=== PATIENT | female | born 1975 | race Hispanic/Latino ===

== ENCOUNTER → 2017-12-31 | Day surgery (SDC) | payer MEDICARE ==
[~2017-12-31] MED LIST: Gadobenate Dimeglumine 529 MG/1 ML (20ML VIAL) ONE
--- NOTE | 2017-12-31 15:50 | MRI ---
MRI ABDOMEN WITH AND WITHOUT IV CONTRAST : (MRI angiography) HISTORY: A 42-year-old female with Crohn's disease diagnosed in 2004 and has had 15 surgeries, the most recent one in 2016. The patient recently had blood stool. Crohn's disease of small bowel with complication . FINDINGS: Correlation is made with the CT abdomen and pelvis of 03/25/17. There is a 2.4 cm mass in the right lobe of the liver which demonstrates high T2 signal and periphera l nodular enhancement with centripetal filling on postcontrast images consistent with liver hemangiom a. The spleen, pancreas, adrenal glands, and kidneys are normal. No free fluid is seen. There is t hickening of the wall of the distal ileal loop in the region of previous surgery. A focal area of ph legmonous change is seen adjacent to the distal ileal loop with abnormal postcontrast enhancement. T here is also a sinus tract in this region. No air fluid level is seen to suggest abscess formation. There are a few enlarged lymph nodes in the right ileocecal chain. The small bowel loop adjacent to the phlegmonous mass is mildly dilated. There is also mild dilatation of the right ureter likely du e to the adjacent enhancing phlegmonous mass. The bone marrow signal is normal. IMPRESSION: 1. Wall thickness and phlegmonous change in and around the distal ileum with sinus tract and no evid ence abscess formation. Adjacent mild small bowel obstruction is noted. 2. Liver hemangioma. POS: [facility]
== END ==
LOC: MRI 12:52 → EDSTATUS 13:00
PROVIDERS: ATTEND Internal Medicine Gastroenterology
DX: K50.019 Crohn's disease of small intestine with unspecified complications (principal); D18.09 Hemangioma of other sites
CPT/HCPCS: 74183; J1610; A9579

== ENCOUNTER 2018-01-05 11:57 | Inpatient (IN) | payer MEDICARE ==
[2018-01-05 12:32] LABS: #Eosinphils 0.2 thou/uL (0.0-0.7); #Lymphocytes 2.5 thou/uL (1.20-3.40); #Monocytes 0.6 thou/uL (0.11-0.59); #Neutrophils 4.3 thou/uL (1.40-6.50); %Basophils 0.3 % (0.0-1.0); %Eosinophils 3.1 % (0.0-10.0); %Lymphocytes 32.4 % (21.0-51.0); %Monocytes 7.8 % (0.0-10.0); %Neutrophils 56.4 % (42.0-75.0); Hemoglobin 13.4 g/dL (12.0-16.0); Mean Corpuscular HGB CONC 34.4 g/dL (32.0-36.0); Mean Corpuscular Hemoglobin 28.8 pg (27.0-31.0); Mean Corpuscular Volume 83.8 fl (81.0-99.0); Mean Platelet Volume 7.9 fL (7.4-10.4); Platelet Count 375 thou/uL (130-400); RBC Distribution Width 11.4 % (11.5-14.5); Red Blood Cell (RBC) Count 4.67 mill/uL (4.20-5.40); White Blood Cell (WBC) Count 7.6 thou/uL (4.8-10.8)
[2018-01-05] MEDS ORDERED: Ondansetron HCl/PF 4 MG/2 ML Vial ONE (12:50)
[2018-01-05 12:58] LABS: ALT (SGPT) 31 U/L (8-55); AST (SGOT) 39 U/L (5-34); Albumin 3.6 g/dL (3.5-5.0); Alkaline Phosphatase 208 U/L (40-150); Anion Gap 13 mmol/L (10-20); BUN (Urea Nitrogen) 5 mg/dL (7.0-18.7); Bilirubin, Total 0.4 mg/dL (0.2-1.2); Calc. Creatinine Clearance 0 mL/min (70-130); Calcium 9.5 mg/dL (7.8-10.44); Carbon Dioxide 29 mmol/L (22-29); Chloride 99 mmol/L (98-107); Estimated GFR-MDRD 86; Globulin 3.9 g/dL (2.4-3.5); Glucose 95 mg/dL (70-105); Protein, Total 7.5 g/dL (6.0-8.3); Sodium 138 mmol/L (136-145)
--- NOTE | 2018-01-05 15:30 | RAD ---
CHEST ONE VIEW ABDOMEN TWO VIEWS: History: Abdominal pain. Comparison: 01-27-14 FINDINGS: Cardiac silhouette and pulmonary vasculature are unremarkable. Mediastinum is midline. There is no co nfluent air space consolidation or evidence of free subdiaphragmatic gas. Gas and stool are apparent within the colon. Nondilated gas filled loops of small bowel are present t hroughout the abdomen. Non-differential airfluid levels are apparent on the upright view. Extensive p ost-operative changes of the abdomen are apparent. IMPRESSION: Nonspecific bowel gas pattern. Post-operative changes are noted. Findings are not suggestive of signi ficant obstruction. POS: [facility]
[2018-01-05] MEDS ORDERED: methylPREDNISolone Sod Succ/PF 125 MG/2 ML VIAL ONE (15:33)
--- NOTE | 2018-01-05 15:40 | CON ---
DATE OF CONSULTATION: 01/05/2018 CHIEF COMPLAINT: Abdominal pain, Crohn's. HISTORY OF PRESENT ILLNESS: This is a 42-year-old female who has had multiple operations for Crohn's disease and extensive adhesiolysis for scar tissue obstructions in the past by Dr. Deutsch, recent wo rsening of Crohn's symptoms, she had MRI enterography recently which revealed phlegmonous changes krystyna r the previous ileocolonic anastomosis. The patient had some nausea, vomiting, and abdominal pain is described as crampy, but not severe. No fevers or chills. She was told by Dr. Morgan to come in our [facility] emergency room if her symptoms worsen this weekend. She certainly felt worse today, has not been a ble to keep anything down, not having any bowel movements today. Symptoms are controlled now in the emergency room after starting IV fluids, her pulse is normal. She is being admitted to the [facility] and they are going to have GI see her as well. She normally sees Dr. Morgan. PAST MEDICAL HISTORY: Includes Crohn's disease. PAST SURGICAL HISTORY: Includes appendectomy, hysterectomy, exploratory laparotomy, lysis of adhesio ns, small bowel resection, right colectomy. ALLERGIES: PENICILLIN, REGLAN, PHENERGAN. SOCIAL HISTORY: Tobacco none currently. Alcohol none. MEDICATIONS: See list. REVIEW OF SYSTEMS: Ten system review of systems otherwise negative unless described above. PHYSICAL EXAMINATION: VITAL SIGNS: Blood pressure 123/85. Her pulse is 76. She is afebrile. HEENT: Sclerae are anicteric. Oropharynx clear. NECK: No lymphadenopathy. CHEST: Clear. HEART: Regular rate and rhythm. ABDOMEN: Soft. She is mildly tender in the lower abdomen. There is no guarding or rebound. Midlin e incisions well-healed without hernia. LABORATORY AND X-RAY FINDINGS: White blood cell count is 7, hemoglobin 13, platelet count is 375. S odium 138, potassium 3.0, creatinine 0.74. Alkaline phosphatase is elevated at 208, AST is elevated at 39. On 12/31/2017 there was a MRI which reveals wall thickness and phlegmonous change in the dist al ileum without abscess. ASSESSMENT: Ongoing Crohn's disease with intractable nausea, vomiting. Plain films of abdomen here showed no obvious obstruction. White blood cell count normal. Pulse normal. PLAN: Admit to the hospital for IV fluid resuscitation. She has phlegmon on MRI, but no evidence of significant infection with normal pulse and a normal white blood cell count. At this point given he r previous surgery, I would recommend all measures to avoid surgery even if that includes longer term TPN.
[2018-01-05] MEDS ORDERED: Acetaminophen 650 MG Suppository PR PRN (15:47)
[2018-01-05] MEDS ORDERED: Acetaminophen 325 MG TAB PO PRN (15:47)
--- NOTE | 2018-01-05 16:22 | HP ---
PRIMARY CARE PHYSICIAN: None, city call. CHIEF COMPLAINT: Nausea and vomiting. HISTORY OF PRESENT ILLNESS: Ms. Lewis is a pleasant 42-year-old lady who was seen at [facility] on 01/05/2018. She has a history of Crohn's disease with multiple surgeries in the past. Since 10/2017, she has had pain in the epigastrium initially and subsequently in the mid abdomen. The pain is on and off, made worse with eating or drinking. She had MRI of the abdomen on 12/31/2017, which showed wall thicknes s and phlegmonous changes seen and around the distal ileum with sinus tract, and no evidence of absce ss formation, without adjacent mild small-bowel obstruction. She was advised by her gastroenterologi st to go to the emergency room if she develops nausea or vomiting. She started having nausea earlier today. She vomited twice. She also reports that the abdominal bria n is slightly worse. She describes it as a sensation of bloating, nonradiating, across mid abdomen, worse with eating. No known relieving factors, not accompanied by fevers or chills. She is unable t o rate the intensity of the pain. She also reports having loose stools. REVIEW OF SYSTEMS: The following complete review of systems was negative, unless otherwise mentioned in the HPI or below: Constitutional: Weight loss or gain, ability to conduct usual activities. Skin: Rash, itching. Eyes: Double vision, pain. ENT/Mouth: Nose bleeding, neck stiffness, pain, tenderness. Cardiovascular: Palpitations, dyspnea on exertion, orthopnea. Respiratory: Shortness of breath, wheezing, cough, hemoptysis, fever or night sweats. Gastrointestinal: Poor appetite, abdominal pain, heartburn, nausea, vomiting, constipation, or diarrhea. Genitourinary: Urgency, frequency, dysuria, nocturia. Musculoskeletal: Pain, swelling. Neurologic/Psychiatric: Anxiety, depression. Allergy/Immunologic: Skin rash, bleeding tendency. PAST MEDICAL HISTORY: Significant for Crohn's disease. PAST SURGICAL HISTORY: Significant for appendectomy, hysterectomy, exploratory laparotomy, adhesioly sis, small bowel resection and right colectomy. ALLERGIES: PENICILLIN, REGLAN, and PHENERGAN. SOCIAL HISTORY: She smokes 1 pack of cigarettes a day. She denies any alcohol use or recreational d rug use. FAMILY HISTORY: No family history of Crohn's disease. CURRENT MEDICATIONS: These include Entyvio 300 mg intravenously every 8 weeks, potassium chloride 40 mEq daily, pantoprazole 40 mg daily. PHYSICAL EXAMINATION: GENERAL: Ms. Lewis is awake and alert, not in acute distress. VITAL SIGNS: Blood pressure is 102/61, pulse is 75. She is breathing at rate of 16 and saturating 9 7% on room air. She is afebrile. EYES: No scleral icterus. No conjunctival pallor. ENT: Moist mucosal membranes, no oropharyngeal erythema or exudates. NECK: Supple, nontender, normal range of movement, trachea is midline. RESPIRATORY: Accessory muscles of breathing are not active. Chest wall movements are symmetric bila terally. LUNGS: Clear to auscultation without wheeze, rhonchi or crepitations. ABDOMEN: Soft, mild diffuse tenderness, no guarding or rigidity, bowel sounds are heard. Multiple s cars over the abdomen. NEUROLOGIC: Cranial nerves II-XII are intact. Deep tendon reflexes are 2+. MUSCULOSKELETAL: Power is 5/5 in all 4 extremities. Normal range of movement at all major extremity joints. SKIN: No rashes or subcutaneous nodules. LYMPHATIC: No cervical lymphadenopathy. PSYCHIATRIC: Normal mood, normal affect, patient is oriented to person, place, and time. LABORATORY DATA: Ms. Lewis's labs and investigations were reviewed. She had an acute abdomen serie s x-rays, which showed nonspecific bowel gas pattern with postoperative changes, not suggestive of si gnificant obstruction. She has an unremarkable CBC, normal sodium, decreased potassium of 3.0, eleva natalya AST of 39, normal ALT, elevated alkaline phosphatase of 208 and normal albumin. ASSESSMENT AND PLAN: Ms. Lewis is a pleasant 42-year-old lady who was seen at [facility] on 01/05/2018. Her problem list includes: 1. Abdominal pain: Bowel obstruction is suspected, based on her previous MRI. Her case has been di scussed by the emergency room physician with the surgeon on-call as well as turf manager on-riley l. She has been advised to start the patient on steroids. I will admit the patient to the hospital and continue the patient on steroids. Gastroenterology Service has been consulted. 2. Hypokalemia: Replace potassium. 3. Tobacco abuse: The patient has been counseled regarding tobacco cessation. Start nicotine repla cement therapy. The patient will be kept n.p.o. today, will be provided intravenous fluids and analgesics. Many thanks for allowing me to participate in your patient's care. Please feel free to contact me wi th any questions or concerns. LEVEL OF RISK: Moderate. LEVEL OF COMPLEXITY: Moderate.
[2018-01-05] MEDS ORDERED: Potassium Chloride 40 MEQ in Sodium Chloride 0.9% 500 ML IVPB SCH (17:00)
[2018-01-05] MEDS: Nicotine 21 MG PATCH TD SCH (17:26)
[2018-01-05] MEDS: Ondansetron HCl/PF 4 MG/2 ML Vial IVP PRN (18:20)
[2018-01-05 20:07] VITALS: BMI 24.4
--- NOTE | 2018-01-05 20:09 | CON ---
DATE OF CONSULTATION: 01/05/2018 HISTORY OF PRESENT ILLNESS: The patient is a 42-year-old female, well known to Dr. Eddie sharif ith a long history of Crohn's disease. She was last seen by Dr. Morgan on 01/03/2018 and was complai harinder of pain in the upper abdomen, nausea, vomiting, no fever or chills. She is tolerating a liquid diet at that time. Her stools have been liquid without recent change. Dr. Morgan started levofloxac in and metronidazole. She was told that if she had any nausea, vomiting, come to the hospital and th at is what she did. PAST MEDICAL HISTORY: Includes Crohn's disease, iron deficiency anemia, chronic hypokalemia, vitamin D deficiency. PAST MEDICAL HISTORY: Includes multiple resections for Crohn's disease, appendectomy, cholecystectom y, hysterectomy. ALLERGIES: Include CONTRAST DYE, PHENERGAN, and REGLAN. SOCIAL HISTORY: She smokes. Does not drink alcohol. FAMILY HISTORY: Negative for inflammatory bowel disease, GI, or liver disease. REVIEW OF SYSTEMS: Constitutional: Positive for weight loss, 70 pounds over the last 12 months. No fever or chills. Eyes: No blurred vision or double vision. ENT: No sore throat or earaches. Car diovascular: No chest pain or palpitations. Pulmonary: No shortness of breath, cough, or wheezing. Skin: No rashes. Neurologic: No numbness or seizure activity. PHYSICAL EXAMINATION: GENERAL: Shows an overweight female, in no acute distress. VITAL SIGNS: Stable. She is afebrile. HEENT: Unremarkable. NECK: Supple. CHEST: Clear. CARDIOVASCULAR: Regular rate and rhythm. ABDOMEN: Soft. Diffusely tender without rebound or guarding. Bowel sounds are present and normoact angel. RECTAL: Deferred. EXTREMITIES: Normal. NEUROLOGIC: Nonfocal. LABORATORY: Shows a white blood cell count of 7.6, hemoglobin 13.4, hematocrit 39.1. Chemistries si gnificant for potassium 3.0, BUN 5, AST 39, alkaline phosphatase 208. Recent MRI of the small bowel from 12/31/2017 showed wall thickening of phlegmonous change around the distal ileum with sinus tract , and no evidence of abscess formation. Adjacent small-bowel obstruction is noted. Liver hemangioma is noted. ASSESSMENT: 1. Crohn's exacerbation. 2. Multiple resections for Crohn's disease with the probable component of short gut. 3. Chronic hypokalemia. RECOMMENDATIONS: 1. IV steroids. 2. IV antibiotics. 3. Dr. Morgan to return tomorrow.
[2018-01-05] MEDS: Rifaximin 550 MG TAB PO SCH ×2 (20:47→20:58)
[2018-01-05] MEDS: NS 0.9% w/ 40 MEQ KCL 1,000 ML IV SCH (22:32)
[2018-01-06] MEDS: Ondansetron HCl/PF 4 MG/2 ML Vial IVP PRN ×2 (01:16→08:41)
[2018-01-06] MEDS: NS 0.9% w/ 40 MEQ KCL 1,000 ML IV SCH ×3 (05:45→20:27)
[2018-01-06 06:00] LABS: #Lymphocytes 1.7 thou/uL (1.20-3.40); #Monocytes 0.1 thou/uL (0.11-0.59); #Neutrophils 5.9 thou/uL (1.40-6.50); %Eosinophils 0.3 % (0.0-10.0); %Lymphocytes 21.8 % (21.0-51.0); %Monocytes 0.9 % (0.0-10.0); %Neutrophils 76.9 % (42.0-75.0); Hemoglobin 12.2 g/dL (12.0-16.0); Mean Corpuscular HGB CONC 32.3 g/dL (32.0-36.0); Mean Corpuscular Hemoglobin 27.5 pg (27.0-31.0); Mean Corpuscular Volume 85.2 fl (81.0-99.0); Platelet Count 340 thou/uL (130-400); RBC Distribution Width 11.5 % (11.5-14.5); Red Blood Cell (RBC) Count 4.42 mill/uL (4.20-5.40); White Blood Cell (WBC) Count 7.7 thou/uL (4.8-10.8)
[2018-01-06 06:47] LABS: Anion Gap 14 mmol/L (10-20); BUN (Urea Nitrogen) 9 mg/dL (7.0-18.7); Calc. Creatinine Clearance 104 mL/min (70-130); Calcium 8.9 mg/dL (7.8-10.44); Carbon Dioxide 25 mmol/L (22-29); Chloride 107 mmol/L (98-107); Estimated GFR-MDRD Greater than 90; Glucose 115 mg/dL (70-105); Potassium 4.6 mmol/L (3.5-5.1); Sodium 141 mmol/L (136-145)
[2018-01-06] MEDS: Pantoprazole 40 MG VIAL IVP SCH (08:44)
[2018-01-06] MEDS: Rifaximin 550 MG TAB PO SCH ×2 (08:46→20:26)
[2018-01-06] MEDS ORDERED: FLU VACC QS2017-18 36 mo. & older 0.5 ML SYRINGE IM ONE (09:00)
--- NOTE | 2018-01-06 13:46 | PRG ---
DATE OF SERVICE: 01/06/2018 Ms. Lewis feels much better today. She has not eaten or drank overnight. She actually has an appet ite and wants to eat. She is receiving a nicotine patch and asked if when she goes home she can have that as well. She wants to try to stop smoking. PRESENT MEDICATIONS: Tylenol, Solu-Medrol 40 IV q.8h., nicotine patch, Zofran, Protonix, Rifaximin. PHYSICAL EXAMINATION: VITAL SIGNS: Temperature is 97, pulse 74, blood pressure 113/73. ABDOMEN: Soft, nontender. There is no rebound. There is no guarding. EXTREMITIES: No clubbing, cyanosis or edema. LABORATORY STUDIES: White count 7.7, hemoglobin 12.2, platelet count 340, alkaline phosphatase 208. AST and ALT were normal on admission. ASSESSMENT: Crohn's with some phlegmon in the right lower quadrant and possible fistulous tract ente roenteral. This was recently done at an outside CT. She has had several surgeries in the past for C solen's. Most recently, she had been switched to Entyvio. We had seen her in the office on Saturday an d she was doing pretty well. She was started on Levaquin and Flagyl at that time, in fact, this may have played a role in her worsened GI symptoms as presently she feels much better. PLAN: Continue present medicines, advance diet. Hopefully, she can go home tomorrow.
--- NOTE | 2018-01-06 14:44 | PDOC.PN ---
- Subjective Encounter Start Date: 01/06/18 Encounter Start Time: 10:20 Pt seen for followup re; Crohn's flare. Denies chest pain or shortness of breath. Had two bowel movements today. - Objective Vital Signs & Weight: Vital Signs (12 hours) Temp Pulse Resp BP Pulse Ox 01/06/18 08:00 97.7 F 74 16 94 L 01/06/18 07:11 97.7 F 74 16 113/73 94 L 01/06/18 04:00 97.7 F 71 18 101/70 92 L Weight Admit Weight 138 lb Weight 138 lb I&O: 01/05/18 01/06/18 01/07/18 06:59 06:59 06:59 Intake Total 1100 Balance 1100 Result Diagrams: 01/06/18 04:43 01/06/18 04:43 Phys Exam - Physical Examination Constitutional: NAD HEENT: moist MMs Neck: supple Respiratory: clear to auscultation bilateral Cardiovascular: RRR Gastrointestinal: soft, non-tender, positive bowel sounds Neurological: moves all 4 limbs Psychiatric: normal affect, A&O x 3 Dx/Plan (1) Exacerbation of Crohn's disease Code(s): K50.90 - CROHN'S DISEASE, UNSPECIFIED, WITHOUT COMPLICATIONS Status: Acute (2) Tobacco abuse Code(s): Z72.0 - TOBACCO USE Status: Chronic - Plan * . Pt clinically improving. Appreciate GI service input. Will continue steroids for now. Continue nicotine replacement therapy. Review of Systems - Review of Systems Constitutional: negative: fever, chills, sweats, weakness, malaise Cardiovascular: negative: chest pain, palpitations, orthopnea, paroxysmal nocturnal dyspnea, edema, light headedness Gastrointestinal: negative: Nausea, Vomiting, Abdominal Pain, Diarrhea, Constipation, Melena, Hematochezia - Medications/Allergies Allergies/Adverse Reactions: Allergies Allergy/AdvReac Type Severity Reaction Status Date / Time metoclopramide HCl Allergy Intermediate HIVES, Verified 03/11/17 03:18 [From Reglan] THROAT SWELLING Penicillins Allergy Intermediate RASH, HIVES Verified 03/11/17 03:18 promethazine Allergy Intermediate HIVES, Verified 03/11/17 03:18 THROAT SWELLING benzonatate Allergy Hives Verified 03/11/17 03:18 [From Corry Russ] prochlorperazine Allergy Verified 03/11/17 03:18 FERROUS FUMARATE Allergy Intermediate Hives Uncoded 03/11/17 03:18 Medications: Current Medications Acetaminophen (Tylenol) 650 mg PO Q4H PRN PRN Reason: Headache/Fever or Pain Acetaminophen (Tylenol) 650 mg MS Q4H PRN PRN Reason: Headache/Fever or Pain Potassium Chloride/Sodium Chloride (Ns 0.9% W/ 40 Meq Kcl) 1,000 mls @ 100 mls/ hr IV .Q10H [facility] Last Admin: 01/06/18 08:41 Dose: 1,000 mls Methylprednisolone Sodium Succinate (Solu-Medrol) 40 mg IVP Q8HR [facility] Last Admin: 01/06/18 13:56 Dose: 40 mg Morphine Sulfate (Morphine) 2 mg SLOW IVP Q4H PRN PRN Reason: Pain Last Admin: 01/06/18 13:55 Dose: 2 mg Nicotine (Nicoderm Patch) 21 mg TD Q24HR [facility] Last Admin: 01/05/18 17:26 Dose: 21 mg Ondansetron HCl (Zofran) 4 mg IVP Q6H PRN PRN Reason: Nausea/Vomiting Last Admin: 01/06/18 08:41 Dose: 4 mg Pantoprazole Sodium (Protonix) 40 mg IVP DAILY [facility] Last Admin: 01/06/18 08:44 Dose: 40 mg Rifaximin (Xifaxan) 550 mg PO BID [facility] Last Admin: 01/06/18 08:46 Dose: 550 mg
[2018-01-06] MEDS: Nicotine 21 MG PATCH TD SCH (16:10)
[2018-01-06 21:31] VITALS: TEMP 97.9
[2018-01-07] MEDS: NS 0.9% w/ 40 MEQ KCL 1,000 ML IV SCH (04:50)
[2018-01-07 05:33] LABS: #Lymphocytes 1.9 thou/uL (1.20-3.40); #Monocytes 0.4 thou/uL (0.11-0.59); %Basophils 0.1 % (0.0-1.0); %Eosinophils 0.2 % (0.0-10.0); %Lymphocytes 12.3 % (21.0-51.0); %Monocytes 2.5 % (0.0-10.0); Hemoglobin 11.4 g/dL (12.0-16.0); Mean Corpuscular HGB CONC 32.2 g/dL (32.0-36.0); Mean Corpuscular Hemoglobin 27.6 pg (27.0-31.0); Mean Corpuscular Volume 85.6 fl (81.0-99.0); Platelet Count 345 thou/uL (130-400); RBC Distribution Width 11.4 % (11.5-14.5); Red Blood Cell (RBC) Count 4.12 mill/uL (4.20-5.40); White Blood Cell (WBC) Count 15.3 thou/uL (4.8-10.8)
[2018-01-07 06:19] LABS: Anion Gap 7 mmol/L (10-20); BUN (Urea Nitrogen) 10 mg/dL (7.0-18.7); Calc. Creatinine Clearance 104 mL/min (70-130); Calcium 8.7 mg/dL (7.8-10.44); Carbon Dioxide 26 mmol/L (22-29); Chloride 108 mmol/L (98-107); Estimated GFR-MDRD Greater than 90; Glucose 129 mg/dL (70-105); Potassium 5.1 mmol/L (3.5-5.1); Sodium 136 mmol/L (136-145)
[2018-01-07] MEDS: Pantoprazole 40 MG VIAL IVP SCH (08:39)
[2018-01-07] MEDS: Rifaximin 550 MG TAB PO SCH (08:39)
[2018-01-07 08:40] VITALS: BP 132/84
--- NOTE | 2018-01-07 13:15 | DIS ---
PRIMARY CARE PROVIDER: None. DATE OF ADMISSION: 01/05/2018 DATE OF DISCHARGE: 01/07/2018 DISCHARGE DIAGNOSES: 1. Exacerbation of Crohn's disease. 2. Suspected small-bowel obstruction, resolved. CONSULTATIONS DURING THIS HOSPITALIZATION: General surgery, Dr. Londono and Gastroenterology, Dr. Adrienne Delacruz. CONDITION OF PATIENT AT THE TIME OF DISCHARGE: Stable. I assessed Ms. Lewis on the day of discharg e. She denies any chest pain or shortness of breath. Vital signs are stable. S1 and S2 are heard, regular. Lungs are clear to auscultation bilaterally. Abdomen is soft, nontender, bowel sounds are heard. DISCHARGE MEDICATIONS: Her potassium was stopped. She is being discharged home on Protonix 40 mg da clarke, rifaximin 550 mg 3 times a day for 14 days, and Entyvio as directed by her fitter mechanic. HOSPITAL COURSE: Ms. Lewis is a pleasant 42-year-old lady who was admitted to [facility] on 01/05/2018 for Crohn's exacerbation as well as suspected small-bowel obstruction. Kenji kelley was seen by General Surgery and Gastroenterology services. She was started on steroids. It was fe lt that her symptoms were likely secondary to her being started on Levaquin and Flagyl. She received intravenous steroids as well as rifaximin. She improved clinically. She is tolerating diet well on the day of discharge. She is being discharged home in a stable condition. Her potassiu m on the day of discharge was 5.1, from 3.0 at the time of admission. She is advised to stop her pot assium supplements and have her potassium levels rechecked in approximately a week's time. On the day of discharge, she has sodium 136, potassium 5.1, creatinine 0.69, white count 15,300, hemo globin 11.4, and platelet count 345,000. Many thanks for allowing me to participate in your patient's care. Please feel free to contact me wi th any questions or concerns. DISCHARGE DESTINATION: Home. TOTAL AMOUNT OF TIME SPENT COORDINATING THIS DISCHARGE: 33 minutes.
[2018-01-07] MEDS: Nicotine 21 MG PATCH TD SCH (14:05)
== END 2018-01-07 15:55 | disposition home or self-care (01) | DRG 386 ==
LOC: ERS 11:57 → T4-B 16:44
PROVIDERS: ADMIT Internal Medicine; ATTEND Internal Medicine
DX: K50.90 Crohn's disease, unspecified, without complications (principal); K56.609 Unspecified intestinal obstruction, unspecified as to partial versus complete obstruction; F17.210 Nicotine dependence, cigarettes, uncomplicated; E87.6 Hypokalemia; I10 Essential (primary) hypertension
CPT/HCPCS: 36415; 74022; 80048; 80053; 85025; 90471; 90682; 96361; 96374; 96375; 99406; C9113; G0008; J2270; J2405; J2920; J2930; J3480; J7050; Q2036

== ENCOUNTER 2018-04-03 10:44 | Outpatient (CLI) | payer MEDICARE ==
--- NOTE | 2018-04-03 13:34 | MRI ---
LUMBAR SPINE MRI WITHOUT CONTRAST: HISTORY: Low back pain radiating down the right side for a few months. COMPARISON: None. TECHNIQUE: A lumbar spine MRI is performed without intravenous Gadolinium administration. Multisequential, mult iplanar imaging is performed. FINDINGS: There is appropriate T1 marrow signal intensity of the lumbar vertebrae. Lumbar spine vertebral body height is maintained. There is no fracture. No significant STIR hyperintensity to suggest vertebra l body edema or ligamentous injury. There is appropriate signal intensity of the visualized solid organs. There is abnormal T2 hyperinte nsity in the right psoas muscles, as well as the right iliacus muscle. Findings may represent edema due to an infectious/inflammatory process. There appears to be bowel wall thickening, abnormal air a ttenuation, and edematous changes involving the right lower quadrant bowel and mesentery. Evaluation is limited. Dedicated abdomen and pelvis CT with oral and IV contrast is recommended. The conus medullaris terminates at the superior aspect of L1. T12-L1: Adequate disk hydration. No significant central canal stenosis or foraminal narrowing. L1-L2: Adequate disk hydration. No significant central canal stenosis or foraminal narrowing. L2-L3: Adequate disk hydration. No significant central canal stenosis or foraminal narrowing. L3-L4: Adequate disk hydration. There is a generalized disk bulge with mild central canal stenosis. The neural foramina are patent. L4-L5: Desiccation with mild loss of disk space height. There is generalized disk bulge with a cent ral/right paracentral T2 hyperintensity, compatible with an annular fissure. There is associated dis k protrusion. No significant stenosis of the thecal sac. Mild bilateral foraminal narrowing. L5-S1: Desiccation with mild loss of disk space height. No significant posterior disk abnormality. No significant central canal stenosis. Mild right and moderate left foraminal narrowing. IMPRESSION: 1. Degenerative changes of the lumbar spine, as above. There is no high grade central canal stenosi s. There is an annular fissure at L4-L5. 2. Inflammatory changes in the right lower quadrant and right paraspinal region, as described above. Better interrogation with CT abdomen and pelvis, utilizing oral and intravenous contrast, is recomm ended. The results of the study were discussed with SATURNINO Faulkner on 04/03/2018 at 11:56 a.m. CODE CR POS: [facility]
== END 2018-04-03 10:45 | disposition home or self-care (01) ==
LOC: TBSIIMAG 10:44
PROVIDERS: ATTEND Neurological Surgery
DX: M47.26 Other spondylosis with radiculopathy, lumbar region (principal); Q05.7 Lumbar spina bifida without hydrocephalus
CPT/HCPCS: 72148

== ENCOUNTER 2018-04-03 12:38 | Inpatient (IN) | payer MEDICARE ==
[~2018-04-03 12:38] MED LIST changes: -Gadobenate Dimeglumine 529 MG/1 ML (20ML VIAL) ONE; +ISOVUE-370 76%-LOCM 1 ML ONE; +Iopamidol 370 76% 50 ML VIAL FS ONE
[2018-04-03 13:06] LABS: #Basophils 0.1 thou/uL (0.0-0.2); #Eosinphils 0.1 thou/uL (0.0-0.7); #Lymphocytes 2.5 thou/uL (1.20-3.40); #Monocytes 1.1 thou/uL (0.11-0.59); #Neutrophils 10.1 thou/uL (1.40-6.50); %Basophils 0.4 % (0.0-1.0); %Eosinophils 0.9 % (0.0-10.0); %Monocytes 7.6 % (0.0-10.0); %Neutrophils 73.1 % (42.0-75.0); Hemoglobin 11.5 g/dL (12.0-16.0); Mean Corpuscular HGB CONC 33.3 g/dL (32.0-36.0); Mean Corpuscular Hemoglobin 26.4 pg (27.0-31.0); Mean Corpuscular Volume 79.2 fl (81.0-99.0); Mean Platelet Volume 6.7 fL (7.4-10.4); Platelet Count 656 thou/uL (130-400); RBC Distribution Width 13.6 % (11.5-14.5); Red Blood Cell (RBC) Count 4.37 mill/uL (4.20-5.40); White Blood Cell (WBC) Count 13.8 thou/uL (4.8-10.8)
[2018-04-03 13:31] LABS: ALT (SGPT) 92 U/L (8-55); AST (SGOT) 59 U/L (5-34); Albumin 2.7 g/dL (3.5-5.0); Alkaline Phosphatase 251 U/L (40-150); Anion Gap 17 mmol/L (10-20); BUN (Urea Nitrogen) 11 mg/dL (7.0-18.7); Bilirubin, Total 0.7 mg/dL (0.2-1.2); Calc. Creatinine Clearance 0 mL/min (70-130); Calcium 8.6 mg/dL (7.8-10.44); Carbon Dioxide 27 mmol/L (22-29); Chloride 90 mmol/L (98-107); Estimated GFR-MDRD 67; Globulin 3.7 g/dL (2.4-3.5); Glucose 99 mg/dL (70-105); Lipase 12 U/L (8-78); Protein, Total 6.4 g/dL (6.0-8.3); Sodium 131 mmol/L (136-145)
[2018-04-03 13:34] LABS: CKMB 0.2 ng/mL (0-6.6); Troponin I Less than 0.010 ng/mL (< 0.028)
[2018-04-03 13:41] LABS: Potassium 2.6 mmol/L (3.5-5.1)
[2018-04-03] MEDS ORDERED: Fentanyl 100 MCG/2 ML VIAL ONE (13:55)
[2018-04-03] MEDS ORDERED: Ondansetron ODT 4 MG TAB ONE (13:55)
[2018-04-03 14:25] LABS: Bilirubin Small (Negative); Blood, Urine Negative (Negative); Clarity CLEAR (Clear); Glucose, Urine (Dipstick) Negative (Negative); Leukocyte Small (Negative); Nitrite Negative (Negative); Protein, Urine (Dipstick) Trace mg/dL (Neg-Trace); Specific Gravity, Urine 1.027 (1.002-1.036); Urobilinogen 0.2 mg/dL (0.2-1.0); pH, Urine 5.5 (5.0-9.0)
[2018-04-03 14:31] LABS: Pathc Cast-AUWi Flag 6.39 (0-2.49)
[2018-04-03 14:40] LABS: Bacteria/HPF Rare-Few HPF (None Seen); Other Casts/LPF None Seen LPF (0-3 Hyaline); RBC/HPF 0-3 HPF (0-3); Renal Epithelial None Seen HPF (0-3); Transitional Epithelial NONE SEEN HPF (0-3)
[2018-04-03] MEDS ORDERED: Morphine 4 MG/ML VIAL ONE (15:01)
--- NOTE | 2018-04-03 15:50 | CT ---
CT OF THE ABDOMEN AND PELVIS WITH CONTRAST: 04/03/18 COMPARISON: 03/10/17 and MRI lumbar spine 04/03/18. HISTORY: History of Crohn's disease with intestinal perforation seen on MRI. TECHNIQUE: Multiple contiguous axial images were obtained in a CT of the abdomen and pelvis with contrast. PO co ntrast was administered. Coronal reformats were performed. FINDINGS: There are nonspecific hypodensities in the liver measuring up to 2.0 cm in size. The patient is statu s post cholecystectomy. The kidney's, adrenal glands, spleen, and pancreas are unremarkable. Extensive inflammatory changes are seen in the right lower quadrant of the abdomen surrounding the ce cum and distal small bowel. Enteric contrast is seen within the small bowel and colon. There is also extension of the enteric contrast posteriorly towards the right psoas muscle and a perforation of the small bowel in this location is present. The small bowel is normal in caliber. No free fluid is seen in the abdomen or pelvis. No abdominal or pelvic lymphadenopathy are seen. The visualized inferior thorax and abdominal wall so ft tissues are unremarkable. IMPRESSION: 1. There is a perforation of the terminal ileum with extension of enteric contrast posteriorly t owards the right psoas muscle. This is likely secondary to patient's history of Crohn's disease. 2. Stable nonspecific hypodensities in the liver. POS: [facility]
[2018-04-03] MEDS ORDERED: Piperacillin/Tazobactam 3.375 GM VIAL ONE (16:33)
[2018-04-03] MEDS ORDERED: Sodium Chloride 0.9% 1,000 ML IV SCH (16:48)
[2018-04-03] MEDS ORDERED: diphenhydrAMINE 50 MG/ML VIAL IVP PRN (17:03)
--- NOTE | 2018-04-03 17:03 | PDOC.EVN ---
Event Note - Event Note Event Note: received zosyn in ED- urticaria- zosyn stopped , benedryl ordered
--- NOTE | 2018-04-03 17:31 | HP ---
PRIMARY CARE PROVIDER: Dank Schmitz M.D. He is retired. She is at this point at [facility]. Referred to [facility] by [facility] after being sent to the ER by the Neurosurgery people. HISTORY OF PRESENT ILLNESS: The patient had an MRI which suggested bowel perforation. Her history i s that she has had back pain in her right low back with radiation into the groin for about a month. It hurts to raise her leg, most of the time she is not nauseated, but when she tries to eat, she gags . She states she has lost considerable weight up to possibly 70 pounds in the past 8 months. She stroud s noted blood clots in her stool this week. She has a history of Crohn's disease since 2004 and has had multiple surgeries. She is currently admitted with bowel perforation and peritonitis. PAST MEDICAL HISTORY: Crohn's disease and Sjogren syndrome. CURRENT MEDICATIONS: She is on no specific Crohn's medication at the present time. She has been off for 12 weeks and there is planned immunotherapy. Current medications are potassium 20 mEq a day and Protonix 40 mg a day. PAST SURGICAL HISTORY: She has had 15 small bowel surgeries, appendectomy, cholecystectomy and a hys terectomy in the past. FAMILY HISTORY: There is no Crohn's in the family. Her mother , she had lung cancer and wi th sepsis. Father is alive, has coronary artery disease, hypertension, diabetes mellitus type 2. SOCIAL HISTORY: She is , FULL CODE STATUS. 's next of kin at bedside. She smokes 1 p ack a day, drinks no alcohol. REVIEW OF SYSTEMS: General: She has had some fever or chills, but the fever has not been documented for the past week. She has had some lightheadedness. She has been anorectic for months. Eyes: No double vision, blurred vision, flashing lights. Ears, Nose, and Throat: No ear pain or drainage. No nasal bleeding. She has had some very mild dysphagia and not necessarily with hot or solid foods. Cardiac: No chest pain, orthopnea or paroxysmal nocturnal dyspnea. Respirations: No wheezing or asthma. She has had a mild dry cough at times. Gastrointestinal: See present illness. Genitourina ry: No hematuria, dysuria. Musculoskeletal: No pain or swelling in arms or legs. Neurologic: She states she had 2 TIAs 10 years ago that happened when she had low blood sugar during one of her bout s of Crohn's. Psychiatric: No anxiety, depression. Skin: No bruising, bleeding or rash. Hematolo gy/Lymphatics: No tender or swollen lymph nodes in axilla, inguinal or cervical area. PHYSICAL EXAMINATION: VITAL SIGNS: Her blood pressure has been running in the range of 94-105 systolic and 56-69 diastolic , pulse is 93-105, respirations are 16-18, pain level has been as high as 10, although she is comfort able now. She has received IV morphine injection shortly before I saw her, temperature is 99.7. HEENT: Reveal pupils equal, round, and reactive to light. Extraocular movements are intact. Sclera e white. Tympanic membranes clear. Nose is clear. Oral mucous membranes are dry. Dental hygiene i s good. NECK: Supple, without jugular venous distention, adenopathy or thyromegaly. CHEST: Clear to auscultation and percussion. HEART: Regular rate and rhythm. First and second heart sounds are clear. There are no murmurs or g allops. ABDOMEN: In general, soft, but there was some tenderness in the right lower abdominal area. No defi nite peritoneal findings. Bowel sounds were present. There is no mass, no hepatosplenomegaly. EXTREMITIES: Reveal no cyanosis, clubbing or edema. PULSES: Carotid, radial, femoral, and dorsalis pedis pulses intact. SKIN: Warm and dry without bruises or rash. HEMATOLOGY/LYMPHATICS: No tender or swollen lymph nodes in axilla, inguinal or cervical area. NEUROLOGICAL: Cranial nerves II-XII are intact. Deep tendon reflexes symmetric. Moves all extremit ies. She does have pain on extension of her iliopsoas muscle on the right. LABORATORY AND X-RAY FINDINGS: CT scan reviewed by me reveals perforation of the terminal ileum with extension of enteric contrast posteriorly towards the right psoas muscle, stable hypodensities of th e liver. Potassium was 2.6, sodium 131, chloride 90. Lactic acid 3.1, BUN 11, creatinine 0.9, eleva natalya AST at 59, ALT at 92, alkaline phosphatase at 251. White count elevated at 13.[address] atelet count of 656 and hemoglobin 11.5. ADMITTING DIAGNOSES: 1. Crohn's disease with perforated terminal ileum. 2. Peritonitis. 3. Lactic acidosis. 4. Marked hypokalemia. 5. Hyponatremia. 6. Abnormal liver function tests. The patient's overall condition is consistent with a sepsis syndr ome. PLAN: 1. Blood cultures. 2. IV antibiotics with cefepime and Flagyl. 3. CBC, basic metabolic profile daily. 4. IV fluid will be D5 Ringer's lactate, 40 mEq of potassium chloride at 100 mL an hour. 5. Pain medicine, morphine sulfate 4 mg IV q.4 hours p.r.n. 6. Consult Dr. Morgan.
[2018-04-03 17:55] LABS: Lactic Acid 1.2 mmol/L (0.5-2.2)
[2018-04-03 18:04] VITALS: BMI 24.0
[2018-04-03] MEDS: Potassium Chloride 40 MEQ in Dextrose 5%-Lactated Ringers 1,000 ML IV SCH (19:03)
[2018-04-03] MEDS: metroNIDAZOLE 500 MG in Premix Bag 1 BAG IVPB SCH (19:38)
[2018-04-03] MEDS: Nicotine 14 MG PATCH TD SCH (19:38)
[2018-04-03] MEDS: Morphine 4 MG/ML VIAL SLOW IVP PRN (19:39)
[2018-04-03] MEDS: Acetaminophen 325 MG TAB PO PRN (19:46)
[2018-04-03] MEDS: Ondansetron ODT 4 MG TAB PO PRN (20:26)
[2018-04-03] MEDS ORDERED: Cefepime 2 GM in Sodium Chloride 0.9% 100 ML IVPB SCH (21:00)
[2018-04-03] MEDS ORDERED: Pantoprazole 40 MG VIAL IVP SCH (21:45)
[2018-04-04] MEDS ORDERED: Sodium Chloride 0.9% 1,000 ML IV SCH (02:15)
[2018-04-04] MEDS: metroNIDAZOLE 500 MG in Premix Bag 1 BAG IVPB SCH ×2 (02:36→10:15)
[2018-04-04] MEDS: Potassium Chloride 40 MEQ in Dextrose 5%-Lactated Ringers 1,000 ML IV SCH ×3 (02:37→20:39)
[2018-04-04 05:47] LABS: Anion Gap 11 mmol/L (10-20); BUN (Urea Nitrogen) 6 mg/dL (7.0-18.7); Calc. Creatinine Clearance 109 mL/min (70-130); Calcium 7.4 mg/dL (7.8-10.44); Carbon Dioxide 23 mmol/L (22-29); Chloride 105 mmol/L (98-107); Estimated GFR-MDRD Greater than 90; Glucose 83 mg/dL (70-105); Magnesium 1.3 mg/dL (1.6-2.6); Phosphorus 3.2 mg/dL (2.3-4.7); Sodium 136 mmol/L (136-145)
[2018-04-04 05:50] LABS: Potassium 2.9 mmol/L (3.5-5.1)
[2018-04-04] MEDS: Ondansetron ODT 4 MG TAB PO PRN (06:24)
[2018-04-04 06:53] LABS: Band 3 % (5-11); Eosinophils 1 % (0-10); Hemoglobin 8.9 g/dL (12.0-16.0); Lymphocytes 15 % (21-51); MDiff Complete? YES; Mean Corpuscular HGB CONC 32.2 g/dL (32.0-36.0); Mean Corpuscular Hemoglobin 25.6 pg (27.0-31.0); Mean Corpuscular Volume 79.5 fl (81.0-99.0); Mean Platelet Volume 6.9 fL (7.4-10.4); Microcytosis SLIGHT = 6-15 cells (100X) (0-5/hpf); Monocytes 7 % (0-10); Neutrophil 73 % (42-75); PLT Morphology Comment Appears Increased; Platelet Count 455 thou/uL (130-400); RBC Distribution Width 13.6 % (11.5-14.5); Reactive Lymphocytes 1 % (0-10); White Blood Cell (WBC) Count 9.5 thou/uL (4.8-10.8)
[2018-04-04] MEDS ORDERED: Pantoprazole 40 MG VIAL IVP SCH (09:00)
[2018-04-04] MEDS: Morphine 4 MG/ML VIAL SLOW IVP PRN ×4 (10:16→22:43)
--- NOTE | 2018-04-04 11:15 | PDOC.PN ---
- Subjective Encounter Start Date: 04/04/18 Encounter Start Time: 11:14 Subjective: still has abd pain - Objective Vital Signs & Weight: Vital Signs (12 hours) Temp Pulse Resp BP Pulse Ox 04/04/18 07:06 98.8 F 95 18 95/61 94 L 04/04/18 04:00 98.6 F 92 20 91/54 L 96 04/04/18 03:05 93/54 L 04/04/18 00:00 97.9 F 84 18 94/56 L 96 Weight Weight 136 lb I&O: 04/03/18 04/04/18 04/05/18 06:59 06:59 06:59 Intake Total 2680 240 Balance 2680 240 Result Diagrams: 04/04/18 04:48 04/04/18 04:48 Phys Exam - Physical Examination Neck: no JVD Respiratory: clear to auscultation bilateral Cardiovascular: RRR, no significant murmur Gastrointestinal: soft tender RLQ Musculoskeletal: no edema Dx/Plan (1) Bowel perforation Code(s): K63.1 - PERFORATION OF INTESTINE (NONTRAUMATIC) Status: Acute (2) Peritonitis Code(s): K65.9 - PERITONITIS, UNSPECIFIED Status: Acute (3) Crohn disease Code(s): K50.90 - CROHN'S DISEASE, UNSPECIFIED, WITHOUT COMPLICATIONS Status: Chronic Qualifiers: Gastrointestinal tract location: small intestine Digestive disease complication type: other complication Qualified Code(s): K50.018 - Crohn's disease of small intestine with other complication (4) HTN (hypertension) Code(s): I10 - ESSENTIAL (PRIMARY) HYPERTENSION Status: Chronic - Plan cont antibx, iv morphine -: awaiting surgical opinoin * .
[2018-04-04] MEDS ORDERED: Miconazole 2% Vaginal Cream 45 GM TUBE VAG SCH (14:15)
[2018-04-04] MEDS: Meropenem 1 GM in Sodium Chloride 0.9% 100 ML IVPB SCH ×2 (15:51→20:38)
--- NOTE | 2018-04-04 16:31 | CON ---
DATE OF SERVICE: 04/04/2018 Consult note from Josesito Ovalle M.D. Hospitalist Service at [facility]. CHIEF COMPLAINT: Crohn's. HISTORY OF PRESENT ILLNESS: This is a 42-year-old female with a history of multiple operations for C rohn's disease, mostly at the [facility], last surgery in [address] Deutsch. She has a history of borderli ne short gut syndrome. She has had multiple exacerbations in the past and her symptoms are intractab le to some of the biologics. Most recently admitted earlier this year for some steroids and her symp toms improved. She now notes pretty severe back pain. She was actually being seen by the neurosurge ons and had an MRI performed which showed psoas phlegmon/abscess, admitted to the hospital. CT scan has been performed showing some phlegmon type changes in the right lower quadrant. There is microper foration and likely extension to the psoas muscle. There is no large abscess. There is no free intr aperitoneal air. Her pain is mostly in the right lower quadrant and a right lower back, it is descri bed as 8/10, sharp, it is small amount better today, not associated with nausea, vomiting, diarrhea, change in stools, blood in stool. Her weight is stable. PAST MEDICAL HISTORY: Crohn's disease with multiple exacerbations, Sjogren syndrome. PAST SURGICAL HISTORY: She has had multiple abdominal operations including small bowel resections, l ysis of adhesions, right colectomy. MEDICATIONS: She has been off all Crohn's medications for the last 3 months. They were planning on starting new immunotherapy. SOCIAL HISTORY: Still smokes a pack a day. No alcohol. REVIEW OF SYSTEMS: Ten system review of systems otherwise negative as described above. PHYSICAL EXAMINATION: VITAL SIGNS: Blood pressure is 195/61, pulse 95, respirations 18, temperature 98.8. HEENT: Sclerae are anicteric. Oropharynx clear. NECK: No lymphadenopathy. CHEST: Clear. HEART: Regular rhythm. ABDOMEN: Soft, it is tender in right lower quadrant with localized guarding, but no rebound tenderne ss. Well-healed abdominal incisions without hernia. EXTREMITIES: No ischemia or edema to extremities. LABORATORY: White cell count is 9, hemoglobin 8.9, platelet count is 455, she has 3 bands. Sodium 1 36, potassium 2.9, creatinine 0.65, mag 1.3. CT scan of the abdomen and pelvis performed yesterday r eveals microperforation in the right lower quadrant near the terminal ileum with enteric contrast ext ending through fistula track towards the psoas muscle. 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 PLAN: I would not start by operating on her. I recommend broad spectrum antibiotics. She may need TPN. She may need prolonged bowel rest. Any abdominal surgery would be fraught with high parel. He r last surgery involved 2 hours of lysis of adhesions just to expose the intestine that was Dr. Liana gaspar. She also has had multiple operations for her Crohn's and likely is facing short gut syndrome with any significant resection and so surgery in the setting of a phlegmon would like to lead to that or ileostomy. She is not septic. She is hemodynamically stable. We will follow with you.
[2018-04-04] MEDS ORDERED: Cosyntropin 250 MCG VIAL SLOW IVP SCH (16:45)
[2018-04-04] MEDS ORDERED: Magnesium 2 GM/NS 0.9% 100 ML 2 GM in Premix Bag 1 BAG IVPB SCH (16:45)
--- NOTE | 2018-04-04 16:54 | CON ---
DATE OF CONSULTATION: 04/03/2018 GI CONSULT HISTORY OF PRESENT ILLNESS: Ms. Lewis is a pleasant 42-year-old female known for several years hist ory of Crohn's disease. This initially presented with an outside surgeon with obstruction. She had a couple of different surgeries for recurrent distal small bowel obstructions. Ultimately, she was d iagnosed with Crohn's. We first treated her with Remicade for several years. She then was switched to Humira. I do not remember or recall if that was from issues noncompliance or loss of response, bu t still actually did pretty well, ultimately though she did have further surgeries for partial bowel obstructions and was really unclear with most of those whether or not this was related to active infl ammation or scarring, resection 08/2016 showed fibrosis. No active colitis, one in 04/2018, she did have biopsy showed moderate to severe chronic active ileitis. We saw again in March, at that time, she had not been taking Humira secondary to a change in insurance running out of medications, but at andreea t time she was off for about 8 weeks before came back in to see us and us trying to get her medicatio ns through a Compassionate Care program with her insurance, which also we did that we have reloaded h er Humira, but she really did not respond well. She had progression of disease and ultimately with p rogression of disease both clinically and by imaging, it was felt she had lost response to the Humira and she was switched to Entyvio this past fall. She had several doses of that and then was admitted to the hospital in December, at which time she was placed on IV steroids. She had an MRI on 018 showed wall thickening phlegmonous change in and around the distal ileum with sinus tract, but no abscess formation. The admission was just a few days after that and medicated on the fact that she was not tolerating outpatient antibiotics and steroids. At that time, it was felt that she was havin g progression of disease on the Entyvio. We have recommended numerous times her to stop smoking, warning that it would worsen her disease proc ess. After that admission, decision was made with having progressive problems to switch once again. She was showing no signs of worsening clinical course despite a new medication, so we decided to [facility] to this Dulera. She had multiple problems getting this approved through her Medicaid based insur lore and once it was approved, it was prohibitively high. Today, we finally were able to procure her in the office some free samples from the drug company to start her infusion and when the nurse carney d her, she indicated she was in the emergency room with severe back pain and possibly perforation of her intestine. Over the past month, she has been having worsening back pain. She also went to the [facility] today. They ordered MRI of her back and a phlegmon in the right lower quadrant was noted with fistulous tract and some abscesses around the psoas muscle. She has had some fever and chills. She does not want to eat much. She states she has not had the Entyvio almost in about 11 weeks now. Kyle n asked why, she states that the infusion people said she did not need it anymore since she has been started on new medication. PAST SURGICAL HISTORY: Multiple ileal resections as partially outlined in previous consultation with General Surgery. Prior problems with hypokalemia, probably short bowel syndrome, previous total abd ominal hysterectomy without oophorectomy, previous history of anemia, B12 insufficiency, previous his tory of component of IBS and bacterial overgrowth. MEDICATIONS AT HOME: Potassium. MEDICATIONS HERE: Levofloxacin, metronidazole, p.r.n. morphine, Zofran, potassium chloride, D5 100 a n hour. ALLERGIES: PENICILLIN, REGLAN, PHENERGAN, IRON. REVIEW OF SYSTEMS: The patient notes she has lost about 60 pounds in the past 5 months. Temperature is 98.4, pulse 93, blood pressure 93/61, 132/84. She is resting in bed. She is alert and oriented to person, place, and time. Oropharynx is without lesions. Neck: Supple. Lungs: Clear. Heart: Regular rate and rhythm without clicks or murmurs. Abdomen: Protuberant. There is no rebound. The re is no guarding. There is no skin sinus abscesses or tracts, no palpable hepatosplenomegaly. LABORATORY STUDIES: White count 13, hemoglobin 11.5, MCV 79, platelet count 656. Sodium 131, potass ium 2.6, chloride 90, bicarbonate 27. Lactic acid 3.1, now 1.2, AST and ALT are 59 and 92 with an al kaline phosphatase of 251. Albumin is 2.7, protein 6.7, lipase 12. Last B12 is 419 November 2017. CA T scan reviewed, report reviewed as well. ASSESSMENT: Crohn's disease, progressive over the past 10 years with multiple ileal resections, comp lications of hypokalemia at times ,resection above related to Crohn's flares and obstructions from a dhesions. She has been on two different TNF inhibitors. The 2nd had to be stopped as she had become noncompliant with that for insurance change reasons and ultimately lost response to it. She had don e the best with the TNF inhibitors. Presently seemed to have progressive disease on Entyvio and 3 mo nths ago, we made to move to change to Stelara but she has not been able to get that medication yet, in fact it was just barely get some free samples to get her started on that in the office today. Pre sently, she has presented now with what appears to be a phlegmon with psoas abscess. She is stable c linically. RECOMMENDATIONS: 1. Jean-Baptiste culture. 2. IV fluids. 3. Potassium replacement as needed. 4. Nausea control and pain control. 5. Check magnesium, phosphorus, and replace as needed. 6. ID consultation. I suspect that she is high risk for developing a spinal disk disease in relatio nship to the iliopsoas abscess and may need prolonged antibiotics. 7. We will consult her general surgeon, although at this time, probably try to manage this medically with medications. We will follow along with you.
[2018-04-04] MEDS: Potassium Chloride 20 MEQ TAB PO SCH (17:49)
--- NOTE | 2018-04-04 20:28 | CON ---
DATE OF CONSULTATION: 04/04/2018 REASON FOR CONSULTATION: Crohn's disease with ileal perforation. HISTORY OF PRESENT ILLNESS: A 42-year-old with longstanding Crohn's disease and prior multiple inter ventions. I think she had about 15 different surgical interventions for various complications in the small bowel. She has been treated with Humira and then a different product and was discontinued a f ew weeks ago because of lack of efficacy and a different agent was being considered, but then she dev eloped worsening back pain. She had been exposed to corticosteroids recently for management of the e xacerbations. After developing back pain, she was referred to the [facility] and MRI shows absc ess with ileal perforation. Currently, she appears in no distress with moderate pain in the back and groin area. No headaches or visual symptoms. She has had what she describes as sores in her tongue , which lasted about 1 week to 2 weeks intermittently. No neck pain. No chest pain or respiratory s ymptoms. No dyspnea. No cough or sputum production. Not much in terms of anterior abdominal pain. She does have low back pain radiating towards the groin, right side. No joint symptoms. No neurolo gical symptoms. She keeps her right lower extremity flexed because of the psoas muscle inflammatory process. PAST MEDICAL HISTORY: Crohn's disease with multiple interventions, Sjogren syndrome, has had 15 smal l bowel operations for strictures and other complications of Crohn's disease, appendectomy, cholecyst ectomy, hysterectomy. She has had treatment with Humira in the past for Crohn's disease as well as a second immunomodulator, but that has failed recently. FAMILY HISTORY: Noncontributory. SOCIAL HISTORY: Current smoker. Lives in the area. . No alcoholic beverage use. MEDICATIONS: She is currently receiving levofloxacin, Flagyl, morphine, ondansetron, and potassium. PHYSICAL EXAMINATION: VITAL SIGNS: T-max 98-99.4, blood pressure 95/61, pulse 95, respirations 18, O2 sat 94% to 96%. SKIN: Not remarkable. The patient has peripheral IV access. No Mohamud catheter. HEENT: Ocular movements are conjugate. Oral cavity with still ulcerated areas in the dorsal aspect of the tongue. NECK: Supple, no jugular vein distention. LUNGS: With symmetric clear breath sounds. HEART: S1, S2, regular rate. No S3, S4. ABDOMEN: Soft without tenderness. EXTREMITIES: Tenderness is mostly on range of motion of the right hip. No back tenderness. No join t inflammatory activity. Pulses 1+ in dorsalis pedis. NEUROLOGIC: Cognitive function appears to be intact. LABORATORY DATA: White cell count is down from 13 to 9.5, hemoglobin 8.9, platelets 445, 72% neutrop hils, 3% bands. Sodium 136, creatinine 0.65, calcium 8.6, phosphorus 3.2, AST 59, ALT 92, albumin 2. 7. Urinalysis with 11-20 wbc's. IMAGING: Lumbar spine MRI done on 04/03/2018 with degenerative changes of the lumbar spine, inflamma tory changes in right lower quadrant right paraspinal region involving the right psoas and iliacus mu scle. Abdomen and pelvis CT scan with perforation terminal ileum extension of enteric contrast towar ds the right psoas muscle. ASSESSMENT: Crohn's disease with ileal perforation extension to the psoas muscle. DISCUSSION: The patient has a common complication of Crohn's disease and now has extension to the ps oas muscle with phlegmon. She will continue antimicrobial therapy. We will transition to meropenem from Cipro and Flagyl in view of the risk of resistant pathogens, particularly resistant gram-negativ e rods. The definitive procedure will be either laparoscopy with resection of involved segment and r eanastomosis or conservative management of percutaneous drainage if possible. I did not see any locu lated collection in the imaging study. Administration of some immunomodulator appears to be necessar y to control the inflammatory process in the leak if the segment is not resected. The duration of th erapy will be protracted unless the area is surgically resected.
[2018-04-04] MEDS: Acetaminophen 325 MG TAB PO PRN (20:37)
[2018-04-04] MEDS: Nicotine 14 MG PATCH TD SCH (20:38)
[2018-04-04] MEDS: Miconazole 2% Vaginal Cream 45 GM TUBE VAG SCH (20:42)
[2018-04-05] MEDS: Meropenem 1 GM in Sodium Chloride 0.9% 100 ML IVPB SCH ×2 (04:31→13:26)
[2018-04-05] MEDS: Morphine 4 MG/ML VIAL SLOW IVP PRN ×5 (04:31→20:27)
[2018-04-05 08:08] LABS: #Lymphocytes 1.5 thou/uL (1.20-3.40); #Monocytes 0.1 thou/uL (0.11-0.59); #Neutrophils 8.5 thou/uL (1.40-6.50); %Basophils 0.1 % (0.0-1.0); %Eosinophils 0.2 % (0.0-10.0); %Lymphocytes 14.9 % (21.0-51.0); %Monocytes 0.9 % (0.0-10.0); %Neutrophils 83.8 % (42.0-75.0); Hemoglobin 9.3 g/dL (12.0-16.0); Mean Corpuscular HGB CONC 31.9 g/dL (32.0-36.0); Mean Corpuscular Hemoglobin 26.2 pg (27.0-31.0); Mean Corpuscular Volume 82.1 fl (81.0-99.0); Mean Platelet Volume 6.6 fL (7.4-10.4); Platelet Count 553 thou/uL (130-400); RBC Distribution Width 13.8 % (11.5-14.5); Red Blood Cell (RBC) Count 3.55 mill/uL (4.20-5.40); White Blood Cell (WBC) Count 10.1 thou/uL (4.8-10.8)
[2018-04-05] MEDS: Potassium Chloride 20 MEQ TAB PO SCH ×2 (08:18→16:26)
[2018-04-05 08:19] LABS: Anion Gap 10 mmol/L (10-20); BUN (Urea Nitrogen) Less than 4 mg/dL (7.0-18.7); Calc. Creatinine Clearance 109 mL/min (70-130); Calcium 8.3 mg/dL (7.8-10.44); Carbon Dioxide 28 mmol/L (22-29); Chloride 105 mmol/L (98-107); Estimated GFR-MDRD Greater than 90; Glucose 191 mg/dL (70-105); Magnesium 1.6 mg/dL (1.6-2.6); Potassium 4.3 mmol/L (3.5-5.1); Sodium 139 mmol/L (136-145)
[2018-04-05] MEDS: Ondansetron ODT 4 MG TAB PO PRN ×2 (08:37→17:53)
--- NOTE | 2018-04-05 10:09 | PRG ---
DATE OF SERVICE: 04/05/2018 SUBJECTIVE: Ms. Lewis feels better today. She is tolerating the liquid diet without nausea. Her r ight lower quadrant and back pain is improved. PHYSICAL EXAMINATION: VITAL SIGNS: She is afebrile, pulse is 73, respirations 16, blood pressure 89/56. Multiple voids. ABDOMEN: Soft, it is nontender, nondistended, no guarding or rebound. LABORATORY DATA: White blood cell count is 10, hemoglobin is 9.3, platelet count is 553. She has no bands. Creatinine is 0.65. ASSESSMENT: Crohn's exacerbation with fistula to psoas muscle, but no drainable abscess. PLAN: Continue broad-spectrum antibiotics and clear liquid diet. If she does not get over this with out marked improvement over the weekend, she will need n.p.o., TPN for a few weeks.
[2018-04-05] MEDS: Potassium Chloride 40 MEQ in Dextrose 5%-Lactated Ringers 1,000 ML IV SCH ×2 (10:14→20:27)
--- NOTE | 2018-04-05 10:25 | PRG ---
DATE OF SERVICE: 04/04/2018 SUBJECTIVE: Ms. Lewis states that pain is better controlled today. She feels little bit better. L ast evening, she had quite a bit of pain, but could not get pain medicine. Her blood pressure is run harinder low in the 90s. She has had no fever, normal bowel output. She also had some back discomfort. She has been seen by General Surgery who agreed that she probably is not a good surgical candidate a t this point in time. This would necessitate removal of a large amount of bowel and probably result in a short gut syndrome. PHYSICAL EXAMINATION: VITAL SIGNS: Temperature 98.8, she has been afebrile, blood pressure 95/61 and 91/54, pulse 95. LUNGS: Clear. HEENT: Oropharynx without lesions. ABDOMEN: Soft, nontender, no rebound or guarding. EXTREMITIES: No clubbing, cyanosis or edema. LABORATORY STUDIES: Sodium 136, potassium 3.9, chloride 105, BUN and creatinine are 6 and 0.65, calc ium 7.4, magnesium 1.3, phosphorus 3.2, AST and ALT of 59 and 52 with alkaline phosphatase of 251. B 12, however, this year in November was normal. TSH was last checked in 2014 was normal. Lipase was n ormal. CRP in 11/24. ASSESSMENT: 1. Phlegmon, right lower quadrant with back pain concerning for involving the psoas muscle. There i s some risk of extension, even diskitis, although apparently the MRI did not show that. We will try to obtain that record. 2. In regard to the low blood pressure, this is probably for adrenal insufficiency as she has been o n steroids in November and December and part of January. 3. Crohn's, complicated by fistulas disease. She had multiple surgeries in the past even before I e bhavesh saw her. When I saw her, started on TNF inhibitor and she did well for quite some time with Be livia, then became refractory to that, had to switch to Humira records, but it is unclear, she b ecame refractory to that, I had to stop the medicine for some time and then we had to change because the risk of restarting Remicade with a prolonged time off of it and risk of anaphylactic reaction. I n any event, she did well on Humira for some time and then had a surgery last year and then progressi ve symptoms in the fall. At that time, decision was made to move to [facility] she worsened her l ast infusion that was about 11 weeks ago. We will try to get her switched over to Stelara. In the i nterim, she began to flare and was treated a couple of times with steroid tapers, antibiotics until s he presented yesterday with back pain in the complex phlegmon described above. PLAN: 1. We will get a Cortrosyn stim test tomorrow, but we will start stress dose steroids, she probably has adrenal insufficiency. 2. Replace potassium as needed and magnesium. 3. I think surgery at this time would be a poor choice. She is not overtly septic. Does not have a defined abscess. This is not drainable by Radiology and I think place her on prolonged n.p.o. statu s with antibiotics until we get her out of the hospital and get her started on the Stelara is probabl y the best treatment course at this time. Agree with Dr. Londono if she were to have a surgery, she would end up with a short gut and complications to come with that and it would not cure the Crohn's. 4. She is on a nicotine patch now. I have expressed her she has to stop smoking. We will await feliz drummond from [place].
--- NOTE | 2018-04-05 11:14 | PDOC.PN ---
- Subjective Encounter Start Date: 04/05/18 Encounter Start Time: 11:12 Subjective: marked decreased pain - Objective MAR Reviewed: Yes Vital Signs & Weight: Vital Signs (12 hours) Temp Pulse Resp BP Pulse Ox 04/05/18 08:00 97.9 F 73 16 98 04/05/18 07:38 97.9 F 73 16 89/56 L 92 L Weight Admit Weight 136 lb Weight 136 lb I&O: 04/04/18 04/05/18 04/06/18 06:59 06:59 06:59 Intake Total 2680 2880 360 Balance 2680 2880 360 Result Diagrams: 04/05/18 07:48 04/05/18 07:48 Phys Exam - Physical Examination Neck: no JVD Respiratory: clear to auscultation bilateral Cardiovascular: RRR, no significant murmur Gastrointestinal: soft, non-tender, positive bowel sounds Musculoskeletal: no edema Dx/Plan (1) Bowel perforation Code(s): K63.1 - PERFORATION OF INTESTINE (NONTRAUMATIC) Status: Acute (2) Peritonitis Code(s): K65.9 - PERITONITIS, UNSPECIFIED Status: Acute (3) Crohn disease Code(s): K50.90 - CROHN'S DISEASE, UNSPECIFIED, WITHOUT COMPLICATIONS Status: Chronic Qualifiers: Gastrointestinal tract location: small intestine Digestive disease complication type: other complication Qualified Code(s): K50.018 - Crohn's disease of small intestine with other complication (4) HTN (hypertension) Code(s): I10 - ESSENTIAL (PRIMARY) HYPERTENSION Status: Chronic - Plan cont iv antibx -: cont iv fluids -: discuss with GI/ Gen Surg * .
--- NOTE | 2018-04-05 12:41 | PRG ---
DATE OF SERVICE: 04/05/2018 SUBJECTIVE: Mr. Lewis says she is feeling a lot better today. She is tolerating her liquid diet. Nausea is minimal, but she continued on those medications. No vomiting. Right lower quadrant back p ain has improved. She started IV steroids last night. OBJECTIVE: VITAL SIGNS: Temperature 97.9, pulse 73, blood pressure 89/56, 98% oxygen saturation on room air. GENERAL: No acute distress. HEART: Regular rate and rhythm. LUNGS: Clear to auscultation bilaterally. ABDOMEN: Soft, some tenderness to palpation in the right lower quadrant, but no guarding, rebound te nderness. EXTREMITIES: No peripheral edema. LABORATORY STUDIES: WBC 10.1, hemoglobin 9.3, platelets 553. Sodium 139, potassium 4.3, BUN 4, crea tinine 0.65. ASSESSMENT AND PLAN: Crohn's exacerbation with fistula to the psoas muscle on the right side, but no drainable abscess. The patient is responding symptomatically to IV steroids. For now, continue IV steroids and the broad spectrum antibiotics. Continue clear liquid diet. Dr. Morgan is working on g etting her switch to Stelara in the long-term.
[2018-04-05] MEDS: Nicotine 14 MG PATCH TD SCH (17:53)
[2018-04-05] MEDS: MEROPENEM 1 GM/50 ML 1 GM in Premix Bag 1 BAG IVPB SCH (20:27)
[2018-04-05] MEDS: Miconazole 2% Vaginal Cream 45 GM TUBE VAG SCH (20:33)
[2018-04-06] MEDS: Morphine 4 MG/ML VIAL SLOW IVP PRN ×6 (00:38→21:50)
[2018-04-06] MEDS: MEROPENEM 1 GM/50 ML 1 GM in Premix Bag 1 BAG IVPB SCH ×3 (04:58→21:44)
[2018-04-06 05:47] LABS: Anion Gap 7 mmol/L (10-20); BUN (Urea Nitrogen) 4 mg/dL (7.0-18.7); Calc. Creatinine Clearance 109 mL/min (70-130); Calcium 8.3 mg/dL (7.8-10.44); Carbon Dioxide 28 mmol/L (22-29); Chloride 108 mmol/L (98-107); Estimated GFR-MDRD Greater than 90; Glucose 182 mg/dL (70-105); Sodium 137 mmol/L (136-145)
[2018-04-06 06:07] LABS: Band 8 % (5-11); Hemoglobin 8.9 g/dL (12.0-16.0); Hypochromia SLIGHT = 6-15 cells (100X) (0-5/hpf); Lymphocytes 4 % (21-51); MDiff Complete? YES; Mean Corpuscular HGB CONC 31.2 g/dL (32.0-36.0); Mean Corpuscular Hemoglobin 25.7 pg (27.0-31.0); Mean Corpuscular Volume 82.3 fl (81.0-99.0); Mean Platelet Volume 6.8 fL (7.4-10.4); Monocytes 2 % (0-10); Neutrophil 86 % (42-75); PLT Morphology Comment Appears Increased; Platelet Count 532 thou/uL (130-400); RBC Distribution Width 13.7 % (11.5-14.5); Red Blood Cell (RBC) Count 3.48 mill/uL (4.20-5.40); White Blood Cell (WBC) Count 19.4 thou/uL (4.8-10.8)
--- NOTE | 2018-04-06 12:16 | PRG ---
DATE OF SERVICE: 04/06/2018 SUBJECTIVE: Ms. Lewis is feeling about the same with regards to intermittent abdominal cramps and d iarrhea. She continues to have loose bowel movements. No bleeding. She has started to have a bit o f pain and very mild swelling in the left knee and also around the right hip this morning, she says s he has never had this before. There is no swelling in the calf. She did not injure herself. PHYSICAL EXAMINATION: VITAL SIGNS: Temperature 97.9, pulse 64, blood pressure 112/75, 98% oxygen saturation on room air. GENERAL: No acute distress. HEART: Regular rate and rhythm. LUNGS: Clear to auscultation bilaterally. ABDOMEN: Bowel sounds present, soft and nontender. EXTREMITIES: There is some very mild swelling around the left knee. No erythema, no warmth. There is a bit of subcutaneous edema in the right hip area as well. ASSESSMENT AND PLAN: 1. Crohn disease of the small intestine with fistula to the right psoas muscle. From a GI perspecti ve, continue with current plan. Continue the IV antibiotics and IV steroids today. Dr. Morgan is wo rking on getting her switched to Stelara. Surgery is following and appreciate their recommendations as well. 2. Swelling, the left knee. There is no erythema or warmth or swelling in the calf. I doubt this r epresents a DVT. I advised the patient to discuss this with the Hospitalist when he rounds later or let us know if there is any significant worsening.
--- NOTE | 2018-04-06 13:34 | PDOC.PN ---
- Subjective Encounter Start Date: 04/06/18 Encounter Start Time: 12:25 -: old records requested/rev Pt seen and examined, chart reviewe din its entirety. This is my first visit with this patient. Follow up for psoas abscess, secondary to contained perforation from her crohn' s. Case discussed with Dr Diop, he is favoring TPN for a week or so, IV abx here , before transitioning to po. Pt without fevers or chills, but two nights ago had drenching sweats. pain controlled with IV morphine,m discussed her using po regualrly and IV for breakthrough No N/V/D/C, haydee clear diet. complains of swelling to right hip and left knee with left knee stiffness, no redness or pain, no inflammation. Haydee abx and steroids. All systems reviewed and all neg x as per HPI above - Objective MAR Reviewed: Yes Vital Signs & Weight: Vital Signs (12 hours) Temp Pulse Resp BP Pulse Ox 04/06/18 08:05 97.9 F 64 16 112/75 98 04/06/18 08:00 97.9 F 64 16 98 Weight Admit Weight 136 lb Weight 136 lb I&O: 04/05/18 04/06/18 04/07/18 06:59 06:59 06:59 Intake Total 2880 3300 360 Balance 2880 3300 360 Result Diagrams: 04/06/18 04:40 04/06/18 04:40 Radiology Reviewed by me: Yes EKG Reviewed by me: Yes Phys Exam - Physical Examination Constitutional: NAD HEENT: PERRLA, moist MMs, sclera anicteric, oral pharynx no lesions Neck: no nodes, no JVD, supple, full ROM Respiratory: no wheezing, no rales, no rhonchi, clear to auscultation bilateral Cardiovascular: RRR, no significant murmur, no rub Gastrointestinal: soft, non-tender, no distention, positive bowel sounds Musculoskeletal: pulses present, edema present left knee effusion, nontender, right hip edema, extra-articular Neurological: non-focal, normal sensation, moves all 4 limbs Lymphatic: no nodes Psychiatric: normal affect, A&O x 3 Skin: no rash, normal turgor, cap refill <2 seconds Dx/Plan (1) Retroperitoneal abscess Code(s): K68.19 - OTHER RETROPERITONEAL ABSCESS Status: Acute Comment: from terminal ileum perforation (2) Bowel perforation Code(s): K63.1 - PERFORATION OF INTESTINE (NONTRAUMATIC) Status: Acute Comment: secondary to crohns. to start on new medication paul week or so. (3) Crohn disease Code(s): K50.90 - CROHN'S DISEASE, UNSPECIFIED, WITHOUT COMPLICATIONS Status: Chronic Qualifiers: Gastrointestinal tract location: small intestine Digestive disease complication type: other complication Qualified Code(s): K50.018 - Crohn's disease of small intestine with other complication (4) HTN (hypertension) Code(s): I10 - ESSENTIAL (PRIMARY) HYPERTENSION Status: Chronic Qualifiers: Hypertension type: essential hypertension Qualified Code(s): I10 - Essential (primary) hypertension (5) Hypokalemia Code(s): E87.6 - HYPOKALEMIA Status: Acute (6) Tobacco abuse Code(s): Z72.0 - TOBACCO USE Status: Chronic - Plan cont current plan of care, plan discussed w/ family, continue antibiotics, PT/OT , out of bed/ambulate, DVT proph w/SCDs * . PICC tomorrow, start TPN, continue in-house for another week or so, pt mentioned possible re-imaging tomorrow
--- NOTE | 2018-04-06 14:00 | PRG ---
DATE OF SERVICE: 04/06/2018 Ms. Lewis is still having some occasional cramping, especially before she has to have bowel movement s. She denies nausea or vomiting. She is noticing more swelling in her right hip. PHYSICAL EXAMINATION: VITAL SIGNS: She is afebrile, pulse 64, respirations 16, blood pressure 112/75. She is voiding regu larly. ABDOMEN: Soft and nontender. No significant tenderness or guarding. She does have some edema to th e subcutaneous fat of the right hip without redness. LABORATORY DATA: Her white count today is up to 19. ASSESSMENT: Crohn's exacerbation with fistula to the psoas muscle. No drainable abscess on first CT , on antibiotics and steroids. PLAN: My recommendation would be place PICC line in the morning and start TPN for a week as an inpat ient, allow clear liquids. I suspect this will help clear up her acute infectious process. She then could be discharged to have her infusional therapy for the new drug. We will discuss with Dr. Mir hall in the morning.
[2018-04-06 15:03] LABS: Potassium 5.3 mmol/L (3.5-5.1)
[2018-04-06] MEDS: Potassium Chloride 40 MEQ in Dextrose 5%-Lactated Ringers 1,000 ML IV SCH (16:32)
--- NOTE | 2018-04-06 17:31 | PRG ---
DATE OF SERVICE: 04/06/2018 SUBJECTIVE: Ms. Lewis is feeling a little better. She is going to start TPN after PICC line is ins erted tomorrow. Dr. Londono has evaluated the patient and is recommending conservative management wi th TPN and IV antimicrobials for the time being. The patient denies any respiratory symptoms, minor abdominal pain, no neurological symptoms. OBJECTIVE: VITAL SIGNS: Essentially normal. GENERAL: Awake, alert, oriented, in no distress. HEENT: Ocular movements conjugate. LUNGS: With symmetric clear breath sounds. HEART: S1, S2, regular rate without murmurs. ABDOMEN: With some tenderness in the right lower quadrant. She has some pain in the left knee area and swelling when she noticed swelling in the right hip region. LABORATORY: White cell count is up to 19.4, hemoglobin 8.9, platelets 532 with 86% neutrophils. Sod ium 137, creatinine is at 0.65. The potassium was 6, but repeat was 5.3 and Microbiology with negati ve blood culture thus far. She is currently on meropenem and methylprednisolone 20 mg q.8 hours. ASSESSMENT AND DISCUSSION Crohn's disease with ileal perforation and extension to the psoas muscle. DISCUSSION: The patient will continue with IV antimicrobial therapy and then starting TPN tomorrow a nd n.p.o. except for clear liquids. The hope is that this will eventually lead to closure of the fis celestine or the leak. Eventually, she should be transitioned to the new immunomodulator, so she can have this corticosteroids tapered. She will be at risk for colonization of the central line by yeast as well as resistant pathogens.
[2018-04-06] MEDS: Nicotine 14 MG PATCH TD SCH (21:42)
[2018-04-06] MEDS: Miconazole 2% Vaginal Cream 45 GM TUBE VAG SCH (21:42)
[2018-04-07] MEDS: MEROPENEM 1 GM/50 ML 1 GM in Premix Bag 1 BAG IVPB SCH ×3 (06:03→20:47)
[2018-04-07 06:05] LABS: Anion Gap 7 mmol/L (10-20); BUN (Urea Nitrogen) 7 mg/dL (7.0-18.7); Calc. Creatinine Clearance 109 mL/min (70-130); Calcium 8.5 mg/dL (7.8-10.44); Carbon Dioxide 30 mmol/L (22-29); Chloride 106 mmol/L (98-107); Estimated GFR-MDRD Greater than 90; Glucose 124 mg/dL (70-105); Magnesium 1.6 mg/dL (1.6-2.6); Potassium 5.4 mmol/L (3.5-5.1); Sodium 138 mmol/L (136-145)
[2018-04-07 06:14] LABS: Band 2 % (5-11); Hemoglobin 10.1 g/dL (12.0-16.0); Lymphocytes 6 % (21-51); MDiff Complete? YES; Mean Corpuscular HGB CONC 31.2 g/dL (32.0-36.0); Mean Corpuscular Hemoglobin 25.6 pg (27.0-31.0); Mean Corpuscular Volume 82.2 fl (81.0-99.0); Mean Platelet Volume 6.3 fL (7.4-10.4); Monocytes 1 % (0-10); Neutrophil 91 % (42-75); PLT Morphology Comment Appears Increased; Platelet Count 585 thou/uL (130-400); Red Blood Cell (RBC) Count 3.93 mill/uL (4.20-5.40)
[2018-04-07] MEDS: Morphine 4 MG/ML VIAL SLOW IVP PRN ×4 (08:08→20:46)
[2018-04-07] MEDS: Ondansetron ODT 4 MG TAB PO PRN (13:37)
--- NOTE | 2018-04-07 14:05 | PDOC.GSPN ---
Surgery Progress Note: Subj - Subjective Patient reports: no new complaints Surgery Progress Note: Obj - Vital signs Vital signs: Vital Signs - Most Recent Temp Pulse Resp BP Pulse Ox 97.6 F 63 16 118/76 96 04/07/18 08:00 04/07/18 08:00 04/07/18 08:00 04/07/18 08:00 04/07/18 08:00 - Physical Exam General: no distress Cardiovascular: regular rate and rhythm Respiratory: clear to auscultation Abdomen: soft, non tender, nondistended, positive bowel sounds Surgery Progress Note: Results - Labs Result Diagrams: 04/07/18 05:04 04/07/18 05:04 Lab results: Laboratory Results - last 24 hr 04/07/18 04/07/18 05:04 05:04 WBC 17.0 H RBC 3.93 L Hgb 10.1 L Hct 32.3 L MCV 82.2 MCH 25.6 L MCHC 31.2 L RDW 14.0 Plt Count 585 H MPV 6.3 L Neutrophils % (Manual) 91 H Band Neuts % (Manual) 2 L Lymphocytes % (Manual) 6 L Monocytes % (Manual) 1 Plt Morphology Comment Appears Increased H Sodium 138 Potassium 5.4 H Chloride 106 Carbon Dioxide 30 H Anion Gap 7 L BUN 7 Creatinine 0.65 Estimated GFR (MDRD) Greater than 90 Glucose 124 H Calcium 8.5 Magnesium 1.6 Surgery Progress Note: A/P - Problem (1) Crohn's disease, unspecified, with fistula Current Visit: Yes Code(s): K50.913 - CROHN'S DISEASE, UNSPECIFIED, WITH FISTULA Status: Acute Assessment and Plan: My plan is clear liquids, tpn for [address] Morgan going to check on infusional therapy while she is here.
[2018-04-07] MEDS ORDERED: Heparin 1,000 UNITS/ML VIAL ONE (15:52)
--- NOTE | 2018-04-07 15:55 | PDOC.PN ---
- Subjective Encounter Start Date: 04/07/18 Encounter Start Time: 10:15 Pt feeling pretty good today, still tolerating clears fine. Discussedwith Dr Londono, plans to get PICC, start TPN, give bowel a week of rest and IV abx, before trying to transition to po and d/c. No F/c, no sweats, no N/V/D/c, no CP or SOB all systems reviewed. Pt admits to slightly increased skin edema to hips, but neg for all other systems except as above - Objective MAR Reviewed: Yes Vital Signs & Weight: Vital Signs (12 hours) Temp Pulse Resp BP Pulse Ox 04/07/18 08:00 97.6 F 63 16 118/76 96 Weight Admit Weight 136 lb Weight 136 lb I&O: 04/06/18 04/07/18 04/08/18 06:59 06:59 06:59 Intake Total 3300 1080 1440 Balance 3300 1080 1440 Result Diagrams: 04/07/18 05:04 04/07/18 05:04 Phys Exam - Physical Examination Constitutional: NAD HEENT: PERRLA, moist MMs, sclera anicteric, oral pharynx no lesions Neck: no nodes, no JVD, supple, full ROM Respiratory: no wheezing, no rales, no rhonchi, clear to auscultation bilateral Cardiovascular: RRR, no significant murmur Gastrointestinal: soft, non-tender, no distention, positive bowel sounds Musculoskeletal: no edema, pulses present Neurological: non-focal, normal sensation, moves all 4 limbs Lymphatic: no nodes Psychiatric: normal affect, A&O x 3 Skin: no rash, normal turgor, cap refill <2 seconds Dx/Plan (1) Retroperitoneal abscess Code(s): K68.19 - OTHER RETROPERITONEAL ABSCESS Status: Acute Comment: from terminal ileum perforation (2) Bowel perforation Code(s): K63.1 - PERFORATION OF INTESTINE (NONTRAUMATIC) Status: Acute Comment: secondary to crohns. to start on new medication paul week or so. (3) Crohn disease Code(s): K50.90 - CROHN'S DISEASE, UNSPECIFIED, WITHOUT COMPLICATIONS Status: Chronic Qualifiers: Gastrointestinal tract location: small intestine Digestive disease complication type: other complication Qualified Code(s): K50.018 - Crohn's disease of small intestine with other complication (4) HTN (hypertension) Code(s): I10 - ESSENTIAL (PRIMARY) HYPERTENSION Status: Chronic Qualifiers: Hypertension type: essential hypertension Qualified Code(s): I10 - Essential (primary) hypertension (5) Hypokalemia Code(s): E87.6 - HYPOKALEMIA Status: Acute (6) Tobacco abuse Code(s): Z72.0 - TOBACCO USE Status: Chronic - Plan cont current plan of care, plan discussed w/ family, continue antibiotics, 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
--- NOTE | 2018-04-07 16:39 | SPC ---
ULTRASOUND GUIDED LEFT UPPER EXTREMITY PICC LINE PLACEMENT: Date: 04/07/18 HISTORY: Patient with history of Crohn' disease and prior bowel surgery. CT scan examination indicated perfora tion of terminal ileum by report. Patient needs long-term IV antibiotics and TPN. TECHNIQUE: After informed consent was obtained, the patient was placed on the angiography table in the supine po sition. The left upper extremity was meticulously prepped and draped in the usual sterile fashion. An appropriate access site was determined with ultrasound guidance. The skin and subcutaneous tissues o verlying the intended puncture site were infiltrated with buffered 1% lidocaine for local anesthesia. The left basilic vein was accessed utilizing micropuncture technique and concurrent real-time ultras ound guidance. A 5 Georgian peel-away sheath was placed. The catheter was measured and cut to the appro priate length. The catheter was placed over the guidewire with the tip positioned overlying the cavoa trial junction. The guidewire and peel-away sheath were removed. Each port on the double lumen PICC l ine was accessed and aspirated/flushed easily. The catheter was secured to the skin utilizing a dry, sterile dressing was placed. FINDINGS: Technically successful placement of dual lumen 5 Georgian 39.5 cm PICC line via the left basilic vein. The tip of the catheter overlies the cavoatrial junction. FLUOROSCOPY: Total fluoroscopy time was 0 minutes with total dose of 39 mGy*cm^2. IMPRESSION: Technically successful left upper extremity PICC line placement. POS: [facility] [place]
--- NOTE | 2018-04-07 17:28 | PRG ---
DATE OF SERVICE: 04/07/2018 SUBJECTIVE: Ms. Lewis notes that her abdominal pain is better. She is still taking something for c ramps. She is about 5-8 pounds, today is down from 15 prior to admission. She has no vomiting and n o fever. OBJECTIVE: VITAL SIGNS: Blood pressure 118/76, temperature 97, pulse 63. ABDOMEN: Soft, nontender, without rebound or guarding. EXTREMITIES: Reveal no clubbing, cyanosis, or edema. Subcutaneous in the right hip, it is now exten ded to the low back or flank. LABORATORY STUDIES: White count 17, hemoglobin 10.1, platelet count 585. Sodium 138, potassium 5.4, bicarbonate 30, BUN and creatinine are 7 and 0.65. ASSESSMENT: 1. Crohn's disease with fistulizing disease, multiple surgeries in the past. 2. Hypokalemia, resolved. Now hyperkalemic. 3. Phlegmon, right lower quadrant, on antibiotics. PLAN: 1. Continue IV antibiotics, TPN. We will start to taper corticosteroids in the next day or so. 2. I will see if we can get her started on office.
[2018-04-07] MEDS: Miconazole 2% Vaginal Cream 45 GM TUBE VAG SCH (20:46)
[2018-04-07] MEDS: Nicotine 14 MG PATCH TD SCH (20:47)
[2018-04-07] MEDS: POTASSIUM CHLORIDE IV SCH (23:11)
[2018-04-07] MEDS: FAT EMULSION IV SCH (23:11)
[2018-04-07] MEDS: SODIUM ACETATE IV SCH (23:11)
[2018-04-07] MEDS: [UNRECOGNIZED DRUG - OTHER] IV SCH (23:11)
[2018-04-08 05:06] LABS: Magnesium 1.7 mg/dL (1.6-2.6); Phosphorus 3.6 mg/dL (2.3-4.7)
[2018-04-08] MEDS: Morphine 4 MG/ML VIAL SLOW IVP PRN ×5 (06:03→22:36)
[2018-04-08] MEDS: MEROPENEM 1 GM/50 ML 1 GM in Premix Bag 1 BAG IVPB SCH ×3 (06:06→22:35)
[2018-04-08] MEDS: Ondansetron ODT 4 MG TAB PO PRN ×2 (06:07→22:36)
--- NOTE | 2018-04-08 12:00 | PDOC.PN ---
- Subjective Encounter Start Date: 04/08/18 Encounter Start Time: 10:00 Pr feels better, haydee TPN, PICC and clears. No F/C, no N/V/d/C, no back pain. updated to results, plans. All systems reviewed and neg x as per HPI - Objective MAR Reviewed: Yes Vital Signs & Weight: Vital Signs (12 hours) Temp Pulse Resp BP Pulse Ox 04/08/18 08:00 97.9 F 70 16 97 04/08/18 07:46 97.9 F 70 16 155/91 H 97 Weight Admit Weight 136 lb Weight 136 lb I&O: 04/07/18 04/08/18 04/09/18 06:59 06:59 06:59 Intake Total 1080 1920 720 Balance 1080 1920 720 Result Diagrams: 04/07/18 05:04 04/07/18 05:04 Phys Exam - Physical Examination Constitutional: NAD HEENT: PERRLA, moist MMs, sclera anicteric, oral pharynx no lesions Neck: no nodes, no JVD, supple, full ROM Respiratory: no wheezing, no rales, no rhonchi, clear to auscultation bilateral Cardiovascular: RRR, no significant murmur, no rub Gastrointestinal: soft, non-tender, no distention, positive bowel sounds Musculoskeletal: no edema, pulses present Neurological: non-focal, normal sensation, moves all 4 limbs Lymphatic: no nodes Psychiatric: normal affect, A&O x 3 Skin: no rash, normal turgor, cap refill <2 seconds Deviation from normal: PICC C/D/I Dx/Plan (1) Retroperitoneal abscess Code(s): K68.19 - OTHER RETROPERITONEAL ABSCESS Status: Acute Comment: from terminal ileum perforation (2) Bowel perforation Code(s): K63.1 - PERFORATION OF INTESTINE (NONTRAUMATIC) Status: Acute Comment: secondary to crohns. to start on new medication in a week or so. (3) Crohn disease Code(s): K50.90 - CROHN'S DISEASE, UNSPECIFIED, WITHOUT COMPLICATIONS Status: Chronic Qualifiers: Gastrointestinal tract location: small intestine Digestive disease complication type: other complication Qualified Code(s): K50.018 - Crohn's disease of small intestine with other complication (4) HTN (hypertension) Code(s): I10 - ESSENTIAL (PRIMARY) HYPERTENSION Status: Chronic Qualifiers: Hypertension type: essential hypertension Qualified Code(s): I10 - Essential (primary) hypertension (5) Hypokalemia Code(s): E87.6 - HYPOKALEMIA Status: Resolved (6) Tobacco abuse Code(s): Z72.0 - TOBACCO USE Status: Chronic (7) Protein-calorie malnutrition, moderate Code(s): E44.0 - MODERATE PROTEIN-CALORIE MALNUTRITION Status: Acute Comment : TPN for replacement and bowel rest - Plan cont current plan of care, continue antibiotics, 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
--- NOTE | 2018-04-08 19:16 | PRG ---
DATE OF SERVICE: 04/08/2018 SUBJECTIVE: Ms. Lewis states she is doing little bit better. She is still having quite a bit of lo ose stool. She has some hip edema and pain. She is getting up and walking. OBJECTIVE: VITAL SIGNS: Temperature is 97.9, pulse 70, respirations 16, blood pressure 159/91. ABDOMEN: Soft, mildly tender. No rebound, no guarding. LUNGS: Clear. HEART: Regular rate and rhythm. She has TPN hanging now. LABORATORY DATA: None today. The Cortrosyn stimulation test on the was normal. Microbiology n egative thus far. ASSESSMENT AND PLAN: 1. Crohn's disease. Difficult course. Multiple surgeries in the past. She has been on TNF inhibit ors, then Entyvio. Had progression of disease on that and now we are trying to get her started on St elara. Awaiting for that loading dose. In the meantime, she was being treated with steroids and ant ibiotics intermittently, and developed fistulous disease with right lower quadrant phlegmon. 2. Blood pressure improved, on steroids. 3. Chronic pain. We would start to wean off the narcotics. Consider using Tylenol or Ultram for pa in. Agree with comp met profile in the morning.
[2018-04-08] MEDS: Nicotine 14 MG PATCH TD SCH (22:35)
[2018-04-08] MEDS: Miconazole 2% Vaginal Cream 45 GM TUBE VAG SCH (22:35)
[2018-04-08] MEDS: FAT EMULSION IV SCH (23:30)
[2018-04-08] MEDS: SODIUM ACETATE IV SCH (23:30)
[2018-04-08] MEDS: POTASSIUM CHLORIDE IV SCH (23:30)
[2018-04-08] MEDS: [UNRECOGNIZED DRUG - OTHER] IV SCH (23:30)
[2018-04-09] MEDS: Morphine 4 MG/ML VIAL SLOW IVP PRN ×4 (03:17→19:51)
[2018-04-09 06:16] LABS: ALT (SGPT) 76 U/L (8-55); AST (SGOT) 115 U/L (5-34); Albumin 2.2 g/dL (3.5-5.0); Alkaline Phosphatase 157 U/L (40-150); Anion Gap 6 mmol/L (10-20); BUN (Urea Nitrogen) 13 mg/dL (7.0-18.7); Bilirubin, Total 0.2 mg/dL (0.2-1.2); Calc. Creatinine Clearance 122 mL/min (70-130); Calcium 8.3 mg/dL (7.8-10.44); Carbon Dioxide 34 mmol/L (22-29); Chloride 102 mmol/L (98-107); Estimated GFR-MDRD Greater than 90; Globulin 2.4 g/dL (2.4-3.5); Glucose 146 mg/dL (70-105); Magnesium 2.2 mg/dL (1.6-2.6); Phosphorus 3.4 mg/dL (2.3-4.7); Potassium 4.2 mmol/L (3.5-5.1); Protein, Total 4.6 g/dL (6.0-8.3); Sodium 138 mmol/L (136-145)
[2018-04-09] MEDS: MEROPENEM 1 GM/50 ML 1 GM in Premix Bag 1 BAG IVPB SCH ×3 (07:31→22:29)
[2018-04-09] MEDS ORDERED: traMADol HCl 50 MG TAB PO PRN (08:03)
--- NOTE | 2018-04-09 09:39 | PDOC.PN ---
- Subjective Encounter Start Date: 04/09/18 Encounter Start Time: 09:[address], no f/C, no N/V/D/C, no new complaints, no acute needs. Labs reviewed, tolerating TPN, abx. GI notes reviewed. All systems reviewed and neg x as above - Objective MAR Reviewed: Yes Vital Signs & Weight: Vital Signs (12 hours) Temp Pulse Resp BP Pulse Ox 04/09/18 07:46 98.3 F 73 16 128/81 95 04/09/18 07:43 98.3 F 97 18 95 Weight Admit Weight 136 lb Weight 136 lb I&O: 04/08/18 04/09/18 04/10/18 06:59 06:59 06:59 Intake Total 1919 1679 Balance 1919 1679 Result Diagrams: 04/07/18 05:04 04/09/18 05:35 Phys Exam - Physical Examination Constitutional: NAD HEENT: PERRLA, moist MMs, sclera anicteric, oral pharynx no lesions Neck: no nodes, no JVD, supple, full ROM Respiratory: no wheezing, no rales, no rhonchi, clear to auscultation bilateral Cardiovascular: RRR, no significant murmur, no rub Gastrointestinal: soft, non-tender, no distention, positive bowel sounds Musculoskeletal: no edema, pulses present Neurological: non-focal, normal sensation, moves all 4 limbs Lymphatic: no nodes Psychiatric: normal affect, A&O x 3 Skin: no rash, normal turgor, cap refill <2 seconds Dx/Plan (1) Retroperitoneal abscess Code(s): K68.19 - OTHER RETROPERITONEAL ABSCESS Status: Acute Comment: from terminal ileum perforation (2) Bowel perforation Code(s): K63.1 - PERFORATION OF INTESTINE (NONTRAUMATIC) Status: Acute Comment: secondary to crohns. to start on new medication in a week or so. (3) Crohn disease Code(s): K50.90 - CROHN'S DISEASE, UNSPECIFIED, WITHOUT COMPLICATIONS Status: Chronic Qualifiers: Gastrointestinal tract location: small intestine Digestive disease complication type: other complication Qualified Code(s): K50.018 - Crohn's disease of small intestine with other complication (4) HTN (hypertension) Code(s): I10 - ESSENTIAL (PRIMARY) HYPERTENSION Status: Chronic Qualifiers: Hypertension type: essential hypertension Qualified Code(s): I10 - Essential (primary) hypertension (5) Hypokalemia Code(s): E87.6 - HYPOKALEMIA Status: Resolved (6) Tobacco abuse Code(s): Z72.0 - TOBACCO USE Status: Chronic (7) Protein-calorie malnutrition, moderate Code(s): E44.0 - MODERATE PROTEIN-CALORIE MALNUTRITION Status: Acute Comment : TPN for replacement and bowel rest - Plan cont current plan of care, plan discussed w/ family, continue antibiotics, 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
[2018-04-09] MEDS: traMADol HCl 50 MG TAB PO PRN ×2 (11:37→22:49)
[2018-04-09] MEDS: Nicotine 14 MG PATCH TD SCH (19:54)
--- NOTE | 2018-04-09 21:34 | PRG ---
DATE OF SERVICE: 04/09/2018 SUBJECTIVE: Ms. Burden is feeling little bit better. She has had less diarrhea, down 2 to 3 time s a day. OBJECTIVE: VITAL SIGNS: Temperature is 98, pulse 73, blood pressure 120/81. ABDOMEN: Soft, nontender. She is still concerned about some swelling in the subcutaneous tissue of her hips bilaterally. LUNGS: Clear. HEART: Heart is regular with no murmurs. MEDICATIONS: Continues on TPN, meropenem, Solu-Medrol 20 IV q.8 hours, morphine has been dropped audrey n to 2 q.4 hours, she has nicotine patch, Zofran, Protonix, Ultram. LABORATORY STUDIES: BUN and creatinine are 13 and 0.58. AST and ALT 115 and 76, alkaline phosphatas e 157, total protein 4.6, albumin 2.0, magnesium 2.2, phosphorus 3.4. ASSESSMENT: 1. Phlegmon, right lower quadrant, poorly controlled Crohn disease. 2. She is being treated with n.p.o. status, TPN, antibiotics and seems to be improving. 3. Electrolytes are fine. 4. Tolerating TPN. RECOMMENDATIONS: I agree with weaning narcotics onto Ultram, we will add some Bentyl today. We will check CBC tomorrow. We will discuss with Surgery, consider reimaging on Saturday. If there is some i mprovement in findings, especially amount of inflammation, consider starting her on the Stelara at th at time.
[2018-04-09] MEDS: Dicyclomine 10 MG CAP PO PRN (22:30)
[2018-04-09] MEDS: Zolpidem Tartrate 5 MG TAB PO PRN (22:50)
[2018-04-09] MEDS: Miconazole 2% Vaginal Cream 45 GM TUBE VAG SCH (22:50)
[2018-04-09] MEDS: FAT EMULSION IV SCH (22:51)
[2018-04-09] MEDS: [UNRECOGNIZED DRUG - OTHER] IV SCH (22:51)
[2018-04-09] MEDS: POTASSIUM CHLORIDE IV SCH (22:51)
[2018-04-09] MEDS: SODIUM ACETATE IV SCH (22:51)
[2018-04-10] MEDS: MEROPENEM 1 GM/50 ML 1 GM in Premix Bag 1 BAG IVPB SCH ×3 (05:39→21:41)
[2018-04-10] MEDS: Morphine 4 MG/ML VIAL SLOW IVP PRN ×4 (06:16→21:44)
[2018-04-10 08:14] LABS: Albumin 2.1 g/dL (3.5-5.0)
[2018-04-10 08:15] LABS: Calcium 8.1 mg/dL (7.8-10.44); Chloride 98 mmol/L (98-107); Magnesium 1.9 mg/dL (1.6-2.6); Sodium 136 mmol/L (136-145)
[2018-04-10 08:16] LABS: Glucose 188 mg/dL (70-105)
[2018-04-10 08:17] LABS: Globulin 2.5 g/dL (2.4-3.5); Protein, Total 4.6 g/dL (6.0-8.3)
[2018-04-10 08:18] LABS: Anion Gap 9 mmol/L (10-20); Bilirubin, Total 0.4 mg/dL (0.2-1.2); Carbon Dioxide 33 mmol/L (22-29)
[2018-04-10 08:19] LABS: Alkaline Phosphatase 179 U/L (40-150); Phosphorus 2.8 mg/dL (2.3-4.7)
[2018-04-10 08:20] LABS: Calc. Creatinine Clearance 116 mL/min (70-130); Estimated GFR-MDRD Greater than 90
[2018-04-10 08:21] LABS: BUN (Urea Nitrogen) 15 mg/dL (7.0-18.7)
[2018-04-10 08:22] LABS: ALT (SGPT) 143 U/L (8-55); AST (SGOT) 125 U/L (5-34)
[2018-04-10] MEDS: traMADol HCl 50 MG TAB PO PRN ×2 (08:34→17:56)
--- NOTE | 2018-04-10 10:10 | PRG ---
DATE OF SERVICE: 04/10/2018 SUBJECTIVE: Ms. Lewis has no complaints. She is feeling better. OBJECTIVE: VITAL SIGNS: She is afebrile. Her vital signs are stable. BACK: Her back pain is resolved. ABDOMEN: Her abdomen is soft, minimally tender in the right lower quadrant, but without guarding or rebound. No abdominal or inguinal hernias. EXTREMITIES: No ischemia or edema to the extremities. LABORATORY: No new white count today. Her sodium is 136, potassium 4.0, creatinine 0.61. ASSESSMENT: Crohn's enteritis with internal fistula back to the retroperitoneum and psoas. Clinical ly improved on bowel rest, TPN, antibiotics, steroids. PLAN: I recommend continuing TPN through the weekend. Reassess with CT scan on Saturday. If this do es not work, transfer to higher level of care in [place].
[2018-04-10] MEDS: Dicyclomine 10 MG CAP PO PRN (13:34)
--- NOTE | 2018-04-10 13:59 | PDOC.PN ---
- Subjective Encounter Start Date: 04/10/18 Encounter Start Time: 11:00 Pt feeling good, haydee po. no F/C,no N/V/d/C, no Cp, no SOB. edema to legs and hips about the same, no calf pain. Pt haydee po pain meds. haydee TPN, aware of current plan All systems reviewed and neg x as per HPI - Objective MAR Reviewed: Yes Vital Signs & Weight: Vital Signs (12 hours) Temp Pulse Resp BP Pulse Ox 04/10/18 08:00 98.6 F 71 18 100 04/10/18 07:26 98.6 F 71 18 138/85 96 04/10/18 05:16 98.2 F 81 18 147/80 H 95 Weight Admit Weight 136 lb Weight 136 lb I&O: 04/09/18 04/10/18 04/11/18 06:59 06:59 06:59 Intake Total 1680 1700 Balance 1680 1700 Result Diagrams: 04/07/18 05:04 04/10/18 07:36 Phys Exam - Physical Examination Constitutional: NAD HEENT: PERRLA, moist MMs, sclera anicteric, oral pharynx no lesions Neck: no nodes, no JVD, supple, full ROM Respiratory: no wheezing, no rales, no rhonchi, clear to auscultation bilateral Cardiovascular: RRR, no significant murmur, no rub Gastrointestinal: soft, non-tender, no distention, positive bowel sounds Musculoskeletal: pulses present, edema present Neurological: non-focal, normal sensation, moves all 4 limbs Lymphatic: no nodes Psychiatric: normal affect, A&O x 3 Skin: no rash, normal turgor, cap refill <2 seconds Dx/Plan (1) Retroperitoneal abscess Code(s): K68.19 - OTHER RETROPERITONEAL ABSCESS Status: Acute Comment: from terminal ileum perforation (2) Bowel perforation Code(s): K63.1 - PERFORATION OF INTESTINE (NONTRAUMATIC) Status: Acute Comment: secondary to crohns. to start on new medication in a week or so. (3) Crohn disease Code(s): K50.90 - CROHN'S DISEASE, UNSPECIFIED, WITHOUT COMPLICATIONS Status: Chronic Qualifiers: Gastrointestinal tract location: small intestine Digestive disease complication type: other complication Qualified Code(s): K50.018 - Crohn's disease of small intestine with other complication (4) HTN (hypertension) Code(s): I10 - ESSENTIAL (PRIMARY) HYPERTENSION Status: Chronic Qualifiers: Hypertension type: essential hypertension Qualified Code(s): I10 - Essential (primary) hypertension (5) Hypokalemia Code(s): E87.6 - HYPOKALEMIA Status: Resolved (6) Tobacco abuse Code(s): Z72.0 - TOBACCO USE Status: Chronic (7) Protein-calorie malnutrition, moderate Code(s): E44.0 - MODERATE PROTEIN-CALORIE MALNUTRITION Status: Acute Comment : TPN for replacement and bowel rest - Plan * . CCM, TPN through weekend reimage next week to decide on po vs continued TPN
--- NOTE | 2018-04-10 19:39 | PRG ---
DATE OF SERVICE: 04/10/2018 SUBJECTIVE: Ms. Lewis has less pain in the abdominal area or the back or the right side. No respir atory symptoms, abdominal pain, or diarrhea. No genitourinary symptoms. She is on TPN. OBJECTIVE: VITAL SIGNS: Temperature is normal. Other vital signs were normal. Awake, alert, oriented. LUNGS: Clear. Cushingoid features. HEART: S1, S2 regular rate. ABDOMEN: Soft with no tenderness on palpation of the abdomen. NEUROLOGIC: Nonfocal. LABORATORY DATA: White cell count 17,000, hemoglobin 10.1, platelets 585. Chemistry with AST 125, A LT 143, alkaline phosphatase 179, albumin 2.1. ASSESSMENT AND DISCUSSION: Crohn's disease with ileal perforation and extension of the psoas muscle. To be continued on IV therapy for a protracted period of time. Hopefully, she will be able to seal the leak while on TPN, 12-hour transition to oral feeding soon. At risk for superinfection with marvin e colonization. We will have to monitor for this development in the future. She is currently receiv ing meropenem to be continued for a protracted period of time.
[2018-04-10] MEDS: Miconazole 2% Vaginal Cream 45 GM TUBE VAG SCH (21:41)
[2018-04-10] MEDS: Nicotine 14 MG PATCH TD SCH (21:41)
[2018-04-10] MEDS: Zolpidem Tartrate 5 MG TAB PO PRN (21:43)
[2018-04-10] MEDS: [UNRECOGNIZED DRUG - OTHER] IV SCH (22:33)
[2018-04-10] MEDS: FAT EMULSION IV SCH (22:33)
[2018-04-10] MEDS: POTASSIUM CHLORIDE IV SCH (22:33)
[2018-04-10] MEDS: SODIUM ACETATE IV SCH (22:33)
[2018-04-11] MEDS: MEROPENEM 1 GM/50 ML 1 GM in Premix Bag 1 BAG IVPB SCH ×3 (05:06→22:09)
[2018-04-11] MEDS: Morphine 4 MG/ML VIAL SLOW IVP PRN ×2 (05:06→22:08)
[2018-04-11 05:54] LABS: ALT (SGPT) 152 U/L (8-55); AST (SGOT) 95 U/L (5-34); Albumin 2.2 g/dL (3.5-5.0); Alkaline Phosphatase 173 U/L (40-150); Anion Gap 7 mmol/L (10-20); BUN (Urea Nitrogen) 16 mg/dL (7.0-18.7); Bilirubin, Total 0.3 mg/dL (0.2-1.2); Calc. Creatinine Clearance 128 mL/min (70-130); Calcium 8.2 mg/dL (7.8-10.44); Carbon Dioxide 35 mmol/L (22-29); Chloride 98 mmol/L (98-107); Estimated GFR-MDRD Greater than 90; Globulin 2.2 g/dL (2.4-3.5); Glucose 153 mg/dL (70-105); Phosphorus 2.9 mg/dL (2.3-4.7); Potassium 4.1 mmol/L (3.5-5.1); Protein, Total 4.4 g/dL (6.0-8.3); Sodium 136 mmol/L (136-145)
[2018-04-11 06:33] LABS: Band 11 % (5-11); Hemoglobin 9.7 g/dL (12.0-16.0); Lymphocytes 10 % (21-51); MDiff Complete? YES; Mean Corpuscular HGB CONC 32.8 g/dL (32.0-36.0); Mean Corpuscular Hemoglobin 26.6 pg (27.0-31.0); Mean Corpuscular Volume 81.1 fl (81.0-99.0); Mean Platelet Volume 6.3 fL (7.4-10.4); Monocytes 4 % (0-10); Myelocyte 2 % (0-0); Neutrophil 73 % (42-75); Platelet Count 390 thou/uL (130-400); Red Blood Cell (RBC) Count 3.66 mill/uL (4.20-5.40); White Blood Cell (WBC) Count 19.3 thou/uL (4.8-10.8)
[2018-04-11] MEDS: traMADol HCl 50 MG TAB PO PRN ×3 (07:56→19:02)
--- NOTE | 2018-04-11 08:47 | PRG ---
DATE OF SERVICE: 04/11/2018 Ms. Lewis has no complaints today. PHYSICAL EXAMINATION: VITAL SIGNS: Afebrile. Her vital signs are stable. ABDOMEN: Soft, nontender, nondistended. EXTREMITIES: No ischemia to extremities. She still has some swelling of the left knee. ASSESSMENT: Crohn's colitis, chronic, with likely fistula to the psoas muscle without drainable flui d collection on broad spectrum antibiotics, steroids and TPN, bowel rest. PLAN: Continue TPN, clear liquids, antibiotics through the weekend. Another CT scan on Saturday to r eevaluate the area. Dr. Morgan considering timing of infusional biologic therapy. Dr. Ortega is av ailable for me over the weekend if need be. Otherwise I will see her on Saturday.
--- NOTE | 2018-04-11 09:40 | PRG ---
DATE OF SERVICE: 04/10/2018 SUBJECTIVE: Ms. Lewis is feeling better. She asks about advancing her diet. PHYSICAL EXAMINATION: VITAL SIGNS: Temperature is 98, pulse 71, blood pressure is 138/85. LUNGS: Clear. HEART: Regular rate and rhythm. ABDOMEN: Soft, nontender. EXTREMITIES: No clubbing, cyanosis or edema. LABORATORY STUDIES: Sodium 136, potassium 4, BUN and creatinine 15 and 0.6. AST and ALT of 125 and 143, alkaline phosphatase is 179, protein 4.6, albumin 2.1, magnesium and phosphorus 2.8 and 1.9. ASSESSMENT: 1. Ulcerative colitis with phlegmon right lower quadrant, on antibiotics, steroids and n.p.o., TPN. 2. Tolerating TPN. 3. Pain is much improved. PLAN: 1. Talked with Surgery and Internal Medicine. Planned to continue TPN for the weekend, reimage naomi y next week. There is no defined abscess. We will go ahead and switch her to [place]. 2. Continue TPN for the weekend, continue on liquid diet. Bowel rest, antibiotics and steroids shou ld her with bowel disease. 3. Wean narcotics. 4. Up and ambulate.
--- NOTE | 2018-04-11 12:59 | PDOC.PN ---
- Subjective Encounter Start Date: 04/11/18 Encounter Start Time: 10:00 Pt in shower, denies complaints, haydee clears, haydee ABX adn TPN. Dr Quinn' note reviewed. Edema abotu the same, no f/C, no N/V/D/C, no CP or SOB, almost no abd pain. All systesm reviewed and neg x as per HPI - Objective MAR Reviewed: Yes Vital Signs & Weight: Vital Signs (12 hours) Temp Pulse Resp BP Pulse Ox 04/11/18 08:00 98.3 F 73 18 04/11/18 07:32 98.3 F 73 18 151/85 H 96 Weight Admit Weight 136 lb Weight 136 lb I&O: 04/10/18 04/11/18 04/12/18 06:59 06:59 06:59 Intake Total 1700 1960 480 Balance 1700 1960 480 Result Diagrams: 04/11/18 04:39 04/11/18 04:39 Phys Exam - Physical Examination Constitutional: NAD HEENT: PERRLA, moist MMs, sclera anicteric, oral pharynx no lesions Neck: no nodes, no JVD, supple, full ROM Respiratory: no wheezing, no rales, no rhonchi, clear to auscultation bilateral Cardiovascular: RRR, no significant murmur, no rub Gastrointestinal: soft, non-tender, no distention, positive bowel sounds Musculoskeletal: no edema, pulses present Neurological: non-focal, normal sensation, moves all 4 limbs Lymphatic: no nodes Psychiatric: normal affect, A&O x 3 Skin: no rash, normal turgor, cap refill <2 seconds Deviation from normal: PICC insertion site C/D/I without erythema Dx/Plan (1) Retroperitoneal abscess Code(s): K68.19 - OTHER RETROPERITONEAL ABSCESS Status: Acute Comment: from terminal ileum perforation (2) Bowel perforation Code(s): K63.1 - PERFORATION OF INTESTINE (NONTRAUMATIC) Status: Acute Comment: secondary to crohns. to start on new medication in a week or so. (3) Crohn disease Code(s): K50.90 - CROHN'S DISEASE, UNSPECIFIED, WITHOUT COMPLICATIONS Status: Chronic Qualifiers: Gastrointestinal tract location: small intestine Digestive disease complication type: other complication Qualified Code(s): K50.018 - Crohn's disease of small intestine with other complication (4) HTN (hypertension) Code(s): I10 - ESSENTIAL (PRIMARY) HYPERTENSION Status: Chronic Qualifiers: Hypertension type: essential hypertension Qualified Code(s): I10 - Essential (primary) hypertension (5) Hypokalemia Code(s): E87.6 - HYPOKALEMIA Status: Resolved (6) Tobacco abuse Code(s): Z72.0 - TOBACCO USE Status: Chronic (7) Protein-calorie malnutrition, moderate Code(s): E44.0 - MODERATE PROTEIN-CALORIE MALNUTRITION Status: Acute Comment : TPN for replacement and bowel rest - Plan * .
[2018-04-11] MEDS: Dicyclomine 10 MG CAP PO PRN (13:38)
--- NOTE | 2018-04-11 18:37 | ULT ---
BILATERAL LOWER EXTREMITY VENOUS DUPLEX ULTRASOUND WITH DOPPLER: CPT: 28298 ICD-10-PCS: B54D INDICATIONS: Bilateral lower extremity edema. TECHNIQUE: Color-flow Doppler, spectral wave-form analysis of pulsed Doppler, and garzon-scale imaging with compre ssion and augmentation were used to evaluate the bilateral common femoral, femoral, popliteal, petrologist ior tibial, and superficial femoral veins, and the proximal portions of the profunda femoral and grea ter saphenous, veins. FINDINGS: Appropriate compressibility and flow within the imaged deep venous system of each lower extremity wit hout evidence of deep venous thrombosis. IMPRESSION: No deep venous thrombosis identified. POS: BETI
[2018-04-11] MEDS: Enoxaparin Sodium 40 MG/0.4 ML SYRINGE SC SCH (20:47)
[2018-04-11] MEDS: Miconazole 2% Vaginal Cream 45 GM TUBE VAG SCH (20:49)
[2018-04-11] MEDS: Nicotine 14 MG PATCH TD SCH (20:49)
[2018-04-11] MEDS: SODIUM PHOSPHATE IV SCH (22:08)
[2018-04-11] MEDS: SODIUM CHLORIDE IV SCH (22:08)
[2018-04-11] MEDS: [UNRECOGNIZED DRUG - OTHER] IV SCH (22:08)
[2018-04-11] MEDS: FAT EMULSION IV SCH (22:08)
[2018-04-11] MEDS: Zolpidem Tartrate 5 MG TAB PO PRN (22:56)
--- NOTE | 2018-04-11 23:36 | PRG ---
DATE OF SERVICE: 04/11/2018 SUBJECTIVE: Ms. Lewis is feeling better. She complains of swelling on her left knee. OBJECTIVE: VITAL SIGNS: Temperature is 98.3, pulse 73, respirations 18. ABDOMEN: Soft, nontender, no tenderness, no rebound. There is no guarding. LABORATORY STUDIES: White count 19.3; hemoglobin 9.7; platelet count 390, this is down from 656 on a dmission; 73 segs. BUN and creatinine 16 and 0.55. Electrolytes are normal. AST and ALT are 95 and 152, alkaline phosphatase 73. Albumin is 2.2. ASSESSMENT: 1. Severe Crohn's, being treated with TPN, bowel rest and antibiotics. 2. Phlegmon, treated with antibiotics. 3. Adrenal insufficiency, on steroids. 4. Edema in the left leg which is around the knee mainly and not in the calves. PLAN: 1. Reimage abdomen on next Saturday. 2. Doppler of left lower extremity, rule out deep venous thrombosis. 3. Dr. Delacruz is covering this weekend and be available if needed. Please do not hesitate to contact him. Otherwise, we will facilitate CT scan ordered on Saturday or Saturday.
[2018-04-12] MEDS: MEROPENEM 1 GM/50 ML 1 GM in Premix Bag 1 BAG IVPB SCH ×3 (05:37→21:46)
[2018-04-12] MEDS: Morphine 4 MG/ML VIAL SLOW IVP PRN ×3 (05:46→19:26)
[2018-04-12 05:55] LABS: ALT (SGPT) 185 U/L (8-55); AST (SGOT) 104 U/L (5-34); Albumin 2.2 g/dL (3.5-5.0); Alkaline Phosphatase 171 U/L (40-150); Anion Gap 8 mmol/L (10-20); BUN (Urea Nitrogen) 16 mg/dL (7.0-18.7); Bilirubin, Total 0.4 mg/dL (0.2-1.2); Calc. Creatinine Clearance 133 mL/min (70-130); Calcium 8.1 mg/dL (7.8-10.44); Carbon Dioxide 33 mmol/L (22-29); Chloride 98 mmol/L (98-107); Estimated GFR-MDRD Greater than 90; Globulin 2.3 g/dL (2.4-3.5); Glucose 156 mg/dL (70-105); Magnesium 1.9 mg/dL (1.6-2.6); Phosphorus 3.2 mg/dL (2.3-4.7); Potassium 4.1 mmol/L (3.5-5.1); Protein, Total 4.5 g/dL (6.0-8.3); Sodium 135 mmol/L (136-145)
[2018-04-12] MEDS: traMADol HCl 50 MG TAB PO PRN ×2 (08:51→20:53)
--- NOTE | 2018-04-12 12:28 | PDOC.PN ---
- Subjective Encounter Start Date: 04/12/18 Encounter Start Time: 10:15 Pt feeling good, still asking daily about here BLE adn hip edema. reviewed her chart, Ab 2.2 down to 2.1, then back up to 2.2 since admit. explained pathophys and that it would take some time no F/C, no N/V/d/C, get up and goes walking several times per day, no acute events, no new complaints Keeps asking if the plan is still the same All systems reviewed and neg x as per HPI - Objective MAR Reviewed: Yes Vital Signs & Weight: Vital Signs (12 hours) Temp Pulse Resp BP BP Pulse Ox 04/12/18 11:22 98.1 F 73 16 131/79 96 04/12/18 08:00 97.8 F 75 16 96 04/12/18 07:22 97.8 F 75 16 149/82 H 96 04/12/18 04:31 97.9 F 69 20 136/83 95 Weight Admit Weight 136 lb Weight 136 lb I&O: 04/11/18 04/12/18 04/13/18 06:59 06:59 06:59 Intake Total 1960 5210 Balance 1960 5210 Result Diagrams: 04/11/18 04:39 04/12/18 03:54 Phys Exam - Physical Examination Constitutional: NAD HEENT: PERRLA, moist MMs, sclera anicteric, oral pharynx no lesions Neck: no nodes, no JVD, supple, full ROM Respiratory: no wheezing, no rales, no rhonchi, clear to auscultation bilateral Cardiovascular: RRR, no significant murmur, no rub Gastrointestinal: soft, non-tender, no distention, positive bowel sounds Musculoskeletal: pulses present, edema present 1+ to hips Neurological: non-focal, normal sensation, moves all 4 limbs Lymphatic: no nodes Psychiatric: normal affect, A&O x 3 Skin: no rash, normal turgor, cap refill <2 seconds Dx/Plan (1) Retroperitoneal abscess Code(s): K68.19 - OTHER RETROPERITONEAL ABSCESS Status: Acute Comment: from terminal ileum perforation (2) Bowel perforation Code(s): K63.1 - PERFORATION OF INTESTINE (NONTRAUMATIC) Status: Acute Comment: secondary to crohns. to start on new medication in a week or so. (3) Crohn disease Code(s): K50.90 - CROHN'S DISEASE, UNSPECIFIED, WITHOUT COMPLICATIONS Status: Chronic Qualifiers: Gastrointestinal tract location: small intestine Digestive disease complication type: other complication Qualified Code(s): K50.018 - Crohn's disease of small intestine with other complication (4) HTN (hypertension) Code(s): I10 - ESSENTIAL (PRIMARY) HYPERTENSION Status: Chronic Qualifiers: Hypertension type: essential hypertension Qualified Code(s): I10 - Essential (primary) hypertension (5) Hypokalemia Code(s): E87.6 - HYPOKALEMIA Status: Resolved (6) Tobacco abuse Code(s): Z72.0 - TOBACCO USE Status: Chronic (7) Protein-calorie malnutrition, moderate Code(s): E44.0 - MODERATE PROTEIN-CALORIE MALNUTRITION Status: Acute Comment : TPN for replacement and bowel rest, alb down to 2.1 a few days ago, back to 2.2 and stable, not rising yet - Plan cont current plan of care, continue antibiotics, PT/OT, nursing home social worker, 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 CCM with abx, ID following, will need 4 weeks of abx, or longe runtil radiographic resolution per guidelines since not surgically drained. repeat imaging sunday 04/[address] lyn. TPN length to be determined based on those findings.
[2018-04-12] MEDS ORDERED: Furosemide 20 MG TAB PO SCH (14:00)
--- NOTE | 2018-04-12 14:02 | PRG ---
DATE OF SERVICE: 04/12/2018 SUBJECTIVE: The patient complains of fluid in her legs and hips. She is tolerating clear liquids we ll and having good bowel movements. OBJECTIVE: VITAL SIGNS: Temperature 98.1, pulse 73, respiratory rate 16, blood pressure 131/79. CHEST: Clear. CARDIOVASCULAR: Regular rate and rhythm. ABDOMEN: Benign. LABORATORY DATA AND IMAGING DATA: Shows a white blood cell count of 19.3, hemoglobin 9.7, hematocrit 29.6, and platelet count of 390. Chemistries significant for sodium 135, CO2 33, glucose 156, creat inine 0.53, AST of 104, ALT of 185, alkaline phosphatase of 171, total protein 4.5, albumin 2.2. Neville ogram was negative. ASSESSMENT: 1. Phlegmon secondary to Crohn's disease. 2. Lower extremity edema - probably secondary to low albumin and IV fluids. RECOMMENDATIONS: 1. Continue present management. 2. We will give one dose of oral Lasix. 3. CT on Saturday.
[2018-04-12] MEDS: Dicyclomine 10 MG CAP PO PRN (19:27)
[2018-04-12] MEDS: Enoxaparin Sodium 40 MG/0.4 ML SYRINGE SC SCH (19:27)
[2018-04-12] MEDS: Nicotine 14 MG PATCH TD SCH (19:27)
[2018-04-12] MEDS: [UNRECOGNIZED DRUG - OTHER] IV SCH (21:46)
[2018-04-12] MEDS: SODIUM PHOSPHATE IV SCH (21:46)
[2018-04-12] MEDS: SODIUM CHLORIDE IV SCH (21:46)
[2018-04-12] MEDS: FAT EMULSION IV SCH (21:46)
[2018-04-12] MEDS: Zolpidem Tartrate 5 MG TAB PO PRN (23:06)
[2018-04-13] MEDS: Morphine 4 MG/ML VIAL SLOW IVP PRN ×4 (02:53→20:12)
[2018-04-13 05:34] LABS: ALT (SGPT) 228 U/L (8-55); AST (SGOT) 116 U/L (5-34); Albumin 2.4 g/dL (3.5-5.0); Alkaline Phosphatase 176 U/L (40-150); Anion Gap 11 mmol/L (10-20); BUN (Urea Nitrogen) 17 mg/dL (7.0-18.7); Bilirubin, Total 0.4 mg/dL (0.2-1.2); Calc. Creatinine Clearance 128 mL/min (70-130); Calcium 8.2 mg/dL (7.8-10.44); Carbon Dioxide 31 mmol/L (22-29); Chloride 99 mmol/L (98-107); Estimated GFR-MDRD Greater than 90; Globulin 2.2 g/dL (2.4-3.5); Glucose 168 mg/dL (70-105); Phosphorus 3.2 mg/dL (2.3-4.7); Potassium 3.9 mmol/L (3.5-5.1); Protein, Total 4.6 g/dL (6.0-8.3); Sodium 137 mmol/L (136-145)
[2018-04-13] MEDS: MEROPENEM 1 GM/50 ML 1 GM in Premix Bag 1 BAG IVPB SCH ×3 (06:00→22:08)
[2018-04-13] MEDS: traMADol HCl 50 MG TAB PO PRN ×4 (06:01→22:43)
[2018-04-13 06:36] LABS: Band 3 % (5-11); Hemoglobin 9.8 g/dL (12.0-16.0); Lymphocytes 12 % (21-51); MDiff Complete? YES; Mean Corpuscular HGB CONC 32.8 g/dL (32.0-36.0); Mean Corpuscular Volume 82.3 fl (81.0-99.0); Monocytes 7 % (0-10); Neutrophil 78 % (42-75); Platelet Count 290 thou/uL (130-400); RBC Distribution Width 16.1 % (11.5-14.5); Red Blood Cell (RBC) Count 3.62 mill/uL (4.20-5.40); White Blood Cell (WBC) Count 17.9 thou/uL (4.8-10.8)
--- NOTE | 2018-04-13 11:48 | PRG ---
DATE OF SERVICE: 04/13/2018 SUBJECTIVE: The patient is doing well. She is having no abdominal pain. She says the fluid in her legs seems to be improved after some Lasix yesterday. OBJECTIVE: VITAL SIGNS: Temperature 98.2, pulse 64, respiratory rate 16, blood pressure 165/97. CHEST: Clear. CARDIOVASCULAR: Regular rate and rhythm. ABDOMEN: Soft, nontender, without organomegaly or masses. LABORATORY DATA: Shows a white blood cell count of 17.9, hematocrit 9.8, hematocrit 29.8. Chemistri es show a creatinine 0.55; CO2 of 31; glucose 168; AST 116; ALT 228; alkaline phosphatase of 176; alb umin of 2.4, this is up from 2.2. Prealbumin is 37.0, normal result. ASSESSMENT: 1. Phlegmon secondary to Crohn's disease. 2. Lower extremity edema. 3. Malnutrition - seems to be improved. RECOMMENDATIONS: 1. Continue present management. 2. CT on Saturday.
--- NOTE | 2018-04-13 13:41 | PDOC.PN ---
- Subjective Encounter Start Date: 04/13/18 Encounter Start Time: 11:10 Pt feeling better, less edema after single po dose of lasix, alb up to 2.4. haydee abx, haydee TPN, no F/C, no N/V/D/c, haydee clear diet, no abd or flank pain. ambulating well All systems reviewed and neg x as above - Objective MAR Reviewed: Yes Vital Signs & Weight: Vital Signs (12 hours) Temp Pulse Resp BP Pulse Ox 04/13/18 07:40 98.2 F 64 16 98 04/13/18 07:22 98.2 F 64 16 165/97 H 98 Weight Admit Weight 136 lb Weight 136 lb I&O: 04/12/18 04/13/18 04/14/18 06:59 06:59 06:59 Intake Total 5210 2470 Balance 5210 2470 Result Diagrams: 04/13/18 04:28 04/13/18 04:28 Phys Exam - Physical Examination Constitutional: NAD HEENT: PERRLA, moist MMs, sclera anicteric, oral pharynx no lesions Neck: no nodes, no JVD, supple, full ROM Respiratory: no wheezing, no rales, no rhonchi, clear to auscultation bilateral Cardiovascular: RRR, no significant murmur, no rub Gastrointestinal: soft, non-tender, no distention, positive bowel sounds Musculoskeletal: pulses present, edema present Neurological: non-focal, normal sensation, moves all 4 limbs Lymphatic: no nodes Psychiatric: normal affect, A&O x 3 Skin: no rash, normal turgor, cap refill <2 seconds Dx/Plan (1) Retroperitoneal abscess Code(s): K68.19 - OTHER RETROPERITONEAL ABSCESS Status: Acute Comment: from terminal ileum perforation (2) Bowel perforation Code(s): K63.1 - PERFORATION OF INTESTINE (NONTRAUMATIC) Status: Acute Comment: secondary to crohns. to start on new medication in a week or so. (3) Crohn disease Code(s): K50.90 - CROHN'S DISEASE, UNSPECIFIED, WITHOUT COMPLICATIONS Status: Chronic Qualifiers: Gastrointestinal tract location: small intestine Digestive disease complication type: other complication Qualified Code(s): K50.018 - Crohn's disease of small intestine with other complication (4) HTN (hypertension) Code(s): I10 - ESSENTIAL (PRIMARY) HYPERTENSION Status: Chronic Qualifiers: Hypertension type: essential hypertension Qualified Code(s): I10 - Essential (primary) hypertension (5) Hypokalemia Code(s): E87.6 - HYPOKALEMIA Status: Resolved (6) Tobacco abuse Code(s): Z72.0 - TOBACCO USE Status: Chronic (7) Protein-calorie malnutrition, moderate Code(s): E44.0 - MODERATE PROTEIN-CALORIE MALNUTRITION Status: Acute Comment : TPN for replacement and bowel rest, alb down to 2.1 a few days ago, back to 2.2, upto 2.4 - Plan cont current plan of care, continue antibiotics, social services coordinator, out of bed/ 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
[2018-04-13] MEDS: Enoxaparin Sodium 40 MG/0.4 ML SYRINGE SC SCH (20:12)
[2018-04-13] MEDS: Nicotine 14 MG PATCH TD SCH (20:13)
[2018-04-13] MEDS: SODIUM CHLORIDE IV SCH (22:08)
[2018-04-13] MEDS: FAT EMULSION IV SCH (22:08)
[2018-04-13] MEDS: [UNRECOGNIZED DRUG - OTHER] IV SCH (22:08)
[2018-04-13] MEDS: SODIUM PHOSPHATE IV SCH (22:08)
[2018-04-13] MEDS: Zolpidem Tartrate 5 MG TAB PO PRN (22:44)
[2018-04-14] MEDS: Dicyclomine 10 MG CAP PO PRN (03:45)
[2018-04-14] MEDS: traMADol HCl 50 MG TAB PO PRN ×4 (03:45→21:12)
[2018-04-14 05:37] LABS: ALT (SGPT) 239 U/L (8-55); AST (SGOT) 94 U/L (5-34); Albumin 2.5 g/dL (3.5-5.0); Alkaline Phosphatase 176 U/L (40-150); Anion Gap 10 mmol/L (10-20); BUN (Urea Nitrogen) 16 mg/dL (7.0-18.7); Bilirubin, Total 0.5 mg/dL (0.2-1.2); Calc. Creatinine Clearance 122 mL/min (70-130); Calcium 8.1 mg/dL (7.8-10.44); Carbon Dioxide 31 mmol/L (22-29); Chloride 98 mmol/L (98-107); Estimated GFR-MDRD Greater than 90; Globulin 2.4 g/dL (2.4-3.5); Glucose 186 mg/dL (70-105); Phosphorus 3.3 mg/dL (2.3-4.7); Protein, Total 4.9 g/dL (6.0-8.3); Sodium 135 mmol/L (136-145)
[2018-04-14] MEDS: MEROPENEM 1 GM/50 ML 1 GM in Premix Bag 1 BAG IVPB SCH ×3 (05:58→20:53)
[2018-04-14] MEDS: Morphine 4 MG/ML VIAL SLOW IVP PRN ×3 (06:37→18:25)
--- NOTE | 2018-04-14 09:27 | PRG ---
DATE OF SERVICE: 04/14/2018 SUBJECTIVE: The patient is feeling well. She is having a little leakage from her subcutaneous tissu e in the right side, but this seems to be clear and serosanguineous. She reports edema in her lower extremities; it is about the same. OBJECTIVE: VITAL SIGNS: Temperature 98.1, pulse 71, respiratory rate 18, blood pressure 144/80. CHEST: Clear. CARDIOVASCULAR: Regular rate and rhythm. ABDOMEN: Benign. There is a bandage over the right lower quadrant where the skin is leaking. LABORATORY DATA: Shows a sodium of 135, CO2 of 31, creatinine 0.58, glucose 186, AST 94, ALT 239, al kaline phosphatase 179, and albumin is 2.5. ASSESSMENT: 1. Crohn's phlegmon. 2. Lower extremity edema - I suspect this is mostly from hypoalbuminemia. 3. Right lower quadrant subcutaneous fluid leakage - again secondary to hypoalbuminemia, which seems to be improving. RECOMMENDATIONS: 1. CT tomorrow. 2. Continue present management.
--- NOTE | 2018-04-14 10:34 | PDOC.PN ---
- Subjective Encounter Start Date: 04/14/18 Encounter Start Time: 11:15 Subjective: Patient feeling much better. Back pain resolved. Hungry and very ready to -: eat food. Taking jello and soup broth well. TPN running. Swelling a bit -: better per patient. - Objective MAR Reviewed: Yes Vital Signs & Weight: Vital Signs (12 hours) Temp Pulse Resp BP Pulse Ox 04/14/18 08:00 98.1 F 71 18 96 04/14/18 07:47 98.1 F 71 18 144/80 H 96 Weight Admit Weight 136 lb Weight 136 lb I&O: 04/13/18 04/14/18 04/15/18 06:59 06:59 06:59 Intake Total 2470 1840 480 Output Total 3 Balance 2470 1837 480 Result Diagrams: 04/13/18 04:28 04/14/18 04:10 Phys Exam - Physical Examination Constitutional: NAD HEENT: moist MMs Respiratory: no wheezing, no rales, no rhonchi Cardiovascular: RRR, no significant murmur Gastrointestinal: soft, non-tender, positive bowel sounds right abdominal wall with edema, leaking clear fluid Musculoskeletal: edema present 1+ bilateral lower extremity to hips Neurological: non-focal, moves all 4 limbs Psychiatric: normal affect, A&O x 3 Dx/Plan (1) Bowel perforation Code(s): K63.1 - PERFORATION OF INTESTINE (NONTRAUMATIC) Status: Acute Comment: secondary to crohns. advance diet as directed by GI, TPN for now (2) Crohn's disease, unspecified, with fistula Code(s): K50.913 - CROHN'S DISEASE, UNSPECIFIED, WITH FISTULA Status: Acute (3) Protein-calorie malnutrition, moderate Code(s): E44.0 - MODERATE PROTEIN-CALORIE MALNUTRITION Status: Acute Comment : TPN for replacement and bowel rest, alb down to 2.1 a few days ago, now 2.5 (4) Retroperitoneal abscess Code(s): K68.19 - OTHER RETROPERITONEAL ABSCESS Status: Acute Comment: from terminal ileum perforation, on protracted Meropenem per Dr. Quinn (5) Crohn disease Code(s): K50.90 - CROHN'S DISEASE, UNSPECIFIED, WITHOUT COMPLICATIONS Status: Chronic Qualifiers: Gastrointestinal tract location: small intestine Digestive disease complication type: other complication Qualified Code(s): K50.018 - Crohn's disease of small intestine with other complication (6) HTN (hypertension) Code(s): I10 - ESSENTIAL (PRIMARY) HYPERTENSION Status: Chronic Qualifiers: Hypertension type: essential hypertension Qualified Code(s): I10 - Essential (primary) hypertension (7) Tobacco abuse Code(s): Z72.0 - TOBACCO USE Status: Chronic (8) Hypokalemia Code(s): E87.6 - HYPOKALEMIA Status: Resolved - Plan cont current plan of care, continue antibiotics, DVT proph w/lovenox, DVT proph w/SCDs * . - Discharge Day Encounter end time: 11:30
[2018-04-14] MEDS: Nicotine 14 MG PATCH TD SCH (21:01)
[2018-04-14] MEDS: Enoxaparin Sodium 40 MG/0.4 ML SYRINGE SC SCH (21:01)
[2018-04-14] MEDS: [UNRECOGNIZED DRUG - OTHER] IV SCH (21:13)
[2018-04-14] MEDS: FAT EMULSION IV SCH (21:13)
[2018-04-14] MEDS: SODIUM CHLORIDE IV SCH (21:13)
[2018-04-14] MEDS: SODIUM PHOSPHATE IV SCH (21:13)
[2018-04-14] MEDS: Zolpidem Tartrate 5 MG TAB PO PRN (22:57)
[2018-04-15] MEDS: Morphine 4 MG/ML VIAL SLOW IVP PRN ×4 (00:06→20:52)
[2018-04-15] MEDS: traMADol HCl 50 MG TAB PO PRN ×3 (03:45→23:09)
[2018-04-15] MEDS: MEROPENEM 1 GM/50 ML 1 GM in Premix Bag 1 BAG IVPB SCH (05:05)
[2018-04-15 05:20] LABS: ALT (SGPT) 226 U/L (8-55); AST (SGOT) 76 U/L (5-34); Albumin 2.6 g/dL (3.5-5.0); Alkaline Phosphatase 169 U/L (40-150); Anion Gap 10 mmol/L (10-20); BUN (Urea Nitrogen) 15 mg/dL (7.0-18.7); Bilirubin, Total 0.5 mg/dL (0.2-1.2); Calc. Creatinine Clearance 131 mL/min (70-130); Calcium 8.2 mg/dL (7.8-10.44); Carbon Dioxide 32 mmol/L (22-29); Chloride 99 mmol/L (98-107); Estimated GFR-MDRD Greater than 90; Globulin 2.4 g/dL (2.4-3.5); Glucose 163 mg/dL (70-105); Sodium 137 mmol/L (136-145)
[2018-04-15 06:21] LABS: Band 12 % (5-11); Hemoglobin 10.5 g/dL (12.0-16.0); Lymphocytes 13 % (21-51); MDiff Complete? YES; Mean Corpuscular HGB CONC 32.3 g/dL (32.0-36.0); Mean Corpuscular Hemoglobin 27.3 pg (27.0-31.0); Mean Corpuscular Volume 84.6 fl (81.0-99.0); Mean Platelet Volume 7.9 fL (7.4-10.4); Monocytes 3 % (0-10); Neutrophil 72 % (42-75); Platelet Count 239 thou/uL (130-400); RBC Distribution Width 17.9 % (11.5-14.5); Red Blood Cell (RBC) Count 3.84 mill/uL (4.20-5.40); White Blood Cell (WBC) Count 23.3 thou/uL (4.8-10.8)
--- NOTE | 2018-04-15 08:40 | PRG ---
DATE OF SERVICE: 04/15/2018 Ms. Lewis has no complaints. She denies any abdominal pain. Her main complaint is swelling in her left knee and some edema to her right hip. No nausea, vomiting. She is having bowel movements. Her back pain has completely resolved. PHYSICAL EXAMINATION: VITAL SIGNS: Blood pressure 162/97, pulse 71, respirations 18. She is afebrile. GENERAL: Alert, oriented, in no acute distress. CHEST: Clear. HEART: Regular rate and rhythm. ABDOMEN: Soft, nontender, nondistended, no guarding or rebound. LABORATORY: Her white blood cell count is 23, hemoglobin 10, normal differential. Creatinine is 0.5 4. ASSESSMENT: Crohn's colitis with fistula to psoas muscle, has been treated conservatively with TPN, clear liquids only. PLAN: She is getting another CT scan today to further evaluate this phlegmonous change in the right lower quadrant to be sure there is no drainable abscess. We will follow up after results of that.
[2018-04-15] MEDS: Ondansetron ODT 4 MG TAB PO PRN (09:16)
[2018-04-15] MEDS ORDERED: Lisinopril 10 MG TAB PO SCH (09:30)
--- NOTE | 2018-04-15 09:31 | PDOC.PN ---
- Subjective Encounter Start Date: 04/15/18 Encounter Start Time: 11:10 Subjective: Patient feeling better. No abdominal or back pain. Still some -: edema of legs and right abdomen. - Objective MAR Reviewed: Yes Vital Signs & Weight: Vital Signs (12 hours) Temp Pulse Resp BP Pulse Ox 04/15/18 07:43 98.3 F 71 18 95 04/15/18 07:22 98.3 F 71 18 163/97 H 95 Weight Admit Weight 136 lb Weight 136 lb I&O: 04/14/18 04/15/18 04/16/18 06:59 06:59 06:59 Intake Total 1840 6417 Output Total 3 Balance 1837 6417 Result Diagrams: 04/15/18 03:59 04/15/18 03:59 Phys Exam - Physical Examination Constitutional: NAD HEENT: moist MMs Respiratory: no wheezing, no rales, no rhonchi Cardiovascular: RRR, no significant murmur Gastrointestinal: soft, non-tender, positive bowel sounds Musculoskeletal: edema present Neurological: non-focal Psychiatric: normal affect, A&O x 3 Dx/Plan (1) Bowel perforation Code(s): K63.1 - PERFORATION OF INTESTINE (NONTRAUMATIC) Status: Acute Comment: secondary to crohns. advance diet as directed by GI, TPN for now, WBC continuing to rise, planned CT to see if drainable abscess (2) Crohn's disease, unspecified, with fistula Code(s): K50.913 - CROHN'S DISEASE, UNSPECIFIED, WITH FISTULA Status: Acute (3) Protein-calorie malnutrition, moderate Code(s): E44.0 - MODERATE PROTEIN-CALORIE MALNUTRITION Status: Acute Comment : TPN for replacement and bowel rest, alb down to 2.1 a few days ago, now 2.6, climbing each day (4) Retroperitoneal abscess Code(s): K68.19 - OTHER RETROPERITONEAL ABSCESS Status: Acute Comment: from terminal ileum perforation, on protracted Meropenem per Dr. Quinn (5) Crohn disease Code(s): K50.90 - CROHN'S DISEASE, UNSPECIFIED, WITHOUT COMPLICATIONS Status: Chronic Qualifiers: Gastrointestinal tract location: small intestine Digestive disease complication type: other complication Qualified Code(s): K50.018 - Crohn's disease of small intestine with other complication (6) HTN (hypertension) Code(s): I10 - ESSENTIAL (PRIMARY) HYPERTENSION Status: Acute Qualifiers: Hypertension type: unspecified Qualified Code(s): I10 - Essential (primary ) hypertension Comment: uncontrolled, likely secondary to steroids, increasing, will add Lisinopril very low dose while on steroids (7) Tobacco abuse Code(s): Z72.0 - TOBACCO USE Status: Chronic (8) Hypokalemia Code(s): E87.6 - HYPOKALEMIA Status: Resolved - Plan cont current plan of care, continue antibiotics, DVT proph w/lovenox, DVT proph w/SCDs * . - Discharge Day Encounter end time: 11:20
--- NOTE | 2018-04-15 12:02 | CT ---
CT ABDOMEN AND PELVIS WITH IV CONTRAST: Date: 04/15/18 Multiple axial tomograms obtained through the abdomen and pelvis with IV enhancement. Oral contrast w as given. INDICATIONS: History of Crohn's disease. A terminal ileum perforation with phlegmon was noted on the prior exam of 04/03/18. Comparison is made to that exam. FINDINGS: Imaging of the lung bases today reveals linear plate-like atelectasis in the right posterior lung bas e extending to the pleural surface, which is a new finding. There is a 2.0 cm low density lesion in the right lobe of the liver, which is unchanged. Liver, splee n, pancreas, adrenal glands, and kidneys are unremarkable and unchanged. Small bowel loops show nonspecific distention of the jejunal loops. There is mild dilatation of ileal loops. There continues to be an inflammatory process involving the terminal ileum and extending to t he ileocecal valve. There is involvement of the cecum. This results in luminal narrowing of the termi nal ileum explaining the mild ileal dilatations from small bowel obstruction. The inflammatory process shows inflammatory stranding and haziness with extraluminal gas pockets whic h do involve the right psoas muscle at the site of the previously described contrast perforation. The re are numerous tiny extraluminal gas pockets within the psoas and surrounding the right psoas with i nflammatory density seen in the retroperitoneum posteriorly abutting the right psoas muscle. No evide nce of drainable abscess or fluid collection. There is mild low density in the left psoas posteriorly , which could represent developing fluid or abscess collection. Incidentally noted is an apparent foreign body in the cecum distally, which is rounded in shape and w ith radiodense periphery and gas density centrally measuring approximately 1.2 cm. This was present w ithin the cecal tip on the prior scans of 04/03/18 and 03/25/17. Images through the pelvis are unremarkable with mildly distended urinary bladder. The patient is post hysterectomy. IMPRESSION: Continued inflammatory process involving the terminal ileum extending to the ileocecal valve and cecu m with inflammatory stranding and phlegmonous type density. This results in luminal narrowing of the terminal ileum and appears to result in small bowel obstruction with mild dilatation of the ileal loo ps. No evidence of drainable fluid or abscess collection. There are numerous small extraluminal gas p ockets within this inflammatory process. POS: ERIKA
[2018-04-15] MEDS ORDERED: Lisinopril 5 MG TAB PO SCH (12:30)
[2018-04-15] MEDS: Meropenem 1 GM in Sodium Chloride 0.9% 100 ML IVPB SCH ×2 (14:44→22:04)
--- NOTE | 2018-04-15 17:42 | PRG ---
DATE OF SERVICE: 04/15/2018. SUBJECTIVE: Pain has reduced significantly in the back area going towards the right thigh. The abdo safia pain is less. No vomiting. No respiratory symptoms. OBJECTIVE: VITAL SIGNS: Normal except for slight elevation in the systolic blood pressure. GENERAL: Awake, alert, oriented. Cushingoid features. LUNGS: Clear. HEART: S1, S2, regular rate. ABDOMEN: With mild tenderness in the right lower quadrant. LABORATORY DATA: The white cell count is 23.3, hemoglobin 10.5, platelets 239,000, 72% neutrophils, 12% bands. The AST is 76, ALT 226 and alkaline phosphatase is 169. Albumin 2.6. Blood cultures, no growth 5 days. ASSESSMENT AND DISCUSSION: Crohn's disease with ileal perforation extension to the psoas muscle on I V antimicrobial therapy and TPN. The repeat CT scan did not show leakage of contrast, although there is a foreign body looking round material at the cecum level. It seems thus far that she is respondi ng to therapy. There has been an increase in the white cell count, but the total platelet count is d own, so a little mixed picture there. 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 Londono, the intention here is to continue conservative faisal gement, hoping that in the long-term she will be able to heal this leakage area and resolve the infla mmatory process with protracted antimicrobial therapy and immunosuppressive medication as well as the ancillary role of TPN.
[2018-04-15] MEDS: Nicotine 14 MG PATCH TD SCH (20:51)
[2018-04-15] MEDS: Enoxaparin Sodium 40 MG/0.4 ML SYRINGE SC SCH (20:52)
[2018-04-15] MEDS: FAT EMULSION IV SCH (22:00)
[2018-04-15] MEDS: SODIUM CHLORIDE IV SCH (22:00)
[2018-04-15] MEDS: [UNRECOGNIZED DRUG - OTHER] IV SCH (22:00)
[2018-04-15] MEDS: SODIUM PHOSPHATE IV SCH (22:00)
[2018-04-15] MEDS: Zolpidem Tartrate 5 MG TAB PO PRN (23:09)
[2018-04-16] MEDS: Meropenem 1 GM in Sodium Chloride 0.9% 100 ML IVPB SCH ×3 (05:13→22:01)
[2018-04-16] MEDS: Morphine 4 MG/ML VIAL SLOW IVP PRN ×4 (05:13→23:40)
--- NOTE | 2018-04-16 07:33 | PRG ---
DATE OF SERVICE: 04/16/2018 SUBJECTIVE: Ms. Lewis has no complaints. She has no abdominal or back pain. OBJECTIVE: VITAL SIGNS: She is afebrile and her vital signs are stable. ABDOMEN: Soft, nontender, nondistended. IMAGING: CT scan reviewed showing persistent likely fistula tracts in the retroperitoneum, but no si gnificant fluid collection, no abscess. ASSESSMENT: Crohn's enteritis in the right lower quadrant. PLAN: Continue TPN and clear liquids for now. Dr. Morgan to talk to Crohn's specialist to come up w ith further plan or recommendations.
[2018-04-16] MEDS: Lisinopril 5 MG TAB PO SCH (07:58)
[2018-04-16] MEDS: traMADol HCl 50 MG TAB PO PRN ×3 (08:02→20:16)
[2018-04-16] MEDS ORDERED: Lisinopril 10 MG TAB PO SCH (09:00)
--- NOTE | 2018-04-16 09:17 | PRG ---
DATE OF SERVICE: 04/15/2018 SUBJECTIVE: Ms. Lewis had a followup CAT scan today. She is feeling well, little bit of pain in he r knee, left. Her Dopplers over the weekend showed no evidence of DVT. OBJECTIVE: VITAL SIGNS: Temperature is 98.3, pulse 71, blood pressure 116/70. LUNGS: Clear. ABDOMEN: Soft and nontender. LABORATORY STUDIES: White count 22,300, hemoglobin 10.5, platelet count 239, 72% segs, 12% bands, 13 % lymphocytes. Sodium 137, potassium 4, BUN and creatinine are 15 and 0.45, bilirubin is 0.5, AST an d ALT of 76 and 226, alkaline phosphatase 169, protein 5; albumin 2.6 up from 2.[address] scan essentially unchanged. There are still phlegmon in right lower quadrant, some inflammation towards the ileum, ileocecal valve, and cecum, some inflammatory stranding, luminal narrowing in terminal ile um with some mild dilatation of ileal loops, no drainable abscess; although, there are numerous small extraluminal gas pockets within this inflammatory process which seem to extend to the psoas. PLAN: At this time, we will continue IV steroids, empiric antibiotics. As far as starting her Desirae ra, I do have some concerns about immunosuppressing her with pockets of gas scattered out in this phl egmonous area where this could lead to uncontrolled infection. She has been on antibiotics for over a week now. We will consult with Gastroenterology, IBD specialist in [place] for their opinion. I d iscussed this with the patient and family today and we will revisit plan and symptoms tomorrow after that consultation.
--- NOTE | 2018-04-16 13:11 | PDOC.PN ---
- Subjective Encounter Start Date: 04/16/18 Encounter Start Time: 13:11 Subjective: Pt seen and examined , C/o Weight gain, denies any abdominal pain - Objective MAR Reviewed: Yes Vital Signs & Weight: Vital Signs (12 hours) Temp Pulse Resp BP BP Pulse Ox 04/16/18 08:00 98.7 F 70 16 96 04/16/18 07:58 70 137/85 04/16/18 07:39 98.7 F 70 16 137/85 96 Weight Admit Weight 136 lb Weight 136 lb I&O: 04/15/18 04/16/18 04/17/18 06:59 06:59 06:59 Intake Total 6417 1695 480 Balance 6417 1695 480 Result Diagrams: 04/15/18 03:59 04/15/18 03:59 Phys Exam - Physical Examination HEENT: PERRLA, sclera anicteric, TM's clear, oral pharynx no lesions Neck: no nodes, no JVD, supple, full ROM Respiratory: no wheezing, no rales, no rhonchi, clear to auscultation bilateral Cardiovascular: RRR, no significant murmur, no rub, gallop, irregular Gastrointestinal: soft, non-tender, no distention, positive bowel sounds Musculoskeletal: pulses present, edema present Neurological: non-focal Lymphatic: no nodes Psychiatric: normal affect, A&O x 3 Skin: no rash, normal turgor, cap refill <2 seconds Dx/Plan - Plan continue antibiotics, DVT proph w/lovenox Dx/Plan (1) Bowel perforation Code(s): K63.1 - PERFORATION OF INTESTINE (NONTRAUMATIC) Status: Acute Comment: secondary to crohns. advance diet as directed by GI, TPN for now, WBC continuing to rise, planned CT to see if drainable abscess (2) Crohn's disease, unspecified, with fistula Code(s): K50.913 - CROHN'S DISEASE, UNSPECIFIED, WITH FISTULA Status: Acute (3) Protein-calorie malnutrition, moderate Code(s): E44.0 - MODERATE PROTEIN-CALORIE MALNUTRITION Status: Acute Comment : TPN for replacement and bowel rest, alb down to 2.1 a few days ago, now 2.6, climbing each day (4) Retroperitoneal abscess Code(s): K68.19 - OTHER RETROPERITONEAL ABSCESS Status: Acute Comment: from terminal ileum perforation, on protracted Meropenem per Dr. Quinn (5) Crohn disease Code(s): K50.90 - CROHN'S DISEASE, UNSPECIFIED, WITHOUT COMPLICATIONS Status: Chronic Qualifiers: Gastrointestinal tract location: small intestine Digestive disease complication type: other complication Qualified Code(s): K50.018 - Crohn's disease of small intestine with other complication (6) HTN (hypertension) Code(s): I10 - ESSENTIAL (PRIMARY) HYPERTENSION Status: Acute Qualifiers: Hypertension type: unspecified Qualified Code(s): I10 - Essential (primary ) hypertension Comment: uncontrolled, likely secondary to steroids, increasing, will add Lisinopril very low dose while on steroids (7) Generalized anasarca with weight gain 15 lbs, will try lasix 40mg BID for 2 doses - Plan cont current plan of care, continue antibiotics, DVT proph w/lovenox, DVT proph w/SCDs * . Review of Systems - Review of Systems Constitutional: negative: fever, chills, sweats, weakness, malaise, other Eyes: negative: Pain, Vision Change, Conjunctivae Inflammation, Eyelid Inflammation, Redness, Other ENT: negative: Ear Pain, Ear Discharge, Nose Pain, Nose Discharge, Nose Congestion, Mouth Pain, Mouth Swelling, Throat Pain, Throat Swelling, Other Respiratory: negative: Cough, Dry, Shortness of Breath, Hemoptysis, SOB with Excertion, Pleuritic Pain, Sputum, Wheezing Cardiovascular: edema Gastrointestinal: negative: Nausea, Vomiting, Abdominal Pain, Diarrhea, Constipation, Melena, Hematochezia, Other Genitourinary: negative: Dysuria, Frequency, Incontinence, Hematuria, Retention , Other Musculoskeletal: negative: Neck Pain, Shoulder Pain, Arm Pain, Back Pain, Hand Pain, Leg Pain, Foot Pain, Other Skin: negative: Rash, Lesions, Rashad, Bruising, Other - Medications/Allergies Allergies/Adverse Reactions: Allergies Allergy/AdvReac Type Severity Reaction Status Date / Time metoclopramide HCl Allergy Intermediate HIVES, Verified 04/04/18 01:03 [From Reglan] THROAT SWELLING Penicillins Allergy Intermediate RASH, HIVES Verified 04/03/18 18:06 promethazine Allergy Intermediate HIVES, Verified 04/03/18 18:06 THROAT SWELLING benzonatate Allergy Hives Verified 04/03/18 18:06 [From Tessalon Perles] piperacillin [From Zosyn] Allergy Verified 04/04/18 01:02 prochlorperazine Allergy Verified 04/03/18 18:06 tazobactam [From Zosyn] Allergy Verified 04/04/18 01:02 FERROUS FUMARATE Allergy Intermediate Hives Uncoded 03/11/17 03:18 Medications: Current Medications Acetaminophen (Tylenol) 650 mg PO Q4H PRN PRN Reason: Headache/Fever or Pain Last Admin: 04/04/18 20:37 Dose: 650 mg Cosyntropin (Cortrosyn) 250 mcg SLOW IVP [facility] Last Admin: 04/05/18 10:32 Dose: 250 mcg Diphenhydramine HCl (Benadryl) 25 mg IVP Q4H PRN PRN Reason: Hives Enoxaparin Sodium (Lovenox) 40 mg SC 2100 [facility] Last Admin: 04/15/18 20:52 Dose: 40 mg Fat Emulsion Intravenous 250 ml/ Sodium Chloride 30 meq/Sodium Phosphate 9 mmol/ Potassium Chloride 20 meq/Magnesium Sulfate 1.85 gm/Multivitamins 10 ml/ Chromium/Copper/Manganese/Seleni/Zn 5 ml/ Miscellaneous Medication 1 each/ Amino Acids/Electrolytes 2,289.2 mls @ 95.383 mls/hr IV 2200 [facility] Last Admin: 04/15/18 22:00 Dose: 2,289.2 mls Meropenem 1 gm/ Sodium (Chloride) 100 mls @ 100 mls/hr IVPB Q8HR [facility] Last Admin: 04/16/18 05:13 Dose: 100 mls Lisinopril (Zestril) 5 mg PO DAILY [facility] Last Admin: 04/16/18 07:58 Dose: 5 mg Methylprednisolone Sodium Succinate (Solu-Medrol) 20 mg IVP Q8HR [facility] Last Admin: 04/16/18 05:13 Dose: 20 mg Morphine Sulfate (Morphine) 2 mg SLOW IVP Q4H PRN PRN Reason: Breakthrough Pain Last Admin: 04/16/18 11:56 Dose: 2 mg Nicotine (Nicoderm Patch) 14 mg TD 2100 [facility] Last Admin: 04/15/18 20:51 Dose: 14 mg Ondansetron HCl (Zofran Odt) 4 mg PO Q6H PRN PRN Reason: Nausea/Vomiting Last Admin: 04/15/18 09:16 Dose: 4 mg Pantoprazole Sodium (Protonix) 40 mg PO DAILY [facility] Last Admin: 04/16/18 07:59 Dose: 40 mg Sodium Chloride (Flush - Normal Saline) 10 ml IVF Q12HR [facility] Last Admin: 04/16/18 07:59 Dose: 10 ml Sodium Chloride (Flush - Normal Saline) 10 ml IVF PRN PRN PRN Reason: Saline Flush Tramadol HCl (Ultram) 50 mg PO Q4H PRN PRN Reason: Moderate Pain (4-6) Tramadol HCl (Ultram) 100 mg PO Q4H PRN PRN Reason: Severe Pain (7-10) Last Admin: 04/16/18 08:02 Dose: 100 mg Zolpidem Tartrate (Ambien) 5 mg PO HSPRN PRN PRN Reason: Insomnia Last Admin: 04/15/18 23:09 Dose: 5 mg
[2018-04-16] MEDS ORDERED: Furosemide 40 MG/4 ML VIAL SLOW IVP SCH (13:30)
[2018-04-16] MEDS ORDERED: USTEKINUMAB FS SCH (20:15)
[2018-04-16] MEDS: Enoxaparin Sodium 40 MG/0.4 ML SYRINGE SC SCH (20:16)
[2018-04-16] MEDS: Nicotine 14 MG PATCH TD SCH (20:16)
[2018-04-16] MEDS: [UNRECOGNIZED DRUG - OTHER] IV SCH (22:01)
[2018-04-16] MEDS: SODIUM CHLORIDE IV SCH (22:01)
[2018-04-16] MEDS: SODIUM PHOSPHATE IV SCH (22:01)
[2018-04-16] MEDS: FAT EMULSION IV SCH (22:01)
[2018-04-16] MEDS: Zolpidem Tartrate 5 MG TAB PO PRN (23:41)
[2018-04-17] MEDS: traMADol HCl 50 MG TAB PO PRN ×4 (05:30→18:20)
[2018-04-17] MEDS: Meropenem 1 GM in Sodium Chloride 0.9% 100 ML IVPB SCH ×2 (05:30→12:32)
[2018-04-17] MEDS: Morphine 4 MG/ML VIAL SLOW IVP PRN ×4 (07:42→22:38)
[2018-04-17] MEDS: Lisinopril 5 MG TAB PO SCH (07:42)
--- NOTE | 2018-04-17 13:28 | PDOC.PN ---
- Subjective Encounter Start Date: 04/17/18 Encounter Start Time: 13:27 Subjective: Pt seen and Examined -: Pt diuresed very well after Dose of Lasix - Objective MAR Reviewed: Yes Vital Signs & Weight: Vital Signs (12 hours) Temp Pulse Resp BP BP Pulse Ox 04/17/18 08:00 98.2 F 73 18 04/17/18 07:42 73 143/81 H 04/17/18 07:40 98.2 F 73 18 143/81 H 95 Weight Admit Weight 136 lb Weight 136 lb I&O: 04/16/18 04/17/18 04/18/18 06:59 06:59 06:59 Intake Total 1695 4130 480 Balance 1695 4130 480 Result Diagrams: 04/15/18 03:59 04/15/18 03:59 Radiology Reviewed by me: Yes Phys Exam - Physical Examination HEENT: PERRLA Neck: no nodes, no JVD, supple, full ROM Respiratory: no wheezing, no rales, no rhonchi, clear to auscultation bilateral Cardiovascular: RRR, no significant murmur, no rub, gallop Gastrointestinal: soft, non-tender, no distention, positive bowel sounds Musculoskeletal: edema present Neurological: non-focal Lymphatic: no nodes Psychiatric: normal affect, A&O x 3 Skin: no rash Dx/Plan - Plan Dx/Plan - Plan continue antibiotics, DVT proph w/lovenox Dx/Plan (1) Bowel perforation Code(s): K63.1 - PERFORATION OF INTESTINE (NONTRAUMATIC) Status: Acute Comment: secondary to crohns. advance diet as directed by GI, TPN for now, WBC continuing to rise, planned CT to see if drainable abscess (2) Crohn's disease, unspecified, with fistula Code(s): K50.913 - CROHN'S DISEASE, UNSPECIFIED, WITH FISTULA Status: Acute (3) Protein-calorie malnutrition, moderate Code(s): E44.0 - MODERATE PROTEIN-CALORIE MALNUTRITION Status: Acute Comment : TPN for replacement and bowel rest, alb down to 2.1 a few days ago, now 2.6, climbing each day (4) Retroperitoneal abscess Code(s): K68.19 - OTHER RETROPERITONEAL ABSCESS Status: Acute Comment: from terminal ileum perforation, on protracted Meropenem per Dr. Quinn (5) Crohn disease Code(s): K50.90 - CROHN'S DISEASE, UNSPECIFIED, WITHOUT COMPLICATIONS Status: Chronic Qualifiers: Gastrointestinal tract location: small intestine Digestive disease complication type: other complication Qualified Code(s): K50.018 - Crohn's disease of small intestine with other complication (6) HTN (hypertension) Code(s): I10 - ESSENTIAL (PRIMARY) HYPERTENSION Status: Acute Qualifiers: Hypertension type: unspecified Qualified Code(s): I10 - Essential (primary ) hypertension Comment: uncontrolled, likely secondary to steroids, increasing, will add Lisinopril very low dose while on steroids (7) Generalized anasarca with weight gain 15 lbs, IV Lasix 40mg times one. Encourge her to drink less fluid - Plan cont current plan of care, continue antibiotics, DVT proph w/lovenox, DVT proph w/SCDs * .. Review of Systems - Review of Systems Eyes: negative: Pain, Vision Change, Conjunctivae Inflammation, Eyelid Inflammation, Redness, Other ENT: negative: Ear Pain, Ear Discharge, Nose Pain, Nose Discharge, Nose Congestion, Mouth Pain, Mouth Swelling, Throat Pain, Throat Swelling, Other Respiratory: negative: Cough, Dry, Shortness of Breath, Hemoptysis, SOB with Excertion, Pleuritic Pain, Sputum, Wheezing Cardiovascular: negative: chest pain, palpitations, orthopnea, paroxysmal nocturnal dyspnea, edema, light headedness, other Gastrointestinal: negative: Nausea, Vomiting, Abdominal Pain, Diarrhea, Constipation, Melena, Hematochezia, Other Genitourinary: negative: Dysuria, Frequency, Incontinence, Hematuria, Retention , Other Musculoskeletal: negative: Neck Pain, Shoulder Pain, Arm Pain, Back Pain, Hand Pain, Leg Pain, Foot Pain, Other Skin: Rash. negative: Lesions, Rashad, Bruising, Other Neurological: Weakness, Numbness - Medications/Allergies Allergies/Adverse Reactions: Allergies Allergy/AdvReac Type Severity Reaction Status Date / Time metoclopramide HCl Allergy Intermediate HIVES, Verified 04/04/18 01:03 [From Reglan] THROAT SWELLING Penicillins Allergy Intermediate RASH, HIVES Verified 04/03/18 18:06 promethazine Allergy Intermediate HIVES, Verified 04/03/18 18:06 THROAT SWELLING benzonatate Allergy Hives Verified 04/03/18 18:06 [From Tessalon Perles] piperacillin [From Zosyn] Allergy Verified 04/04/18 01:02 prochlorperazine Allergy Verified 04/03/18 18:06 tazobactam [From Zosyn] Allergy Verified 04/04/18 01:02 FERROUS FUMARATE Allergy Intermediate Hives Uncoded 03/11/17 03:18 Medications: Current Medications Acetaminophen (Tylenol) 650 mg PO Q4H PRN PRN Reason: Headache/Fever or Pain Last Admin: 04/04/18 20:37 Dose: 650 mg Cosyntropin (Cortrosyn) 250 mcg SLOW IVP [facility] Last Admin: 04/05/18 10:32 Dose: 250 mcg Diphenhydramine HCl (Benadryl) 25 mg IVP Q4H PRN PRN Reason: Hives Enoxaparin Sodium (Lovenox) 40 mg SC 2100 [facility] Last Admin: 04/16/18 20:16 Dose: 40 mg Fat Emulsion Intravenous 250 ml/ Sodium Chloride 30 meq/Sodium Phosphate 9 mmol/ Potassium Chloride 20 meq/Magnesium Sulfate 1.85 gm/Multivitamins 10 ml/ Chromium/Copper/Manganese/Seleni/Zn 5 ml/ Miscellaneous Medication 1 each/ Amino Acids/Electrolytes 2,289.2 mls @ 95.383 mls/hr IV 2200 [facility] Last Admin: 04/16/18 22:01 Dose: 2,289.2 mls Meropenem 1 gm/ Sodium (Chloride) 100 mls @ 100 mls/hr IVPB Q8HR [facility] Last Admin: 04/17/18 12:32 Dose: 100 mls Lisinopril (Zestril) 5 mg PO DAILY [facility] Last Admin: 04/17/18 07:42 Dose: 5 mg Methylprednisolone Sodium Succinate (Solu-Medrol) 20 mg IVP Q8HR [facility] Last Admin: 04/17/18 12:32 Dose: 20 mg Morphine Sulfate (Morphine) 2 mg SLOW IVP Q4H PRN PRN Reason: Breakthrough Pain Last Admin: 04/17/18 12:32 Dose: 2 mg Nicotine (Nicoderm Patch) 14 mg TD 2100 [facility] Last Admin: 04/16/18 20:16 Dose: 14 mg Ondansetron HCl (Zofran Odt) 4 mg PO Q6H PRN PRN Reason: Nausea/Vomiting Last Admin: 04/15/18 09:16 Dose: 4 mg Pantoprazole Sodium (Protonix) 40 mg PO DAILY [facility] Last Admin: 04/17/18 07:42 Dose: 40 mg Sodium Chloride (Flush - Normal Saline) 10 ml IVF Q12HR [facility] Last Admin: 04/17/18 07:43 Dose: 10 ml Sodium Chloride (Flush - Normal Saline) 10 ml IVF PRN PRN PRN Reason: Saline Flush Tramadol HCl (Ultram) 50 mg PO Q4H PRN PRN Reason: Moderate Pain (4-6) Tramadol HCl (Ultram) 100 mg PO Q4H PRN PRN Reason: Severe Pain (7-10) Last Admin: 04/17/18 09:12 Dose: 100 mg Zolpidem Tartrate (Ambien) 5 mg PO HSPRN PRN PRN Reason: Insomnia Last Admin: 04/16/18 23:41 Dose: 5 mg
--- NOTE | 2018-04-17 13:45 | PRG ---
DATE OF SERVICE: 04/17/2018 Ms. Lewis tolerated infusion of Stelara yesterday. She states she is feeling well, she is having n o nausea, vomiting or cramping. PHYSICAL EXAMINATION: VITAL SIGNS: Temperature 98, pulse 73, blood pressure 143/81. ABDOMEN: Soft, nontender. LUNGS: Lungs are clear. LABORATORY DATA: No labs today. ASSESSMENT: Crohn's complicated by fistulous tracts and free air in the lower abdomen. She is on an tibiotics now for over a week. She is on TPN. We started Stelara yesterday. She is on steroids. RECOMMENDATIONS: We will decrease her steroids and we are going to go ahead and get labs for tomorro w and start her on full liquids. If she tolerates that she can go to soft, low residue diet.
--- NOTE | 2018-04-17 13:49 | PRG ---
DATE OF SERVICE: 04/16/2018 Ms. Lewis is doing well. I have talked with subspecialists in [place] regarding her case and they d id recommend as we have a strict smoking cessation, compliance with medications. I have decided afte r talking to them we would go ahead and start her Stelara. She has been without fever. PHYSICAL EXAMINATION: VITAL SIGNS: Temperature is 98, pulse 78, blood pressure 138/76. ABDOMEN: Soft, nontender. LABORATORY STUDIES: None for 04/16/2018. ASSESSMENT: Complicated Crohn's disease with fistulas and phlegmon right lower quadrant, now on anti biotics and TPN for over 10 days. We will plan starting Stelara. The risk, benefits and possible co mplications of Stelara including infection risk, infusion reaction risk and malignancy. Risks have b een discussed with the patient and family in detail. She also understands that she is out of options in terms of biologic therapy for her Crohn's and that the next step would be surgery which would lik daniel leave her with short gut. She understands risks and wishes to proceed.
[2018-04-17] MEDS: Nicotine 14 MG PATCH TD SCH (21:01)
[2018-04-17] MEDS: Enoxaparin Sodium 40 MG/0.4 ML SYRINGE SC SCH (21:01)
[2018-04-17] MEDS: MEROPENEM 1 GM/50 ML 1 GM in Premix Bag 1 BAG IVPB SCH (21:02)
[2018-04-17] MEDS: SODIUM CHLORIDE IV SCH (22:37)
[2018-04-17] MEDS: SODIUM PHOSPHATE IV SCH (22:37)
[2018-04-17] MEDS: FAT EMULSION IV SCH (22:37)
[2018-04-17] MEDS: [UNRECOGNIZED DRUG - OTHER] IV SCH (22:37)
[2018-04-17] MEDS: Zolpidem Tartrate 5 MG TAB PO PRN (22:39)
[2018-04-18] MEDS: Morphine 10 MG/ML VIAL SLOW IVP PRN ×2 (04:51→11:14)
[2018-04-18] MEDS: MEROPENEM 1 GM/50 ML 1 GM in Premix Bag 1 BAG IVPB SCH ×3 (04:52→22:05)
[2018-04-18 05:28] LABS: ALT (SGPT) 159 U/L (8-55); AST (SGOT) 36 U/L (5-34); Albumin 2.8 g/dL (3.5-5.0); Alkaline Phosphatase 150 U/L (40-150); Anion Gap 11 mmol/L (10-20); BUN (Urea Nitrogen) 14 mg/dL (7.0-18.7); Bilirubin, Total 0.4 mg/dL (0.2-1.2); Calc. Creatinine Clearance 133 mL/min (70-130); Calcium 8.5 mg/dL (7.8-10.44); Carbon Dioxide 32 mmol/L (22-29); Chloride 99 mmol/L (98-107); Estimated GFR-MDRD Greater than 90; Globulin 2.6 g/dL (2.4-3.5); Glucose 144 mg/dL (70-105); Magnesium 1.9 mg/dL (1.6-2.6); Phosphorus 3.5 mg/dL (2.3-4.7); Potassium 4.2 mmol/L (3.5-5.1); Protein, Total 5.4 g/dL (6.0-8.3); Sodium 138 mmol/L (136-145)
[2018-04-18 05:57] LABS: Band 2 % (5-11); Eosinophils 1 % (0-10); Hemoglobin 10.6 g/dL (12.0-16.0); Lymphocytes 14 % (21-51); MDiff Complete? YES; Mean Corpuscular HGB CONC 32.3 g/dL (32.0-36.0); Mean Corpuscular Hemoglobin 27.8 pg (27.0-31.0); Mean Corpuscular Volume 86.3 fl (81.0-99.0); Mean Platelet Volume 8.8 fL (7.4-10.4); Monocytes 4 % (0-10); Neutrophil 79 % (42-75); PLT Morphology Comment Appears Adequate; Platelet Count 204 thou/uL (130-400); RBC Distribution Width 19.3 % (11.5-14.5); Red Blood Cell (RBC) Count 3.81 mill/uL (4.20-5.40); White Blood Cell (WBC) Count 15.2 thou/uL (4.8-10.8)
[2018-04-18] MEDS: Lisinopril 5 MG TAB PO SCH (08:33)
[2018-04-18] MEDS: traMADol HCl 50 MG TAB PO PRN ×2 (08:39→16:37)
--- NOTE | 2018-04-18 14:19 | PRG ---
DATE OF SERVICE: 04/18/2018 Ms. Lewis is feeling fine. She is tolerating full liquid diet. She has not been advanced to a low residue yet. She had no fever or chills. She asked about starting some for depression as she did no t want to start smoking when she goes back home and her mother recently . PHYSICAL EXAMINATION: VITAL SIGNS: Temperature is 98.2, pulse 85, blood pressure 150/90. LUNGS: Clear. CARDIAC: Heart regular, without clicks or murmurs. ABDOMEN: Soft, nontender. LABORATORY STUDIES: White count 15.2, hemoglobin 10.6, platelet count 204, 79 segs. Electrolytes no rmal. AST and ALT of 36 and 159, albumin is 2.8. ASSESSMENT: Crohn's with fistulas tracts, right lower quadrant phlegmon status post treatment with S telara. We have weaned her steroids down in half IV. PLAN: 1. Wean TPN. 2. Start Wellbutrin for depression, smoking cessation. 3. Change prednisone to p.o. and start taper. 4. We will defer management of IV antibiotics which I think will probably be necessary for about 6 w eeks to ID. Hopefully, she will be able to go home early next week and we will arrange for odt [facility] in a few weeks for her second dose. Dr. Jesus Collazo is available over the weekend, please call if needed.
[2018-04-18] MEDS: Nicotine 14 MG PATCH TD SCH (19:53)
[2018-04-18] MEDS: Enoxaparin Sodium 40 MG/0.4 ML SYRINGE SC SCH (19:53)
--- NOTE | 2018-04-18 20:37 | PDOC.PN ---
- Subjective Encounter Start Date: 04/18/18 Encounter Start Time: 11:00 Subjective: pt up in bed no complains - Objective Vital Signs & Weight: Vital Signs (12 hours) Temp Pulse Resp BP Pulse Ox 04/18/18 19:58 98 F 80 18 117/75 94 L Weight Admit Weight 136 lb Weight 136 lb I&O: 04/17/18 04/18/18 04/19/18 06:59 06:59 06:59 Intake Total 4130 4540 2187 Balance 4130 4540 2187 Result Diagrams: 04/18/18 04:28 04/18/18 04:28 Phys Exam - Physical Examination HEENT: PERRLA, moist MMs, sclera anicteric, TM's clear, oral pharynx no lesions , 2+ tonsils Neck: no nodes, no JVD, supple, full ROM Respiratory: no wheezing, no rales, no rhonchi, wheezing present, clear to auscultation bilateral Cardiovascular: RRR, no significant murmur, no rub, gallop, irregular Gastrointestinal: soft, non-tender, no distention, positive bowel sounds Musculoskeletal: no edema, pulses present, edema present Dx/Plan - Plan (1) Bowel perforation (2) Crohn's disease, unspecified, with fistula (3) Protein-calorie malnutrition, moderate (4) Retroperitoneal abscess (5) Crohn disease (6) HTN (hypertension) plan: continue meropenam. pt's is tolerating full liquid diet. pt was started on started on stelara. Plan to wean TPN. * . Review of Systems - Review of Systems Eyes: negative: Pain, Vision Change, Conjunctivae Inflammation, Eyelid Inflammation, Redness, Other ENT: negative: Ear Pain, Ear Discharge, Nose Pain, Nose Discharge, Nose Congestion, Mouth Pain, Mouth Swelling, Throat Pain, Throat Swelling, Other Respiratory: negative: Cough, Dry, Shortness of Breath, Hemoptysis, SOB with Excertion, Pleuritic Pain, Sputum, Wheezing Cardiovascular: negative: chest pain, palpitations, orthopnea, paroxysmal nocturnal dyspnea, edema, light headedness, other Gastrointestinal: negative: Nausea, Vomiting, Abdominal Pain, Diarrhea, Constipation, Melena, Hematochezia, Other Genitourinary: negative: Dysuria, Frequency, Incontinence, Hematuria, Retention , Other Musculoskeletal: negative: Neck Pain, Shoulder Pain, Arm Pain, Back Pain, Hand Pain, Leg Pain, Foot Pain, Other - Medications/Allergies Allergies/Adverse Reactions: Allergies Allergy/AdvReac Type Severity Reaction Status Date / Time metoclopramide HCl Allergy Intermediate HIVES, Verified 04/04/18 01:03 [From Reglan] THROAT SWELLING Penicillins Allergy Intermediate RASH, HIVES Verified 04/03/18 18:06 promethazine Allergy Intermediate HIVES, Verified 04/03/18 18:06 THROAT SWELLING benzonatate Allergy Hives Verified 04/03/18 18:06 [From Corry Russ] piperacillin [From Zosyn] Allergy Verified 04/04/18 01:02 prochlorperazine Allergy Verified 04/03/18 18:06 tazobactam [From Zosyn] Allergy Verified 04/04/18 01:02 FERROUS FUMARATE Allergy Intermediate Hives Uncoded 03/11/17 03:18 Medications: Current Medications Acetaminophen (Tylenol) 650 mg PO Q4H PRN PRN Reason: Headache/Fever or Pain Last Admin: 04/04/18 20:37 Dose: 650 mg Bupropion HCl (Wellbutrin Sr) 100 mg PO DAILY [facility] Cosyntropin (Cortrosyn) 250 mcg SLOW IVP WILLCALL [facility] Last Admin: 04/05/18 10:32 Dose: 250 mcg Diphenhydramine HCl (Benadryl) 25 mg IVP Q4H PRN PRN Reason: Hives Enoxaparin Sodium (Lovenox) 40 mg SC 2100 [facility] Last Admin: 04/18/18 19:53 Dose: 40 mg Meropenem 1 gm/ Device 50 mls @ 50 mls/hr IVPB Q8HR [facility] Last Admin: 04/18/18 14:45 Dose: 50 mls Fat Emulsion Intravenous 250 ml/ Sodium Chloride 30 meq/Sodium Phosphate 9 mmol/ Potassium Chloride 20 meq/Magnesium Sulfate 1.85 gm/Multivitamins 10 ml/ Chromium/Copper/Manganese/Seleni/Zn 5 ml/ Miscellaneous Medication 1 each/ Amino Acids/Electrolytes 2,289.2 mls @ 50 mls/hr IV 2200 [facility] Lisinopril (Zestril) 5 mg PO DAILY [facility] Last Admin: 04/18/18 08:33 Dose: 5 mg Morphine Sulfate (Morphine) 2 mg SLOW IVP Q4H PRN PRN Reason: Breakthrough Pain Last Admin: 04/18/18 19:51 Dose: 2 mg Nicotine (Nicoderm Patch) 14 mg TD 2100 [facility] Last Admin: 04/18/18 19:53 Dose: 14 mg Ondansetron HCl (Zofran Odt) 4 mg PO Q6H PRN PRN Reason: Nausea/Vomiting Last Admin: 04/15/18 09:16 Dose: 4 mg Pantoprazole Sodium (Protonix) 40 mg PO DAILY [facility] Last Admin: 04/18/18 08:33 Dose: 40 mg Prednisone (Prednisone) 20 mg PO QAM-[facility] Sodium Chloride (Flush - Normal Saline) 10 ml IVF Q12HR [facility] Last Admin: 04/18/18 19:54 Dose: 10 ml Sodium Chloride (Flush - Normal Saline) 10 ml IVF PRN PRN PRN Reason: Saline Flush Tramadol HCl (Ultram) 50 mg PO Q4H PRN PRN Reason: Moderate Pain (4-6) Tramadol HCl (Ultram) 100 mg PO Q4H PRN PRN Reason: Severe Pain (7-10) Last Admin: 04/18/18 16:37 Dose: 100 mg Zolpidem Tartrate (Ambien) 5 mg PO HSPRN PRN PRN Reason: Insomnia Last Admin: 04/17/18 22:39 Dose: 5 mg
[2018-04-18] MEDS: SODIUM CHLORIDE IV SCH (23:00)
[2018-04-18] MEDS: FAT EMULSION IV SCH (23:00)
[2018-04-18] MEDS: SODIUM PHOSPHATE IV SCH (23:00)
[2018-04-18] MEDS: [UNRECOGNIZED DRUG - OTHER] IV SCH (23:00)
[2018-04-18] MEDS: Zolpidem Tartrate 5 MG TAB PO PRN (23:48)
[2018-04-19] MEDS: MEROPENEM 1 GM/50 ML 1 GM in Premix Bag 1 BAG IVPB SCH ×3 (05:24→20:56)
[2018-04-19] MEDS: traMADol HCl 50 MG TAB PO PRN ×3 (08:11→20:56)
[2018-04-19] MEDS: Bupropion 100 MG SR TAB PO SCH (08:12)
[2018-04-19] MEDS: predniSONE 20 MG TAB PO SCH (08:12)
[2018-04-19] MEDS: Lisinopril 5 MG TAB PO SCH (12:14)
--- NOTE | 2018-04-19 13:34 | PDOC.PN ---
- Subjective Encounter Start Date: 04/19/18 Encounter Start Time: 10:30 Subjective: pt up in bed complains of pain to her right flank area - Objective Vital Signs & Weight: Vital Signs (12 hours) Temp Pulse Resp BP BP Pulse Ox 04/19/18 12:14 101 H 96/65 04/19/18 11:42 98.8 F 101 H 16 96/65 93 L 04/19/18 08:08 98.4 F 97 16 96/62 93 L 04/19/18 08:00 98.4 F 97 16 93 L Weight Admit Weight 136 lb Weight 136 lb I&O: 04/18/18 04/19/18 04/20/18 06:59 06:59 06:59 Intake Total 4540 2787 240 Balance 4540 2787 240 Result Diagrams: 04/18/18 04:28 04/18/18 04:28 Phys Exam - Physical Examination HEENT: PERRLA, moist MMs, sclera anicteric, TM's clear, oral pharynx no lesions , 2+ tonsils Neck: no nodes, no JVD, supple, full ROM Respiratory: no wheezing, no rales, no rhonchi, wheezing present, clear to auscultation bilateral Cardiovascular: RRR, no significant murmur, no rub, gallop, irregular Gastrointestinal: soft, non-tender, no distention, positive bowel sounds mild pain on palpation of right flank area superfical Neurological: non-focal, normal sensation, moves all 4 limbs Dx/Plan - Plan (1) Bowel perforation (2) Crohn's disease, unspecified, with fistula (3) Protein-calorie malnutrition, moderate (4) Retroperitoneal abscess (5) Crohn disease (6) HTN (hypertension) plan: continue meropenam. pt's is tolerating full liquid diet. pt was started on started on stelara. Plan to wean TPN. 04/19 pt is tolerating soft diet. will stat pt on lidoderm patch for pain to her right flank area and will start senna since she is complaining of constipation. * . Review of Systems - Review of Systems ENT: negative: Ear Pain, Ear Discharge, Nose Pain, Nose Discharge, Nose Congestion, Mouth Pain, Mouth Swelling, Throat Pain, Throat Swelling, Other Respiratory: negative: Cough, Dry, Shortness of Breath, Hemoptysis, SOB with Excertion, Pleuritic Pain, Sputum, Wheezing Cardiovascular: negative: chest pain, palpitations, orthopnea, paroxysmal nocturnal dyspnea, edema, light headedness, other Gastrointestinal: negative: Nausea, Vomiting, Abdominal Pain, Diarrhea, Constipation, Melena, Hematochezia, Other Genitourinary: negative: Dysuria, Frequency, Incontinence, Hematuria, Retention , Other - Medications/Allergies Allergies/Adverse Reactions: Allergies Allergy/AdvReac Type Severity Reaction Status Date / Time metoclopramide HCl Allergy Intermediate HIVES, Verified 04/04/18 01:03 [From Reglan] THROAT SWELLING Penicillins Allergy Intermediate RASH, HIVES Verified 04/03/18 18:06 promethazine Allergy Intermediate HIVES, Verified 04/03/18 18:06 THROAT SWELLING benzonatate Allergy Hives Verified 04/03/18 18:06 [From Corry Russ] piperacillin [From Zosyn] Allergy Verified 04/04/18 01:02 prochlorperazine Allergy Verified 04/03/18 18:06 tazobactam [From Zosyn] Allergy Verified 04/04/18 01:02 FERROUS FUMARATE Allergy Intermediate Hives Uncoded 03/11/17 03:18 Medications: Current Medications Acetaminophen (Tylenol) 650 mg PO Q4H PRN PRN Reason: Headache/Fever or Pain Last Admin: 04/04/18 20:37 Dose: 650 mg Bupropion HCl (Wellbutrin Sr) 100 mg PO DAILY [facility] Last Admin: 04/19/18 08:12 Dose: 100 mg Cosyntropin (Cortrosyn) 250 mcg SLOW IVP WILLCALL [facility] Last Admin: 04/05/18 10:32 Dose: 250 mcg Diphenhydramine HCl (Benadryl) 25 mg IVP Q4H PRN PRN Reason: Hives Enoxaparin Sodium (Lovenox) 40 mg SC 2100 [facility] Last Admin: 04/18/18 19:53 Dose: 40 mg Meropenem 1 gm/ Device 50 mls @ 50 mls/hr IVPB Q8HR [facility] Last Admin: 04/19/18 05:24 Dose: 50 mls Fat Emulsion Intravenous 250 ml/ Sodium Chloride 30 meq/Sodium Phosphate 9 mmol/ Potassium Chloride 20 meq/Magnesium Sulfate 1.85 gm/Multivitamins 10 ml/ Chromium/Copper/Manganese/Seleni/Zn 5 ml/ Miscellaneous Medication 1 each/ Amino Acids/Electrolytes 2,289.2 mls @ 50 mls/hr IV 2200 [facility] Last Admin: 04/18/18 23:00 Dose: 2,289.2 mls Lidocaine (Lidoderm 5% Patch) 1 patch TD 1800 [facility] Lisinopril (Zestril) 5 mg PO DAILY [facility] Last Admin: 04/19/18 12:14 Dose: Not Given Miscellaneous Medication (Lidocaine Patch Removal) 1 each TOP 0600 [facility] Morphine Sulfate (Morphine) 2 mg SLOW IVP Q4H PRN PRN Reason: Breakthrough Pain Last Admin: 04/19/18 09:55 Dose: 2 mg Nicotine (Nicoderm Patch) 14 mg TD 2100 [facility] Last Admin: 04/18/18 19:53 Dose: 14 mg Ondansetron HCl (Zofran Odt) 4 mg PO Q6H PRN PRN Reason: Nausea/Vomiting Last Admin: 04/15/18 09:16 Dose: 4 mg Pantoprazole Sodium (Protonix) 40 mg PO DAILY [facility] Last Admin: 04/19/18 08:12 Dose: 40 mg Prednisone (Prednisone) 20 mg PO QAM-WM [facility] Last Admin: 04/19/18 08:12 Dose: 20 mg Senna/Docusate Sodium (Senokot S) 1 tab PO BID [facility] Sodium Chloride (Flush - Normal Saline) 10 ml IVF Q12HR [facility] Last Admin: 04/19/18 08:13 Dose: 10 ml Sodium Chloride (Flush - Normal Saline) 10 ml IVF PRN PRN PRN Reason: Saline Flush Tramadol HCl (Ultram) 50 mg PO Q4H PRN PRN Reason: Moderate Pain (4-6) Tramadol HCl (Ultram) 100 mg PO Q4H PRN PRN Reason: Severe Pain (7-10) Last Admin: 04/19/18 08:11 Dose: 100 mg Zolpidem Tartrate (Ambien) 5 mg PO HSPRN PRN PRN Reason: Insomnia Last Admin: 04/18/18 23:48 Dose: 5 mg
[2018-04-19] MEDS: Lidocaine 5% Patch TD SCH (18:49)
[2018-04-19] MEDS: Nicotine 14 MG PATCH TD SCH (20:56)
[2018-04-19] MEDS: Enoxaparin Sodium 40 MG/0.4 ML SYRINGE SC SCH (20:56)
[2018-04-19] MEDS: Senokot S 8.6-50 MG TAB PO SCH (20:57)
[2018-04-19] MEDS: Zolpidem Tartrate 5 MG TAB PO PRN (22:55)
[2018-04-19] MEDS: SODIUM CHLORIDE IV SCH (23:05)
[2018-04-19] MEDS: [UNRECOGNIZED DRUG - OTHER] IV SCH (23:05)
[2018-04-19] MEDS: SODIUM PHOSPHATE IV SCH (23:05)
[2018-04-19] MEDS: FAT EMULSION IV SCH (23:05)
[2018-04-20] MEDS: MEROPENEM 1 GM/50 ML 1 GM in Premix Bag 1 BAG IVPB SCH ×3 (05:25→20:40)
[2018-04-20] MEDS: Lidocaine Patch Removal 1 EACH TOP SCH (05:28)
[2018-04-20] MEDS: Bupropion 100 MG SR TAB PO SCH (09:06)
[2018-04-20] MEDS: predniSONE 20 MG TAB PO SCH (09:07)
[2018-04-20] MEDS: Lisinopril 5 MG TAB PO SCH (09:08)
[2018-04-20] MEDS: Senokot S 8.6-50 MG TAB PO SCH ×2 (09:09→19:33)
[2018-04-20] MEDS: traMADol HCl 50 MG TAB PO PRN ×2 (11:26→20:59)
[2018-04-20 12:43] LABS: Anion Gap 13 mmol/L (10-20); BUN (Urea Nitrogen) 11 mg/dL (7.0-18.7); Calc. Creatinine Clearance 110 mL/min (70-130); Calcium 8.6 mg/dL (7.8-10.44); Carbon Dioxide 25 mmol/L (22-29); Chloride 98 mmol/L (98-107); Estimated GFR-MDRD Greater than 90; Glucose 245 mg/dL (70-105); Magnesium 1.7 mg/dL (1.6-2.6); Potassium 4.2 mmol/L (3.5-5.1); Sodium 132 mmol/L (136-145)
[2018-04-20 13:03] LABS: Anisocytosis SLIGHT = 6-15 cells (100X) (0-5/hpf); Band 6 % (5-11); Hemoglobin 11.1 g/dL (12.0-16.0); Lymphocytes 2 % (21-51); MDiff Complete? YES; Mean Corpuscular HGB CONC 32.7 g/dL (32.0-36.0); Mean Corpuscular Hemoglobin 28.1 pg (27.0-31.0); Mean Corpuscular Volume 86.2 fl (81.0-99.0); Mean Platelet Volume 8.1 fL (7.4-10.4); Monocytes 3 % (0-10); Neutrophil 89 % (42-75); PLT Morphology Comment Appears Adequate; Platelet Count 189 thou/uL (130-400); RBC Distribution Width 19.5 % (11.5-14.5); Red Blood Cell (RBC) Count 3.96 mill/uL (4.20-5.40); White Blood Cell (WBC) Count 15.3 thou/uL (4.8-10.8)
[2018-04-20] MEDS ORDERED: HumaLOG 300 UNITS/3 ML VIAL SC PRN (14:05)
[2018-04-20] MEDS ORDERED: Dextrose 5% in Water 1,000 ML IV PRN (14:05)
[2018-04-20] MEDS ORDERED: Dextrose 50% Abboject 50 ML SYRINGE SLOW IVP PRN (14:05)
--- NOTE | 2018-04-20 14:11 | PDOC.PN ---
- Subjective Encounter Start Date: 04/20/18 Encounter Start Time: 11:45 Subjective: pt complains of cramping to her left lower leg - Objective Vital Signs & Weight: Vital Signs (12 hours) Temp Pulse Resp BP BP Pulse Ox 04/20/18 13:39 98.1 F 97 04/20/18 09:08 116 H 94/63 04/20/18 08:00 99.8 F H 116 H 16 92 L 04/20/18 07:13 99.8 F H 116 H 16 94/63 92 L Weight Admit Weight 136 lb Weight 136 lb I&O: 04/19/18 04/20/18 04/21/18 06:59 06:59 06:59 Intake Total 2787 1900 360 Balance 2787 1900 360 Result Diagrams: 04/20/18 12:16 04/20/18 12:17 Phys Exam - Physical Examination HEENT: PERRLA, moist MMs, sclera anicteric, TM's clear, oral pharynx no lesions , 2+ tonsils Neck: no nodes, no JVD, supple, full ROM Respiratory: no wheezing, no rales, no rhonchi, wheezing present, clear to auscultation bilateral Cardiovascular: RRR, no significant murmur, no rub, gallop, irregular Gastrointestinal: soft, non-tender, no distention, positive bowel sounds Musculoskeletal: no edema, pulses present no erythema present on her left or right knee joint or ankle, no rash noted Neurological: non-focal, normal sensation, moves all 4 limbs Dx/Plan - Plan (1) Bowel perforation (2) Crohn's disease, unspecified, with fistula (3) Protein-calorie malnutrition, moderate (4) Retroperitoneal abscess (5) Crohn disease (6) HTN (hypertension) plan: continue meropenam. pt's is tolerating full liquid diet. pt was started on started on stelara. Plan to wean TPN. 04/19 pt is tolerating soft diet. will stat pt on lidoderm patch for pain to her right flank area and will start senna since she is complaining of constipation. 04/20 will check electrolytes for her left leg cramping. pt is tolerating her meals. TPN is being weaned off by gi. continue meropenam. * . Review of Systems - Review of Systems Eyes: negative: Pain, Vision Change, Conjunctivae Inflammation, Eyelid Inflammation, Redness, Other ENT: negative: Ear Pain, Ear Discharge, Nose Pain, Nose Discharge, Nose Congestion, Mouth Pain, Mouth Swelling, Throat Pain, Throat Swelling, Other Respiratory: negative: Cough, Dry, Shortness of Breath, Hemoptysis, SOB with Excertion, Pleuritic Pain, Sputum, Wheezing Cardiovascular: negative: chest pain, palpitations, orthopnea, paroxysmal nocturnal dyspnea, edema, light headedness, other Gastrointestinal: Hematochezia Genitourinary: negative: Dysuria, Frequency, Incontinence, Hematuria, Retention , Other Musculoskeletal: Leg Pain (cramping to left lower leg) - Medications/Allergies Allergies/Adverse Reactions: Allergies Allergy/AdvReac Type Severity Reaction Status Date / Time metoclopramide HCl Allergy Intermediate HIVES, Verified 04/04/18 01:03 [From Reglan] THROAT SWELLING Penicillins Allergy Intermediate RASH, HIVES Verified 04/03/18 18:06 promethazine Allergy Intermediate HIVES, Verified 04/03/18 18:06 THROAT SWELLING benzonatate Allergy Hives Verified 04/03/18 18:06 [From Corry Russ] piperacillin [From Zosyn] Allergy Verified 04/04/18 01:02 prochlorperazine Allergy Verified 04/03/18 18:06 tazobactam [From Zosyn] Allergy Verified 04/04/18 01:02 FERROUS FUMARATE Allergy Intermediate Hives Uncoded 03/11/17 03:18 Medications: Current Medications Acetaminophen (Tylenol) 650 mg PO Q4H PRN PRN Reason: Headache/Fever or Pain Last Admin: 04/04/18 20:37 Dose: 650 mg Bupropion HCl (Wellbutrin Sr) 100 mg PO DAILY [facility] Last Admin: 04/20/18 09:06 Dose: 100 mg Cosyntropin (Cortrosyn) 250 mcg SLOW IVP WILLCALL [facility] Last Admin: 04/05/18 10:32 Dose: 250 mcg Dextrose/Water (Dextrose 50%) 25 gm SLOW IVP PRN PRN PRN Reason: Hypoglycemia Diphenhydramine HCl (Benadryl) 25 mg IVP Q4H PRN PRN Reason: Hives Enoxaparin Sodium (Lovenox) 40 mg SC 2100 [facility] Last Admin: 04/19/18 20:56 Dose: 40 mg Glucagon (Glucagon) 1 mg IM PRN PRN PRN Reason: Hypoglycemia Meropenem 1 gm/ Device 50 mls @ 50 mls/hr IVPB Q8HR [facility] Last Admin: 04/20/18 05:25 Dose: 50 mls Fat Emulsion Intravenous 250 ml/ Sodium Chloride 30 meq/Sodium Phosphate 9 mmol/ Potassium Chloride 20 meq/Magnesium Sulfate 1.85 gm/Multivitamins 10 ml/ Chromium/Copper/Manganese/Seleni/Zn 5 ml/ Miscellaneous Medication 1 each/ Amino Acids/Electrolytes 2,289.2 mls @ 50 mls/hr IV 2200 [facility] Last Admin: 04/19/18 23:05 Dose: 2,289.2 mls Magnesium Sulfate 1 gm/ Sodium (Chloride) 102 mls @ 100 mls/hr IVPB NOW [facility] Stop: 04/20/18 16:15 Dextrose/Water (D5w) 1,000 mls @ 0 mls/hr IV .Q0M PRN; As Directed PRN Reason: Hypoglycemia Insulin Human Lispro (Humalog) 0 units SC .MILD SLIDING SCALE PRN PRN Reason: Mild Correctional Scale Lidocaine (Lidoderm 5% Patch) 1 patch TD 1800 [facility] Last Admin: 04/19/18 18:49 Dose: 1 patch Lisinopril (Zestril) 5 mg PO DAILY [facility] Last Admin: 04/20/18 09:08 Dose: Not Given Miscellaneous Medication (Lidocaine Patch Removal) 1 each TOP 0600 [facility] Last Admin: 04/20/18 05:28 Dose: 1 each Morphine Sulfate (Morphine) 2 mg SLOW IVP Q4H PRN PRN Reason: Breakthrough Pain Last Admin: 04/20/18 13:35 Dose: 2 mg Nicotine (Nicoderm Patch) 14 mg TD 2100 [facility] Last Admin: 04/19/18 20:56 Dose: 14 mg Ondansetron HCl (Zofran Odt) 4 mg PO Q6H PRN PRN Reason: Nausea/Vomiting Last Admin: 04/15/18 09:16 Dose: 4 mg Pantoprazole Sodium (Protonix) 40 mg PO DAILY [facility] Last Admin: 04/20/18 09:07 Dose: 40 mg Prednisone (Prednisone) 20 mg PO QAM-WM [facility] Last Admin: 04/20/18 09:07 Dose: 20 mg Senna/Docusate Sodium (Senokot S) 1 tab PO BID [facility] Last Admin: 04/20/18 09:09 Dose: Not Given Sodium Chloride (Flush - Normal Saline) 10 ml IVF Q12HR [facility] Last Admin: 04/20/18 09:09 Dose: 10 ml Sodium Chloride (Flush - Normal Saline) 10 ml IVF PRN PRN PRN Reason: Saline Flush Tramadol HCl (Ultram) 50 mg PO Q4H PRN PRN Reason: Moderate Pain (4-6) Tramadol HCl (Ultram) 100 mg PO Q4H PRN PRN Reason: Severe Pain (7-10) Last Admin: 04/20/18 11:26 Dose: 100 mg Zolpidem Tartrate (Ambien) 5 mg PO HSPRN PRN PRN Reason: Insomnia Last Admin: 04/19/18 22:55 Dose: 5 mg
[2018-04-20] MEDS: Lidocaine 5% Patch TD SCH (18:28)
--- NOTE | 2018-04-20 18:51 | PRG ---
DATE OF SERVICE: 04/20/2018 SUBJECTIVE: Ms. Lewis is feeling well. Had a little bit of pain in the knees, mostly left knee and right ankle when she was ambulating. Dr. Morgan has started Stelara and prednisone started to be ta pered. She is eating. She is having bowel movements. OBJECTIVE: VITAL SIGNS: Temperature max 99.8, BP 94/63 with a tachycardic intermittently, O2 sats are 97%. GENERAL: Appears in no distress. HEENT: Ocular movements are conjugate. LUNGS: Clear. HEART: S1, S2, regular rate. ABDOMEN: Soft with very minimal tenderness. EXTREMITIES: The joints involved are not inflamed. No swelling, no evidence of effusion. LABORATORY DATA: White cell count at 15.3, hemoglobin 11, platelets 189 with 89% neutrophils. Sodiu m 132, creatinine 0.64. Two sets of blood cultures, no growth final results. ASSESSMENT AND DISCUSSION: Crohn's disease with ileal perforation and extension into the psoas muscl e, been managed with conservative therapy with TPN and IV antimicrobial therapy, the patient has been started on Stelara. I believe the plan is to eventually transition her from TPN to oral and then co ntinue antimicrobial therapy for a protracted period of time with the same drug.
[2018-04-20] MEDS: Nicotine 14 MG PATCH TD SCH (20:40)
[2018-04-20] MEDS: Enoxaparin Sodium 40 MG/0.4 ML SYRINGE SC SCH (20:40)
[2018-04-20] MEDS: SODIUM PHOSPHATE IV SCH (22:21)
[2018-04-20] MEDS: SODIUM CHLORIDE IV SCH (22:21)
[2018-04-20] MEDS: FAT EMULSION IV SCH (22:21)
[2018-04-20] MEDS: [UNRECOGNIZED DRUG - OTHER] IV SCH (22:21)
[2018-04-20] MEDS: Zolpidem Tartrate 5 MG TAB PO PRN (23:22)
[2018-04-21] MEDS: MEROPENEM 1 GM/50 ML 1 GM in Premix Bag 1 BAG IVPB SCH ×3 (05:07→21:52)
[2018-04-21] MEDS: Lidocaine Patch Removal 1 EACH TOP SCH (05:14)
[2018-04-21] MEDS ORDERED: Methyl Salicylate/Menthol 85 GM TUBE TOP PRN (08:41)
[2018-04-21] MEDS: Bupropion 100 MG SR TAB PO SCH (09:29)
[2018-04-21] MEDS: predniSONE 20 MG TAB PO SCH (09:29)
[2018-04-21] MEDS: Simethicone Chewable 80 MG TAB PO PRN (10:48)
[2018-04-21] MEDS: Lisinopril 5 MG TAB PO SCH (10:53)
[2018-04-21] MEDS: Senokot S 8.6-50 MG TAB PO SCH ×2 (10:53→20:01)
[2018-04-21] MEDS: traMADol HCl 50 MG TAB PO PRN ×2 (11:58→20:11)
[2018-04-21] MEDS: Lidocaine 5% Patch TD SCH (18:21)
[2018-04-21] MEDS: Enoxaparin Sodium 40 MG/0.4 ML SYRINGE SC SCH (20:04)
[2018-04-21] MEDS: Nicotine 14 MG PATCH TD SCH (20:04)
[2018-04-21] MEDS ORDERED: SODIUM CHLORIDE IV SCH (22:00)
[2018-04-21] MEDS ORDERED: FAT EMULSION IV SCH (22:00)
[2018-04-21] MEDS ORDERED: [UNRECOGNIZED DRUG - OTHER] IV SCH (22:00)
[2018-04-21] MEDS ORDERED: SODIUM PHOSPHATE IV SCH (22:00)
--- NOTE | 2018-04-21 22:49 | PRG ---
DATE OF SERVICE: 04/21/2018 SUBJECTIVE: Diana is tolerating soft diet. Her heart rate bumped up a little bit, 97 to 112 at t imes. Temperature 99.8 this morning, but otherwise has been 98. MEDICATIONS: Her TPN was decreased to 50 an hour. She continues on Tylenol, Wellbutrin, Lovenox, gl ucagon, Humalog, Lidoderm, meropenem, Nicoderm patch, Protonix, Zofran, prednisone 20 mg p.o. q.a.m. PHYSICAL EXAMINATION: LUNGS: Clear. HEART: Regular rate and rhythm without clicks or murmurs. ABDOMEN: Soft, nontender, without rebound or guarding. LABORATORY STUDIES: Yesterday, white count 15.3, hemoglobin 11.8, platelet count 189, 89% segs, 6% b ands. Sodium 133, potassium 4.2, BUN and creatinine are 10 and 0.64. Magnesium was 1.7 yesterday as well. ASSESSMENT: Complicated Crohn's disease with fistulas disease, iliopsoas phlegmon on chronic antibio tics. After a week of antibiotics, reimaging showed no worsening and no drainable abscesses. Theref ore, she was started on her Stelara, talked with Dr. Londono today. We are going to try to wean her TPN as well if she has recurrent fever or we are going to need to rescan her.
[2018-04-21] MEDS: Zolpidem Tartrate 5 MG TAB PO PRN (23:13)
[2018-04-22] MEDS: MEROPENEM 1 GM/50 ML 1 GM in Premix Bag 1 BAG IVPB SCH ×3 (05:29→21:26)
[2018-04-22 05:46] LABS: ALT (SGPT) 71 U/L (8-55); AST (SGOT) 33 U/L (5-34); Albumin 2.7 g/dL (3.5-5.0); Alkaline Phosphatase 117 U/L (40-150); Anion Gap 7 mmol/L (10-20); BUN (Urea Nitrogen) 11 mg/dL (7.0-18.7); Bilirubin, Total 0.8 mg/dL (0.2-1.2); Calc. Creatinine Clearance 136 mL/min (70-130); Calcium 8.5 mg/dL (7.8-10.44); Carbon Dioxide 30 mmol/L (22-29); Chloride 101 mmol/L (98-107); Estimated GFR-MDRD Greater than 90; Globulin 2.8 g/dL (2.4-3.5); Glucose 74 mg/dL (70-105); Magnesium 1.4 mg/dL (1.6-2.6); Phosphorus 3.1 mg/dL (2.3-4.7); Potassium 3.9 mmol/L (3.5-5.1); Protein, Total 5.5 g/dL (6.0-8.3); Sodium 134 mmol/L (136-145)
[2018-04-22] MEDS: predniSONE 20 MG TAB PO SCH (08:12)
[2018-04-22] MEDS: Senokot S 8.6-50 MG TAB PO SCH ×2 (08:12→20:18)
[2018-04-22] MEDS: Lisinopril 5 MG TAB PO SCH (08:13)
[2018-04-22] MEDS: Bupropion 100 MG SR TAB PO SCH (08:13)
[2018-04-22] MEDS: Lidocaine Patch Removal 1 EACH TOP SCH (08:17)
--- NOTE | 2018-04-22 09:36 | PRG ---
DATE OF SERVICE: 04/22/2018 Ms. Lewis has some mild back pain, left knee pain, right hip pain. She is tolerating the food witho ut difficulty. She denies nausea. She has some mild bloating, but she has not vomited. She is havi ng formed stools. PHYSICAL EXAMINATION: VITAL SIGNS: She is afebrile. Vital signs are stable. ABDOMEN: Soft, nontender, nondistended, without guarding or rebound. ASSESSMENT: Crohn's enteritis with known stricture with previous phlegmonous changes and fistula to the psoas muscle. PLAN: The TPN is off now. We will see how she tolerates the food, hopefully transition to outpatien t with antibiotics via PICC line by Dr. Quinn. Next infusional treatment was set for 8 weeks. We will follow on an as needed basis.
[2018-04-22] MEDS ORDERED: Ketorolac Tromethamine 30 MG/ML VIAL IVP ONE (11:35)
[2018-04-22] MEDS: Simethicone Chewable 80 MG TAB PO PRN (14:26)
[2018-04-22] MEDS: traMADol HCl 50 MG TAB PO PRN ×2 (17:00→21:25)
[2018-04-22] MEDS: Lidocaine 5% Patch TD SCH (17:14)
[2018-04-22] MEDS: Enoxaparin Sodium 40 MG/0.4 ML SYRINGE SC SCH (20:12)
[2018-04-22] MEDS: Nicotine 14 MG PATCH TD SCH (20:16)
--- NOTE | 2018-04-22 23:15 | PDOC.PN ---
- Subjective Encounter Start Date: 04/22/18 Encounter Start Time: 12:30 Subjective: pt still complains of pain to her left knee pain - Objective Vital Signs & Weight: Vital Signs (12 hours) Temp Pulse Resp BP Pulse Ox 04/22/18 20:01 98.0 F 95 18 110/71 93 L Weight Admit Weight 136 lb Weight 136 lb I&O: 04/21/18 04/22/18 04/23/18 06:59 06:59 06:59 Intake Total 1830 1300 1000 Balance 1830 1300 1000 Result Diagrams: 04/20/18 12:16 04/22/18 05:12 Additional Labs: Accuchecks 04/22/18 11:20 POC Glucose 111 H Phys Exam - Physical Examination HEENT: PERRLA, moist MMs, sclera anicteric, TM's clear, oral pharynx no lesions , 2+ tonsils Neck: no nodes, no JVD, supple, full ROM Respiratory: no wheezing, no rales, no rhonchi, wheezing present, clear to auscultation bilateral Cardiovascular: RRR, no significant murmur, no rub, gallop, irregular no erythema noted to right or left knee. Neurological: non-focal, normal sensation, moves all 4 limbs Dx/Plan - Plan (1) Bowel perforation (2) Crohn's disease, unspecified, with fistula (3) Protein-calorie malnutrition, moderate (4) Retroperitoneal abscess (5) Crohn disease (6) HTN (hypertension) plan: continue meropenam. pt's is tolerating full liquid diet. pt was started on started on stelara. Plan to wean TPN. 04/19 pt is tolerating soft diet. will stat pt on lidoderm patch for pain to her right flank area and will start senna since she is complaining of constipation. 04/20 will check electrolytes for her left leg cramping. pt is tolerating her meals. TPN is being weaned off by gi. continue meropenam. 04/21 pt has been off TPN and is doing well and tolerating oral. spoke with case managment for outpatient meropenam. she will need repeat ct ad/pel and follow up with gi/surgery and ID. waiting on Gi recommendation to discharge pt home. * .. Review of Systems - Review of Systems Eyes: negative: Pain, Vision Change, Conjunctivae Inflammation, Eyelid Inflammation, Redness, Other Respiratory: negative: Cough, Dry, Shortness of Breath, Hemoptysis, SOB with Excertion, Pleuritic Pain, Sputum, Wheezing Cardiovascular: negative: chest pain, palpitations, orthopnea, paroxysmal nocturnal dyspnea, edema, light headedness, other Gastrointestinal: Other Musculoskeletal: Other (left knee pain) Other: pt has pain to her right flank area. - Medications/Allergies Allergies/Adverse Reactions: Allergies Allergy/AdvReac Type Severity Reaction Status Date / Time metoclopramide HCl Allergy Intermediate HIVES, Verified 04/04/18 01:03 [From Reglan] THROAT SWELLING Penicillins Allergy Intermediate RASH, HIVES Verified 04/03/18 18:06 promethazine Allergy Intermediate HIVES, Verified 04/03/18 18:06 THROAT SWELLING benzonatate Allergy Hives Verified 04/03/18 18:06 [From Tessalon Perles] piperacillin [From Zosyn] Allergy Verified 04/04/18 01:02 prochlorperazine Allergy Verified 04/03/18 18:06 tazobactam [From Zosyn] Allergy Verified 04/04/18 01:02 FERROUS FUMARATE Allergy Intermediate Hives Uncoded 03/11/17 03:18 Medications: Current Medications Acetaminophen (Tylenol) 650 mg PO Q4H PRN PRN Reason: Headache/Fever or Pain Last Admin: 04/04/18 20:37 Dose: 650 mg Bupropion HCl (Wellbutrin Sr) 100 mg PO DAILY [facility] Last Admin: 04/22/18 08:13 Dose: 100 mg Cosyntropin (Cortrosyn) 250 mcg SLOW IVP WILLCALL [facility] Last Admin: 04/05/18 10:32 Dose: 250 mcg Dextrose/Water (Dextrose 50%) 25 gm SLOW IVP PRN PRN PRN Reason: Hypoglycemia Diphenhydramine HCl (Benadryl) 25 mg IVP Q4H PRN PRN Reason: Hives Enoxaparin Sodium (Lovenox) 40 mg SC 2100 [facility] Last Admin: 04/22/18 20:12 Dose: Not Given Glucagon (Glucagon) 1 mg IM PRN PRN PRN Reason: Hypoglycemia Meropenem 1 gm/ Device 50 mls @ 50 mls/hr IVPB Q8HR [facility] Last Admin: 04/22/18 21:26 Dose: 50 mls Dextrose/Water (D5w) 1,000 mls @ 0 mls/hr IV .Q0M PRN; As Directed PRN Reason: Hypoglycemia Insulin Human Lispro (Humalog) 0 units SC .MILD SLIDING SCALE PRN PRN Reason: Mild Correctional Scale Lidocaine (Lidoderm 5% Patch) 1 patch TD 1800 [facility] Last Admin: 04/22/18 17:14 Dose: 1 patch Lisinopril (Zestril) 5 mg PO DAILY [facility] Last Admin: 04/22/18 08:13 Dose: 5 mg Menthol/Methyl Salicylate (Muscle Rub Cream (Bengay)) 1 gm TOP QIDPRN PRN PRN Reason: Muscle Pain Last Admin: 04/21/18 10:48 Dose: 1 gm Miscellaneous Medication (Lidocaine Patch Removal) 1 each TOP 0600 [facility] Last Admin: 04/22/18 08:17 Dose: Not Given Nicotine (Nicoderm Patch) 14 mg TD 2100 [facility] Last Admin: 04/22/18 20:16 Dose: 14 mg Ondansetron HCl (Zofran Odt) 4 mg PO Q6H PRN PRN Reason: Nausea/Vomiting Last Admin: 04/15/18 09:16 Dose: 4 mg Pantoprazole Sodium (Protonix) 40 mg PO DAILY [facility] Last Admin: 04/22/18 08:14 Dose: 40 mg Prednisone (Prednisone) 20 mg PO QAM[facility] Last Admin: 04/22/18 08:12 Dose: 20 mg Senna/Docusate Sodium (Senokot S) 1 tab PO BID [facility] Last Admin: 04/22/18 20:18 Dose: Not Given Simethicone (Mylicon Chewable) 80 mg PO DAILYPRN PRN PRN Reason: Gas Pain Last Admin: 04/22/18 14:26 Dose: 80 mg Sodium Chloride (Flush - Normal Saline) 10 ml IVF Q12HR [facility] Last Admin: 04/22/18 21:29 Dose: 10 ml Sodium Chloride (Flush - Normal Saline) 10 ml IVF PRN PRN PRN Reason: Saline Flush Tramadol HCl (Ultram) 50 mg PO Q4H PRN PRN Reason: Moderate Pain (4-6) Tramadol HCl (Ultram) 100 mg PO Q4H PRN PRN Reason: Severe Pain (7-10) Last Admin: 04/22/18 21:25 Dose: 100 mg Zolpidem Tartrate (Ambien) 5 mg PO HSPRN PRN PRN Reason: Insomnia Last Admin: 04/21/18 23:13 Dose: 5 mg
[2018-04-22] MEDS: Zolpidem Tartrate 5 MG TAB PO PRN (23:24)
[2018-04-23] MEDS: MEROPENEM 1 GM/50 ML 1 GM in Premix Bag 1 BAG IVPB SCH ×3 (05:01→21:24)
[2018-04-23] MEDS: traMADol HCl 50 MG TAB PO PRN ×4 (05:01→16:59)
[2018-04-23] MEDS: Lidocaine Patch Removal 1 EACH TOP SCH (05:03)
[2018-04-23 05:11] LABS: #Eosinphils 0.1 thou/uL (0.0-0.7); #Lymphocytes 1.3 thou/uL (1.20-3.40); #Monocytes 0.4 thou/uL (0.11-0.59); #Neutrophils 3.9 thou/uL (1.40-6.50); %Basophils 0.5 % (0.0-1.0); %Eosinophils 1.6 % (0.0-10.0); %Lymphocytes 23.1 % (21.0-51.0); %Monocytes 6.9 % (0.0-10.0); Hemoglobin 9.2 g/dL (12.0-16.0); Mean Corpuscular HGB CONC 31.6 g/dL (32.0-36.0); Mean Corpuscular Volume 85.3 fl (81.0-99.0); Mean Platelet Volume 7.8 fL (7.4-10.4); Platelet Count 221 thou/uL (130-400); RBC Distribution Width 18.5 % (11.5-14.5); Red Blood Cell (RBC) Count 3.41 mill/uL (4.20-5.40); White Blood Cell (WBC) Count 5.7 thou/uL (4.8-10.8)
--- NOTE | 2018-04-23 05:42 | PRG ---
DATE OF SERVICE: 04/22/2018 OBJECTIVE: VITAL SIGNS: T-max 99.8 last night, 99.8 on the 3rd, she is 98.3 now, pulse 106, blood pressure 111/ 70. LUNGS: Clear. HEART: Regular rate and rhythm. ABDOMEN: Slight tender in the left, but no rebound or guarding present. LABORATORY STUDIES: No labs today except for base met, which was normal. ASSESSMENT: Phlegmon Crohn's complicated by smoking or recurrent small bowel strictures and fistulou s disease in the right lower quadrant, now some abscess there but not drainable. She has been status post about 2 weeks IV antibiotics, and after clinical improvement, was treated with biologic therapy , she will be due for followup treatment in the outpatient setting. She will go home with IV antibio tics if she remains stable. We will check a CBC tomorrow concerned about her low-grade temperatures and mild tachycardia.
[2018-04-23] MEDS: Bupropion 100 MG SR TAB PO SCH (08:47)
[2018-04-23] MEDS: predniSONE 20 MG TAB PO SCH (08:47)
[2018-04-23] MEDS: Senokot S 8.6-50 MG TAB PO SCH ×2 (08:48→21:25)
[2018-04-23] MEDS: Lisinopril 5 MG TAB PO SCH (08:48)
--- NOTE | 2018-04-23 10:05 | PDOC.PN ---
- Subjective Encounter Start Date: 04/23/18 Encounter Start Time: 10:04 Subjective: off tpn, MS- still has pain R flank - Objective MAR Reviewed: Yes Vital Signs & Weight: Vital Signs (12 hours) Temp Pulse Resp BP BP Pulse Ox 04/23/18 08:48 97 108/73 04/23/18 07:55 98.9 F 97 16 108/73 95 04/23/18 06:51 98.8 F 04/23/18 02:30 99 F Weight Admit Weight 136 lb Weight 136 lb I&O: 04/22/18 04/23/18 04/24/18 06:59 06:59 06:59 Intake Total 1300 1500 Balance 1300 1500 Result Diagrams: 04/23/18 04:18 04/22/18 05:12 Additional Labs: Accuchecks 04/22/18 11:20 POC Glucose 111 H Phys Exam - Physical Examination Neck: no JVD Respiratory: clear to auscultation bilateral Cardiovascular: RRR, no significant murmur Gastrointestinal: soft, non-tender, positive bowel sounds Musculoskeletal: no edema Dx/Plan (1) Bowel perforation Code(s): K63.1 - PERFORATION OF INTESTINE (NONTRAUMATIC) Status: Acute Comment: secondary to crohns. advance diet as directed by GI, TPN for now, WBC continuing to rise, planned CT to see if drainable abscess (2) Peritonitis Code(s): K65.9 - PERITONITIS, UNSPECIFIED Status: Acute (3) Crohn disease Code(s): K50.90 - CROHN'S DISEASE, UNSPECIFIED, WITHOUT COMPLICATIONS Status: Chronic Qualifiers: Gastrointestinal tract location: small intestine Digestive disease complication type: other complication Qualified Code(s): K50.018 - Crohn's disease of small intestine with other complication (4) HTN (hypertension) Code(s): I10 - ESSENTIAL (PRIMARY) HYPERTENSION Status: Acute Qualifiers: Hypertension type: unspecified Qualified Code(s): I10 - Essential (primary ) hypertension Comment: uncontrolled, likely secondary to steroids, increasing, will add Lisinopril very low dose while on steroids - Plan off TPN, needs 2 weeks antibx, CM working on set up -: cont pred, lisinopril, etc * .
[2018-04-23] MEDS: Lidocaine 5% Patch TD SCH (16:58)
[2018-04-23] MEDS ORDERED: Ketorolac Tromethamine 30 MG/ML VIAL IVP SCH (20:45)
[2018-04-23] MEDS: Nicotine 14 MG PATCH TD SCH (21:24)
[2018-04-23] MEDS: Enoxaparin Sodium 40 MG/0.4 ML SYRINGE SC SCH (21:24)
[2018-04-23] MEDS: Zolpidem Tartrate 5 MG TAB PO PRN (23:33)
[2018-04-24 05:04] LABS: #Eosinphils 0.1 thou/uL (0.0-0.7); #Lymphocytes 1.4 thou/uL (1.20-3.40); #Monocytes 0.5 thou/uL (0.11-0.59); #Neutrophils 4.5 thou/uL (1.40-6.50); %Eosinophils 1.6 % (0.0-10.0); %Lymphocytes 21.6 % (21.0-51.0); %Monocytes 8.1 % (0.0-10.0); %Neutrophils 68.7 % (42.0-75.0); Mean Corpuscular HGB CONC 33.2 g/dL (32.0-36.0); Mean Corpuscular Volume 84.4 fl (81.0-99.0); Mean Platelet Volume 7.2 fL (7.4-10.4); Platelet Count 210 thou/uL (130-400); RBC Distribution Width 18.2 % (11.5-14.5); Red Blood Cell (RBC) Count 3.22 mill/uL (4.20-5.40); White Blood Cell (WBC) Count 6.5 thou/uL (4.8-10.8)
[2018-04-24] MEDS: MEROPENEM 1 GM/50 ML 1 GM in Premix Bag 1 BAG IVPB SCH ×3 (05:06→20:57)
[2018-04-24] MEDS: traMADol HCl 50 MG TAB PO PRN ×5 (05:07→22:15)
[2018-04-24] MEDS: Lidocaine Patch Removal 1 EACH TOP SCH (05:08)
[2018-04-24] MEDS: Bupropion 100 MG SR TAB PO SCH (07:59)
[2018-04-24] MEDS: predniSONE 20 MG TAB PO SCH (07:59)
[2018-04-24] MEDS: Lisinopril 5 MG TAB PO SCH (08:00)
[2018-04-24] MEDS: Senokot S 8.6-50 MG TAB PO SCH ×2 (08:00→20:19)
--- NOTE | 2018-04-24 11:19 | PDOC.PN ---
- Subjective Encounter Start Date: 04/24/18 Encounter Start Time: 11:18 Subjective: doing well, outpt antibx approval in progress - Objective MAR Reviewed: Yes Vital Signs & Weight: Vital Signs (12 hours) Temp Pulse Resp BP Pulse Ox 04/24/18 08:00 99.2 F 104 H 16 04/24/18 07:52 99.2 F 104 H 16 126/79 93 L 04/24/18 04:53 98.3 F Weight Admit Weight 136 lb Weight 136 lb I&O: 04/23/18 04/24/18 04/25/18 06:59 06:59 06:59 Intake Total 1500 1780 Balance 1500 1780 Result Diagrams: 04/24/18 04:36 04/22/18 05:12 Phys Exam - Physical Examination Neck: no JVD Respiratory: clear to auscultation bilateral Cardiovascular: RRR, no significant murmur Gastrointestinal: soft, positive bowel sounds Musculoskeletal: no edema Dx/Plan (1) Bowel perforation Code(s): K63.1 - PERFORATION OF INTESTINE (NONTRAUMATIC) Status: Acute Comment: secondary to crohns. advance diet as directed by GI, TPN for now, WBC continuing to rise, planned CT to see if drainable abscess (2) Peritonitis Code(s): K65.9 - PERITONITIS, UNSPECIFIED Status: Acute (3) Crohn disease Code(s): K50.90 - CROHN'S DISEASE, UNSPECIFIED, WITHOUT COMPLICATIONS Status: Chronic Qualifiers: Gastrointestinal tract location: small intestine Digestive disease complication type: other complication Qualified Code(s): K50.018 - Crohn's disease of small intestine with other complication (4) HTN (hypertension) Code(s): I10 - ESSENTIAL (PRIMARY) HYPERTENSION Status: Acute Qualifiers: Hypertension type: unspecified Qualified Code(s): I10 - Essential (primary ) hypertension Comment: uncontrolled, likely secondary to steroids, increasing, will add Lisinopril very low dose while on steroids - Plan cont iv antibx, etc * .
[2018-04-24] MEDS: Lidocaine 5% Patch TD SCH (17:03)
[2018-04-24] MEDS: Nicotine 14 MG PATCH TD SCH (20:19)
[2018-04-24] MEDS: Enoxaparin Sodium 40 MG/0.4 ML SYRINGE SC SCH (20:19)
[2018-04-24] MEDS: Zolpidem Tartrate 5 MG TAB PO PRN (22:17)
[2018-04-25] MEDS: traMADol HCl 50 MG TAB PO PRN ×2 (02:57→06:54)
[2018-04-25] MEDS: Lidocaine Patch Removal 1 EACH TOP SCH (06:16)
[2018-04-25] MEDS: MEROPENEM 1 GM/50 ML 1 GM in Premix Bag 1 BAG IVPB SCH ×2 (06:16→11:27)
--- NOTE | 2018-04-25 07:41 | PRG ---
DATE OF SERVICE: 04/25/2018 SUBJECTIVE: Ms. Lewis still feels pretty well. No diarrhea. She is eating well. OBJECTIVE: VITAL SIGNS: Temperature 98.5, T-max 99.2, pulse 100, respirations 18. ABDOMEN: Soft, nontender. LABORATORY DATA: White count 6.5, hemoglobin 9, platelet count 210. Sed rate 56, CRP is 10.15. We did not check any on admission, we are going to use this as a baseline for comparison going for disch arge. ASSESSMENT AND PLAN: 1. Crohn's with phlegmon and fistulas in the right lower quadrant, status post infusion of Stelara s ubcutaneous injection in 8 weeks of that infusion, which was on 04/16/2018. 2. We will continue her Wellbutrin, I have left the prescription in chart for that. 3. We will start a steroid taper going to 15 mg for a week, then 10 for a week, then 5 for a week, t hen stop. I left an order for that in the chart. Otherwise, she will resume other home medications. We will arrange for follow up with us in the office in 1 week to check on her progress.
[2018-04-25] MEDS: Senokot S 8.6-50 MG TAB PO SCH (08:50)
[2018-04-25] MEDS: Bupropion 100 MG SR TAB PO SCH (08:50)
[2018-04-25] MEDS: predniSONE 20 MG TAB PO SCH (08:50)
[2018-04-25] MEDS: Lisinopril 5 MG TAB PO SCH (08:51)
--- NOTE | 2018-04-25 11:02 | DIS ---
TRANSFER OF CARE NOTE PRIMARY CARE PHYSICIAN: None. DATE OF ADMISSION: 04/03/2018 DATE OF DISCHARGE: 04/25/2018 DISCHARGE DISPOSITION: Home. FINAL DIAGNOSES: 1. Perforation of intestine. 2. Abscess formation in the posterior right abdominal cavity. 3. Crohn's disease. 4. Hypertension. DISCHARGE MEDICATIONS: Invanz 1 gram daily for 30 days, Wellbutrin 100 mg p.o. daily, prednisone 15 mg a day in decreasing dose, Ambien 5 mg at bedtime, lisinopril 5 mg a day, tramadol 50 mg p.o. q.6 h ours for pain. ALLERGIES: TYLENOL, WELLBUTRIN, CORTROSYN, METOCLOPRAMIDE, PENICILLINS, PROMETHAZINE, BENZONATATE, P IPERACILLIN, PROCHLORPERAZINE, TAZOBACTAM, FERROUS FUMARATE. DIET: Diet as tolerated. PENDING AT THE TIME OF DISCHARGE: Nothing. CODE STATUS: Full. HOSPITAL COURSE: The patient with long history of Crohn's, admitted to [facility] through [facility] with an MRI done as an outpatient for nathaniel k pain, which revealed a bowel perforation. She was placed in the hospital on IV pain medicines, IV fluids, antibiotics with cefepime and Flagyl, blood cultures. Dr. Morgan was consulted. She was als o seen in consultation with Dr. Robert Quinn and Dr. Zack Londono. Recommendation was for TPN, ant ibiotics. Patient's initial laboratory; sodium 131, potassium 2.6, creatinine 0.91, BUN 11. Lactic acid elevat ed at 11. AST 59, ALT 92. Bilirubin was normal. White count 13.8, hemoglobin 11.5, platelet count 656,000. Blood cultures were unrevealing. On 04/07/2018 PICC line was placed by Radiology. The patient was treated with total parenteral nutri tion, IV antibiotics. Abdominal pelvis CT was repeated on 04/15/2018 revealing continued inflammator y process involving the right psoas muscle. The patient was eventually weaned off of the TPN, starte d on a diet and IV antibiotics were transitioned to meropenem. The patient is in need of 1 more maryanne h of IV antibiotics. This has been arranged. She is being transitioned to Invanz 1 gram a day. She has been on steroids, which was eventually transitioned to oral, is now being decreased. She is haydee erating a diet well, tolerating painful stimuli well on tramadol. She has been placed on lisinopril for hypertension. She has been recommended to find a PCP and see him in 1 week for followup. Follow up with Dr. Morgan in 1 month. She will report to [facility] IV facility for IV antibiotics for the next month. Thirty-five minutes spent preparing this discharge.
[2018-04-25 16:06] VITALS: BP 102/68; TEMP 98.6
== END 2018-04-25 12:31 | disposition home or self-care (01) | DRG 385 ==
LOC: ERS 12:38 → T4-A 17:54
PROVIDERS: ADMIT Internal Medicine; ATTEND Internal Medicine
PROC: 3E0436Z Introduction of Nutritional Substance into Central Vein, Percutaneous Approach (ICD-10-PCS; principal; 2018-04-07)
PROC: 02HV33Z Insertion of Infusion Device into Superior Vena Cava, Percutaneous Approach (ICD-10-PCS; 2018-04-07)
DX: K50.014 Crohn's disease of small intestine with abscess (principal); K63.1 Perforation of intestine (nontraumatic); K68.19 Other retroperitoneal abscess; E87.2 Acidosis; E87.1 Hypo-osmolality and hyponatremia; E44.0 Moderate protein-calorie malnutrition; E27.40 Unspecified adrenocortical insufficiency; K50.013 Crohn's disease of small intestine with fistula; K50.018 Crohn's disease of small intestine with other complication; E87.6 Hypokalemia; E88.09 Other disorders of plasma-protein metabolism, not elsewhere classified; Z68.24 Body mass index [BMI] 24.0-24.9, adult; E87.5 Hyperkalemia; I10 Essential (primary) hypertension; F17.210 Nicotine dependence, cigarettes, uncomplicated; R60.1 Generalized edema; Z88.6 Allergy status to analgesic agent; Z88.0 Allergy status to penicillin; Z88.8 Allergy status to other drugs, medicaments and biological substances
CPT/HCPCS: 36415; 36416; 36569; 72148; 74177; 80048; 80053; 80400; 81003; 81015; 82553; 83605; 83690; 83735; 84100; 84134; 84484; 85007; 85025; 85027; 85652; 86140; 87040; 93970; 96361; 96365; 96375; A4216; C1751; J0834; J1200; J1644; J1650; J1885; J1940; J1956; J2185; J2270; J2543; J2920; J3010; J3370; J3475; J3480; J7050; J7506; Q0162

== ENCOUNTER 2018-04-27 11:27 | Inpatient (IN) | payer MEDICARE, OTHER ==
[2018-04-27 13:48] LABS: #Monocytes 0.4 thou/uL (0.11-0.59); %Basophils 0.3 % (0.0-1.0); %Eosinophils 0.3 % (0.0-10.0); %Lymphocytes 9.8 % (21.0-51.0); %Monocytes 3.3 % (0.0-10.0); %Neutrophils 86.2 % (42.0-75.0); Hemoglobin 9.8 g/dL (12.0-16.0); Mean Corpuscular HGB CONC 33.7 g/dL (32.0-36.0); Mean Corpuscular Hemoglobin 27.8 pg (27.0-31.0); Mean Corpuscular Volume 82.4 fl (81.0-99.0); Mean Platelet Volume 6.9 fL (7.4-10.4); Platelet Count 258 thou/uL (130-400); RBC Distribution Width 17.3 % (11.5-14.5); Red Blood Cell (RBC) Count 3.54 mill/uL (4.20-5.40); White Blood Cell (WBC) Count 10.4 thou/uL (4.8-10.8)
[2018-04-27 14:09] LABS: ALT (SGPT) 89 U/L (8-55); AST (SGOT) 35 U/L (5-34); Albumin 2.7 g/dL (3.5-5.0); Alkaline Phosphatase 137 U/L (40-150); Anion Gap 13 mmol/L (10-20); BUN (Urea Nitrogen) 5 mg/dL (7.0-18.7); Bilirubin, Total 0.5 mg/dL (0.2-1.2); CRP (Inflammatory) 17.84 mg/dL (= or < 0.5); Calc. Creatinine Clearance 131 mL/min (70-130); Calcium 8.4 mg/dL (7.8-10.44); Carbon Dioxide 32 mmol/L (22-29); Chloride 95 mmol/L (98-107); Estimated GFR-MDRD Greater than 90; Glucose 189 mg/dL (70-105); Protein, Total 5.7 g/dL (6.0-8.3); Sodium 138 mmol/L (136-145)
[2018-04-27 14:22] LABS: Potassium 2.4 mmol/L (3.5-5.1)
[2018-04-27] MEDS ORDERED: Acetaminophen 325 MG TAB PO PRN (14:33)
--- NOTE | 2018-04-27 14:57 | RAD ---
CHEST 2 VIEWS: HISTORY: Fever. Chest pain. COMPARISON: 04/02/14. FINDINGS: Cardiac silhouette and pulmonary vasculature are unremarkable. Mediastinum midline with left upper e xtremity PICC partially visualized. Metallic clips overlie the gallbladder fossa. No confluent airs pace consolidation, pneumothorax, or pleural fluid. IMPRESSION: No active cardiopulmonary abnormalities are demonstrated. POS: H
[2018-04-27] MEDS: MEROPENEM 1 GM/50 ML 1 GM in Premix Bag 1 BAG IVPB SCH ×2 (15:29→22:52)
[2018-04-27] MEDS: Sodium Chloride 0.9% 1,000 ML IV SCH (15:30)
--- NOTE | 2018-04-27 17:42 | PRG ---
DATE OF SERVICE: 04/27/2018 SUBJECTIVE: The patient had been receiving IV Invanz in the outpatient setting for management of inf lammatory process right lower quadrant associated with Crohn's disease with leakage. The patient had improved with TPN and then this is a modifier agent, was started by Dr. Morgan and the patient desiree nues to do well and was discharged and now she has developed fever again the day before admission. T he patient denied any headaches. No respiratory symptoms. No chest pain. The previously noted pain in the abdominal area has resolved. She still has a little bit of pain in the right back area. No joint symptoms. No neurological symptoms. OBJECTIVE: VITAL SIGNS: The temperature was 101.9 at home, now she is 98.2, little bit tachycardic. Other beronica l signs are normal. GENERAL: Appears oriented, alert, pleasant. PICC line in left upper extremity, double lumen and she does not have a Mohamud catheter. SKIN: Otherwise normal, no lymphadenopathy. HEENT: Ocular movements conjugate. Oral cavity normal. NECK: Supple. LUNGS: Symmetric clear air entry, faint crackles in right base, which clear after deep breathing. HEART: S1 and S2, regular rate. No S3 or S4. ABDOMEN: Soft, not distended or tender. No ascites. No bladder distention. EXTREMITIES: No joint inflammatory activity noted. LABORATORY DATA: White cell count 10.4, hemoglobin 9.8, platelets 258. Cultures have been submitted from blood. ASSESSMENT AND DISCUSSION: Crohn's disease with ileal perforation extension into the psoas muscle ma ss with conservative interventions including TPN, IV antimicrobial therapy, started on Stelara now wi th recrudescence of fever. Differential diagnosis includes a PICC line colonization with bacterial p athogens were yeast. Recrudescence of the original process in the right lower quadrant, may need sharda ging studies depending on clinical progress and results of blood cultures. We will add antifungal th erapy for the time being. Continue meropenem or Invanz in the hospital setting.
[2018-04-27] MEDS ORDERED: Potassium Chloride 20 MEQ TAB PO SCH ×2 (18:45→21:00)
[2018-04-27] MEDS: traMADol HCl 50 MG TAB PO PRN (18:52)
[2018-04-27] MEDS: Zolpidem Tartrate 5 MG TAB PO PRN (22:08)
[2018-04-27] MEDS: Nicotine 21 MG PATCH TOP SCH (22:08)
--- NOTE | 2018-04-28 00:04 | PRG ---
DATE OF SERVICE: 04/27/2018 SUBJECTIVE: Ms. Lewis was in today for outpatient advanced antibiotics. She has been coming to the infusion center and Oncology after daily infusions. inpatient today, she is in the infusion h ere and noted that she had a fever of [address] Quinn decided to readmit her for evaluatio n. Since discharge 4 days ago, she has been doing fine with low grade temperature to 99. Her abdomi nal pain has not returned, but she has back pain, which has increased somewhat in intensity. She den ies any dysuria, frequency, or urgency. In the infusion center, she had a temperature of 99.5. She has no headache, vision changes, rashes, myalgias or arthralgias and she has had no diarrhea or bleed ing, nausea or vomiting. No chills or rigors or fever. MEDICATIONS: Wellbutrin 100 mg daily, Tylenol 650 daily, Lovenox, meropenem, morphine p.r.n., predni sone 50 mg q.a.m., normal saline 75, tramadol, zolpidem. PHYSICAL EXAMINATION: GENERAL: The patient appears comfortable. She is in no distress. VITAL SIGNS: Temperature is 98.4, pulse 92, respirations 18, blood pressure 115/66. HEENT: Oropharynx without lesions, ulcers or erosions. There was no evidence of thrush. NECK: Supple. LUNGS: Clear. ABDOMEN: Soft and nontender. Mild soreness in the right back area, but the flank is nontender. EXTREMITIES: Reveal no clubbing, cyanosis, or edema. LABORATORY STUDIES: Sodium 138, potassium 2.4, chloride 95, bicarbonate 32, BUN and creatinine are 5 and 0.57, AST and ALT are 35 and 89, alkaline phosphatase 137, protein 5.7, albumin 2.7. C-reactive protein is 17.84 and it was 10.15 on 04/24/2018. Urine shows 11-20 white blood cells, no bacteria. White count 10.4, hemoglobin 9.8, platelet count 258. Sed rate 56 on 04/24/2018. Chest x-ray is ne gative. ASSESSMENT AND PLAN: Crohn's disease with ileal perforation with fistulization to psoas area with a phlegmon, and no overt abscess to drain on last imaging study 1 week ago. She was deemed to be high risk for surgical complications such a short gut syndrome, therefore, she was treated with non-interv entional therapy with TPN, antimicrobial therapy and after a 2-week treatment with antibiotics and St elara, fever returned up to 102 at home. Differential diagnosis would include primary inflamma tory process of the Crohn's versus line infection that she was on TPN. I have discussed with Dr. Cameron fernandez and Hospitalist, the patient has been readmitted for blood cultures, fungal cultures. Dr. Cheyenne salinas lans on adding antifungal therapy. She does not have improvement. We will reimage the abdomen with MRI. She has had multiple CTs in the past.
[2018-04-28] MEDS: traMADol HCl 50 MG TAB PO PRN ×3 (02:17→18:06)
[2018-04-28] MEDS: Sodium Chloride 0.9% 1,000 ML IV SCH ×2 (04:07→20:10)
[2018-04-28 04:32] LABS: #Eosinphils 0.1 thou/uL (0.0-0.7); #Lymphocytes 1.5 thou/uL (1.20-3.40); #Monocytes 0.3 thou/uL (0.11-0.59); %Eosinophils 1.2 % (0.0-10.0); %Lymphocytes 21.7 % (21.0-51.0); %Monocytes 4.8 % (0.0-10.0); %Neutrophils 72.3 % (42.0-75.0); Hemoglobin 8.8 g/dL (12.0-16.0); Mean Corpuscular HGB CONC 32.7 g/dL (32.0-36.0); Mean Corpuscular Hemoglobin 27.2 pg (27.0-31.0); Mean Corpuscular Volume 83.2 fl (81.0-99.0); Mean Platelet Volume 6.7 fL (7.4-10.4); Platelet Count 223 thou/uL (130-400); RBC Distribution Width 17.3 % (11.5-14.5); Red Blood Cell (RBC) Count 3.22 mill/uL (4.20-5.40); White Blood Cell (WBC) Count 6.9 thou/uL (4.8-10.8)
[2018-04-28 05:00] LABS: Anion Gap 11 mmol/L (10-20); BUN (Urea Nitrogen) 5 mg/dL (7.0-18.7); Calc. Creatinine Clearance 159 mL/min (70-130); Carbon Dioxide 31 mmol/L (22-29); Chloride 99 mmol/L (98-107); Estimated GFR-MDRD Greater than 90; Glucose 71 mg/dL (70-105); Sodium 138 mmol/L (136-145)
[2018-04-28 05:08] LABS: Potassium 2.8 mmol/L (3.5-5.1)
[2018-04-28] MEDS: Potassium Chloride 20 MEQ TAB PO SCH ×5 (05:30→20:12)
[2018-04-28] MEDS: MEROPENEM 1 GM/50 ML 1 GM in Premix Bag 1 BAG IVPB SCH ×3 (06:33→21:45)
[2018-04-28] MEDS: Bupropion 100 MG SR TAB PO SCH (08:23)
[2018-04-28 09:06] LABS: Magnesium 1.4 mg/dL (1.6-2.6)
[2018-04-28] MEDS ORDERED: Magnesium 2 GM/NS 0.9% 100 ML 2 GM in Premix Bag 1 BAG IVPB SCH (09:15)
[2018-04-28] MEDS: predniSONE 5 MG TAB PO SCH (09:58)
--- NOTE | 2018-04-28 10:25 | HP ---
CHIEF COMPLAINT: Fever. HISTORY OF PRESENT ILLNESS: The patient is a pleasant 42-year-old female with a history of Crohn's d ugo who was recently discharged from the hospital after a very long hospital stay. She was discha rged on 04/25/2018. The patient comes back in for fevers. Patient initially presented to the hospit al on 04/03/2018 for right lower abdominal pain. She underwent a CT abdomen and pelvis, which indica natalya perforation of the terminal ileum with extension of the enteric contrast posteriorly towards the right psoas muscle. The patient was seen by GI and by Surgery. Surgery recommended no surgical inte rvention given the patient's multiple surgical interventions in the past and concerns for short gut s yndrome. The patient was treated with IV antibiotics and was discharged home with IV antibiotics onc e a day on 04/25/2018. During the hospital stay, the patient also was started on Stelara. The initi al loading dose was started on patient and also prednisone was tapered down. Patient tolerated her i mmunotherapy quite well. However, yesterday when the patient was getting her once a day Invanz infus ion, she mentioned to her GI physician, Dr. Morgan that she was having temperatures at home. The pat ient further states that yesterday she started having some chills and had a temperature of 101. Madeline ent denies any nausea, vomiting, chest pain, abdominal pain or diarrhea currently. She states that s he has been eating well and has been having normal bowel movement without any issues. PAST MEDICAL HISTORY: Crohn's disease and Sjogren's syndrome. ALLERGIES: She is allergic to METOCLOPRAMIDE, PENICILLIN, PROMETHAZINE, and BENZONATATE. MEDICATIONS: Her discharge medications were as the following, Wellbutrin 100 mg daily, potassium 20 mEq p.o. t.i.d., prednisone 50 mg daily, tramadol 50 mg q.6 hours p.r.n., Ambien 5 mg at bedtime and Invanz 1 gram q.24 hours. PAST SURGICAL HISTORY: She has had multiple abdominal operations with small bowel resection, lysis o f adhesions and a right colectomy. SOCIAL HISTORY: She continues to smoke. No alcohol use. REVIEW OF SYSTEMS: Aside from that was mentioned in the HPI, all negative except for the ones lani haider in the HPI. FAMILY HISTORY: No history of heart disease or any Crohn's disease. PHYSICAL EXAMINATION: VITAL SIGNS: Temperature of 98.2, heart rate of 84, 20, 97% room air, 141/71. GENERAL: She is awake, alert, and oriented x3, does not appear in distress. CARDIOVASCULAR: S1, S2 present. No murmurs, rubs or gallops. ABDOMEN: Soft, nontender. Bowel sounds are present x2. LUNGS: Clear to auscultation. No rhonchi or wheezes noted. NEUROLOGICAL: No focal deficits noted. SKIN: No lesions noted. She does have a PICC line on her left arm. No redness or tenderness or tra cking has been noted. MUSCULOSKELETAL: She still complains of right lower sacral pain and states that she has been having some pain upon walking, but denies any weakness to that leg. She has got 5/5 lower extremity strengt h. LABORATORY DATA: As the following: WBCs of 10.4, hemoglobin of 9.8, hematocrit of 29.2, platelets o f 258. She has got no bands. Chemistry: Sodium of 130, potassium of 2.4, chloride of 95, bicarbona te of 32, BUN of 5, creatinine 0.57. AST and ALT are mildly elevated at 35 and 89. C-reactive prote in is 17.84. ASSESSMENT AND PLAN: The patient is a very pleasant 42-year-old female who was just recently dischar gehubert from the hospital, presents with fevers. 1. Fever, could be possible secondary to her either PICC line infection versus worsening of this inf ection. We will continue IV meropenem for now. Infectious Disease has been consulted. GI is also o n the case. Infectious Disease has ordered fungal cultures. We will continue to monitor the patient . We will provide some pain medication and IV fluids. 2. History of Crohn's disease. We will continue her home dose of steroids. Patient currently denie s any abdominal pain or any diarrhea. We will continue to monitor. 3. Hypokalemia. We will replace potassium and also we will check a magnesium and phosphatase. 4. Deep venous thrombosis prophylaxis. We will put the patient on subcu Lovenox.
[2018-04-28] MEDS ORDERED: Gadobenate Dimeglumine 529 MG/1 ML (20ML VIAL) ONE (11:02)
--- NOTE | 2018-04-28 12:43 | MRI ---
MRI PELVIS WITHOUT AND WITH CONTRAST: Comparison: CT abdomen/pelvis, 04-15-18 History: Crohn's disease with possible abscess. Crohn's phlegmon. Technique: Multiplanar, multisequence MR image were obtained of the pelvis without and with IV contra st. FINDINGS: There is high T2 signal and enhancement of the right psoas musculature. This appears to have progress ed compared to the prior examination. There is also some enhancement and edema in the lateral aspect of the paraspinal musculature on the right. There are a few susceptibility foci within the area of in flammation and enhancement which could represent the bubbles of air seen on prior CT. No large draina ble fluid collection is identified. No pelvic adenopathy is seen. No marrow signal abnormality is present. IMPRESSION: There is myositis and phlegmon involving the right psoas musculature. This appears to have progressed from the prior exam without drainable fluid collection at this time. POS: [facility]
--- NOTE | 2018-04-28 14:01 | PDOC.PN ---
- Subjective Encounter Start Date: 04/28/18 Encounter Start Time: 12:30 Subjective: pt up in bed has some pain to her right lower back - Objective Resuscitation Status: Resuscitation Status FULL:Full Resuscitation Vital Signs & Weight: Vital Signs (12 hours) Temp Pulse Resp BP Pulse Ox 04/28/18 11:50 98.1 F 112 H 18 121/64 96 04/28/18 08:00 98.7 F 115 H 16 94 L 04/28/18 07:47 98.7 F 115 H 16 131/76 94 L 04/28/18 03:46 99.2 F 102 H 16 121/74 96 Weight Admit Weight 144 lb Weight 144 lb I&O: 04/27/18 04/28/18 04/29/18 06:59 06:59 06:59 Intake Total 900 Balance 900 Result Diagrams: 04/28/18 04:12 04/28/18 04:12 Phys Exam - Physical Examination HEENT: PERRLA, moist MMs, sclera anicteric, TM's clear, oral pharynx no lesions , 2+ tonsils Neck: no nodes, no JVD, supple, full ROM Respiratory: no wheezing, no rales, no rhonchi, wheezing present, clear to auscultation bilateral Cardiovascular: RRR, no significant murmur, no rub, gallop, irregular Gastrointestinal: soft, non-tender, positive bowel sounds mild pain on palpation of lower back Neurological: non-focal, normal sensation, moves all 4 limbs Dx/Plan (1) Fever Code(s): R50.9 - FEVER, UNSPECIFIED Status: Acute (2) Partial small bowel obstruction Status: Acute (3) Hypokalemia Code(s): E87.6 - HYPOKALEMIA Status: Acute - Plan * . pt has not had a fever since she has been inpatient. continue abx for now. MRI abd/pelvic has been ordered. prn pain meds K replaced. mild anemia will continue to monitor Review of Systems - Review of Systems ENT: negative: Ear Pain, Ear Discharge, Nose Pain, Nose Discharge, Nose Congestion, Mouth Pain, Mouth Swelling, Throat Pain, Throat Swelling, Other Respiratory: negative: Cough, Dry, Shortness of Breath, Hemoptysis, SOB with Excertion, Pleuritic Pain, Sputum, Wheezing Cardiovascular: negative: chest pain, palpitations, orthopnea, paroxysmal nocturnal dyspnea, edema, light headedness, other Gastrointestinal: negative: Nausea, Vomiting, Abdominal Pain, Diarrhea, Constipation, Melena, Hematochezia, Other Genitourinary: negative: Dysuria, Frequency, Incontinence, Hematuria, Retention , Other Musculoskeletal: Other (lower back pain) - Medications/Allergies Allergies/Adverse Reactions: Allergies Allergy/AdvReac Type Severity Reaction Status Date / Time metoclopramide HCl Allergy Intermediate HIVES, Verified 04/27/18 12:13 [From Reglan] THROAT SWELLING Penicillins Allergy Intermediate RASH, HIVES Verified 04/27/18 12:13 promethazine Allergy Intermediate HIVES, Verified 04/27/18 12:13 THROAT SWELLING benzonatate Allergy Hives Verified 04/27/18 12:13 [From Tessarah Russ] piperacillin [From Zosyn] Allergy Verified 04/27/18 12:13 prochlorperazine Allergy Verified 04/27/18 12:13 tazobactam [From Zosyn] Allergy Verified 04/27/18 12:13 FERROUS FUMARATE Allergy Intermediate Hives Uncoded 03/11/17 03:18 Medications: Current Medications Acetaminophen (Tylenol) 650 mg PO Q4H PRN PRN Reason: Headache/Fever or Pain Bupropion HCl (Wellbutrin Sr) 100 mg PO DAILY [facility] Last Admin: 04/28/18 08:23 Dose: 100 mg Enoxaparin Sodium (Lovenox) 40 mg SC 0900 [facility] Meropenem 1 gm/ Device 50 mls @ 100 mls/hr IVPB Q8HR [facility] Last Admin: 04/28/18 06:33 Dose: 50 mls Sodium Chloride (Normal Saline 0.9%) 1,000 mls @ 75 mls/hr IV .[id number] [facility] Last Admin: 04/28/18 04:07 Dose: 1,000 mls Morphine Sulfate (Morphine) 4 mg SLOW IVP Q4H PRN PRN Reason: Severe Pain (7-10) Last Admin: 04/28/18 12:21 Dose: 4 mg Nicotine (Nicoderm Patch) 21 mg TOP Q24HR [facility] Last Admin: 04/27/18 22:08 Dose: 21 mg Potassium Chloride (K-Dur) 40 meq PO 0530,0930,1330,1730 [facility] Stop: 04/28/18 17:31 Last Admin: 04/28/18 08:22 Dose: 40 meq Potassium Chloride (K-Dur) 20 meq PO BID [facility] Prednisone (Prednisone) 15 mg PO QAM-WM [facility] Last Admin: 04/28/18 09:58 Dose: 15 mg Sodium Chloride (Flush - Normal Saline) 10 ml IVF Q12HR [facility] Last Admin: 04/28/18 08:23 Dose: 10 ml Sodium Chloride (Flush - Normal Saline) 10 ml IVF PRN PRN PRN Reason: Saline Flush Last Admin: 04/28/18 06:34 Dose: 10 ml Tramadol HCl (Ultram) 50 mg PO Q6H PRN PRN Reason: Moderate Pain (4-6) Last Admin: 04/28/18 09:48 Dose: 50 mg Zolpidem Tartrate (Ambien) 5 mg PO HSPRN PRN PRN Reason: Insomnia Last Admin: 04/27/18 22:08 Dose: 5 mg
--- NOTE | 2018-04-28 14:12 | MRI ---
MRI OF THE ABDOMEN WITHOUT AND WITH CONTRAST: Comparison: 12-31-[address] abdomen/pelvis 04-15-18. History: Crohn's disease with inflammation in the abdomen and possible intraabdominal abscess. Technique: Multiplanar, multisequence MR images were obtained of the abdomen without and with IV cont rast. FINDINGS: There is high T2 signal and enhancement in the right psoas musculature and retroperitoneum. This also extends to the lateral aspect of the right paraspinal musculature. No marrow signal abnormality is p resent. There are a few areas of susceptibility artifact within the center of the inflammation which could represent bubbles of air seen on prior CT. There is slight increased prominence of the right pr oximal ureter and calices of the right kidney when compared to the prior CT and MRI. However, there i s no delay in the nephrogram to suggest significant obstruction. There is a well circumscribed lesion in the right lobe of the liver measuring 1.9 cm in size which de monstrates centripetal fill in and is consistent with a hemangioma. The adrenal glands, spleen, and pancreas are unremarkable. No abdominal adenopathy is appreciated. IMPRESSION: 1. There is significant inflammation of the right psoas musculature extending throughout the right re troperitoneum and extending to the lateral aspect of the right paraspinal musculature. No drainable f luid collection is seen at this time. When compared to the prior exams, this appears to have worsened . 2. Slight increased prominence of right renal collecting system without evidence of significant obstr uction at this time. 3. Hepatic hemangioma. POS: [facility]
[2018-04-28] MEDS: Enoxaparin Sodium 40 MG/0.4 ML SYRINGE SC SCH (15:02)
[2018-04-28 19:11] LABS: Anion Gap 15 mmol/L (10-20); BUN (Urea Nitrogen) Less than 4 mg/dL (7.0-18.7); Calc. Creatinine Clearance 127 mL/min (70-130); Calcium 8.1 mg/dL (7.8-10.44); Carbon Dioxide 25 mmol/L (22-29); Chloride 101 mmol/L (98-107); Estimated GFR-MDRD Greater than 90; Glucose 270 mg/dL (70-105); Potassium 3.8 mmol/L (3.5-5.1); Sodium 137 mmol/L (136-145)
--- NOTE | 2018-04-28 19:36 | PRG ---
DATE OF SERVICE: 04/28/2018 SUBJECTIVE: Ms. Lewis states her stomach feels fine. She is having bowel movements fine. She is n ot nauseated. She did not have fever last night. She does not think that her back on that right gwyn e still hurts. OBJECTIVE: VITAL SIGNS: Since admission, T-max 99.4 this morning, 98.1 presently; pulse 112; temperature curren t 98; and blood pressure 120/64. ABDOMEN: Nontender. She has pain in her right flank and right paraspinous muscles. LABORATORY STUDIES: White count 6.9, hemoglobin 8.8, platelet count 223, potassium was 2.8. This stroud s been replaced. Mag was 1.4. MRI of the abdomen and pelvis today. Radiologist felt there is myosi tis and phlegmon involving the right psoas musculature, appears progressed than previous exam without drainable fluid or abscess collection. The MRI of the abdomen notes significant inflammation in rig ht psoas musculature extending through the right retroperitoneum and extending to the lateral aspect of the right paraspinous musculature. No drainable fluid collection at this time. When compared to previous exams, appears to have worsened. ASSESSMENT: Crohn's with phlegmon right lower quadrant involving the psoas and now the paraspinous m uscles. I think she is moving towards developing a fistula. She has been on anti-TNF in the past an d became recalcitrant to that. She tried Entyvio which did not work for and she recently was given S telara. She is on antibiotics for the phlegmon. She was on TPN for 2-3 weeks. I suspect this is re lated to stricturing disease in the ileum, but there has been reluctance for surgery, but I think andreea t this is probably going to require. We will discuss with Dr. Quinn and Dr. Londono. This may requi re transfer to a higher level of care.
--- NOTE | 2018-04-28 19:56 | PRG ---
DATE OF SERVICE: 04/28/2018 SUBJECTIVE: Doing well. No pain. No respiratory symptoms. OBJECTIVE: VITAL SIGNS: She has been afebrile since admitted. Other vital signs, slight tachycardia. GENERAL: Awake, alert, oriented. LUNGS: Clear. HEART: S1, S2, regular rate. ABDOMEN: Soft, not distended or tender. EXTREMITIES: Moves all extremities equally. LABORATORY DATA: White cell count 6.9, hemoglobin 8.8, platelets 223,000. ASSESSMENT AND DISCUSSION: Crohn's disease with ileal leakage as well as abscess with initial improv ement after TPN and antimicrobial therapy, now with recrudescence of fever. Blood cultures are negat angel, so I believe that the PICC line is not the culprit here. Most likely, she has a persistence of inflammatory process in the right side. This after improvement in the inpatient setting when she was getting meropenem. May be the switch to Invanz led to the recrudescence and I would advise at this point to try to get on meropenem through my office or through Home Health through infusion company in stead of ertapenem. Keep the same PICC line.
[2018-04-28] MEDS: Nicotine 21 MG PATCH TOP SCH (21:21)
[2018-04-28] MEDS: Zolpidem Tartrate 5 MG TAB PO PRN (23:34)
[2018-04-29] MEDS: traMADol HCl 50 MG TAB PO PRN ×4 (00:05→22:29)
[2018-04-29] MEDS: MEROPENEM 1 GM/50 ML 1 GM in Premix Bag 1 BAG IVPB SCH ×3 (06:09→22:32)
[2018-04-29] MEDS: predniSONE 5 MG TAB PO SCH (07:51)
[2018-04-29] MEDS: Potassium Chloride 20 MEQ TAB PO SCH ×2 (07:52→21:16)
[2018-04-29] MEDS: Enoxaparin Sodium 40 MG/0.4 ML SYRINGE SC SCH (07:52)
[2018-04-29] MEDS: Bupropion 100 MG SR TAB PO SCH (07:56)
[2018-04-29 07:57] LABS: Hemoglobin 8.5 g/dL (12.0-16.0); Mean Corpuscular HGB CONC 33.8 g/dL (32.0-36.0); Mean Corpuscular Hemoglobin 28.2 pg (27.0-31.0); Mean Corpuscular Volume 83.6 fl (81.0-99.0); Mean Platelet Volume 7.2 fL (7.4-10.4); Platelet Count 251 thou/uL (130-400); RBC Distribution Width 17.6 % (11.5-14.5); Red Blood Cell (RBC) Count 3.03 mill/uL (4.20-5.40); White Blood Cell (WBC) Count 6.1 thou/uL (4.8-10.8)
[2018-04-29 08:24] LABS: Band 17 % (5-11); Eosinophils 2 % (0-10); Lymphocytes 34 % (21-51); MDiff Complete? YES; Metamyelocyte 1 % (0-0); Monocytes 4 % (0-10); Neutrophil 41 % (42-75); Ovalocytes SLIGHT = 2-5 cells (100X) (0-1/hpf); PLT Morphology Comment Appears Adequate; Polychromasia SLIGHT = 2-3 cells (100X) (0-2/hpf); Reactive Lymphocytes 1 % (0-10); Tear Drops SLIGHT = 2-5 cells (100X) (0-1/hpf)
[2018-04-29] MEDS: Sodium Chloride 0.9% 1,000 ML IV SCH ×2 (10:09→23:54)
--- NOTE | 2018-04-29 10:16 | PDOC.GSPN ---
Surgery Progress Note: Subj - Subjective Narrative: Discussed with Dr. Morgan. Patient is pain free today Surgery Progress Note: Obj - Vital signs Vital signs: Vital Signs - Most Recent Temp Pulse Resp BP Pulse Ox 98.5 F 102 H 18 128/89 96 04/29/18 08:00 04/29/18 08:00 04/29/18 08:00 04/29/18 08:00 04/29/18 08:00 - Physical Exam General: no distress Abdomen: soft, non tender, nondistended Surgery Progress Note: Results - Labs Result Diagrams: 04/29/18 07:34 04/28/18 18:40 Lab results: Laboratory Results - last 24 hr 04/29/18 04/29/18 07:27 07:34 WBC 6.1 RBC 3.03 L Hgb 8.5 L Hct 25.3 L MCV 83.6 MCH 28.2 MCHC 33.8 RDW 17.6 H Plt Count 251 MPV 7.2 L Neutrophils % (Manual) 41 L Band Neuts % (Manual) 17 H Lymphocytes % (Manual) 34 Reactive Lymphs % 1 Monocytes % (Manual) 4 Eosinophils % (Manual) 2 Metamyelocytes % (Man) 1 H Plt Morphology Comment Appears Adequate Polychromasia SLIGHT = 2-3 cells Tear Drop Cells SLIGHT = 2-5 cells Ovalocytes SLIGHT = 2-5 cells Magnesium 1.6 Surgery Progress Note: A/P - Problem (1) Crohn's disease, unspecified, with fistula Current Visit: No Code(s): K50.913 - CROHN'S DISEASE, UNSPECIFIED, WITH FISTULA Status: Acute - Plan Plan: Dr. Morgan to discuss with specialist in [place]. She is likely to need surgery. I discussed with patient potential benefit of having it done in [place] by surgeon who takes care of more crohns patients. She would like to discuss with Dr. Morgan after he talks to [place]. If [place] not going to happen I would perform ex lap with resection of stricture and end ileostomy for now. No timeline on ileostomy reversal. She would have to be disease free for some time.
[2018-04-29] MEDS: Zolpidem Tartrate 5 MG TAB PO PRN (22:29)
[2018-04-29] MEDS: Nicotine 21 MG PATCH TOP SCH (22:30)
[2018-04-30] MEDS: MEROPENEM 1 GM/50 ML 1 GM in Premix Bag 1 BAG IVPB SCH ×3 (05:57→22:30)
--- NOTE | 2018-04-30 06:23 | PDOC.PN ---
- Subjective Encounter Start Date: 04/29/18 Encounter Start Time: 13:00 Subjective: pt up in bed still has some pain to her right hip area - Objective Resuscitation Status: Resuscitation Status FULL:Full Resuscitation Vital Signs & Weight: Vital Signs (12 hours) Temp Pulse Resp BP Pulse Ox 04/29/18 23:44 98.6 F 90 16 135/84 95 04/29/18 20:00 98.6 F 90 16 98 04/29/18 19:42 98.3 F 96 16 136/79 98 Weight Admit Weight 144 lb Weight 144 lb I&O: 04/28/18 04/29/18 04/30/18 06:59 06:59 06:59 Intake Total 900 3279 3429 Balance 900 3279 3429 Result Diagrams: 04/29/18 07:34 04/28/18 18:40 Phys Exam - Physical Examination HEENT: PERRLA, moist MMs, sclera anicteric, TM's clear, oral pharynx no lesions , 2+ tonsils Neck: no nodes, no JVD, supple, full ROM Respiratory: no wheezing, no rales, no rhonchi, wheezing present, clear to auscultation bilateral Cardiovascular: RRR, no significant murmur, no rub, gallop, irregular Gastrointestinal: soft, non-tender, no distention, positive bowel sounds pain on palpation of right pelvic/hip area Dx/Plan (1) Fever Code(s): R50.9 - FEVER, UNSPECIFIED Status: Acute (2) Partial small bowel obstruction Status: Acute (3) Hypokalemia Code(s): E87.6 - HYPOKALEMIA Status: Acute - Plan * . K and Mg stable pt's MRI indicates increasing of phelgmon and myositis of the right psoas muscle. Pt has been afebrile. ? tranfer to anchor point. continue abx. Pt has no abd pain or diarrhea. pt has been afebrile and blood cx negative from picc line Review of Systems - Review of Systems Eyes: negative: Pain, Vision Change, Conjunctivae Inflammation, Eyelid Inflammation, Redness, Other ENT: negative: Ear Pain, Ear Discharge, Nose Pain, Nose Discharge, Nose Congestion, Mouth Pain, Mouth Swelling, Throat Pain, Throat Swelling, Other Gastrointestinal: negative: Nausea, Vomiting, Abdominal Pain, Diarrhea, Constipation, Melena, Hematochezia, Other Genitourinary: negative: Dysuria, Frequency, Incontinence, Hematuria, Retention , Other Musculoskeletal: Other (right hip pain) Neurological: negative: Weakness, Numbness, Incoordination, Change in Speech, Confusion, Seizures, Other - Medications/Allergies Allergies/Adverse Reactions: Allergies Allergy/AdvReac Type Severity Reaction Status Date / Time metoclopramide HCl Allergy Intermediate HIVES, Verified 04/27/18 12:13 [From Reglan] THROAT SWELLING Penicillins Allergy Intermediate RASH, HIVES Verified 04/27/18 12:13 promethazine Allergy Intermediate HIVES, Verified 04/27/18 12:13 THROAT SWELLING benzonatate Allergy Hives Verified 04/27/18 12:13 [From Corry Russ] piperacillin [From Zosyn] Allergy Verified 04/27/18 12:13 prochlorperazine Allergy Verified 04/27/18 12:13 tazobactam [From Zosyn] Allergy Verified 04/27/18 12:13 FERROUS FUMARATE Allergy Intermediate Hives Uncoded 03/11/17 03:18 Medications: Current Medications Acetaminophen (Tylenol) 650 mg PO Q4H PRN PRN Reason: Headache/Fever or Pain Bupropion HCl (Wellbutrin Sr) 100 mg PO DAILY [facility] Last Admin: 04/29/18 07:56 Dose: 100 mg Enoxaparin Sodium (Lovenox) 40 mg SC 0900 [facility] Last Admin: 04/29/18 07:52 Dose: 40 mg Meropenem 1 gm/ Device 50 mls @ 100 mls/hr IVPB Q8HR [facility] Last Admin: 04/30/18 05:57 Dose: 50 mls Morphine Sulfate (Morphine) 4 mg SLOW IVP Q4H PRN PRN Reason: Severe Pain (7-10) Last Admin: 04/30/18 05:57 Dose: 4 mg Nicotine (Nicoderm Patch) 21 mg TOP Q24HR [facility] Last Admin: 04/29/18 22:30 Dose: 21 mg Potassium Chloride (K-Dur) 20 meq PO BID [facility] Last Admin: 04/29/18 21:16 Dose: 20 meq Prednisone (Prednisone) 15 mg PO QAM-WM [facility] Last Admin: 04/29/18 07:51 Dose: 15 mg Sodium Chloride (Flush - Normal Saline) 10 ml IVF Q12HR [facility] Last Admin: 04/29/18 21:18 Dose: 10 ml Sodium Chloride (Flush - Normal Saline) 10 ml IVF PRN PRN PRN Reason: Saline Flush Last Admin: 04/28/18 06:34 Dose: 10 ml Tramadol HCl (Ultram) 50 mg PO Q6H PRN PRN Reason: Moderate Pain (4-6) Last Admin: 04/29/18 22:29 Dose: 50 mg Zolpidem Tartrate (Ambien) 5 mg PO HSPRN PRN PRN Reason: Insomnia Last Admin: 04/29/18 22:29 Dose: 5 mg
--- NOTE | 2018-04-30 06:42 | PDOC.PN ---
- Subjective Encounter Start Date: 04/29/18 - Objective Resuscitation Status: Resuscitation Status FULL:Full Resuscitation Vital Signs & Weight: Vital Signs (12 hours) Temp Pulse Resp BP Pulse Ox 04/29/18 23:44 98.6 F 90 16 135/84 95 04/29/18 20:00 98.6 F 90 16 98 04/29/18 19:42 98.3 F 96 16 136/79 98 Weight Admit Weight 144 lb Weight 144 lb I&O: 04/28/18 04/29/18 04/30/18 06:59 06:59 06:59 Intake Total 900 3279 3429 Balance 900 3279 3429 Result Diagrams: 04/29/18 07:34 04/28/18 18:40 Dx/Plan (1) Fever Code(s): R50.9 - FEVER, UNSPECIFIED Status: Acute (2) Partial small bowel obstruction Status: Acute (3) Hypokalemia Code(s): E87.6 - HYPOKALEMIA Status: Acute - Plan * .
[2018-04-30] MEDS: traMADol HCl 50 MG TAB PO PRN (07:19)
--- NOTE | 2018-04-30 07:49 | PRG ---
DATE OF SERVICE: 04/29/2018 SUBJECTIVE: Ms. Lewis is feeling better. She has had no fever since admission, being restarted on meropenem. She was on Invanz for two days before she went home and that is when she had a fever of 1 02. However, she was having a fever to 99 and mild tachycardia before she left the hospital. MEDICATIONS: Presently, Tylenol, bupropion, Lovenox, meropenem, morphine, nicotine patch, prednisone 15, tramadol, Ambien. She received Stelara three weeks ago. PHYSICAL EXAMINATION: VITAL SIGNS: Temperature 97.2, T-max since admission on 04/27/2018 has been 98, pulse anywhere from 102-92 since admission, blood pressure 136/86. LUNGS: Clear. HEART: Regular rate and rhythm without clicks or murmurs. ABDOMEN: Soft, nontender. NECK: She has no CVA tenderness. SKIN: Without evidence of fistulous disease in the back or front. LABORATORY STUDIES: White count 6.1, hemoglobin 8.5, platelet count 251. Sodium 137, potassium 3.8, BUN and creatinine are 4 and 15. ASSESSMENT AND PLAN: 1. Imaging showed worsening inflammation in the right lower quadrant with some involvement of the pa raspinous muscles. She has got fistulous disease in the terminal ileum. There is no drainable absce ss. I suspect this is part of the reason for fevers as she was having low grade temperatures before discharge. 2. Regarding the fever of 102 when she came in, Dr. Quinn feels this is not the culprit, probably th e recurrent and persistent inflammation. He felt that may be the meropenem is more effective than th e Invanz was and he is going to try to get her on meropenem and not change the PICC line at this time . This seems reasonable. 3. I have contacted inflammatory bowel disease specialist in [place], to see if in light of advancin g CAT scan, we should consider type of surgical intervention as noted in previous reports and opinion s. Both myself and General Surgery feels she is at significant risk for developing a short bowel as she has an ileostomy. In light of her multiple previous bowel surgeries and I think that without hav ing a colon to reabsorb some fluid, she may be at significant risk for electrolyte abnormalities and dehydration.
[2018-04-30] MEDS: Potassium Chloride 20 MEQ TAB PO SCH ×2 (08:38→20:49)
[2018-04-30] MEDS: predniSONE 5 MG TAB PO SCH (08:38)
[2018-04-30] MEDS: Enoxaparin Sodium 40 MG/0.4 ML SYRINGE SC SCH (08:38)
[2018-04-30] MEDS: Bupropion 100 MG SR TAB PO SCH (08:39)
[2018-04-30] MEDS: oxyCODONE 5 MG TAB PO PRN ×2 (14:05→20:14)
--- NOTE | 2018-04-30 17:02 | PDOC.EVN ---
Event Note - Event Note Event Note: Discussed with Eddie and patient. Recommendation is diverting ileostomy with future definitive resection if crohns more controlled. She is going to discuss with her mer. My plan would be exploratory laparotomy and ileostomy Saturday. I wouldn't be able to do it Saturday and I' m out of town this weekend.
[2018-04-30] MEDS: Nicotine 21 MG PATCH TOP SCH (22:30)
[2018-04-30] MEDS: Zolpidem Tartrate 5 MG TAB PO PRN (22:54)
[2018-05-01] MEDS: MEROPENEM 1 GM/50 ML 1 GM in Premix Bag 1 BAG IVPB SCH ×3 (05:29→16:48)
--- NOTE | 2018-05-01 08:05 | PRG ---
DATE OF SERVICE: 04/30/2018 SUBJECTIVE: Diana Lewis is doing fine, feeling pretty good today. She is tolerating liquid diet . MEDICATIONS: Include bupropion, Tylenol, p.r.n. meropenem, p.r.n. morphine, oxycodone, nicotine patc h, potassium daily, prednisone 50 mg a day, tramadol p.r.n., zolpidem. PHYSICAL EXAMINATION: VITAL SIGNS: T-max 99.8 with pulse of 119, currently 98 with pulse of 96; blood pressure 121/75. LUNGS: Clear. HEART: Regular rate and rhythm without clicks or murmurs. ABDOMEN: Soft, nontender. BACK: She has some back pain still but no CVA tenderness. LABORATORY STUDIES: White count 6.1, hemoglobin 8.5, platelet count 251. Electrolytes normal. Sodi um 138, potassium 3.8, BUN and creatinine less than 4 and 0.59, albumin was 2.7 on the 10th. ASSESSMENT: 1. Crohn's of phlegmon with persistent air pockets in the psoas muscle and some myositis and i nflammation in the paraspinous muscles. This was advancement in the areas of inflammation compared w ith previous two CAT scans (stable) but continues to run low-grade temperature and have back an d right hip pain. 2. Fever. This has improved and she has not spiked over 101 since admission and it may be related t o change in her antibiotics back to meropenem from the Invanz. Fungal culture has been negative to d ate. PLAN: I have had phone conference with IBD specialist in [place] who does not know Ms. Lewis but giovani valle to case with him. I also talked with Dr. Londono. At this point in time, she seems to stroud ve at least some signs of advancement on her CAT scan. It is my concern that with stricturing diseas e in the ileum, she probably has ongoing fistulous disease exacerbated by high-grade stricture in the ileum. At this point in time, I do not think that repeating an endoscopy will be very helpful in ma jesse future decisions. We have presented Ms. Lewis with 2 options; one would be long-term TPN with n.p.o. status, the other would be diverting ileostomy to remove fecal stream from the inflamed infect ed area. I think the latter would have more success, but would carry some risk of having high ostomy output depending on how much small bowel she has remaining. The goal of this would be to calm the a chantell of inflammation, then with antibiotics and biologic therapy, hopefully reverse the ileostomy at s ome point time in the future. It is still possible that she would require TPN with ileostomy to keep up with output. Ms. Lewis is going to consider these two options. She is also discussing with Dr. Londono and let them know her decision. I have told her that I prefer a diverting ileostomy as she seems to have progression of disease despite TPN and n.p.o. status at previous admission for several weeks.
[2018-05-01] MEDS: Bupropion 100 MG SR TAB PO SCH (08:25)
[2018-05-01] MEDS: predniSONE 5 MG TAB PO SCH (08:25)
[2018-05-01] MEDS: Potassium Chloride 20 MEQ TAB PO SCH (08:25)
[2018-05-01] MEDS ORDERED: Fentanyl 100 MCG/2 ML VIAL ONE ×4 (08:50→13:46)
[2018-05-01] MEDS ORDERED: Midazolam HCl 2 mg/2 ml Vial ONE (08:50)
[2018-05-01] MEDS ORDERED: Dexamethasone 4 mg/ml Vial ONE (08:51)
[2018-05-01] MEDS ORDERED: Fentanyl 250 MCG/5 ML VIAL ONE (09:29)
[2018-05-01] MEDS ORDERED: Ondansetron HCl/PF 4 MG/2 ML Vial IVP PRN ×3 (11:58→15:21)
[2018-05-01] MEDS ORDERED: HYDROmorphone 2 MG/ML VIAL SLOW IVP PRN (11:58)
[2018-05-01] MEDS ORDERED: diphenhydrAMINE 50 MG/ML VIAL IM PRN (13:08)
[2018-05-01] MEDS ORDERED: Naloxone HCl 0.4 mg/ml Vial IV PRN (13:08)
[2018-05-01] MEDS ORDERED: diphenhydrAMINE 25 MG CAP PO PRN (13:08)
[2018-05-01] MEDS ORDERED: diphenhydrAMINE 50 MG/ML VIAL IVP PRN (13:08)
[2018-05-01] MEDS ORDERED: Communication Order-Pharmacy FS SCH (13:15)
[2018-05-01] MEDS ORDERED: Ondansetron HCl/PF 4 MG/2 ML Vial ONE (13:39)
[2018-05-01] MEDS ORDERED: Hydrocortisone Sod Succ/PF 100 mg/2 ml Vial ONE (13:39)
[2018-05-01] MEDS ORDERED: Glycopyrrolate 0.2 MG/ML 5 ML SYRINGE ONE (13:39)
[2018-05-01] MEDS ORDERED: PROPOFOL 200 MG/20 ML VIAL ONE (13:39)
[2018-05-01] MEDS ORDERED: Bupivacaine HCl 0.5%/Epinephrine 1:200,000/PF 30 ml Vial ONE (14:31)
[2018-05-01] MEDS ORDERED: Hydrocortisone Sod Succ/PF 100 mg/2 ml Vial IVP SCH (15:21)
[2018-05-01] MEDS ORDERED: hydrALAZINE 20 MG/ML VIAL SLOW IVP PRN (15:21)
[2018-05-01] MEDS ORDERED: Dextrose 5% in Water 1,000 ML IV PRN (15:21)
[2018-05-01] MEDS ORDERED: Dextrose 50% Abboject 50 ML SYRINGE SLOW IVP PRN (15:21)
[2018-05-01] MEDS ORDERED: Ondansetron ODT 4 MG TAB PO PRN (15:21)
[2018-05-01] MEDS ORDERED: Meropenem 1 GM in Sodium Chloride 0.9% 100 ML IVPB SCH (16:00)
[2018-05-01] MEDS: D5 1/2 NS w/20 mEq KCL 1,000 ML IV SCH (16:06)
[2018-05-01] MEDS: Hydrocortisone Sod Succ/PF 100 mg/2 ml Vial IVP SCH (16:13)
--- NOTE | 2018-05-01 16:20 | PDOC.PN ---
- Subjective Encounter Start Date: 05/01/18 Encounter Start Time: 16:00 Subjective: pt up in bed has some pain to her abdomen - Objective Resuscitation Status: Resuscitation Status FULL:Full Resuscitation Vital Signs & Weight: Vital Signs (12 hours) Temp Pulse Resp BP Pulse Ox 05/01/18 14:30 98.3 F 104 H 18 110/77 96 05/01/18 08:05 98.7 F 99 18 98 05/01/18 07:49 98.7 F 99 18 127/71 98 Weight Admit Weight 144 lb Weight 144 lb I&O: 04/30/18 05/01/18 05/02/18 06:59 06:59 06:59 Intake Total 3429 3824 Balance 3429 3824 Result Diagrams: 05/02/18 04:41 05/02/18 04:41 Dx/Plan (1) Fever Code(s): R50.9 - FEVER, UNSPECIFIED Status: Acute (2) Partial small bowel obstruction Status: Acute (3) Hypokalemia Code(s): E87.6 - HYPOKALEMIA Status: Acute (4) Crohn's disease, unspecified, with fistula Code(s): K50.913 - CROHN'S DISEASE, UNSPECIFIED, WITH FISTULA Status: Acute Comment: s/p exp lap, small bowel resection with lysis of adhesion and ileostomy 05/01 - Plan * pt underwent exp lap with small bowel resection and loop ileostomy on 05/01. pt has pain pump. * on stress dose steroids. * will replace magnesium Review of Systems - Review of Systems Respiratory: negative: Cough, Dry, Shortness of Breath, Hemoptysis, SOB with Excertion, Pleuritic Pain, Sputum, Wheezing Cardiovascular: negative: chest pain, palpitations, orthopnea, paroxysmal nocturnal dyspnea, edema, light headedness, other Gastrointestinal: negative: Nausea, Vomiting, Abdominal Pain, Diarrhea, Constipation, Melena, Hematochezia, Other Genitourinary: negative: Dysuria, Frequency, Incontinence, Hematuria, Retention , Other - Medications/Allergies Allergies/Adverse Reactions: Allergies Allergy/AdvReac Type Severity Reaction Status Date / Time metoclopramide HCl Allergy Intermediate HIVES, Verified 04/27/18 12:13 [From Reglan] THROAT SWELLING Penicillins Allergy Intermediate RASH, HIVES Verified 04/27/18 12:13 promethazine Allergy Intermediate HIVES, Verified 04/27/18 12:13 THROAT SWELLING benzonatate Allergy Hives Verified 04/27/18 12:13 [From Corry Russ] piperacillin [From Zosyn] Allergy Verified 04/27/18 12:13 prochlorperazine Allergy Verified 04/27/18 12:13 tazobactam [From Zosyn] Allergy Verified 04/27/18 12:13 FERROUS FUMARATE Allergy Intermediate Hives Uncoded 03/11/17 03:18 Medications: Current Medications Albuterol/Ipratropium (Duoneb) 3 ml NEB Q4H PRN PRN Reason: Wheezing Dextrose/Water (Dextrose 50%) 25 gm SLOW IVP PRN PRN PRN Reason: Hypoglycemia Diphenhydramine HCl (Benadryl) 25 mg IVP Q3H PRN PRN Reason: Itching Diphenhydramine HCl (Benadryl) 25 mg PO Q3H PRN PRN Reason: Itching Diphenhydramine HCl (Benadryl) 25 mg IM Q3H PRN PRN Reason: Itching Famotidine (Pepcid) 20 mg PO BID [facility] Last Admin: 05/01/18 22:00 Dose: 20 mg Famotidine (Pepcid) 20 mg SLOW IVP Q12HR [facility] Last Admin: 05/01/18 22:01 Dose: Not Given Glucagon (Glucagon) 1 mg IM PRN PRN PRN Reason: Hypoglycemia Hydralazine HCl (Apresoline) 10 mg SLOW IVP Q4H PRN PRN Reason: SBP > 170 or DBP > 100 Hydrocortisone Sodium Succinate (Solu-Cortef) 50 mg IVP 0800,1600,2359 [facility] Last Admin: 05/02/18 00:24 Dose: 50 mg Hydromorphone HCl (Dilaudid Cadd) 0 mg IVPB INF PRN PRN Reason: Pain Potassium Chloride/Dextrose/Sod Cl (D5 1/2 Ns W/20 Meq Kcl) 1,000 mls @ 120 mls /hr IV .Q8H20M [facility] Last Admin: 05/02/18 00:25 Dose: 1,000 mls Dextrose/Water (D5w) 1,000 mls @ 0 mls/hr IV .Q0M PRN; As Directed PRN Reason: Hypoglycemia Meropenem 1 gm/ Device 50 mls @ 100 mls/hr IVPB 0100,0900,1700 [facility] Last Admin: 05/02/18 00:25 Dose: 50 mls Miscellaneous Information (Communication Order-Pharmacy) 1 each FS ASDIR [facility] Naloxone HCl (Narcan) 0.2 mg IV Q5MIN PRN PRN Reason: Opiate Reversal Nicotine (Nicoderm Patch) 21 mg TOP Q24HR [facility] Last Admin: 05/01/18 22:01 Dose: 21 mg Ondansetron HCl (Zofran Odt) 4 mg PO Q6H PRN PRN Reason: Nausea/Vomiting Ondansetron HCl (Zofran) 4 mg IVP Q6H PRN PRN Reason: Nausea Sodium Chloride (Flush - Normal Saline) 10 ml IVF PRN PRN PRN Reason: Saline Flush Zolpidem Tartrate (Ambien) 5 mg PO HSPRN PRN PRN Reason: Insomnia Last Admin: 05/02/18 00:24 Dose: 5 mg
[2018-05-01 16:45] LABS: #Eosinphils 0.1 thou/uL (0.0-0.7); #Monocytes 0.2 thou/uL (0.11-0.59); #Neutrophils 12.3 thou/uL (1.40-6.50); %Basophils 0.1 % (0.0-1.0); %Eosinophils 0.6 % (0.0-10.0); %Lymphocytes 7.5 % (21.0-51.0); %Monocytes 1.8 % (0.0-10.0); %Neutrophils 90.2 % (42.0-75.0); Hemoglobin 10.2 g/dL (12.0-16.0); Mean Corpuscular HGB CONC 33.4 g/dL (32.0-36.0); Mean Corpuscular Hemoglobin 27.1 pg (27.0-31.0); Mean Corpuscular Volume 81.3 fl (81.0-99.0); Mean Platelet Volume 6.3 fL (7.4-10.4); Platelet Count 461 thou/uL (130-400); RBC Distribution Width 17.7 % (11.5-14.5); Red Blood Cell (RBC) Count 3.74 mill/uL (4.20-5.40); White Blood Cell (WBC) Count 13.7 thou/uL (4.8-10.8)
[2018-05-01 17:08] LABS: Anion Gap 15 mmol/L (10-20); BUN (Urea Nitrogen) 4 mg/dL (7.0-18.7); Calc. Creatinine Clearance 139 mL/min (70-130); Calcium 8.4 mg/dL (7.8-10.44); Carbon Dioxide 28 mmol/L (22-29); Chloride 99 mmol/L (98-107); Estimated GFR-MDRD Greater than 90; Glucose 134 mg/dL (70-105); Magnesium 1.2 mg/dL (1.6-2.6); Potassium 4.5 mmol/L (3.5-5.1); Sodium 137 mmol/L (136-145)
[2018-05-01] MEDS: Famotidine 20 MG TAB PO SCH (22:00)
[2018-05-01] MEDS: Nicotine 21 MG PATCH TOP SCH (22:01)
[2018-05-01] MEDS: Famotidine/PF 20 mg/2ml Vial SLOW IVP SCH (22:01)
[2018-05-02] MEDS: Hydrocortisone Sod Succ/PF 100 mg/2 ml Vial IVP SCH ×3 (00:24→17:54)
[2018-05-02] MEDS: Zolpidem Tartrate 5 MG TAB PO PRN (00:24)
[2018-05-02] MEDS: MEROPENEM 1 GM/50 ML 1 GM in Premix Bag 1 BAG IVPB SCH ×3 (00:25→17:56)
[2018-05-02] MEDS: D5 1/2 NS w/20 mEq KCL 1,000 ML IV SCH ×4 (00:25→22:22)
[2018-05-02 05:02] LABS: #Eosinphils 0.1 thou/uL (0.0-0.7); #Lymphocytes 1.5 thou/uL (1.20-3.40); #Monocytes 0.4 thou/uL (0.11-0.59); #Neutrophils 8.4 thou/uL (1.40-6.50); %Basophils 0.1 % (0.0-1.0); %Eosinophils 0.6 % (0.0-10.0); %Lymphocytes 14.5 % (21.0-51.0); %Neutrophils 80.8 % (42.0-75.0); Hemoglobin 8.8 g/dL (12.0-16.0); Mean Corpuscular HGB CONC 32.9 g/dL (32.0-36.0); Mean Platelet Volume 6.4 fL (7.4-10.4); Platelet Count 484 thou/uL (130-400); RBC Distribution Width 17.7 % (11.5-14.5); Red Blood Cell (RBC) Count 3.27 mill/uL (4.20-5.40); White Blood Cell (WBC) Count 10.3 thou/uL (4.8-10.8)
[2018-05-02 05:15] LABS: Anion Gap 13 mmol/L (10-20); BUN (Urea Nitrogen) 6 mg/dL (7.0-18.7); Calc. Creatinine Clearance 123 mL/min (70-130); Calcium 8.3 mg/dL (7.8-10.44); Carbon Dioxide 30 mmol/L (22-29); Chloride 100 mmol/L (98-107); Estimated GFR-MDRD Greater than 90; Glucose 171 mg/dL (70-105); Potassium 4.8 mmol/L (3.5-5.1); Sodium 138 mmol/L (136-145)
--- NOTE | 2018-05-02 07:00 | OP ---
DATE OF PROCEDURE: 05/01/2018 PREOPERATIVE DIAGNOSES: Crohn's disease with internal fistula to psoas muscle and chronic phlegmon, failure of conservative management. POSTOPERATIVE DIAGNOSES: Crohn's disease with internal fistula to psoas muscle and chronic phlegmon, failure of conservative management. PROCEDURE: Exploratory laparotomy, extensive lysis of adhesions, repair of enterotomy, small bowel r esection and ileostomy, placement of temporary abdominal drain. SURGEON: Zack Londono M.D. ANESTHESIA: General. ESTIMATED BLOOD LOSS: 100 mL. COMPLICATIONS: None. FINDINGS: Extensive intraabdominal scarring with multiple previous anastomosis found, right lower qu adrant is locked in with scar tissue. INDICATION: The patient is a 42-year-old this female with a history of multiple operations for Crohn 's disease. She now presents with intractable Crohn's and active ongoing phlegmon in the right lower quadrant with fistula to psoas muscle. Conservative management including TPN, steroids and antibiot ics have all failed. She presents with need for diversion. Risks, benefits, alternatives discussed including bleeding, infection, scarring, enterocutaneous fistula, need for more surgery, washout and potential for permanent ileostomy. She does give consent. TECHNIQUE: The patient was taken to the operating room and laid supine on the operating room supine on the table. After general anesthetic was obtained, a Mohamud was placed. NG tube was used to decomp ress the stomach. The abdomen is prepped and draped in a sterile fashion. Midline incision is reope vitaly. Carefully the abdominal cavity is entered. Multiple adhesions are taken down from the posterio r abdominal wall. The full extent of a previous laparotomy scars is opened. Extensive adhesiolysis is performed allowing for full exposure of the abdominal cavity. In the right lower quadrant there i s severe acute and chronic inflammatory change and scarring. The dilated area on CT near the cecum w here there was chronic foreign body present is able to be palpated and localized. It is in this area that the small bowel was traced backwards to an area of possible ileostomy. The majority of the sma ll intestine is fused together in the central abdomen. Multiple attempts at intraloop adhesiolysis i s performed and a few enterotomies were made. These enterotomies were all closed using 3-0 Vicryl fu ll thickness followed by silk serosal sutures. An area of the small bowel proximal to the right lowe r quadrant is able to be ; however, due to the mesentery acute and chronic inflammatory aguilar ge unable to be pulled up to the posterior abdominal wall. A right lower quadrant ileostomy incision is made and a cruciate incision was made in the fascia. An area of the small bowel was thought to stroud ve reached up to this area, but it would not, so this fascial defect is closed. Tracing the small in testine back towards the left side of the abdomen, attempt for circumferential dissection of the smal l bowel in this area is performed and 3 enterotomies were made and the intestine locally. Luckily th is was one loop of intestine that is able to be resected and removed and the proximal stapled end is then able to be brought up as an ileostomy in the left abdomen. The small intestine going towards th e right lower quadrant is left stapled off. The patient has a known stricture distal to this and att empt at loop ileostomy was tried; however, due to mobilization failure and inability to pull a loop u p to the posterior abdominal wall a loop ileostomy was not possible, so elliptical incision is made i n the left of the incision and a cruciate incision was made in the fascia in this area and ileum is a ble to be brought up through the abdominal wall under very little tension. The abdomen is irrigated copiously using warm sterile solution. There is no ongoing bleeding. There is no obvious missed ent erotomies. During the dissection a large chronic abscess cavity was found. It had very little purul ence, but significant inflammatory change. This was going into the retroperitoneum centrally and ove r towards the right lower quadrant. A 19 round drain was brought out through the right upper quadran t and left in this area. All instrument counts, needle counts, lap counts were correct. The midline fascia was closed using PDS from the top and the bottom and tied in the middle. Subcutaneous tissue s are irrigated. The ileostomy is matured in the usual fashion using 3-0 Vicryl sutures and a wound VAC is then placed and the ostomy device is placed. The patient is en route to recovery in stable co ndition. All instrument counts, needle counts, lap counts are correct.
[2018-05-02] MEDS ORDERED: Magnesium 2 GM/NS 0.9% 100 ML 2 GM in Premix Bag 1 BAG IVPB SCH (07:45)
[2018-05-02] MEDS ORDERED: Magnesium Sulfate 2 GM in Sodium Chloride 0.9% 100 ML IVPB SCH (07:45)
[2018-05-02] MEDS: Famotidine 20 MG TAB PO SCH ×2 (09:31→22:21)
[2018-05-02] MEDS: Famotidine/PF 20 mg/2ml Vial SLOW IVP SCH ×2 (09:34→21:32)
--- NOTE | 2018-05-02 10:04 | PDOC.GSPN ---
Surgery Progress Note: Subj - Subjective Narrative: Pain controlled Surgery Progress Note: Obj - Vital signs Vital signs: Vital Signs - Most Recent Temp Pulse Resp BP Pulse Ox 98.1 F 79 16 119/81 94 L 05/02/18 08:00 05/02/18 08:00 05/02/18 08:00 05/02/18 08:00 05/02/18 08:00 - Physical Exam General: no distress Cardiovascular: regular rate and rhythm Respiratory: clear to auscultation Abdomen: soft, appropriately tender (ALEJANDRA serosanguenous) Surgery Progress Note: Results - Labs Result Diagrams: 05/02/18 04:41 05/02/18 04:41 Lab results: Laboratory Results - last 24 hr 05/02/18 05/02/18 04:41 04:41 WBC 10.3 RBC 3.27 L Hgb 8.8 L Hct 26.8 L MCV 82.0 MCH 27.0 MCHC 32.9 RDW 17.7 H Plt Count 484 H MPV 6.4 L Neutrophils % 80.8 H Lymphocytes % 14.5 L Monocytes % 4.0 Eosinophils % 0.6 Basophils % 0.1 Neutrophils # 8.4 H Lymphocytes # 1.5 Monocytes # 0.4 Eosinophils # 0.1 Basophils # 0.0 Sodium 138 Potassium 4.8 Chloride 100 Carbon Dioxide 30 H Anion Gap 13 BUN 6 L Creatinine 0.61 Estimated GFR (MDRD) Greater than 90 Glucose 171 H Calcium 8.3 Surgery Progress Note: A/P - Problem (1) Crohn's disease, unspecified, with fistula Current Visit: No Code(s): K50.913 - CROHN'S DISEASE, UNSPECIFIED, WITH FISTULA Status: Acute Assessment and Plan: POD#1. Expected slight drop in Hgb. Will start lovenox tonight. TPN started. Expect prolonged ileus. NG out this weekend per Dr. Hernandez
[2018-05-02] MEDS: HYDROmorphone 10 mg/100 ml CADD IVPB PRN (10:36)
[2018-05-02] MEDS ORDERED: Chloraseptic Spray 180 ml Bottle PO PRN (14:35)
--- NOTE | 2018-05-02 19:26 | PRG ---
DATE OF SERVICE: 05/02/2018 SUBJECTIVE: Ms. Lewis is doing well on postop day #1. She started to have some output through her ostomy. She has no drainage through her wound VAC. Her abdomen is soft and nontender. She is on IV fluids. She reports that Dr. Londono is going to start some TPN tomorrow or tonight and give her a little bit of blood as she had some blood loss in the OR. MEDICATIONS: Benadryl p.r.n., Pepcid p.r.n., hydrocortisone 50 IV q. 8 hours, hydromorphone, meropen em, naloxone, nicotine patch, Zofran p.r.n., TPN started this evening. PHYSICAL EXAMINATION: VITAL SIGNS: Temperature is 98, pulse 79, blood pressure 119/81. ABDOMEN: Soft, nontender, no rebound or guarding. LABORATORY STUDIES: Hemoglobin is 8.8, white count 10.3, platelet count 484. Electrolytes normal. Potassium 4.8, BUN and creatinine are 6 and 0.6. ASSESSMENT: Crohn's with stricturing of the ileum, multiple prior surgeries to ileum and now fistulo us tract and abscess of the psoas and paraspinous muscles in the right side. She was worsening despi te antibiotics and recent course of TPN. Therefore, she was brought for diverting ileostomy yesterda y. PLAN: IV fluids and TPN. Continue present medications. Hopefully, we will get off TPN in a few day s and she will have to stay hydrated via her ostomy. She had signs of high grade strictures in her t erminal ileum which probably pushing significant amount of fecal flow towards the ileal fistulas and hopefully the diversion this fecal flow help the fistulous tracts and the abscesses to heal. There i s nothing drainable radiologically. Dr. Dank Wood will be covering in my absence.
[2018-05-02 21:34] LABS: INR-International Normal Ratio 1.1; PTT 36.4 SEC (22.9-36.1); Prothrombin Time 13.9 SEC (12.0-14.7)
[2018-05-02 21:49] LABS: ALT (SGPT) 37 U/L (8-55); AST (SGOT) 13 U/L (5-34); Albumin 2.4 g/dL (3.5-5.0); Alkaline Phosphatase 102 U/L (40-150); Anion Gap 9 mmol/L (10-20); BUN (Urea Nitrogen) 5 mg/dL (7.0-18.7); Bilirubin, Total 0.3 mg/dL (0.2-1.2); Calc. Creatinine Clearance 134 mL/min (70-130); Calcium 8.5 mg/dL (7.8-10.44); Carbon Dioxide 32 mmol/L (22-29); Cardiac Risk 4.8 (Less than 4.5); Chloride 102 mmol/L (98-107); Estimated GFR-MDRD Greater than 90; Globulin 2.8 g/dL (2.4-3.5); Glucose 118 mg/dL (70-105); Magnesium 1.9 mg/dL (1.6-2.6); Phosphorus 3.2 mg/dL (2.3-4.7); Protein, Total 5.2 g/dL (6.0-8.3); Sodium 139 mmol/L (136-145)
--- NOTE | 2018-05-02 21:49 | PRG ---
DATE OF SERVICE: 05/02/2018 SUBJECTIVE: Ms. Lewis had ileostomy placement. The operative report was reviewed and the posterior abscess actually looked pretty empty with some inflammation in the larson, but no purulent secretions . The patient had few enterotomies which were repaired during the procedure. She has an NG tube in place now. TPN is planned. Clear fluid starting tomorrow. TPN will probably be for 2-3 days. No h eadaches, no dyspnea. PHYSICAL EXAMINATION: VITAL SIGNS: T-max 98.5. Other vital signs are not remarkable. O2 sat 93%. GENERAL: Awake, alert, and oriented. NG tube. PICC line. LUNGS: Clear lungs. HEART: S1, S2, regular rate. ABDOMEN: Soft, tenderness at the areas of surgical intervention. NEUROLOGIC: Examination is nonfocal. LABORATORY DATA: White cell count 10.3, hemoglobin 8.8, and platelets 484. Microbiology with no new findings. ASSESSMENT AND DISCUSSION: Crohn's disease with area of leakage in the ileal segment, abscess format ion. Initial improvement and then recrudescence of fever. Patient now status post ileostomy placeme nt and I have discussed with patient. I will switch her back to the previous ertapenem regimen in [facility] On[facility] fusion area daily for another 3-4 weeks.
[2018-05-02] MEDS ORDERED: SODIUM ACETATE IV SCH (22:00)
[2018-05-02] MEDS ORDERED: POTASSIUM ACETATE IV SCH (22:00)
[2018-05-02] MEDS ORDERED: [UNRECOGNIZED DRUG - OTHER] IV SCH (22:00)
[2018-05-02] MEDS: Enoxaparin Sodium 40 MG/0.4 ML SYRINGE SC SCH (22:21)
[2018-05-02] MEDS: Nicotine 21 MG PATCH TOP SCH (22:21)
[2018-05-02] MEDS: [UNRECOGNIZED DRUG - OTHER] IV SCH (23:00)
[2018-05-02] MEDS: POTASSIUM ACETATE IV SCH (23:00)
[2018-05-02] MEDS: SODIUM ACETATE IV SCH (23:00)
[2018-05-03] MEDS: Hydrocortisone Sod Succ/PF 100 mg/2 ml Vial IVP SCH ×3 (00:11→21:07)
[2018-05-03] MEDS: MEROPENEM 1 GM/50 ML 1 GM in Premix Bag 1 BAG IVPB SCH ×3 (00:15→17:49)
[2018-05-03] MEDS: Zolpidem Tartrate 5 MG TAB PO PRN ×2 (00:32→22:35)
[2018-05-03] MEDS: HYDROmorphone 10 mg/100 ml CADD IVPB PRN ×2 (01:20→21:07)
[2018-05-03 07:30] LABS: #Eosinphils 0.2 thou/uL (0.0-0.7); #Monocytes 0.4 thou/uL (0.11-0.59); #Neutrophils 5.8 thou/uL (1.40-6.50); %Basophils 0.4 % (0.0-1.0); %Eosinophils 2.5 % (0.0-10.0); %Lymphocytes 23.2 % (21.0-51.0); %Monocytes 5.3 % (0.0-10.0); %Neutrophils 68.6 % (42.0-75.0); Hemoglobin 7.6 g/dL (12.0-16.0); Mean Corpuscular Hemoglobin 27.2 pg (27.0-31.0); Mean Corpuscular Volume 82.4 fl (81.0-99.0); Mean Platelet Volume 6.4 fL (7.4-10.4); Platelet Count 498 thou/uL (130-400); RBC Distribution Width 17.1 % (11.5-14.5); Red Blood Cell (RBC) Count 2.81 mill/uL (4.20-5.40); White Blood Cell (WBC) Count 8.4 thou/uL (4.8-10.8)
[2018-05-03 07:46] LABS: ALT (SGPT) 30 U/L (8-55); AST (SGOT) 13 U/L (5-34); Albumin 2.3 g/dL (3.5-5.0); Alkaline Phosphatase 93 U/L (40-150); Anion Gap 10 mmol/L (10-20); BUN (Urea Nitrogen) 8 mg/dL (7.0-18.7); Bilirubin, Total 0.3 mg/dL (0.2-1.2); Calc. Creatinine Clearance 137 mL/min (70-130); Calcium 8.6 mg/dL (7.8-10.44); Carbon Dioxide 33 mmol/L (22-29); Cardiac Risk 4.3 (Less than 4.5); Chloride 102 mmol/L (98-107); Cholesterol 86 mg/dl (< 200 Desired); Estimated GFR-MDRD Greater than 90; Globulin 2.6 g/dL (2.4-3.5); Glucose 146 mg/dL (70-105); HDL Cholesterol 20 mg/dL (>60 Neg Risk); LDL Cholesterol, Calculated 36 mg/dL; Phosphorus 3.3 mg/dL (2.3-4.7); Potassium 3.9 mmol/L (3.5-5.1); Protein, Total 4.9 g/dL (6.0-8.3); Sodium 141 mmol/L (136-145); Triglycerides 149 mg/dL (Less than 150)
[2018-05-03 08:32] LABS: Band 5 % (5-11); Lymphocytes 19 % (21-51); Monocytes 1 % (0-10); Neutrophil 74 % (42-75); PLT Morphology Comment Appears Increased; Reactive Lymphocytes 1 % (0-10); Tear Drops SLIGHT = 2-5 cells (100X) (0-1/hpf)
[2018-05-03 08:50] LABS: MDiff Complete? YES
[2018-05-03] MEDS: Famotidine/PF 20 mg/2ml Vial SLOW IVP SCH (09:05)
[2018-05-03] MEDS: Famotidine 20 MG TAB PO SCH (09:09)
--- NOTE | 2018-05-03 10:10 | PDOC.PN ---
- Subjective Encounter Start Date: 05/02/18 Encounter Start Time: 11:30 Subjective: pt up in bed no complains - Objective Resuscitation Status: Resuscitation Status FULL:Full Resuscitation Vital Signs & Weight: Vital Signs (12 hours) Temp Pulse Resp BP Pulse Ox 05/03/18 07:21 98.3 F 83 16 146/89 H 92 L 05/03/18 04:19 98.3 F 86 16 123/80 94 L 05/03/18 00:36 98.3 F 86 20 119/76 94 L Weight Admit Weight 144 lb Weight 152 lb 9.6 oz I&O: 05/02/18 05/03/18 05/04/18 06:59 06:59 06:59 Intake Total 2050 2690 Output Total 1200 2230 Balance 850 460 Result Diagrams: 05/03/18 07:00 05/03/18 07:00 Phys Exam - Physical Examination HEENT: PERRLA, moist MMs, sclera anicteric, TM's clear, oral pharynx no lesions , 2+ tonsils Neck: no nodes, no JVD, supple, full ROM Respiratory: no wheezing, no rales, no rhonchi, wheezing present, clear to auscultation bilateral Cardiovascular: RRR, no significant murmur, no rub, gallop, irregular Gastrointestinal: soft, positive bowel sounds wound vac, ileostomy and abril present Neurological: non-focal, normal sensation, moves all 4 limbs Dx/Plan (1) Fever Code(s): R50.9 - FEVER, UNSPECIFIED Status: Acute (2) Partial small bowel obstruction Status: Acute (3) Hypokalemia Code(s): E87.6 - HYPOKALEMIA Status: Acute (4) Crohn's disease, unspecified, with fistula Code(s): K50.913 - CROHN'S DISEASE, UNSPECIFIED, WITH FISTULA Status: Acute Comment: s/p exp lap, small bowel resection with lysis of adhesion and ileostomy 05/01 (5) Anemia Code(s): D64.9 - ANEMIA, UNSPECIFIED Status: Acute Comment: most likely due to blood loss in surgery - Plan * . continue current treatment pt to start tpn today Pt has been afebrile will monitor hh pt on ppi will start her back on her wellbutrin Review of Systems - Review of Systems ENT: negative: Ear Pain, Ear Discharge, Nose Pain, Nose Discharge, Nose Congestion, Mouth Pain, Mouth Swelling, Throat Pain, Throat Swelling, Other Respiratory: negative: Cough, Dry, Shortness of Breath, Hemoptysis, SOB with Excertion, Pleuritic Pain, Sputum, Wheezing Gastrointestinal: negative: Nausea, Vomiting, Abdominal Pain, Diarrhea, Constipation, Melena, Hematochezia, Other Musculoskeletal: negative: Neck Pain, Shoulder Pain, Arm Pain, Back Pain, Hand Pain, Leg Pain, Foot Pain, Other - Medications/Allergies Allergies/Adverse Reactions: Allergies Allergy/AdvReac Type Severity Reaction Status Date / Time metoclopramide HCl Allergy Intermediate HIVES, Verified 04/27/18 12:13 [From Reglan] THROAT SWELLING Penicillins Allergy Intermediate RASH, HIVES Verified 04/27/18 12:13 promethazine Allergy Intermediate HIVES, Verified 04/27/18 12:13 THROAT SWELLING benzonatate Allergy Hives Verified 04/27/18 12:13 [From Tessalon Perles] piperacillin [From Zosyn] Allergy Verified 04/27/18 12:13 prochlorperazine Allergy Verified 04/27/18 12:13 tazobactam [From Zosyn] Allergy Verified 04/27/18 12:13 FERROUS FUMARATE Allergy Intermediate Hives Uncoded 03/11/17 03:18 Medications: Current Medications Albuterol/Ipratropium (Duoneb) 3 ml NEB Q4H PRN PRN Reason: Wheezing Dextrose/Water (Dextrose 50%) 25 gm SLOW IVP PRN PRN PRN Reason: Hypoglycemia Diphenhydramine HCl (Benadryl) 25 mg IVP Q3H PRN PRN Reason: Itching Diphenhydramine HCl (Benadryl) 25 mg PO Q3H PRN PRN Reason: Itching Diphenhydramine HCl (Benadryl) 25 mg IM Q3H PRN PRN Reason: Itching Enoxaparin Sodium (Lovenox) 40 mg SC 2100 [facility] Last Admin: 05/02/18 22:21 Dose: 40 mg Famotidine (Pepcid) 20 mg SLOW IVP DAILY [facility] Glucagon (Glucagon) 1 mg IM PRN PRN PRN Reason: Hypoglycemia Hydralazine HCl (Apresoline) 10 mg SLOW IVP Q4H PRN PRN Reason: SBP > 170 or DBP > 100 Hydrocortisone Sodium Succinate (Solu-Cortef) 25 mg SLOW IVP BID [facility] Hydromorphone HCl (Dilaudid Cadd) 0 mg IVPB INF PRN PRN Reason: Pain Last Admin: 05/03/18 01:20 Dose: 10 mg Potassium Chloride/Dextrose/Sod Cl (D5 1/2 Ns W/20 Meq Kcl) 1,000 mls @ 120 mls /hr IV .Q8H20M [facility] Last Admin: 05/02/18 22:22 Dose: 1,000 mls Dextrose/Water (D5w) 1,000 mls @ 0 mls/hr IV .Q0M PRN; As Directed PRN Reason: Hypoglycemia Meropenem 1 gm/ Device 50 mls @ 100 mls/hr IVPB 0100,0900,1700 [facility] Last Admin: 05/03/18 09:05 Dose: 50 mls Sodium Acetate 40 meq/Potassium Acetate 30 meq/Magnesium Sulfate 10 meq/ Multivitamins 10 ml/ Chromium/Copper/Manganese/Seleni/Zn 5 ml/ Amino Acids/ Electrolytes/Fat Emulsion Intravenous 2,302.463 mls @ 95.769 mls/hr IV 2200 [facility] Last Admin: 05/02/18 23:00 Dose: 2,302.463 mls Miscellaneous Information (Communication Order-Pharmacy) 1 each FS ASDIR [facility] Naloxone HCl (Narcan) 0.2 mg IV Q5MIN PRN PRN Reason: Opiate Reversal Nicotine (Nicoderm Patch) 21 mg TOP Q24HR [facility] Last Admin: 05/02/18 22:21 Dose: 21 mg Ondansetron HCl (Zofran Odt) 4 mg PO Q6H PRN PRN Reason: Nausea/Vomiting Ondansetron HCl (Zofran) 4 mg IVP Q6H PRN PRN Reason: Nausea Phenol (Chloraseptic [place] 180 Ml Bot) 0 ml PO PRN PRN PRN Reason: Restlessness Sodium Chloride (Flush - Normal Saline) 10 ml IVF PRN PRN PRN Reason: Saline Flush Zolpidem Tartrate (Ambien) 5 mg PO HSPRN PRN PRN Reason: Insomnia Last Admin: 05/03/18 00:32 Dose: 5 mg
--- NOTE | 2018-05-03 11:06 | PRG ---
DATE OF SERVICE: 05/03/2018 SUBJECTIVE: Ms. Lewis is feeling okay today. Nasogastric tube remains in place. She is having asim e ileostomy output. This is a dark liquid, but does not have the appearance of melena. Abdominal pa in is minimal. She is on TPN. OBJECTIVE: VITAL SIGNS: Temperature 98.3, pulse 83, blood pressure 146/89, 92% oxygen saturation on room air. GENERAL: No acute distress. Nasogastric tube in place with about 500 mL of bilious-looking fluid in the suction canister. HEART: Regular rate and rhythm. LUNGS: Clear to auscultation bilaterally. ABDOMEN: Soft, nontender to palpation. Left lower quadrant ileostomy site looks good with some dark liquid stool in the bag. EXTREMITIES: No peripheral edema. LABORATORY STUDIES: WBC 8.4, hemoglobin 7.6, platelets 498. INR 1.1. Sodium 141, potassium 3.9, BU N 8, creatinine 0.58, albumin 2.3, total bilirubin 0.3, alkaline phosphatase 93, AST 13, ALT 30. Pre albumin is 12.0. Glucose 146. ASSESSMENT AND PLAN: 1. Crohn's disease of the small bowel. 2. Abdominal fistula from ileum to psoas muscle. 3. Status post diverting ileostomy performed 2 days ago. 4. Malnutrition. Continue with current management. The plan is for her to be on TPN for at least 2 -3 days while bowel function resumes. She is already having some output from her ileostomy. I appre ciate surgical assistance. Also, appreciate Dr. Quinn' recommendations for IV antibiotics.
--- NOTE | 2018-05-03 13:50 | PDOC.PN ---
- Subjective Encounter Start Date: 05/03/18 Encounter Start Time: 13:49 Subjective: pt up in bed has some pain to her abdomen. Her wound vac was changed - Objective Resuscitation Status: Resuscitation Status FULL:Full Resuscitation Vital Signs & Weight: Vital Signs (12 hours) Temp Pulse Resp BP Pulse Ox 05/03/18 11:13 98.4 F 84 12 148/90 H 92 L 05/03/18 08:00 98.3 F 83 16 92 L 05/03/18 07:21 98.3 F 83 16 146/89 H 92 L 05/03/18 04:19 98.3 F 86 16 123/80 94 L Weight Admit Weight 144 lb Weight 152 lb 9.6 oz I&O: 05/02/18 05/03/18 05/04/18 06:59 06:59 06:59 Intake Total 2050 2690 Output Total 1200 2230 Balance 850 460 Result Diagrams: 05/03/18 07:00 05/03/18 07:00 Phys Exam - Physical Examination HEENT: PERRLA, moist MMs, sclera anicteric, TM's clear, oral pharynx no lesions , 2+ tonsils Neck: no nodes, no JVD, supple, full ROM Respiratory: no wheezing, no rales, no rhonchi, wheezing present, clear to auscultation bilateral Gastrointestinal: soft, positive bowel sounds wound vac, abril and ileostomy Musculoskeletal: no edema, pulses present, edema present Neurological: non-focal, normal sensation, moves all 4 limbs Dx/Plan (1) Fever Code(s): R50.9 - FEVER, UNSPECIFIED Status: Acute (2) Partial small bowel obstruction Status: Acute (3) Hypokalemia Code(s): E87.6 - HYPOKALEMIA Status: Acute (4) Crohn's disease, unspecified, with fistula Code(s): K50.913 - CROHN'S DISEASE, UNSPECIFIED, WITH FISTULA Status: Acute Comment: s/p exp lap, small bowel resection with lysis of adhesion and ileostomy 05/01 (5) Anemia Code(s): D64.9 - ANEMIA, UNSPECIFIED Status: Acute Comment: most likely due to blood loss in surgery - Plan * . will decrease steroids today since her bp is elevated. pt to get one unit of blood. she started on tpn Her ng tube has some dark blood pt on ppi Review of Systems - Review of Systems ENT: negative: Ear Pain, Ear Discharge, Nose Pain, Nose Discharge, Nose Congestion, Mouth Pain, Mouth Swelling, Throat Pain, Throat Swelling, Other Respiratory: negative: Cough, Dry, Shortness of Breath, Hemoptysis, SOB with Excertion, Pleuritic Pain, Sputum, Wheezing Gastrointestinal: Abdominal Pain Genitourinary: negative: Dysuria, Frequency, Incontinence, Hematuria, Retention , Other Musculoskeletal: negative: Neck Pain, Shoulder Pain, Arm Pain, Back Pain, Hand Pain, Leg Pain, Foot Pain, Other - Medications/Allergies Allergies/Adverse Reactions: Allergies Allergy/AdvReac Type Severity Reaction Status Date / Time metoclopramide HCl Allergy Intermediate HIVES, Verified 04/27/18 12:13 [From Reglan] THROAT SWELLING Penicillins Allergy Intermediate RASH, HIVES Verified 04/27/18 12:13 promethazine Allergy Intermediate HIVES, Verified 04/27/18 12:13 THROAT SWELLING benzonatate Allergy Hives Verified 04/27/18 12:13 [From Corry Russ] piperacillin [From Zosyn] Allergy Verified 04/27/18 12:13 prochlorperazine Allergy Verified 04/27/18 12:13 tazobactam [From Zosyn] Allergy Verified 04/27/18 12:13 FERROUS FUMARATE Allergy Intermediate Hives Uncoded 03/11/17 03:18 Medications: Current Medications Albuterol/Ipratropium (Duoneb) 3 ml NEB Q4H PRN PRN Reason: Wheezing Dextrose/Water (Dextrose 50%) 25 gm SLOW IVP PRN PRN PRN Reason: Hypoglycemia Diphenhydramine HCl (Benadryl) 25 mg IVP Q3H PRN PRN Reason: Itching Diphenhydramine HCl (Benadryl) 25 mg PO Q3H PRN PRN Reason: Itching Diphenhydramine HCl (Benadryl) 25 mg IM Q3H PRN PRN Reason: Itching Enoxaparin Sodium (Lovenox) 40 mg SC 2100 [facility] Last Admin: 05/02/18 22:21 Dose: 40 mg Famotidine (Pepcid) 20 mg PO BID [facility] Last Admin: 05/03/18 09:09 Dose: Not Given Famotidine (Pepcid) 20 mg SLOW IVP Q12HR [facility] Last Admin: 05/03/18 09:05 Dose: 20 mg Glucagon (Glucagon) 1 mg IM PRN PRN PRN Reason: Hypoglycemia Hydralazine HCl (Apresoline) 10 mg SLOW IVP Q4H PRN PRN Reason: SBP > 170 or DBP > 100 Hydrocortisone Sodium Succinate (Solu-Cortef) 25 mg SLOW IVP BID [facility] Hydromorphone HCl (Dilaudid Cadd) 0 mg IVPB INF PRN PRN Reason: Pain Last Admin: 05/03/18 01:20 Dose: 10 mg Potassium Chloride/Dextrose/Sod Cl (D5 1/2 Ns W/20 Meq Kcl) 1,000 mls @ 120 mls /hr IV .Q8H20M [facility] Last Admin: 05/02/18 22:22 Dose: 1,000 mls Dextrose/Water (D5w) 1,000 mls @ 0 mls/hr IV .Q0M PRN; As Directed PRN Reason: Hypoglycemia Meropenem 1 gm/ Device 50 mls @ 100 mls/hr IVPB 0100,0900,1700 [facility] Last Admin: 05/03/18 09:05 Dose: 50 mls Sodium Acetate 40 meq/Potassium Acetate 30 meq/Magnesium Sulfate 10 meq/ Multivitamins 10 ml/ Chromium/Copper/Manganese/Seleni/Zn 5 ml/ Amino Acids/ Electrolytes/Fat Emulsion Intravenous 2,302.463 mls @ 95.769 mls/hr IV 2200 [facility] Last Admin: 05/02/18 23:00 Dose: 2,302.463 mls Miscellaneous Information (Communication Order-Pharmacy) 1 each FS ASDIR [facility] Naloxone HCl (Narcan) 0.2 mg IV Q5MIN PRN PRN Reason: Opiate Reversal Nicotine (Nicoderm Patch) 21 mg TOP Q24HR [facility] Last Admin: 05/02/18 22:21 Dose: 21 mg Ondansetron HCl (Zofran Odt) 4 mg PO Q6H PRN PRN Reason: Nausea/Vomiting Ondansetron HCl (Zofran) 4 mg IVP Q6H PRN PRN Reason: Nausea Phenol (Chloraseptic [place] 180 Ml Bot) 0 ml PO PRN PRN PRN Reason: Restlessness Sodium Chloride (Flush - Normal Saline) 10 ml IVF PRN PRN PRN Reason: Saline Flush Zolpidem Tartrate (Ambien) 5 mg PO HSPRN PRN PRN Reason: Insomnia Last Admin: 05/03/18 00:32 Dose: 5 mg
[2018-05-03] MEDS: D5 1/2 NS w/20 mEq KCL 1,000 ML IV SCH ×2 (15:20→21:22)
--- NOTE | 2018-05-03 18:18 | PRG ---
DATE OF SERVICE: 05/03/2018 ATTENDING PHYSICIAN: Dr. aKran Hernandez. SUBJECTIVE: Ms. Lewis is a 42-year-old female who is postoperative day #2 status post exploratory l aparotomy with extensive lysis of adhesions, repair of enterotomy, small bowel resection, ileostomy, placement of temporary abdominal drain by Dr. Londono. She remained stable on the floor. Her ostomy has begun having some output. It is a dark greenish colored liquid. She is on TPN. She reports pa in is well controlled. OBJECTIVE: VITAL SIGNS: Temperature 98.4, pulse 84, respirations 12, O2 sat 92% room air, blood pressure 148/90 . GENERAL: A 42-year-old female lying on bed, in no acute distress. HEENT: Atraumatic, normocephalic. PULMONARY: Bilateral breath sounds clear. HEART: Regular rate and rhythm. ABDOMEN: Soft, nontender. Left lower quadrant ileostomy with greenish output. Right lower quadrant abdominal ALEJANDRA drain with serosanguineous output. Midline abdominal negative pressure wound therapy V AC in place, functioning normally. EXTREMITIES: Moves all extremities well. Cap refill brisk in all extremities. NEUROLOGIC: GCS 15. Awake, alert, oriented x3. LABORATORY DATA: CBC: WBC 8.4, RBC 2.81, hemoglobin 7.6, hematocrit 23.2, platelets 498. Chemistry : Sodium 141, potassium 3.9, chloride 102, carbon dioxide 33, BUN 8, creatinine 0.58, glucose 146, c alcium 8.6, phosphorus 3.3, magnesium 2.0, total bilirubin 0.3, AST 13, ALT 30, alkaline phosphatase 93. ASSESSMENT: 1. Crohn's disease of the small bowel. 2. Status post exploratory laparotomy, extensive lysis of adhesions, repair of enterotomy, small bow el resection and ileostomy, and placement of temporary abdominal drain, postoperative day 2. 3. Ostomy with a greenish-colored bilious appearing output. 4. Continuing on total parenteral nutrition. PLAN: 1. Clamp NG tube. If patient tolerates a clamping trial, we will consider discontinuing NG tube and starting ice chips or clear liquid diet. 2. PRBCs ordered by Hospital Medicine. 3. Continue TPN. 4. Encourage ambulation. The patient was reviewed with Dr. Hernandez who agrees with plan.
[2018-05-03] MEDS ORDERED: Hydrocortisone Sod Succ/PF 250 mg/2 ml Vial SLOW IVP SCH (21:00)
[2018-05-03] MEDS: Enoxaparin Sodium 40 MG/0.4 ML SYRINGE SC SCH (21:07)
[2018-05-03] MEDS: POTASSIUM ACETATE IV SCH (22:35)
[2018-05-03] MEDS: [UNRECOGNIZED DRUG - OTHER] IV SCH (22:35)
[2018-05-03] MEDS: SODIUM ACETATE IV SCH (22:35)
[2018-05-03] MEDS: Nicotine 21 MG PATCH TOP SCH (22:44)
[2018-05-04] MEDS: MEROPENEM 1 GM/50 ML 1 GM in Premix Bag 1 BAG IVPB SCH ×3 (01:26→17:28)
[2018-05-04] MEDS: D5 1/2 NS w/20 mEq KCL 1,000 ML IV SCH ×3 (01:29→19:46)
[2018-05-04 05:07] LABS: ALT (SGPT) 76 U/L (8-55); AST (SGOT) 118 U/L (5-34); Albumin 2.3 g/dL (3.5-5.0); Alkaline Phosphatase 99 U/L (40-150); Anion Gap 10 mmol/L (10-20); BUN (Urea Nitrogen) 13 mg/dL (7.0-18.7); Bilirubin, Total 0.4 mg/dL (0.2-1.2); Calc. Creatinine Clearance 155 mL/min (70-130); Calcium 8.4 mg/dL (7.8-10.44); Carbon Dioxide 33 mmol/L (22-29); Cardiac Risk 3.8 (Less than 4.5); Chloride 101 mmol/L (98-107); Cholesterol 79 mg/dl (< 200 Desired); Estimated GFR-MDRD Greater than 90; Globulin 2.4 g/dL (2.4-3.5); Glucose 143 mg/dL (70-105); HDL Cholesterol 21 mg/dL (>60 Neg Risk); LDL Cholesterol, Calculated 29 mg/dL; Magnesium 1.7 mg/dL (1.6-2.6); Phosphorus 3.8 mg/dL (2.3-4.7); Potassium 3.7 mmol/L (3.5-5.1); Protein, Total 4.7 g/dL (6.0-8.3); Sodium 140 mmol/L (136-145); Triglycerides 147 mg/dL (Less than 150)
[2018-05-04 06:24] LABS: Band 23 % (5-11); Hemoglobin 7.3 g/dL (12.0-16.0); Lymphocytes 32 % (21-51); MDiff Complete? YES; Mean Corpuscular HGB CONC 33.5 g/dL (32.0-36.0); Mean Corpuscular Hemoglobin 27.2 pg (27.0-31.0); Mean Corpuscular Volume 81.3 fl (81.0-99.0); Mean Platelet Volume 6.3 fL (7.4-10.4); Metamyelocyte 1 % (0-0); Monocytes 3 % (0-10); Neutrophil 41 % (42-75); Nucleated RBC 1 % (0); PLT Morphology Comment Appears Increased; Platelet Count 508 thou/uL (130-400); RBC Distribution Width 17.5 % (11.5-14.5); White Blood Cell (WBC) Count 8.6 thou/uL (4.8-10.8)
--- NOTE | 2018-05-04 07:16 | PRG ---
DATE OF SERVICE: 05/04/2018 SUBJECTIVE: Ms. Lewis is feeling about the same today. Abdominal discomfort is minimal. Her nasog astric tube was clamped last night and she is having no nausea at all. She has continued to have asim e dark green output from her ileostomy. No overt bleeding from anywhere. Minimal drainage from her abdominal drain. Hemoglobin is essentially stable at 7.3. OBJECTIVE: VITAL SIGNS: Temperature 98.5, pulse 90, blood pressure 147/93, 93% oxygen saturation on room air. GENERAL: No acute distress. Nasogastric tube in place, but clamped. HEART: Regular rate and rhythm. LUNGS: Clear to auscultation bilaterally. ABDOMEN: Ileostomy site looks good with liquid bilious appearing stool in the bag. Minimal tenderne ss to palpation in the abdomen. EXTREMITIES: No peripheral edema. LABORATORY STUDIES: Hemoglobin 7.3, hemoglobin was 7.6 yesterday morning, WBC 8.6, platelets 508. S odium 140, potassium 3.7, BUN 13, creatinine 0.51, glucose 143, total bilirubin 0.4, alkaline phospha tase 99, AST 118, ALT 76. Prealbumin 15, albumin 2.3. ASSESSMENT AND PLAN: 1. Crohn's disease of the small bowel. 2. 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 3. Anemia, stable since yesterday. Likely secondary to blood loss during her surgery. 4. Elevated liver function tests. This is probably a reaction to the TPN. Continue to monitor LFTs daily. Continue with current cares. The plan is for her to continue TPN over the weekend at least while minoo iting return of bowel function. Dietary advancement per surgical team. GI will continue to follow a long.
[2018-05-04] MEDS: Bupropion 100 MG SR TAB PO SCH (08:07)
[2018-05-04] MEDS: Famotidine/PF 20 mg/2ml Vial SLOW IVP SCH (08:08)
[2018-05-04] MEDS: Hydrocortisone Sod Succ/PF 100 mg/2 ml Vial IVP SCH ×2 (08:08→22:15)
--- NOTE | 2018-05-04 18:14 | PRG ---
DATE OF SERVICE: 05/04/2018 ATTENDING PHYSICIAN: Dr. Karan Hernandez. SUBJECTIVE: Ms. Lewis is a 42-year-old female who is postoperative day #3 status post exploratory l aparotomy with extensive lysis of adhesions, repair of enterotomy, small bowel resection, ileostomy, placement of temporary abdominal drain by Dr. Londono. She has remained stable on the floor. Her os radha is having output. She has been on TPN. NG tube was clamped one day ago. She had no residual a bdominal pain or nausea and vomiting. OBJECTIVE: VITAL SIGNS: Temperature 98.3, pulse 93, respirations 16, O2 sat 95% on room air, blood pressure 154 /96. GENERAL: A 42-year-old female lying in bed, in no acute distress. HEENT: Atraumatic, normocephalic. PULMONARY: Bilateral breath sounds clear. CARDIOVASCULAR: Regular rate and rhythm. Heart sounds normal. ABDOMEN: Soft, nontender. Left lower quadrant ileostomy functioning normally. Stoma appearing pink and healthy. Negative pressure wound VAC therapy in place. Midline abdominal wall. Right lower qu adrant ALEJANDRA drain with serous output. EXTREMITIES: Moves all extremities well. Ambulatory without assistance. NEUROLOGIC: GCS 15. Awake, alert, oriented x3. LABORATORY DATA: CBC: WBC 8.6, RBC 2.70, hemoglobin 7.3, hematocrit 21.9, platelets 508. Chemistry : Sodium 140, potassium 3.7, chloride 101, carbon dioxide 33, BUN 13, creatinine 0.51, glucose 143, calcium 84, phosphorus 3.8, magnesium 1.7, total bilirubin 0.4, AST 118, ALT 76, alkaline phosphatase 99. ASSESSMENT: 1. Crohn's disease of the small bowel. 2. Status post exploratory laparotomy, extensive lysis of adhesions, repair of enterotomy, small bow el resection and ileostomy, and placement of temporary abdominal drain, postoperative day #3. 3. Ostomy with bilious appearing output. 4. TPN. PLAN: 1. Discontinue NG tube and start clear liquid diet. 2. Continue negative pressure wound VAC therapy dressing. 3. Continue TPN. 4. Encourage ambulation. 5. Patient to be seen by Dr. Londono in a.m. The patient was seen and examined with Dr. Hernandez, who agrees with plan.
[2018-05-04] MEDS: HYDROmorphone 10 mg/100 ml CADD IVPB PRN (18:28)
--- NOTE | 2018-05-04 20:51 | PDOC.PN ---
- Subjective Encounter Start Date: 05/04/18 Encounter Start Time: 12:30 Subjective: pt up in bed feels well today - Objective Resuscitation Status: Resuscitation Status FULL:Full Resuscitation Vital Signs & Weight: Vital Signs (12 hours) Temp Pulse Resp BP Pulse Ox 05/04/18 20:00 99.2 F 90 20 05/04/18 19:31 99.2 F 90 20 137/87 95 05/04/18 15:54 98.4 F 88 18 151/90 H 96 05/04/18 11:37 98.5 F 90 16 165/99 H 96 Weight Admit Weight 144 lb Weight 152 lb 9.6 oz I&O: 05/03/18 05/04/18 05/05/18 06:59 06:59 06:59 Intake Total 2690 2101.4 2595.4 Output Total 2230 1630 280 Balance 460 471.4 2315.4 Result Diagrams: 05/04/18 04:30 05/04/18 04:33 Additional Labs: Accuchecks 05/04/18 05/04/18 05/04/18 20:07 15:58 11:41 POC Glucose 109 168 H 171 H 05/04/18 00:09 POC Glucose 140 H Phys Exam - Physical Examination HEENT: PERRLA, moist MMs, sclera anicteric, TM's clear, oral pharynx no lesions , 2+ tonsils Neck: no nodes, no JVD, supple, full ROM Respiratory: no wheezing, no rales, no rhonchi, wheezing present, clear to auscultation bilateral Cardiovascular: RRR, no significant murmur, no rub, gallop, irregular Gastrointestinal: soft, positive bowel sounds ileostomy, abril and wound vac intact Dx/Plan (1) Fever Code(s): R50.9 - FEVER, UNSPECIFIED Status: Acute (2) Partial small bowel obstruction Status: Acute (3) Hypokalemia Code(s): E87.6 - HYPOKALEMIA Status: Acute (4) Crohn's disease, unspecified, with fistula Code(s): K50.913 - CROHN'S DISEASE, UNSPECIFIED, WITH FISTULA Status: Acute Comment: s/p exp lap, small bowel resection with lysis of adhesion and ileostomy 05/01 (5) Anemia Code(s): D64.9 - ANEMIA, UNSPECIFIED Status: Acute Comment: most likely due to blood loss in surgery - Plan * pt on TPN. NG/oropeza discontinued. will start to wean off the steroids. pt ambulating. * on dvt ppx * anti depressant started * pt has many antibodies. will give blood transfusion only if her hh is <7. she is currently 7.3 and is asymptomatic. on ppi * Review of Systems - Review of Systems ENT: negative: Ear Pain, Ear Discharge, Nose Pain, Nose Discharge, Nose Congestion, Mouth Pain, Mouth Swelling, Throat Pain, Throat Swelling, Other Respiratory: negative: Cough, Dry, Shortness of Breath, Hemoptysis, SOB with Excertion, Pleuritic Pain, Sputum, Wheezing Cardiovascular: negative: chest pain, palpitations, orthopnea, paroxysmal nocturnal dyspnea, edema, light headedness, other Gastrointestinal: negative: Nausea, Vomiting, Abdominal Pain, Diarrhea, Constipation, Melena, Hematochezia, Other - Medications/Allergies Allergies/Adverse Reactions: Allergies Allergy/AdvReac Type Severity Reaction Status Date / Time metoclopramide HCl Allergy Intermediate HIVES, Verified 04/27/18 12:13 [From Reglan] THROAT SWELLING Penicillins Allergy Intermediate RASH, HIVES Verified 04/27/18 12:13 promethazine Allergy Intermediate HIVES, Verified 04/27/18 12:13 THROAT SWELLING benzonatate Allergy Hives Verified 04/27/18 12:13 [From Tessarah Russ] piperacillin [From Zosyn] Allergy Verified 04/27/18 12:13 prochlorperazine Allergy Verified 04/27/18 12:13 tazobactam [From Zosyn] Allergy Verified 04/27/18 12:13 FERROUS FUMARATE Allergy Intermediate Hives Uncoded 03/11/17 03:18 Medications: Current Medications Albuterol/Ipratropium (Duoneb) 3 ml NEB Q4H PRN PRN Reason: Wheezing Bupropion HCl (Wellbutrin Sr) 100 mg PO DAILY [facility] Last Admin: 05/04/18 08:07 Dose: 100 mg Dextrose/Water (Dextrose 50%) 25 gm SLOW IVP PRN PRN PRN Reason: Hypoglycemia Diphenhydramine HCl (Benadryl) 25 mg IVP Q3H PRN PRN Reason: Itching Diphenhydramine HCl (Benadryl) 25 mg PO Q3H PRN PRN Reason: Itching Diphenhydramine HCl (Benadryl) 25 mg IM Q3H PRN PRN Reason: Itching Enoxaparin Sodium (Lovenox) 40 mg SC 2100 [facility] Last Admin: 05/03/18 21:07 Dose: 40 mg Famotidine (Pepcid) 20 mg SLOW IVP DAILY [facility] Last Admin: 05/04/18 08:08 Dose: 20 mg Glucagon (Glucagon) 1 mg IM PRN PRN PRN Reason: Hypoglycemia Hydralazine HCl (Apresoline) 10 mg SLOW IVP Q4H PRN PRN Reason: SBP > 170 or DBP > 100 Hydrocortisone Sodium Succinate (Solu-Cortef) 25 mg IVP BID [facility] Last Admin: 05/04/18 08:08 Dose: 25 mg Hydromorphone HCl (Dilaudid Cadd) 0 mg IVPB INF PRN PRN Reason: Pain Last Admin: 05/04/18 18:28 Dose: 10 mg Potassium Chloride/Dextrose/Sod Cl (D5 1/2 Ns W/20 Meq Kcl) 1,000 mls @ 120 mls /hr IV .Q8H20M [facility] Last Admin: 05/04/18 19:46 Dose: Not Given Dextrose/Water (D5w) 1,000 mls @ 0 mls/hr IV .Q0M PRN; As Directed PRN Reason: Hypoglycemia Meropenem 1 gm/ Device 50 mls @ 100 mls/hr IVPB 0100,0900,1700 [facility] Last Admin: 05/04/18 17:28 Dose: 50 mls Sodium Acetate 40 meq/Potassium Acetate 30 meq/Magnesium Sulfate 10 meq/ Multivitamins 10 ml/ Chromium/Copper/Manganese/Seleni/Zn 5 ml/ Amino Acids/ Electrolytes/Fat Emulsion Intravenous 2,302.463 mls @ 95.769 mls/hr IV 2200 [facility] Last Admin: 05/03/18 22:35 Dose: 2,302.463 mls Miscellaneous Information (Communication Order-Pharmacy) 1 each FS ASDIR [facility] Naloxone HCl (Narcan) 0.2 mg IV Q5MIN PRN PRN Reason: Opiate Reversal Nicotine (Nicoderm Patch) 21 mg TOP Q24HR [facility] Last Admin: 05/03/18 22:44 Dose: 21 mg Ondansetron HCl (Zofran Odt) 4 mg PO Q6H PRN PRN Reason: Nausea/Vomiting Ondansetron HCl (Zofran) 4 mg IVP Q6H PRN PRN Reason: Nausea Phenol (Chloraseptic [place] 180 Ml Bot) 0 ml PO PRN PRN PRN Reason: Restlessness Sodium Chloride (Flush - Normal Saline) 10 ml IVF PRN PRN PRN Reason: Saline Flush Zolpidem Tartrate (Ambien) 5 mg PO HSPRN PRN PRN Reason: Insomnia Last Admin: 05/03/18 22:35 Dose: 5 mg
[2018-05-04] MEDS: SODIUM ACETATE IV SCH (22:14)
[2018-05-04] MEDS: POTASSIUM ACETATE IV SCH (22:14)
[2018-05-04] MEDS: [UNRECOGNIZED DRUG - OTHER] IV SCH (22:14)
[2018-05-04] MEDS: Enoxaparin Sodium 40 MG/0.4 ML SYRINGE SC SCH (22:15)
[2018-05-04] MEDS: Zolpidem Tartrate 5 MG TAB PO PRN (23:12)
[2018-05-04] MEDS: Nicotine 21 MG PATCH TOP SCH (23:12)
[2018-05-05] MEDS: MEROPENEM 1 GM/50 ML 1 GM in Premix Bag 1 BAG IVPB SCH ×3 (00:59→17:29)
[2018-05-05] MEDS: D5 1/2 NS w/20 mEq KCL 1,000 ML IV SCH ×2 (01:00→17:29)
[2018-05-05 06:27] LABS: ALT (SGPT) 80 U/L (8-55); AST (SGOT) 53 U/L (5-34); Albumin 2.3 g/dL (3.5-5.0); Alkaline Phosphatase 112 U/L (40-150); Anion Gap 10 mmol/L (10-20); BUN (Urea Nitrogen) 11 mg/dL (7.0-18.7); Bilirubin, Total 0.5 mg/dL (0.2-1.2); Calc. Creatinine Clearance 159 mL/min (70-130); Calcium 8.2 mg/dL (7.8-10.44); Carbon Dioxide 33 mmol/L (22-29); Cardiac Risk 3.7 (Less than 4.5); Chloride 99 mmol/L (98-107); Cholesterol 84 mg/dl (< 200 Desired); Estimated GFR-MDRD Greater than 90; Globulin 2.4 g/dL (2.4-3.5); Glucose 138 mg/dL (70-105); HDL Cholesterol 23 mg/dL (>60 Neg Risk); LDL Cholesterol, Calculated 34 mg/dL; Magnesium 1.4 mg/dL (1.6-2.6); Phosphorus 4.2 mg/dL (2.3-4.7); Potassium 3.7 mmol/L (3.5-5.1); Protein, Total 4.7 g/dL (6.0-8.3); Sodium 138 mmol/L (136-145); Triglycerides 135 mg/dL (Less than 150)
[2018-05-05 06:35] LABS: Band 17 % (5-11); Hemoglobin 7.7 g/dL (12.0-16.0); Lymphocytes 23 % (21-51); MDiff Complete? YES; Mean Corpuscular HGB CONC 33.8 g/dL (32.0-36.0); Mean Corpuscular Hemoglobin 27.1 pg (27.0-31.0); Mean Corpuscular Volume 80.2 fl (81.0-99.0); Mean Platelet Volume 6.5 fL (7.4-10.4); Metamyelocyte 2 % (0-0); Monocytes 2 % (0-10); Neutrophil 56 % (42-75); PLT Morphology Comment Appears Increased; Platelet Count 466 thou/uL (130-400); RBC Distribution Width 17.6 % (11.5-14.5); Red Blood Cell (RBC) Count 2.83 mill/uL (4.20-5.40); White Blood Cell (WBC) Count 11.7 thou/uL (4.8-10.8)
[2018-05-05] MEDS: Hydrocortisone Sod Succ/PF 100 mg/2 ml Vial IVP SCH ×2 (08:45→20:08)
[2018-05-05] MEDS: Famotidine/PF 20 mg/2ml Vial SLOW IVP SCH (08:47)
[2018-05-05] MEDS: Bupropion 100 MG SR TAB PO SCH (08:47)
--- NOTE | 2018-05-05 09:46 | PRG ---
DATE OF SERVICE: 05/05/2018 GASTROINTESTINAL INPATIENT DAILY PROGRESS NOTE SUBJECTIVE: Ms. Lewis is feeling well this morning. Abdominal discomfort is minimal. I was able t o have the nasogastric tube removed and is not having any nausea. She is slightly hungry. Her ileos radha continues to have a good liquid output as well as gas output. OBJECTIVE: VITAL SIGNS: Temperature 98.7, pulse 86, blood pressure 130/83, 96% oxygen saturation on room air. GENERAL: No acute distress. HEART: Regular rate and rhythm. LUNGS: Clear to auscultation bilaterally. ABDOMEN: Small amount of serosanguineous fluid in her abdominal drain. Wound VAC looks good. Ileos radha site looks good with some bilious liquid stool in the bag. Abdomen is nontender to palpation. EXTREMITIES: No peripheral edema. LABORATORY STUDIES: WBC 11.7, hemoglobin 7.7, platelets 466. Sodium 138, potassium 3.7, BUN 11, cre atinine 0.50. Total bilirubin 0.5, alkaline phosphatase 112, AST 53, ALT 80, albumin 2.3, prealbumin up to 17. ASSESSMENT AND PLAN: 1. Crohn's disease of the small bowel. 2. Abdominal fistula, now status post diverting ileostomy. 3. Anemia, stable. 4. Elevated liver function tests, likely secondary to the TPN. Ms. Lewis seems to be doing well po stoperatively. Dietary advancement per surgical recommendations. For now, she continues on TPN. Co ntinue biologic agent is planned under the direction of Dr. Morgan as an outpatient. Please call any time with questions or concerns.
[2018-05-05 11:57] VITALS: BMI 27.0
--- NOTE | 2018-05-05 14:03 | PDOC.GSPN ---
Surgery Progress Note: Subj - Subjective Patient reports: tolerating liquids well Narrative: Pain controlled. ambulating Surgery Progress Note: Obj - Vital signs Vital signs: Vital Signs - Most Recent Temp Pulse Resp BP Pulse Ox 98.6 F 91 16 131/85 96 05/05/18 11:54 05/05/18 11:54 05/05/18 11:54 05/05/18 11:54 05/05/18 11:54 - Physical Exam General: no distress Cardiovascular: regular rate and rhythm Respiratory: clear to auscultation Abdomen: soft, non tender Wound: wound vac Surgery Progress Note: Results - Labs Result Diagrams: 05/05/18 05:10 05/05/18 05:26 Lab results: Laboratory Results - last 24 hr 05/05/18 05/05/18 05/05/18 05:10 05:26 05:26 WBC 11.7 H RBC 2.83 L Hgb 7.7 L Hct 22.7 L MCV 80.2 L MCH 27.1 MCHC 33.8 RDW 17.6 H Plt Count 466 H MPV 6.5 L Neutrophils % (Manual) 56 Band Neuts % (Manual) 17 H Lymphocytes % (Manual) 23 Monocytes % (Manual) 2 Metamyelocytes % (Man) 2 H Plt Morphology Comment Appears Increased H Sodium 138 Potassium 3.7 Chloride 99 Carbon Dioxide 33 H Anion Gap 10 BUN 11 Creatinine 0.50 L Estimated GFR (MDRD) Greater than 90 Glucose 138 H POC Glucose Calcium 8.2 Phosphorus 4.2 Magnesium 1.4 L Total Bilirubin 0.5 AST 53 H ALT 80 H Alkaline Phosphatase 112 Serum Total Protein 4.7 L Albumin 2.3 L Globulin 2.4 Albumin/Globulin Ratio 1.0 L Prealbumin 17.0 Triglycerides 135 Cholesterol 84 LDL Cholesterol, Calc 34 HDL Cholesterol 23 Heart Disease Risk Ratio 3.7 05/05/18 11:57 WBC RBC Hgb Hct MCV MCH MCHC RDW Plt Count MPV Neutrophils % (Manual) Band Neuts % (Manual) Lymphocytes % (Manual) Monocytes % (Manual) Metamyelocytes % (Man) Plt Morphology Comment Sodium Potassium Chloride Carbon Dioxide Anion Gap BUN Creatinine Estimated GFR (MDRD) Glucose POC Glucose 162 H Calcium Phosphorus Magnesium Total Bilirubin AST ALT Alkaline Phosphatase Serum Total Protein Albumin Globulin Albumin/Globulin Ratio Prealbumin Triglycerides Cholesterol LDL Cholesterol, Calc HDL Cholesterol Heart Disease Risk Ratio Surgery Progress Note: A/P - Problem (1) Crohn's disease, unspecified, with fistula Current Visit: No Code(s): K50.913 - CROHN'S DISEASE, UNSPECIFIED, WITH FISTULA Status: Acute Assessment and Plan: Full liquid diet.
[2018-05-05] MEDS: HYDROmorphone 10 mg/100 ml CADD IVPB PRN (14:15)
--- NOTE | 2018-05-05 17:39 | PDOC.PN ---
- Subjective Encounter Start Date: 05/05/18 Encounter Start Time: 11:30 Subjective: pt up in bed feels well - Objective Resuscitation Status: Resuscitation Status FULL:Full Resuscitation Vital Signs & Weight: Vital Signs (12 hours) Temp Pulse Resp BP Pulse Ox 05/05/18 15:00 98.5 F 86 16 134/84 95 05/05/18 11:54 98.6 F 91 16 131/85 96 05/05/18 08:48 98.7 F 86 16 96 05/05/18 07:13 98.7 F 86 16 130/83 96 Weight Admit Weight 144 lb Weight 152 lb 9.6 oz I&O: 05/04/18 05/05/18 05/06/18 06:59 06:59 06:59 Intake Total 2101.4 4555.4 Output Total 1630 1520 Balance 471.4 3035.4 Result Diagrams: 05/05/18 05:10 05/05/18 05:26 Additional Labs: Accuchecks 05/05/18 05/04/18 11:57 20:07 POC Glucose 162 H 109 Phys Exam - Physical Examination HEENT: PERRLA, moist MMs, sclera anicteric, TM's clear, oral pharynx no lesions , 2+ tonsils Neck: no nodes, no JVD, supple, full ROM Respiratory: no wheezing, no rales, no rhonchi, wheezing present, clear to auscultation bilateral Cardiovascular: RRR, no significant murmur, no rub, gallop, irregular Gastrointestinal: soft abril, wound vac and ileostomy is draining Dx/Plan (1) Fever Code(s): R50.9 - FEVER, UNSPECIFIED Status: Acute (2) Partial small bowel obstruction Status: Acute (3) Hypokalemia Code(s): E87.6 - HYPOKALEMIA Status: Acute (4) Crohn's disease, unspecified, with fistula Code(s): K50.913 - CROHN'S DISEASE, UNSPECIFIED, WITH FISTULA Status: Acute Comment: s/p exp lap, small bowel resection with lysis of adhesion and ileostomy 05/01 (5) Anemia Code(s): D64.9 - ANEMIA, UNSPECIFIED Status: Acute Comment: most likely due to blood loss in surgery (6) Psoas abscess Code(s): K68.12 - PSOAS MUSCLE ABSCESS Status: Acute - Plan * HH is stable * will decrease stress dose steroid to 25mg daily. Pt is on home steroids of 15mg daily. * Pt's diet to be advanced per surgery. * continue abx Review of Systems - Review of Systems ENT: negative: Ear Pain, Ear Discharge, Nose Pain, Nose Discharge, Nose Congestion, Mouth Pain, Mouth Swelling, Throat Pain, Throat Swelling, Other Respiratory: negative: Cough, Dry, Shortness of Breath, Hemoptysis, SOB with Excertion, Pleuritic Pain, Sputum, Wheezing Cardiovascular: negative: chest pain, palpitations, orthopnea, paroxysmal nocturnal dyspnea, edema, light headedness, other Gastrointestinal: negative: Nausea, Vomiting, Abdominal Pain, Diarrhea, Constipation, Melena, Hematochezia, Other - Medications/Allergies Allergies/Adverse Reactions: Allergies Allergy/AdvReac Type Severity Reaction Status Date / Time metoclopramide HCl Allergy Intermediate HIVES, Verified 04/27/18 12:13 [From Reglan] THROAT SWELLING Penicillins Allergy Intermediate RASH, HIVES Verified 04/27/18 12:13 promethazine Allergy Intermediate HIVES, Verified 04/27/18 12:13 THROAT SWELLING benzonatate Allergy Hives Verified 04/27/18 12:13 [From Tessalon Perles] piperacillin [From Zosyn] Allergy Verified 04/27/18 12:13 prochlorperazine Allergy Verified 04/27/18 12:13 tazobactam [From Zosyn] Allergy Verified 04/27/18 12:13 FERROUS FUMARATE Allergy Intermediate Hives Uncoded 03/11/17 03:18 Medications: Current Medications Albuterol/Ipratropium (Duoneb) 3 ml NEB Q4H PRN PRN Reason: Wheezing Bupropion HCl (Wellbutrin Sr) 100 mg PO DAILY [facility] Last Admin: 05/05/18 08:47 Dose: 100 mg Dextrose/Water (Dextrose 50%) 25 gm SLOW IVP PRN PRN PRN Reason: Hypoglycemia Diphenhydramine HCl (Benadryl) 25 mg IVP Q3H PRN PRN Reason: Itching Diphenhydramine HCl (Benadryl) 25 mg PO Q3H PRN PRN Reason: Itching Diphenhydramine HCl (Benadryl) 25 mg IM Q3H PRN PRN Reason: Itching Enoxaparin Sodium (Lovenox) 40 mg SC 2100 [facility] Last Admin: 05/04/18 22:15 Dose: 40 mg Famotidine (Pepcid) 20 mg SLOW IVP DAILY [facility] Last Admin: 05/05/18 08:47 Dose: 20 mg Glucagon (Glucagon) 1 mg IM PRN PRN PRN Reason: Hypoglycemia Hydralazine HCl (Apresoline) 10 mg SLOW IVP Q4H PRN PRN Reason: SBP > 170 or DBP > 100 Hydrocortisone Sodium Succinate (Solu-Cortef) 25 mg IVP BID [facility] Last Admin: 05/05/18 08:45 Dose: 25 mg Hydromorphone HCl (Dilaudid Cadd) 0 mg IVPB INF PRN PRN Reason: Pain Last Admin: 05/05/18 14:15 Dose: 10 mg Potassium Chloride/Dextrose/Sod Cl (D5 1/2 Ns W/20 Meq Kcl) 1,000 mls @ 120 mls /hr IV .Q8H20M [facility] Last Admin: 05/05/18 17:29 Dose: Not Given Dextrose/Water (D5w) 1,000 mls @ 0 mls/hr IV .Q0M PRN; As Directed PRN Reason: Hypoglycemia Meropenem 1 gm/ Device 50 mls @ 100 mls/hr IVPB 0100,0900,1700 [facility] Last Admin: 05/05/18 17:29 Dose: 50 mls Sodium Acetate 80 meq/ Sodium Chloride 30 meq/ Potassium Acetate 50 meq/ Potassium Phosphate 30 mmol/ Calcium Gluconate 10 meq/ Magnesium Sulfate 20 meq / Multivitamins 10 ml/ Chromium/Copper/Manganese/Seleni/Zn 5 ml/Amino Acids/ Dextrose/ Fat Emulsion Intravenous 2,374.1652 mls @ 98.924 mls/hr IV 2200 [facility] Miscellaneous Information (Communication Order-Pharmacy) 1 each FS ASDIR [facility] Naloxone HCl (Narcan) 0.2 mg IV Q5MIN PRN PRN Reason: Opiate Reversal Nicotine (Nicoderm Patch) 21 mg TOP Q24HR [facility] Last Admin: 05/04/18 23:12 Dose: 21 mg Ondansetron HCl (Zofran Odt) 4 mg PO Q6H PRN PRN Reason: Nausea/Vomiting Ondansetron HCl (Zofran) 4 mg IVP Q6H PRN PRN Reason: Nausea Phenol (Chloraseptic [place] 180 Ml Bot) 0 ml PO PRN PRN PRN Reason: Restlessness Sodium Chloride (Flush - Normal Saline) 10 ml IVF PRN PRN PRN Reason: Saline Flush Zolpidem Tartrate (Ambien) 5 mg PO HSPRN PRN PRN Reason: Insomnia Last Admin: 05/04/18 23:12 Dose: 5 mg
[2018-05-05] MEDS: Enoxaparin Sodium 40 MG/0.4 ML SYRINGE SC SCH (20:05)
[2018-05-05] MEDS ORDERED: [UNRECOGNIZED DRUG - OTHER] IV SCH (22:00)
[2018-05-05] MEDS ORDERED: POTASSIUM ACETATE IV SCH (22:00)
[2018-05-05] MEDS ORDERED: SODIUM ACETATE IV SCH (22:00)
[2018-05-05] MEDS ORDERED: SODIUM CHLORIDE IV SCH (22:00)
[2018-05-05] MEDS: Nicotine 21 MG PATCH TOP SCH (22:29)
[2018-05-05] MEDS: Zolpidem Tartrate 5 MG TAB PO PRN (23:40)
[2018-05-06] MEDS: MEROPENEM 1 GM/50 ML 1 GM in Premix Bag 1 BAG IVPB SCH ×3 (00:20→17:38)
[2018-05-06 06:25] LABS: ALT (SGPT) 56 U/L (8-55); AST (SGOT) 26 U/L (5-34); Albumin 2.3 g/dL (3.5-5.0); Alkaline Phosphatase 121 U/L (40-150); Anion Gap 10 mmol/L (10-20); BUN (Urea Nitrogen) 10 mg/dL (7.0-18.7); Bilirubin, Total 0.4 mg/dL (0.2-1.2); Calc. Creatinine Clearance 172 mL/min (70-130); Calcium 8.2 mg/dL (7.8-10.44); Carbon Dioxide 33 mmol/L (22-29); Cardiac Risk 4.9 (Less than 4.5); Chloride 100 mmol/L (98-107); Cholesterol 93 mg/dl (< 200 Desired); Estimated GFR-MDRD Greater than 90; Globulin 2.6 g/dL (2.4-3.5); Glucose 99 mg/dL (70-105); HDL Cholesterol 19 mg/dL (>60 Neg Risk); LDL Cholesterol, Calculated 36 mg/dL; Magnesium 1.6 mg/dL (1.6-2.6); Phosphorus 3.4 mg/dL (2.3-4.7); Potassium 3.4 mmol/L (3.5-5.1); Protein, Total 4.9 g/dL (6.0-8.3); Sodium 140 mmol/L (136-145); Triglycerides 192 mg/dL (Less than 150)
[2018-05-06] MEDS: D5 1/2 NS w/20 mEq KCL 1,000 ML IV SCH ×2 (07:32→18:58)
[2018-05-06] MEDS ORDERED: Potassium Chloride 20 MEQ TAB PO SCH (08:15)
[2018-05-06] MEDS: HYDROmorphone 10 mg/100 ml CADD IVPB PRN ×2 (08:15→21:00)
[2018-05-06] MEDS: Bupropion 100 MG SR TAB PO SCH (08:59)
[2018-05-06] MEDS: Famotidine/PF 20 mg/2ml Vial SLOW IVP SCH (09:00)
[2018-05-06] MEDS: Hydrocortisone Sod Succ/PF 100 mg/2 ml Vial IVP SCH ×2 (09:00→09:11)
--- NOTE | 2018-05-06 09:40 | PDOC.GSPN ---
Surgery Progress Note: Subj - Subjective Patient reports: no new complaints, tolerating liquids well Surgery Progress Note: Obj - Vital signs Vital signs: Vital Signs - Most Recent Temp Pulse Resp BP Pulse Ox 98.5 F 86 18 137/86 96 05/06/18 07:10 05/06/18 07:10 05/06/18 07:10 05/06/18 07:10 05/06/18 07:10 - Physical Exam General: no distress Cardiovascular: regular rate and rhythm Respiratory: clear to auscultation Abdomen: soft, nondistended, appropriately tender Wound: wound vac Surgery Progress Note: Results - Labs Result Diagrams: 05/05/18 05:10 05/06/18 05:56 Lab results: Laboratory Results - last 24 hr 05/05/18 05/06/18 05/06/18 23:31 05:56 05:56 Sodium 140 Potassium 3.4 L Chloride 100 Carbon Dioxide 33 H Anion Gap 10 BUN 10 Creatinine 0.46 L Estimated GFR (MDRD) Greater than 90 Glucose 99 POC Glucose 144 H Calcium 8.2 Phosphorus 3.4 Magnesium 1.6 Total Bilirubin 0.4 AST 26 ALT 56 H Alkaline Phosphatase 121 Serum Total Protein 4.9 L Albumin 2.3 L Globulin 2.6 Albumin/Globulin Ratio 0.9 L Prealbumin 17.0 Triglycerides 192 H Cholesterol 93 LDL Cholesterol, Calc 36 HDL Cholesterol 19 Heart Disease Risk Ratio 4.9 05/06/18 06:08 Sodium Potassium Chloride Carbon Dioxide Anion Gap BUN Creatinine Estimated GFR (MDRD) Glucose POC Glucose 153 H Calcium Phosphorus Magnesium Total Bilirubin AST ALT Alkaline Phosphatase Serum Total Protein Albumin Globulin Albumin/Globulin Ratio Prealbumin Triglycerides Cholesterol LDL Cholesterol, Calc HDL Cholesterol Heart Disease Risk Ratio Surgery Progress Note: A/P - Problem (1) Crohn's disease, unspecified, with fistula Current Visit: No Code(s): K50.913 - CROHN'S DISEASE, UNSPECIFIED, WITH FISTULA Status: Acute - Plan Plan: Tolerating fulls. Advance to GI soft for dinner. 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 Wean tpn
[2018-05-06] MEDS ORDERED: Ketorolac Tromethamine 30 MG/ML VIAL IVP SCH (10:15)
--- NOTE | 2018-05-06 11:41 | PDOC.PN ---
- Subjective Encounter Start Date: 05/06/18 Encounter Start Time: 11:44 Seen and examined. Admitted for partial SBO. s/p one unit PRBC. Doing well and vitals stable. No complaints this a.m. No acute events overnight. - Objective Resuscitation Status: Resuscitation Status FULL:Full Resuscitation MAR Reviewed: Yes Vital Signs & Weight: Vital Signs (12 hours) Temp Pulse Resp BP Pulse Ox 05/06/18 11:26 98.8 F 94 18 137/88 95 05/06/18 08:15 98.5 F 86 18 96 05/06/18 07:10 98.5 F 86 18 137/86 96 05/06/18 04:00 98.3 F 87 16 132/84 95 05/06/18 02:00 94 L 05/06/18 00:42 98.7 F 93 16 144/90 H 95 Weight Admit Weight 144 lb Weight 152 lb 9.6 oz I&O: 05/05/18 05/06/18 05/07/18 06:59 06:59 06:59 Intake Total 4555.4 4483.4 Output Total 1520 825 Balance 3035.4 3658.4 Result Diagrams: 05/05/18 05:10 05/06/18 05:56 Additional Labs: Accuchecks 05/06/18 05/06/18 05/05/18 11:19 06:08 23:31 POC Glucose 133 H 153 H 144 H 05/05/18 11:57 POC Glucose 162 H Phys Exam - Physical Examination Constitutional: NAD HEENT: moist MMs, sclera anicteric, oral pharynx no lesions Neck: no JVD, supple Respiratory: no wheezing, no rales, no rhonchi, clear to auscultation bilateral Cardiovascular: RRR, no significant murmur, no rub Gastrointestinal: soft, non-tender, no distention, positive bowel sounds Ostomy present Musculoskeletal: no edema, pulses present Neurological: non-focal, moves all 4 limbs Psychiatric: normal affect, A&O x 3 Skin: no rash, normal turgor Dx/Plan (1) Partial small bowel obstruction Status: Acute Comment: Improving. Bowel sounds present. Diet being advanced. (2) Anemia Code(s): D64.9 - ANEMIA, UNSPECIFIED Status: Chronic Qualifiers: Anemia type: unspecified type Qualified Code(s): D64.9 - Anemia, unspecified Comment: Likely due to blood loss during surgery. s/p 1 unit PRBC. Will start supplementation w iron. (3) Hypokalemia Code(s): E87.6 - HYPOKALEMIA Status: Acute Comment: Repleted. (4) Crohn's disease, unspecified, with fistula Code(s): K50.913 - CROHN'S DISEASE, UNSPECIFIED, WITH FISTULA Status: Acute Comment: s/p exp lap, small bowel resection with lysis of adhesion and ileostomy 05/01. Will Continue PO steroids at 25 mg daily and wean down to 15 mg daily (home regimen). - Plan cont current plan of care, continue antibiotics, out of bed/ambulate, DVT proph w/lovenox Continue PO steroids at 25 mg daily and wean down to 15 mg daily (home regimen). Continue meropenem. Advance diet. Review of Systems - Medications/Allergies Allergies/Adverse Reactions: Allergies Allergy/AdvReac Type Severity Reaction Status Date / Time metoclopramide HCl Allergy Intermediate HIVES, Verified 04/27/18 12:13 [From Reglan] THROAT SWELLING Penicillins Allergy Intermediate RASH, HIVES Verified 04/27/18 12:13 promethazine Allergy Intermediate HIVES, Verified 04/27/18 12:13 THROAT SWELLING benzonatate Allergy Hives Verified 04/27/18 12:13 [From Tessalon Perles] piperacillin [From Zosyn] Allergy Verified 04/27/18 12:13 prochlorperazine Allergy Verified 04/27/18 12:13 tazobactam [From Zosyn] Allergy Verified 04/27/18 12:13 FERROUS FUMARATE Allergy Intermediate Hives Uncoded 03/11/17 03:18 Medications: Current Medications Albuterol/Ipratropium (Duoneb) 3 ml NEB Q4H PRN PRN Reason: Wheezing Bupropion HCl (Wellbutrin Sr) 100 mg PO DAILY [facility] Last Admin: 05/06/18 08:59 Dose: 100 mg Dextrose/Water (Dextrose 50%) 25 gm SLOW IVP PRN PRN PRN Reason: Hypoglycemia Diphenhydramine HCl (Benadryl) 25 mg IVP Q3H PRN PRN Reason: Itching Diphenhydramine HCl (Benadryl) 25 mg PO Q3H PRN PRN Reason: Itching Diphenhydramine HCl (Benadryl) 25 mg IM Q3H PRN PRN Reason: Itching Enoxaparin Sodium (Lovenox) 40 mg SC 2100 [facility] Last Admin: 05/05/18 20:05 Dose: 40 mg Famotidine (Pepcid) 20 mg SLOW IVP DAILY [facility] Last Admin: 05/06/18 09:00 Dose: 20 mg Glucagon (Glucagon) 1 mg IM PRN PRN PRN Reason: Hypoglycemia Hydralazine HCl (Apresoline) 10 mg SLOW IVP Q4H PRN PRN Reason: SBP > 170 or DBP > 100 Hydrocortisone Sodium Succinate (Solu-Cortef) 25 mg IVP DAILY [facility] Last Admin: 05/06/18 09:11 Dose: Not Given Hydromorphone HCl (Dilaudid Cadd) 0 mg IVPB INF PRN PRN Reason: Pain Last Admin: 05/06/18 08:15 Dose: 10 mg Dextrose/Water (D5w) 1,000 mls @ 0 mls/hr IV .Q0M PRN; As Directed PRN Reason: Hypoglycemia Meropenem 1 gm/ Device 50 mls @ 100 mls/hr IVPB 0100,0900,1700 [facility] Last Admin: 05/06/18 08:58 Dose: 50 mls Miscellaneous Information (Communication Order-Pharmacy) 1 each FS ASDIR [facility] Naloxone HCl (Narcan) 0.2 mg IV Q5MIN PRN PRN Reason: Opiate Reversal Nicotine (Nicoderm Patch) 21 mg TOP Q24HR [facility] Last Admin: 05/05/18 22:29 Dose: 21 mg Ondansetron HCl (Zofran Odt) 4 mg PO Q6H PRN PRN Reason: Nausea/Vomiting Ondansetron HCl (Zofran) 4 mg IVP Q6H PRN PRN Reason: Nausea Phenol (Chloraseptic [place] 180 Ml Bot) 0 ml PO PRN PRN PRN Reason: Restlessness Sodium Chloride (Flush - Normal Saline) 10 ml IVF PRN PRN PRN Reason: Saline Flush Zolpidem Tartrate (Ambien) 5 mg PO HSPRN PRN PRN Reason: Insomnia Last Admin: 05/05/18 23:40 Dose: 5 mg
[2018-05-06] MEDS: Ferrous Sulfate 325 MG TAB PO SCH (17:38)
--- NOTE | 2018-05-06 18:48 | PRG ---
DATE OF SERVICE: 05/06/2018 SUBJECTIVE: Ms. Lewis is doing fairly well. She is not having any abdominal pain or nausea. She w as tolerating her liquid diet and is about to try a grilled cheese sandwich for dinner. Her TPN is b eing weaned down. She has no other complaints. OBJECTIVE: VITAL SIGNS: Temperature 98.8, pulse 92, blood pressure 126/84, 95% oxygen saturation on room air. GENERAL: No acute distress. HEART: Regular rate and rhythm. LUNGS: Clear to auscultation bilaterally. ABDOMEN: Soft and nontender. Ileostomy site looks good. EXTREMITIES: No peripheral edema. LABORATORY STUDIES: WBC 11.7, hemoglobin 7.7, platelets 466. Sodium 140, potassium 3.4, BUN 10, cre atinine 0.46, glucose 107, total bilirubin 0.4, alkaline phosphatase 121, AST 26, ALT 56. ASSESSMENT AND PLAN: 1. Crohn disease, small bowel. 2. Abdominal fistula, status post diverting ileostomy. 3. Anemia, stable. 4. Elevated liver function tests, likely secondary to TPN, improving. She appears to be doing quite well postoperatively. I appreciate surgery assistance. She is advancing her diet in weaning TPN. No new recommendations from a gastrointestinal standpoint today.
[2018-05-06] MEDS: Nicotine 21 MG PATCH TOP SCH (20:53)
[2018-05-06] MEDS: Enoxaparin Sodium 40 MG/0.4 ML SYRINGE SC SCH (20:53)
[2018-05-06] MEDS: Zolpidem Tartrate 5 MG TAB PO PRN (22:28)
[2018-05-07] MEDS: MEROPENEM 1 GM/50 ML 1 GM in Premix Bag 1 BAG IVPB SCH ×3 (00:49→17:25)
[2018-05-07 04:41] LABS: Hemoglobin 7.5 g/dL (12.0-16.0); Mean Corpuscular HGB CONC 33.9 g/dL (32.0-36.0); Mean Corpuscular Hemoglobin 27.6 pg (27.0-31.0); Mean Corpuscular Volume 81.4 fL (78.0-98.0); Mean Platelet Volume 7.5 fL (7.4-10.4); Platelet Count 287 thou/uL (130-400); RBC Distribution Width 18.5 % (11.5-14.5); Red Blood Cell (RBC) Count 2.73 mill/uL (4.20-5.40); White Blood Cell (WBC) Count 9.4 thou/uL (4.8-10.8)
[2018-05-07 05:09] LABS: ALT (SGPT) 50 U/L (8-55); AST (SGOT) 33 U/L (5-34); Albumin 2.3 g/dL (3.5-5.0); Alkaline Phosphatase 131 U/L (40-150); Anion Gap 10 mmol/L (10-20); BUN (Urea Nitrogen) 9 mg/dL (7.0-18.7); Bilirubin, Total 0.5 mg/dL (0.2-1.2); Calc. Creatinine Clearance 165 mL/min (70-130); Calcium 8.1 mg/dL (7.8-10.44); Carbon Dioxide 32 mmol/L (22-29); Chloride 100 mmol/L (98-107); Estimated GFR-MDRD Greater than 90; Globulin 2.5 g/dL (2.4-3.5); Glucose 95 mg/dL (70-105); Magnesium 1.4 mg/dL (1.6-2.6); Phosphorus 3.9 mg/dL (2.3-4.7); Potassium 3.4 mmol/L (3.5-5.1); Protein, Total 4.8 g/dL (6.0-8.3); Sodium 139 mmol/L (136-145)
--- NOTE | 2018-05-07 08:12 | PRG ---
DATE OF SERVICE: 05/07/2018 SUBJECTIVE: Ms. Lewis is doing well. She had a grilled cheese sandwich for dinner yesterday and says she tolerated this quite well. Her ileostomy output is a bit more solid because of this. TPN is being weaned down. She has no abdominal pain or nausea and she has remained afebrile. OBJECTIVE: VITAL SIGNS: Temperature 98.6, pulse 98, blood pressure 116/80, 95% oxygen saturation on room air. GENERAL: No acute distress. HEART: Regular rate and rhythm. LUNGS: Clear to auscultation bilaterally. ABDOMEN: Minimal tenderness to palpation. Ileostomy site looks good. EXTREMITIES: No peripheral edema. LABORATORY STUDIES: WBC down to 9.4, hemoglobin 7.5, platelets 287. Sodium 139 , potassium 3.4, BUN 9, creatinine 0.48, glucose 107. LFTs have all normalized. Total bilirubin 0.5, alkaline phosphatase 131, AST 33, ALT 50. Magnesium 1.4, albumin 2.3, prealbumin 17. ASSESSMENT AND PLAN: 1. Crohn's disease of the small bowel. 2. Abdominal fistula from small bowel to a right psoas muscle, now status post diverting ileostomy. 3. Anemia, stable. 4. Elevated liver function tests, resolved, likely secondary to having started TPN. Ms. Lewis is doing quite well, advancing her diet. Monitor ileostomy output. I appreciate surgical assistance. Hopefully, she will be able to be weaned completely off TPN. No new recommendations from a GI standpoint today. MTDD
[2018-05-07] MEDS: Bupropion 100 MG SR TAB PO SCH (08:36)
[2018-05-07] MEDS: Ferrous Sulfate 325 MG TAB PO SCH ×2 (08:37→17:25)
[2018-05-07] MEDS: Famotidine 20 MG TAB PO SCH (08:37)
[2018-05-07] MEDS: Hydrocortisone Sod Succ/PF 100 mg/2 ml Vial IVP SCH (08:37)
[2018-05-07] MEDS: Magnesium Oxide 400 MG TAB PO SCH ×2 (08:38→20:19)
--- NOTE | 2018-05-07 10:27 | PDOC.PN ---
- Subjective Encounter Start Date: 05/07/18 Encounter Start Time: 10:33 Patient seen and examined. Admitted for partial SBO. s/p one unit PRBC following surgery. Doing well and vitals stable. No complaints this a.m. No acute events overnight. - Objective Resuscitation Status: Resuscitation Status FULL:Full Resuscitation MAR Reviewed: Yes Vital Signs & Weight: Vital Signs (12 hours) Temp Pulse Resp BP Pulse Ox 05/07/18 08:59 98.8 F 106 H 16 94 L 05/07/18 08:00 98.8 F 106 H 16 116/76 94 L 05/07/18 04:00 98.6 F 98 16 116/80 95 Weight Admit Weight 144 lb Weight 152 lb 9.6 oz I&O: 05/06/18 05/07/18 05/08/18 06:59 06:59 06:59 Intake Total 4483.4 2450.2 Output Total 825 2545 Balance 3658.4 -94.8 Result Diagrams: 05/07/18 04:10 05/07/18 04:10 Additional Labs: Accuchecks 05/07/18 05/07/18 05/06/18 05:37 00:24 17:03 POC Glucose 107 112 H 107 05/06/18 11:19 POC Glucose 133 H Phys Exam - Physical Examination Constitutional: NAD HEENT: moist MMs, sclera anicteric Neck: supple, full ROM Respiratory: no wheezing, no rales, no rhonchi, clear to auscultation bilateral Cardiovascular: RRR, no significant murmur, no rub Gastrointestinal: soft, non-tender, no distention, positive bowel sounds + surgical scar + ostomy. Musculoskeletal: no edema, pulses present Neurological: non-focal, moves all 4 limbs Psychiatric: normal affect, A&O x 3 Skin: no rash, normal turgor Dx/Plan (1) Partial small bowel obstruction Status: Acute Comment: Improving. Has started on a diet. (2) Anemia Code(s): D64.9 - ANEMIA, UNSPECIFIED Status: Chronic Qualifiers: Anemia type: unspecified type Qualified Code(s): D64.9 - Anemia, unspecified Comment: Likely due to blood loss during surgery. s/p 1 unit PRBC.Continue iron supplementation. (3) Hypokalemia Code(s): E87.6 - HYPOKALEMIA Status: Acute Comment: Replete. (4) Crohn's disease, unspecified, with fistula Code(s): K50.913 - CROHN'S DISEASE, UNSPECIFIED, WITH FISTULA Status: Acute Qualifiers: Gastrointestinal tract location: unspecified location Qualified Code(s): K50.913 - Crohn's disease, unspecified, with fistula Comment: s/p exp lap, small bowel resection with lysis of adhesion and ileostomy 05/01. Will Continue PO steroids at 25 mg daily and wean down to 15 mg daily (home regimen). (5) Hypomagnesemia Code(s): E83.42 - HYPOMAGNESEMIA Status: Acute Comment: Replete. - Plan cont current plan of care, continue antibiotics, out of bed/ambulate, DVT proph w/lovenox * . Review of Systems - Medications/Allergies Allergies/Adverse Reactions: Allergies Allergy/AdvReac Type Severity Reaction Status Date / Time metoclopramide HCl Allergy Intermediate HIVES, Verified 04/27/18 12:13 [From Reglan] THROAT SWELLING Penicillins Allergy Intermediate RASH, HIVES Verified 04/27/18 12:13 promethazine Allergy Intermediate HIVES, Verified 04/27/18 12:13 THROAT SWELLING benzonatate Allergy Hives Verified 04/27/18 12:13 [From Tessalon Perles] piperacillin [From Zosyn] Allergy Verified 04/27/18 12:13 prochlorperazine Allergy Verified 04/27/18 12:13 tazobactam [From Zosyn] Allergy Verified 04/27/18 12:13 FERROUS FUMARATE Allergy Intermediate Hives Uncoded 03/11/17 03:18 Medications: Current Medications Albuterol/Ipratropium (Duoneb) 3 ml NEB Q4H PRN PRN Reason: Wheezing Bupropion HCl (Wellbutrin Sr) 100 mg PO DAILY [facility] Last Admin: 05/07/18 08:36 Dose: 100 mg Dextrose/Water (Dextrose 50%) 25 gm SLOW IVP PRN PRN PRN Reason: Hypoglycemia Diphenhydramine HCl (Benadryl) 25 mg IVP Q3H PRN PRN Reason: Itching Diphenhydramine HCl (Benadryl) 25 mg PO Q3H PRN PRN Reason: Itching Diphenhydramine HCl (Benadryl) 25 mg IM Q3H PRN PRN Reason: Itching Enoxaparin Sodium (Lovenox) 40 mg SC 2100 [facility] Last Admin: 05/06/18 20:53 Dose: 40 mg Famotidine (Pepcid) 20 mg PO DAILY [facility] Last Admin: 05/07/18 08:37 Dose: 20 mg Ferrous Sulfate (Feosol) 325 mg PO BID-[facility] Last Admin: 05/07/18 08:37 Dose: 325 mg Glucagon (Glucagon) 1 mg IM PRN PRN PRN Reason: Hypoglycemia Hydralazine HCl (Apresoline) 10 mg SLOW IVP Q4H PRN PRN Reason: SBP > 170 or DBP > 100 Hydrocortisone Sodium Succinate (Solu-Cortef) 25 mg IVP DAILY [facility] Last Admin: 05/07/18 08:37 Dose: 25 mg Hydromorphone HCl (Dilaudid Cadd) 0 mg IVPB INF PRN PRN Reason: Pain Last Admin: 05/06/18 21:00 Dose: 10 mg Dextrose/Water (D5w) 1,000 mls @ 0 mls/hr IV .Q0M PRN; As Directed PRN Reason: Hypoglycemia Meropenem 1 gm/ Device 50 mls @ 100 mls/hr IVPB 0100,0900,1700 [facility] Last Admin: 05/07/18 08:36 Dose: 50 mls Magnesium Oxide (Magnesium Oxide) 400 mg PO BID [facility] Last Admin: 05/07/18 08:38 Dose: 400 mg Miscellaneous Information (Communication Order-Pharmacy) 1 each FS ASDIR [facility] Naloxone HCl (Narcan) 0.2 mg IV Q5MIN PRN PRN Reason: Opiate Reversal Nicotine (Nicoderm Patch) 21 mg TOP Q24HR [facility] Last Admin: 05/06/18 20:53 Dose: 21 mg Ondansetron HCl (Zofran Odt) 4 mg PO Q6H PRN PRN Reason: Nausea/Vomiting Ondansetron HCl (Zofran) 4 mg IVP Q6H PRN PRN Reason: Nausea Phenol (Chloraseptic [place] 180 Ml Bot) 0 ml PO PRN PRN PRN Reason: Restlessness Sodium Chloride (Flush - Normal Saline) 10 ml IVF PRN PRN PRN Reason: Saline Flush Zolpidem Tartrate (Ambien) 5 mg PO HSPRN PRN PRN Reason: Insomnia Last Admin: 05/06/18 22:28 Dose: 5 mg
[2018-05-07] MEDS ORDERED: Potassium Chloride 20 MEQ TAB PO SCH (10:30)
[2018-05-07] MEDS ORDERED: Fentanyl 100 MCG/2 ML VIAL SLOW IVP PRN ×3 (13:38→20:00)
[2018-05-07] MEDS ORDERED: HYDROcodone/Acetaminophen 10/325 mg Tablet PO PRN (13:38)
--- NOTE | 2018-05-07 13:38 | PDOC.GSPN ---
Surgery Progress Note: Subj - Subjective Patient reports: no new complaints Narrative: Pain controlled. Tolerating gi soft Surgery Progress Note: Obj - Vital signs Vital signs: Vital Signs - Most Recent Temp Pulse Resp BP Pulse Ox 98.7 F 98 16 123/83 95 05/07/18 12:20 05/07/18 12:20 05/07/18 12:20 05/07/18 12:20 05/07/18 12:20 - Physical Exam General: no distress Cardiovascular: regular rate and rhythm Respiratory: clear to auscultation Abdomen: soft, nondistended, appropriately tender Wound: wound vac (ALEJANDRA serosang) Surgery Progress Note: Results - Labs Result Diagrams: 05/07/18 04:10 05/07/18 04:10 Lab results: Laboratory Results - last 24 hr 05/07/18 05/07/18 05/07/18 04:10 04:10 04:10 WBC 9.4 RBC 2.73 L Hgb 7.5 L Hct 22.2 L MCV 81.4 MCH 27.6 MCHC 33.9 RDW 18.5 H Plt Count 287 MPV 7.5 Sodium 139 Potassium 3.4 L Chloride 100 Carbon Dioxide 32 H Anion Gap 10 BUN 9 Creatinine 0.48 L Estimated GFR (MDRD) Greater than 90 Glucose 95 POC Glucose Calcium 8.1 Phosphorus 3.9 Magnesium 1.4 L Total Bilirubin 0.5 AST 33 ALT 50 Alkaline Phosphatase 131 Serum Total Protein 4.8 L Albumin 2.3 L Globulin 2.5 Albumin/Globulin Ratio 0.9 L Prealbumin 17.0 05/07/18 05/07/18 05:37 12:20 WBC RBC Hgb Hct MCV MCH MCHC RDW Plt Count MPV Sodium Potassium Chloride Carbon Dioxide Anion Gap BUN Creatinine Estimated GFR (MDRD) Glucose POC Glucose 107 100 Calcium Phosphorus Magnesium Total Bilirubin AST ALT Alkaline Phosphatase Serum Total Protein Albumin Globulin Albumin/Globulin Ratio Prealbumin Surgery Progress Note: A/P - Problem (1) Crohn's disease, unspecified, with fistula Current Visit: No Code(s): K50.913 - CROHN'S DISEASE, UNSPECIFIED, WITH FISTULA Status: Acute Qualifiers: Gastrointestinal tract location: unspecified location Qualified Code(s): K50.913 - Crohn's disease, unspecified, with fistula Assessment and Plan: Doing well. on gi soft diet, DC [employer] DEF[employer]
[2018-05-07] MEDS ORDERED: traMADol HCl 50 MG TAB PO PRN (16:31)
[2018-05-07] MEDS: traMADol HCl 50 MG TAB PO PRN (17:25)
[2018-05-07] MEDS ORDERED: Ketorolac Tromethamine 30 MG/ML VIAL IVP PRN (19:59)
[2018-05-07] MEDS: Acetaminophen 1,000 MG in Premix Bag 1 BAG IVPB PRN (20:18)
[2018-05-07] MEDS: Enoxaparin Sodium 40 MG/0.4 ML SYRINGE SC SCH (20:19)
[2018-05-07] MEDS: Fentanyl 100 MCG/2 ML VIAL SLOW IVP PRN (20:19)
[2018-05-07] MEDS: Nicotine 21 MG PATCH TOP SCH (20:19)
[2018-05-07] MEDS: Zolpidem Tartrate 5 MG TAB PO PRN (21:44)
[2018-05-08] MEDS: MEROPENEM 1 GM/50 ML 1 GM in Premix Bag 1 BAG IVPB SCH ×3 (00:04→17:08)
[2018-05-08] MEDS: Acetaminophen 1,000 MG in Premix Bag 1 BAG IVPB PRN ×2 (04:38→11:10)
[2018-05-08] MEDS: Fentanyl 100 MCG/2 ML VIAL SLOW IVP PRN ×4 (04:38→13:21)
[2018-05-08 04:55] LABS: ALT (SGPT) 49 U/L (8-55); AST (SGOT) 35 U/L (5-34); Albumin 2.4 g/dL (3.5-5.0); Alkaline Phosphatase 142 U/L (40-150); Anion Gap 11 mmol/L (10-20); BUN (Urea Nitrogen) 8 mg/dL (7.0-18.7); Bilirubin, Total 0.6 mg/dL (0.2-1.2); Calc. Creatinine Clearance 162 mL/min (70-130); Calcium 8.6 mg/dL (7.8-10.44); Carbon Dioxide 31 mmol/L (22-29); Chloride 100 mmol/L (98-107); Estimated GFR-MDRD Greater than 90; Globulin 2.7 g/dL (2.4-3.5); Glucose 80 mg/dL (70-105); Magnesium 1.5 mg/dL (1.6-2.6); Phosphorus 4.6 mg/dL (2.3-4.7); Potassium 3.4 mmol/L (3.5-5.1); Protein, Total 5.1 g/dL (6.0-8.3); Sodium 139 mmol/L (136-145)
[2018-05-08] MEDS: Potassium Chloride 20 MEQ TAB PO SCH (08:31)
[2018-05-08] MEDS: Magnesium Oxide 400 MG TAB PO SCH ×2 (08:31→20:38)
[2018-05-08] MEDS: predniSONE 5 MG TAB PO SCH (08:32)
[2018-05-08] MEDS: Famotidine 20 MG TAB PO SCH (08:32)
[2018-05-08] MEDS: Ferrous Sulfate 325 MG TAB PO SCH ×2 (08:32→16:08)
[2018-05-08] MEDS: Bupropion 100 MG SR TAB PO SCH (08:32)
--- NOTE | 2018-05-08 12:11 | PRG ---
DATE OF SERVICE: 05/08/2018 GI INPATIENT DAILY PROGRESS NOTE SUBJECTIVE: Ms. Lewis is feeling pretty well. She had a flare up of pain requiring IV analgesia la st night which she attributes to having had her wound VAC explored. She has continued to eat well. She is tolerating a GI soft diet just fine without any worsening abdominal pain or nausea. Ileostomy bag has been changed 6 times over the past 24 hours. PHYSICAL EXAMINATION: VITAL SIGNS: Temperature 98.7, pulse 109, blood pressure 107/73, 96% oxygen saturation on room air. GENERAL: No acute distress. HEART: Regular rate and rhythm. LUNGS: Clear to auscultation bilaterally. ABDOMEN: Ileostomy site looks good. Nontender to palpation. EXTREMITIES: No peripheral edema. LABORATORY STUDIES: WBC 9.4, hemoglobin 7.5, platelets 287. Sodium 139, potassium 3.4, BUN 8, creat inine 0.49, total bilirubin 0.6, alkaline phosphatase 142, AST 35, ALT 49, prealbumin 17. ASSESSMENT AND PLAN: 1. Crohn's disease of the small bowel. 2. Abdominal fistula, now status post diverting ileostomy. 3. Anemia, stable. Ms. Lewis continues to recover quite well from my perspective. She will be continuing on extended I V antibiotics. She is tolerating her diet. Following hospital discharge, we will have her follow up with Dr. Morgan in the next couple of weeks. I think likely plan is to continue her on Stelara, whi ch was just started prior to this hospitalization.
[2018-05-08] MEDS: Diphenoxylate HCl/Atropine Tablet PO SCH ×2 (12:47→20:37)
--- NOTE | 2018-05-08 13:23 | PRG ---
DATE OF SERVICE: 05/08/2018 SUBJECTIVE: Ms. Lewis is doing well. She is tolerating a GI soft diet. She is up and around. Her pain is controlled with a combination of tramadol as well as some occasional fentanyl, urinating wit hout difficulty. PHYSICAL EXAMINATION: VITAL SIGNS: She is afebrile. Her vital signs are stable. Her ALEJANDRA output is minimal. Stool 2100 fo r the last 24 hours. ABDOMEN: Soft, nondistended and nontender. Midline wound VAC in place. ALEJANDRA has serosanguineous ileo stomy in the left abdomen is intact and viable. There is some watery stool in it. LABORATORY DATA: White blood cell count is 9. Sodium 139, potassium 3.4, creatinine 0.49, magnesium is 1.5, prealbumin 17. ASSESSMENT: Resolving postop pain and expected ileus, but now with high output ileostomy. PLAN: Start scheduled Lomotil. Continue wound VAC and IV antibiotics. If possible, she could be di scharged over the weekend. If so, I have written prescriptions on the chart for Lomotil, tramadol an d Radhafran. I will be back Saturday.
--- NOTE | 2018-05-08 14:40 | PDOC.PN ---
- Subjective Encounter Start Date: 05/08/18 Encounter Start Time: 14:38 Ms. Lewis was seen today in follow-up of complicates from Crohn's disease. She says she is having some pain, which is better with Tylenol and Fentanyl. she has been ambulating, no difficulty. - Objective Resuscitation Status: Resuscitation Status FULL:Full Resuscitation MAR Reviewed: Yes Vital Signs & Weight: Vital Signs (12 hours) Temp Pulse Resp BP Pulse Ox 05/08/18 11:12 98.7 F 109 H 16 107/73 96 05/08/18 08:00 98.4 F 95 12 05/08/18 07:20 98.4 F 95 12 103/71 98 Weight Admit Weight 144 lb Weight 152 lb 9.6 oz I&O: 05/07/18 05/08/18 05/09/18 06:59 06:59 06:59 Intake Total 2450.2 1200 Output Total 2545 2120 10 Balance -94.8 -920 -10 Result Diagrams: 05/07/18 04:10 05/08/18 04:20 Phys Exam - Physical Examination HEENT: PERRLA Respiratory: no wheezing, no rales, no rhonchi, clear to auscultation bilateral Cardiovascular: RRR, no significant murmur, no rub Gastrointestinal: soft, positive bowel sounds + ileostomy site ok, no induration no erythema Musculoskeletal: edema present Dx/Plan (1) Psoas abscess Code(s): K68.12 - PSOAS MUSCLE ABSCESS Status: Acute (2) Crohn's disease, unspecified, with fistula Code(s): K50.913 - CROHN'S DISEASE, UNSPECIFIED, WITH FISTULA Status: Acute Qualifiers: Gastrointestinal tract location: unspecified location Qualified Code(s): K50.913 - Crohn's disease, unspecified, with fistula Comment: s/p exp lap, small bowel resection with lysis of adhesion and ileostomy 05/01. Will Continue PO steroids at 25 mg daily and wean down to 15 mg daily (home regimen). (3) HTN (hypertension) Code(s): I10 - ESSENTIAL (PRIMARY) HYPERTENSION Status: Chronic Qualifiers: Hypertension type: essential hypertension Qualified Code(s): I10 - Essential (primary) hypertension Comment: uncontrolled, likely secondary to steroids, increasing, will add Lisinopril very low dose while on steroids (4) Tobacco abuse Code(s): Z72.0 - TOBACCO USE Status: Chronic - Plan * Ms. Lewis has a history of Crohn's disease, and recent hospitalization for a perforated terminal ileum, with a fistulous communication with the Right Psoas muscle. She had some Myositis, and phlegmon, which was treated medically, with extending antibiotic treatment. She returned to the hospital on this admission, shortly after discharge with recurrent fever, and worsening of the inflammatory process involving the Right Psoas. The decision was made to perform a diverting ileostomy, to assist in resolution of the process, after consultation with a Crohn's Specialist in [place]. She has had the ileostomy, and is now awating arrangements for Outpatient IV antibiotics * Continue Meropenem * * Anemia- likely from chronic disease- continue to monitor H&H and transfuse as needed * Continue symptom management * Continue to monitor renal function closely, and replace/correct as needed
[2018-05-08] MEDS: traMADol HCl 50 MG TAB PO PRN (16:07)
[2018-05-08] MEDS: HYDROcodone/Acetaminophen 10/325 mg Tablet PO PRN ×2 (17:08→21:09)
[2018-05-08] MEDS: Enoxaparin Sodium 40 MG/0.4 ML SYRINGE SC SCH (20:37)
[2018-05-08] MEDS: Nicotine 21 MG PATCH TOP SCH (20:37)
[2018-05-08] MEDS: Zolpidem Tartrate 5 MG TAB PO PRN (22:22)
[2018-05-09] MEDS: MEROPENEM 1 GM/50 ML 1 GM in Premix Bag 1 BAG IVPB SCH ×3 (00:56→18:29)
[2018-05-09] MEDS: HYDROcodone/Acetaminophen 10/325 mg Tablet PO PRN ×5 (01:06→18:05)
[2018-05-09] MEDS: Diphenoxylate HCl/Atropine Tablet PO SCH ×2 (05:20→15:35)
[2018-05-09 05:53] LABS: Prothrombin Time 13.3 SEC (12.0-14.7)
[2018-05-09 05:54] LABS: PTT 47.1 SEC (22.9-36.1)
[2018-05-09 06:04] LABS: ALT (SGPT) 48 U/L (8-55); AST (SGOT) 27 U/L (5-34); Albumin 2.7 g/dL (3.5-5.0); Alkaline Phosphatase 150 U/L (40-150); Anion Gap 12 mmol/L (10-20); BUN (Urea Nitrogen) 8 mg/dL (7.0-18.7); Bilirubin, Total 0.6 mg/dL (0.2-1.2); Calc. Creatinine Clearance 150 mL/min (70-130); Carbon Dioxide 30 mmol/L (22-29); Chloride 100 mmol/L (98-107); Estimated GFR-MDRD Greater than 90; Glucose 75 mg/dL (70-105); Magnesium 1.4 mg/dL (1.6-2.6); Phosphorus 4.2 mg/dL (2.3-4.7); Potassium 3.3 mmol/L (3.5-5.1); Protein, Total 5.7 g/dL (6.0-8.3)
[2018-05-09 06:09] LABS: Sodium 139 mmol/L (136-145)
[2018-05-09] MEDS ORDERED: Potassium Chloride 20 MEQ TAB PO SCH ×2 (08:15→15:30)
[2018-05-09] MEDS: Ferrous Sulfate 325 MG TAB PO SCH ×2 (08:47→18:28)
[2018-05-09] MEDS: Bupropion 100 MG SR TAB PO SCH (08:48)
[2018-05-09] MEDS: predniSONE 5 MG TAB PO SCH (08:48)
[2018-05-09] MEDS: Magnesium Oxide 400 MG TAB PO SCH (08:48)
[2018-05-09] MEDS: Famotidine 20 MG TAB PO SCH (08:48)
[2018-05-09] MEDS: Potassium Chloride 20 MEQ TAB PO SCH (08:51)
[2018-05-09] MEDS: Fentanyl 100 MCG/2 ML VIAL SLOW IVP PRN (09:15)
[2018-05-09] MEDS ORDERED: Magnesium Sulfate 2 GM in Sodium Chloride 0.9% 100 ML IVPB SCH (16:00)
[2018-05-09 16:46] VITALS: BP 109/75; TEMP 98.4
--- NOTE | 2018-05-10 05:25 | DIS ---
DATE OF ADMISSION: 04/27/2018 DATE OF DISCHARGE: 05/09/2018 CONSULTATIONS: Dr. Robert Quinn, Infectious Diseases; Dr. Juan Luis Morgan, GI; Dr. Zack currie, General Surgery; Dr. Dank Wood, Gastroenterology. DIAGNOSES AT THE TIME OF ADMISSION: 1. Fever. 2. History of Crohn disease. 3. Hypokalemia. FINAL DIAGNOSES: 1. Psoas abscess. 2. Crohn disease with fistula. 3. Hypertension. 4. Tobacco abuse. 5. Hypomagnesemia. 6. Hypokalemia. 7. Normocytic anemia. 8. Hypoalbuminemia. 9. Hypoproteinemia. 10. Sjogren syndrome. HOSPITAL COURSE: The patient was a 42-year-old female with past medical history of Crohn di sease who was just recently discharged from the hospital after a very long hospital stay, who came ba with fevers. Apparently, she was discharged on 04/25/2018 and she presented to the hospital in for right lower abdominal pain. She had a CT of the abdomen and pelvis, which indicated per foration of the terminal ileum with extension of the enteric contrast posteriorly towards the right p soas muscle. The patient was seen by GI and Surgery, hence Surgery did not recommend any surgical in tervention given the patient's multiple surgical interventions in the past and concerns for short gut syndrome. The patient was treated with IV antibiotics and discharged home with IV antibiotic once a day, Invanz. During this hospitalization, she was started on Stelara, and once on outpatient basis, she was getting her Invanz infusion. She mentioned to her GI physician, Dr. Morgan that she was hav ing temperatures at home along with some chills. She denied any nausea, vomiting, chest pain, abdomi nal pain or diarrhea at this point. While she was seen in the emergency room, her white count was 10 .4, hemoglobin 9.8, hematocrit 29.2, platelet count was 258. Chemistry showed sodium of 130, potassi um 2.4, chloride 95, bicarbonate 32, BUN 5, creatinine 0.57, AST and ALT were mildly elevated at 35 a nd 89. C-reactive protein was 17.84, so it was not clear whether this fever was associated with the PICC line whether there was some worsening of her infection. She was continued on IV meropenem and I nfectious Diseases and GI were consulted. She was on IV fluids and continued on home dose of steroid s. Her potassium was replaced. Her MRI of the abdomen and pelvis showed myositis and phlegmon invol ving the right psoas musculature, which appeared progress than previous exam without drainable fluid or abscess collection. The inflammation in the right psoas musculature was extending through the rig ht retroperitoneum and extending to the lateral aspect of the right paraspinous musculature. No drai nable fluid collection was at this time and this appears to be worsened when it was compared to the p revious evaluation. The patient was seen by Dr. Quinn, who to continue meropenem. The patient's blo od cultures came back negative, so the PICC line was less likely the source of the fever. After thor ough discussion, decision was made that she needs to have surgical intervention in order to control t he inflammatory process. She underwent exploratory laparotomy with extensive lysis of adhesions, rep air of enterotomy and small bowel resection and ileostomy and there was temporary abdominal drain clarissa wilbert. The final diagnosis postoperative was Crohn disease with internal fistula to psoas muscle and c hronic phlegmon and failure of conservative management. She was continued on meropenem. Her PICC li ne blood cultures came back negative. She required supplementation of potassium and magnesium during this hospitalization on and off. The wound VAC was started and she gradually improved, although pos toperatively, she had expected ileus and quite significant amount of postop pain and then it resolved with high output ileostomy, but gradually she improved and today she was evaluated by Dr. Spring villa o make decision that she can be discharged home. She will stay on regular diet. She is keeping pres cription for ileostomy supplies. She will have wound care on outpatient basis and they will deal wit h her drain work. Her blood pressure is 109/75, pulse is 89, temperature is 98.4, respirations 16, O 2 saturation is 97% on room air. She was seen and evaluated before she was discharged. She was give n 2 g of magnesium sulfate IV piggyback this evening. She was given additional dose of KCl 40 mEq x1 and she seems to be ready to go. Activities as tolerated at the time of discharge. HOME MEDICATIONS: Invanz 1 g every 24 hours. She will receive that through the infusion company, po tassium chloride 20 mEq twice a day, bupropion SR 100 mg once a day, tramadol 100 mg q.6 hours p.r.n. , prednisone 50 mg once a day, Zofran 4 mg q.6 hours p.r.n., nicotine patch 21 mg q.24 hours, magnesi um oxide 400 mg twice a day and Lomotil 2 tablets 3 times a day. She is going to call Dr. Londono, Dr. Morgan and her primary care physician and setup followup appoin tments. We will do CBC, comp and sed rate and a CRP weekly and she will follow up with Dr. Quinn for an antibiotic treatment. She is going to continue Invanz for additional 3 weeks and the discharge t gabrielle is more than 30 minutes.
== END 2018-05-09 18:45 | disposition home or self-care (01) | DRG 329 ==
LOC: ONC 11:27 → SURG A 05-01 13:22
PROVIDERS: ADMIT Internal Medicine; ATTEND Internal Medicine
PROC: 0DB80ZZ Excision of Small Intestine, Open Approach (ICD-10-PCS; principal; 2018-05-01)
PROC: 0D1B0Z4 Bypass Ileum to Cutaneous, Open Approach (ICD-10-PCS; 2018-05-01)
PROC: 0DNW0ZZ Release Peritoneum, Open Approach (ICD-10-PCS; 2018-05-01)
PROC: 3E0336Z Introduction of Nutritional Substance into Peripheral Vein, Percutaneous Approach (ICD-10-PCS; 2018-05-03)
DX: K50.014 Crohn's disease of small intestine with abscess (principal); K65.1 Peritoneal abscess; E44.0 Moderate protein-calorie malnutrition; D62 Acute posthemorrhagic anemia; M60.08 Infective myositis, other site; K50.013 Crohn's disease of small intestine with fistula; K50.018 Crohn's disease of small intestine with other complication; E87.6 Hypokalemia; I10 Essential (primary) hypertension; Z88.0 Allergy status to penicillin; Z88.8 Allergy status to other drugs, medicaments and biological substances; M35.00 Sjogren syndrome, unspecified; E88.09 Other disorders of plasma-protein metabolism, not elsewhere classified; E83.42 Hypomagnesemia; E77.8 Other disorders of glycoprotein metabolism; K50.012 Crohn's disease of small intestine with intestinal obstruction; F17.210 Nicotine dependence, cigarettes, uncomplicated
CPT/HCPCS: 36415; 36416; 36430; 71046; 72197; 74183; 80048; 80053; 80061; 83735; 84100; 84134; 85007; 85025; 85027; 85610; 85652; 85730; 86140; 86850; 86870; 86900; 86901; 86922; 87040; 87103; A4216; A9579; J0131; J0670; J1100; J1650; J1720; J2185; J2250; J2270; J2405; J2704; J3010; J3475; J7050; S0028

== ENCOUNTER 2018-05-12 12:46 | Outpatient (CLI) | payer MEDICARE, OTHER ==
[2018-05-18] MEDS ORDERED: Sodium Chloride 0.9% 15 ML NEB ONE (15:22)
[2018-05-18] MEDS ORDERED: Lidocaine 2% Jelly 5 ML TUBE ONE (15:22)
== END 2018-05-12 12:47 | disposition home or self-care (01) ==
LOC: WCC 12:46
PROVIDERS: ATTEND Family Medicine
DX: T81.89XD Other complications of procedures, not elsewhere classified, subsequent encounter (principal); Z93.2 Ileostomy status
CPT/HCPCS: 97606; A4218

== ENCOUNTER 2018-05-13 13:17 | Outpatient (CLI) | payer MEDICARE, OTHER | END 2018-05-13 13:18 | disposition home or self-care (01) | LOC: WCC 13:17 | PROVIDERS: ATTEND Family Medicine | DX: T81.89XD Other complications of procedures, not elsewhere classified, subsequent encounter (principal) | CPT/HCPCS: 99211; G0463 ==

== ENCOUNTER 2018-05-15 11:50 | Outpatient (CLI) | payer MEDICARE | END 2018-05-15 11:51 | disposition home or self-care (01) | LOC: WCC 11:50 | PROVIDERS: ATTEND Family Medicine | DX: T81.89XD Other complications of procedures, not elsewhere classified, subsequent encounter (principal); Z98.890 Other specified postprocedural states | CPT/HCPCS: 97606 ==

== ENCOUNTER 2018-05-19 12:43 | Outpatient (CLI) | payer MEDICARE ==
[~2018-05-19 12:43] MED LIST changes: -ISOVUE-370 76%-LOCM 1 ML ONE; -Iopamidol 370 76% 50 ML VIAL FS ONE; +Sodium Chloride 0.9% 15 ML NEB ONE
== END 2018-05-19 12:44 | disposition home or self-care (01) ==
LOC: WCC 12:43
PROVIDERS: ATTEND Family Medicine
DX: T81.89XD Other complications of procedures, not elsewhere classified, subsequent encounter (principal); Z93.2 Ileostomy status
CPT/HCPCS: 97605; A4218

== ENCOUNTER 2018-05-22 08:03 | Outpatient (CLI) | payer MEDICARE ==
[2018-05-22] MEDS ORDERED: Sodium Chloride 0.9% 15 ML NEB ONE (10:32)
== END 2018-05-22 08:04 | disposition home or self-care (01) ==
LOC: WCC 08:03
PROVIDERS: ATTEND Family Medicine
DX: T81.89XD Other complications of procedures, not elsewhere classified, subsequent encounter (principal); Z93.2 Ileostomy status
CPT/HCPCS: 97606; A4218

== ENCOUNTER 2018-05-26 14:02 | Outpatient (CLI) | payer MEDICARE ==
--- NOTE | 2018-05-26 20:45 | HP ---
DATE OF SERVICE: 05/26/2018 HISTORY OF PRESENT ILLNESS: Ms. Diana Lewis is a very pleasant 42-year-old who present s to the [facility]ound Center for evaluation of a midline abdominal wound subsequent to exploratory laparotom y, enterotomy repair, small bowel resection, and ileostomy on 05/01/[address] Zack Londono. Also at the time of surgery, Ms. Lewis underwent wound VAC placement intraoperatively. Upon discharge fr [facility], the patient was referred to the Wound Center for assistance wit h dressing changes of the wound VAC. During the patient's hospital stay, Ms. Lewis was seen by Dr. Quinn and the patient is receiving IV antibiotics as per Infectious Diseases. PAST MEDICAL HISTORY: 1. Crohn's disease. 2. Sjogren's syndrome. 3. Asthma as a child. 4. History of transient ischemic attack. 5. Iron-deficiency anemia. 6. Vitamin B12 deficiency. PAST SURGICAL HISTORY: 1. . 2. Tubal ligation. 3. Laparoscopy/lysis of adhesions x2. 4. Appendectomy/partial small bowel and colon resection for ruptured appendicitis in 08/1998. 5. Hysterectomy. 6. Laparoscopic cholecystectomy/small bowel resection/left salpingo-oophorectomy. 7. Right lateral internal sphincterotomy. 8. Endoscopic biopsy of left nasopharyngeal mass. 9. Exploratory laparotomy for small bowel resection and anastomosis on 08/20/2016. 10. Exploratory laparotomy/enterotomy repair/small bowel resection and ileostomy/wound VAC placement by Dr. Londono on 05/01/2018. MEDICATIONS: 1. B12. 2. Stelara. 3. Magnesium oxide. 4. Prednisone. 5. Potassium chloride. 6. Wellbutrin. 7. Ultram. 8. Zofran. 9. Lomotil. ALLERGIES: PHENERGAN, REGLAN. SOCIAL HISTORY: Significant for tobacco use of up to 1 pack of cigarettes per day for the past 23 ye ars. The patient denies any history of ETOH use. FAMILY HISTORY: Significant for diabetes mellitus. The patient states that her father was diagnosed with diabetes mellitus. Family history is negative for coronary artery disease. PHYSICAL EXAMINATION: VITAL SIGNS: Temperature 97.9, pulse 109, respirations 20, blood pressure 110/70. GENERAL: A 42-year-old female lying on table in examination room in no acute distress. HEENT: Normocephalic, atraumatic. NECK: No nuchal rigidity. CHEST: Clear to auscultation. CARDIAC: Regular rate and rhythm. ABDOMEN: Soft. A midline abdominal wound is present which measures approximately 13.0 x 1.5 cm. Gr anulation tissue is present within the wound margins. No purulent drainage is associated with the wo und. No erythema of the skin surrounding the wound is present. No maceration of the skin of the per iwound is noted. EXTREMITIES: No clubbing or cyanosis. NEUROLOGIC: Grossly nonfocal. ASSESSMENT AND PLAN: 1. Midline abdominal wound subsequent to exploratory laparotomy, enterotomy repair, small bowel rese ction, and ileostomy. The patient underwent the preceding procedure by Dr. Zack Londono on 05/01/20. Negative pressure therapy was initiated intraoperatively. Upon discharge from [facility], the patient was referred to the Wound Center for assistance with dressing changes o f the wound VAC. Negative pressure therapy will be continued with dressing changes of the wound VAC here in the Wound Center. The patient states that she has a followup appointment with Dr. Londono in 2 weeks. I will see Ms. Lewis again in 3 weeks. As stated above, the patient is receiving IV anti biotics as per Dr. Robert Quinn of Infectious Diseases. The patient understands and is in agreement with the preceding treatment plan. 2. Crohn's disease. 3. Sjogren's syndrome. 4. Asthma as a child. 5. Iron deficiency anemia. 6. B12 deficiency. 7. History of transient ischemic attack.
== END 2018-05-26 14:03 | disposition home or self-care (01) ==
LOC: WCC 14:02
PROVIDERS: ATTEND Family Medicine
DX: T81.89XD Other complications of procedures, not elsewhere classified, subsequent encounter (principal); K50.90 Crohn's disease, unspecified, without complications; M35.00 Sjogren syndrome, unspecified; J45.909 Unspecified asthma, uncomplicated; D50.9 Iron deficiency anemia, unspecified; E53.8 Deficiency of other specified B group vitamins; Z86.73 Personal history of transient ischemic attack (TIA), and cerebral infarction without residual deficits
CPT/HCPCS: 97605; 99203; A4218; G0463

== ENCOUNTER 2018-05-29 09:43 | Outpatient (CLI) | payer MEDICARE | END 2018-05-29 09:44 | disposition home or self-care (01) | LOC: WCC 09:43 | PROVIDERS: ATTEND Family Medicine | DX: T81.89XD Other complications of procedures, not elsewhere classified, subsequent encounter (principal); Z93.2 Ileostomy status | CPT/HCPCS: 97602 ==

== ENCOUNTER 2018-06-01 16:45 | Inpatient (IN) | payer MEDICARE ==
--- NOTE | 2018-06-01 17:51 | RAD ---
CHEST ONE VIEW UPRIGHT PORTABLE: HISTORY: A 42-year-old female with a history of syncope. FINDINGS: Heart size is within normal limits. Lungs are clear. Monitor leads overly the chest. IMPRESSION: No acute intrathoracic disease. POS: RRE
[2018-06-01 18:04] LABS: Hemoglobin 10.1 g/dL (12.0-16.0); Mean Corpuscular HGB CONC 35.7 g/dL (32.0-36.0); Mean Corpuscular Hemoglobin 28.6 pg (27.0-31.0); Mean Corpuscular Volume 80.3 fL (78.0-98.0); Mean Platelet Volume 10.9 fL (7.4-10.4); Platelet Count 119 thou/uL (130-400); RBC Distribution Width 20.6 % (11.5-14.5); Red Blood Cell (RBC) Count 3.52 mill/uL (4.20-5.40); White Blood Cell (WBC) Count 4.7 thou/uL (4.8-10.8)
[2018-06-01 18:24] LABS: ALT (SGPT) 62 U/L (8-55); AST (SGOT) 46 U/L (5-34); Albumin 3.1 g/dL (3.5-5.0); Alkaline Phosphatase 249 U/L (40-150); Anion Gap 19 mmol/L (10-20); BUN (Urea Nitrogen) 58 mg/dL (7.0-18.7); Bilirubin, Total 0.5 mg/dL (0.2-1.2); Calc. Creatinine Clearance 0 mL/min (70-130); Calcium 8.6 mg/dL (7.8-10.44); Carbon Dioxide 30 mmol/L (22-29); Chloride 85 mmol/L (98-107); Estimated GFR-MDRD 15; Globulin 2.6 g/dL (2.4-3.5); Glucose 95 mg/dL (70-105); Protein, Total 5.7 g/dL (6.0-8.3); Sodium 131 mmol/L (136-145)
[2018-06-01 18:26] LABS: #Lymphocytes 2.2 thou/uL (1.20-3.40); #Monocytes 0.2 thou/uL (0.11-0.59); #Neutrophils 2.2 thou/uL (1.40-6.50); %Basophils 0.2 % (0.0-1.0); %Neutrophils 46.8 % (42.0-75.0)
[2018-06-01 18:27] LABS: Anisocytosis SLIGHT = 6-15 cells (100X) (0-5/hpf); MDiff Complete? YES; Ovalocytes SLIGHT = 2-5 cells (100X) (0-1/hpf); PLT Morphology Comment PLT clumps seen-ADEQ; Platelet Clumps SLIGHT; Polychromasia SLIGHT = 2-3 cells (100X) (0-2/hpf); Tear Drops SLIGHT = 2-5 cells (100X) (0-1/hpf)
[2018-06-01 18:27] LABS: Bilirubin Negative (Negative); Blood, Urine Negative (Negative); Clarity CLOUDY (Clear); Glucose, Urine (Dipstick) Negative (Negative); Leukocyte Small (Negative); Nitrite Negative (Negative); Protein, Urine (Dipstick) Trace mg/dL (Neg-Trace); Specific Gravity, Urine 1.016 (1.002-1.036); Urobilinogen 0.2 mg/dL (0.2-1.0); pH, Urine 5.5 (5.0-9.0)
[2018-06-01 18:28] LABS: Pregnancy Test - Urine (BHCG) Negative (Negative); Pregu Control Background? CLEAR/WHITE (CLR/WHITE); Pregu Control Bar Appear? YES (CONTROL BAR); Specific Gravity 1.016 (1.002-1.036)
[2018-06-01 18:29] LABS: Bacteria/HPF None Seen HPF (None Seen); Pathc Cast-AUWi Flag 2.03 (0-2.49); Squamous Epithelial 0-3 HPF (0-3); WBC/HPF 0-3 HPF (0-3)
[2018-06-01 18:30] LABS: Yeast-AUWi Flag 31.5 (0-25.0)
[2018-06-01 18:38] LABS: Hyaline Casts/LPF 4-6 HYALINE CAST LPF (0-3 Hyaline); RBC/HPF 0-3 HPF (0-3); Yeast-All Forms None Seen HPF (None Seen)
[2018-06-01 22:15] VITALS: BMI 23.1
[2018-06-01] MEDS ORDERED: Ondansetron HCl/PF 4 MG/2 ML Vial IVP PRN (22:46)
[2018-06-01] MEDS ORDERED: Ondansetron ODT 4 MG TAB PO PRN (22:46)
--- NOTE | 2018-06-01 23:25 | HP ---
DATE OF ADMISSION: 06/01/2013 TIME OF SERVICE: 2145 hours. CHIEF COMPLAINT: Fall. HISTORY OF PRESENT ILLNESS: Ms. Lewis is a 42-year-old [place] female known to me from [facility] hospitalization for a flare of Crohn's disease with intra-abdominal abscess. She received IV ant ibiotics and bowel rest with TPN for some time. She was discharged home on 05/09/2018 off the TPN an d eating. She was doing well. She underwent ileostomy placement. She has been doing fairly well an d had seen Dr. Londono about 2 weeks ago. Since that time, he had increased her Lomotil 3 tablets 3 times a day and has had a better input. She has been on Lomotil and was noted that she was having in creasing output from her ostomy bag. For the last couple of days, she has had some dizziness when st anding up. Today, she stood up and actually syncopized. She fell and hit her back, but not her head . helped her to the floor. She came to the emergency department for evaluation. Here, she was found to be tachycardic, and hypo tensive. She was given 2 liters of normal saline with some improvement. Labs showed potassium to be 3.0, creatinine was up to 3.41 above her baseline. She was found to be dehydrated and we called for admit. The patient was accepted by the swing shift and being seen by me on the floor. She denies any chest pain, shortness of breath. No nausea, vomiting, diarrhea, constipation. She is overall feeling bett er and is actually feeling hungry. PAST MEDICAL HISTORY: 1. Sjogren's disease. 2. History of EBV infection in the past. 3. Crohn's disease. 4. Hypertension. 5. History of TIA in 2009 and 2011. PAST SURGICAL HISTORY: 1. Partial colectomy and ileostomy creation in 04/2018. 2. Multiple large bowel surgeries for Crohn's. 3. Appendectomy in 1997. 4. Cholecystectomy in 2005. 5. Hysterectomy in 2004. HOME MEDICATIONS: 1. Potassium chloride 20 mEq p.o. b.i.d. 2. Bupropion SR 100 mg daily. 3. Tramadol 100 mg q.6 hours p.r.n. 4. Prednisone down to 15 mg daily. 5. Zofran 4 mg q.6h. p.r.n. 6. Nicotine patch 1 mg q.24 hours. 7. Magnesium oxide 400 mg p.o. b.i.d. 7. Lomotil 3 tablets t.i.d., recently increased by Dr. Londono. ALLERGIES: BENZONATATE, FERROUS FUMARATE, HYDROCODONE, PENICILLIN, PHENERGAN PROCHLORPERAZINE, JOSE R N, ZOSYN. FAMILY HISTORY: Negative for clotting or bleeding disorder. No immune dysfunction. SOCIAL HISTORY: Negative x3. She was using nicotine patches . REVIEW OF SYSTEMS: Significant for some ileostomy dysfunction. She has a retracted stoma and as is found it difficult to maintain a good ostomy seal without leakage. Otherwise, negative for all systems except as per HPI. PHYSICAL EXAMINATION: VITAL SIGNS: Temperature 98.8, pulse 109, blood pressure 96/49, respiratory 18, sat 97% room air. GENERAL: She is awake, she is alert and she is oriented x3. She is a well-developed, well-nourished [place] female who appears in no distress. HEENT: Normocephalic, atraumatic. Pupils equal, react to light bilaterally. Mucous membranes are m oist. No visible lesions. No thrush. NECK: Supple. No prominent JVD or thyromegaly. She has normal carotids without bruits. LUNGS: Clear to auscultation bilaterally with no wheezing, no rales or no rhonchi. CARDIOVASCULAR: Normal S1, S2. She is tachycardic, but regular. Normal S1 and S2. I do not apprec iate murmur. ABDOMEN: Soft. She has got multiple scars present from previous surgeries. She has left lower quad rant ileostomy with a retracted stoma. She has some clear to yellowish tinged fluid in there. No fo od particles. She has good bowel sounds in all 4 quadrants. EXTREMITIES: No cyanosis, no clubbing, with trace pedal edema. SKIN: Warm, moist, and well perfused. She has had no rashes or other lesions. MUSCULOSKELETAL: Normal to inspection. Large joints appear normal. No evidence of inflammation or palpable effusions. NEUROLOGIC: Cranial nerves II-XII grossly intact. No any focal neurologic deficits. LABORATORY DATA: Sodium 131, potassium 3.0, chloride 85, bicarbonate 30, BUN 58, creatinine 3.41, gl ucose of 95, and calcium is 6.6. Liver function panel normal, except an alkaline phosphatase of 249, AST is normal at 46, ALT slightly elevated at 62. Her CBC showed a white count of 4.7, hemoglobin of 10.1, hematocrit 28.2, platelet count 119,000. Chest x-ray showed no acute cardiopulmonary disease. ASSESSMENT AND PLAN: 1. Moderate to severe dehydration. 2. Acute kidney injury. 3. History of Crohn's disease, status post partial colectomy and ileostomy in 04/2018. 4. High output ileostomy. 5. History of Sjogren's disease. 6. History of essential hypertension. 7. History of cerebrovascular disease, status post transient ischemic attacks. The patient was plac ed as inpatient. We will give IV fluids with normal saline and 40 mEq of KCl per liter. We will edilberto ck a magnesium stat and replace if low. She has already had 2 liters in the ER. I will continue to hydrate overnight. We will get a repeat orthostatics in the morning to evaluate. In the meantime, kole kelley will resume her home medications including Lomotil with a increased dose of 3 tablets t.i.d. We wi ll give the prescriptions now. 8. Followup in same level. The patient complains of back pain. Hydrocodone has been ordered, but s he is allergic, so switching that to tramadol. 9. Essential hypertension, currently hypotensive. 10. Acute kidney injury with creatinine 3.41, likely secondary to dehydration. We will continue to check in the morning.
[2018-06-01] MEDS: traMADol HCl 50 MG TAB PO PRN (23:30)
[2018-06-02] MEDS: Zolpidem Tartrate 5 MG TAB PO PRN ×3 (00:32→23:03)
[2018-06-02] MEDS: NS 0.9% w/ 40 MEQ KCL 1,000 ML IV SCH ×3 (00:32→17:39)
[2018-06-02 05:57] LABS: ALT (SGPT) 54 U/L (8-55); AST (SGOT) 41 U/L (5-34); Alkaline Phosphatase 227 U/L (40-150); Anion Gap 14 mmol/L (10-20); BUN (Urea Nitrogen) 47 mg/dL (7.0-18.7); Bilirubin, Total 0.5 mg/dL (0.2-1.2); Calc. Creatinine Clearance 32 mL/min (70-130); Calcium 8.9 mg/dL (7.8-10.44); Carbon Dioxide 34 mmol/L (22-29); Chloride 92 mmol/L (98-107); Estimated GFR-MDRD 26; Globulin 2.8 g/dL (2.4-3.5); Glucose 86 mg/dL (70-105); Magnesium 1.7 mg/dL (1.6-2.6); Potassium 3.1 mmol/L (3.5-5.1); Protein, Total 5.8 g/dL (6.0-8.3); Sodium 137 mmol/L (136-145)
[2018-06-02 06:24] LABS: Band 1 % (5-11); Eosinophils 2 % (0-10); Hemoglobin 9.2 g/dL (12.0-16.0); Lymphocytes 64 % (21-51); MDiff Complete? YES; Mean Corpuscular HGB CONC 35.2 g/dL (32.0-36.0); Mean Corpuscular Hemoglobin 28.4 pg (27.0-31.0); Mean Corpuscular Volume 80.5 fL (78.0-98.0); Mean Platelet Volume 10.5 fL (7.4-10.4); Monocytes 2 % (0-10); Neutrophil 31 % (42-75); PLT Morphology Comment Appears Adequate; Platelet Count 160 thou/uL (130-400); RBC Distribution Width 20.7 % (11.5-14.5); Red Blood Cell (RBC) Count 3.24 mill/uL (4.20-5.40); White Blood Cell (WBC) Count 3.5 thou/uL (4.8-10.8)
[2018-06-02] MEDS: traMADol HCl 50 MG TAB PO PRN ×4 (06:31→23:03)
--- NOTE | 2018-06-02 07:24 | PDOC.PN ---
- Subjective Encounter Start Date: 06/02/18 Encounter Start Time: 07:22 Subjective: still has high ileostomy output - Objective Resuscitation Status: Resuscitation Status FULL:Full Resuscitation MAR Reviewed: Yes Vital Signs & Weight: Vital Signs (12 hours) Temp Pulse Resp BP Pulse Ox 06/02/18 00:32 98.5 F 101 H 16 104/56 L 100 06/01/18 21:45 98.4 F 99 16 101/56 L 100 Weight Weight 130 lb 3.2 oz I&O: 06/01/18 06/02/18 06/03/18 06:59 06:59 06:59 Intake Total 1270 Output Total 875 Balance 395 Result Diagrams: 06/02/18 04:32 06/02/18 04:32 Phys Exam - Physical Examination Constitutional: NAD Neck: no JVD Respiratory: clear to auscultation bilateral Cardiovascular: RRR, no significant murmur Gastrointestinal: soft, non-tender increased bowel sounds Musculoskeletal: no edema Dx/Plan (1) Acute renal failure Status: Acute (2) Syncope and collapse Code(s): R55 - SYNCOPE AND COLLAPSE Status: Acute (3) Hypokalemia Code(s): E87.6 - HYPOKALEMIA Status: Acute Comment: Replete. (4) Crohn disease Code(s): K50.90 - CROHN'S DISEASE, UNSPECIFIED, WITHOUT COMPLICATIONS Status: Chronic Qualifiers: Gastrointestinal tract location: small intestine Digestive disease complication type: with fistula Qualified Code(s): K50.013 - Crohn's disease of small intestine with fistula (5) HTN (hypertension) Code(s): I10 - ESSENTIAL (PRIMARY) HYPERTENSION Status: Chronic Qualifiers: Hypertension type: essential hypertension Comment: uncontrolled, likely secondary to steroids, increasing, will add Lisinopril very low dose while on steroids (6) Tobacco abuse Code(s): Z72.0 - TOBACCO USE Status: Chronic - Plan cont iv fluids, monitor renal fcn -: replace K+ -: discuss with Surgery * .
[2018-06-02] MEDS: Diphenoxylate HCl/Atropine Tablet PO SCH ×3 (07:54→21:29)
[2018-06-02] MEDS: Potassium Chloride 20 MEQ TAB PO SCH ×2 (07:54→17:37)
[2018-06-02] MEDS: Magnesium Oxide 400 MG TAB PO SCH ×2 (07:55→21:29)
[2018-06-02] MEDS: Bupropion 100 MG SR TAB PO SCH (07:55)
[2018-06-02] MEDS: Famotidine 20 MG TAB PO SCH (07:55)
--- NOTE | 2018-06-02 17:14 | PDOC.GSPN ---
Surgery Progress Note: Subj - Subjective Narrative: Feels better. Surgery Progress Note: Obj - Vital signs Vital signs: Vital Signs - Most Recent Temp Pulse Resp BP Pulse Ox 97.8 F 96 14 102/69 99 06/02/18 16:02 06/02/18 16:02 06/02/18 16:02 06/02/18 16:02 06/02/18 16:02 - Physical Exam General: no distress Abdomen: soft, non tender, nondistended, other (ostomy output mostly liquid, clear, full) Wound: healing well Surgery Progress Note: Results - Labs Result Diagrams: 06/02/18 04:32 06/02/18 04:32 Lab results: Laboratory Results - last 24 hr 06/02/18 06/02/18 04:32 04:32 WBC 3.5 L RBC 3.24 L Hgb 9.2 L Hct 26.1 L MCV 80.5 MCH 28.4 MCHC 35.2 RDW 20.7 H Plt Count 160 MPV 10.5 H Neutrophils % (Manual) 31 L Band Neuts % (Manual) 1 L Lymphocytes % (Manual) 64 H Monocytes % (Manual) 2 Eosinophils % (Manual) 2 Plt Morphology Comment Appears Adequate Sodium 137 Potassium 3.1 L Chloride 92 L Carbon Dioxide 34 H Anion Gap 14 BUN 47 H Creatinine 2.11 H Estimated GFR (MDRD) 26 Glucose 86 Calcium 8.9 Magnesium 1.7 Total Bilirubin 0.5 AST 41 H ALT 54 Alkaline Phosphatase 227 H Serum Total Protein 5.8 L Albumin 3.0 L Globulin 2.8 Albumin/Globulin Ratio 1.1 L Surgery Progress Note: A/P - Problem (1) High output ileostomy Current Visit: Yes Code(s): R19.8 - OTH SYMPTOMS AND SIGNS INVOLVING THE DGSTV SYS AND ABDOMEN; Z93.2 - ILEOSTOMY STATUS Status: Acute (2) Crohn's disease, unspecified, with fistula Current Visit: No Code(s): K50.913 - CROHN'S DISEASE, UNSPECIFIED, WITH FISTULA Status: Acute Qualifiers: Gastrointestinal tract location: unspecified location Qualified Code(s): K50.913 - Crohn's disease, unspecified, with fistula - Plan Plan: I explained the importance of staying on the anti-diarrheal given her propensity to get dehydrated. If lomotil not covered by insurance she will have to try immodium instead. I think she needs to stay until ileostomy output decreased and more controlled.
[2018-06-02] MEDS: Acetaminophen 325 MG TAB PO PRN (21:38)
[2018-06-03 06:53] LABS: Anion Gap 12 mmol/L (10-20); BUN (Urea Nitrogen) 26 mg/dL (7.0-18.7); Calc. Creatinine Clearance 53 mL/min (70-130); Calcium 8.8 mg/dL (7.8-10.44); Carbon Dioxide 29 mmol/L (22-29); Chloride 101 mmol/L (98-107); Estimated GFR-MDRD 46; Glucose 66 mg/dL (70-105); Potassium 4.3 mmol/L (3.5-5.1); Sodium 138 mmol/L (136-145)
[2018-06-03] MEDS: Acetaminophen 325 MG TAB PO PRN (06:58)
[2018-06-03] MEDS: traMADol HCl 50 MG TAB PO PRN ×4 (06:58→22:43)
[2018-06-03] MEDS: NS 0.9% w/ 40 MEQ KCL 1,000 ML IV SCH ×2 (06:58→16:23)
[2018-06-03] MEDS: Diphenoxylate HCl/Atropine Tablet PO SCH ×3 (09:11→21:56)
[2018-06-03] MEDS: Potassium Chloride 20 MEQ TAB PO SCH ×2 (09:13→18:23)
[2018-06-03] MEDS: Magnesium Oxide 400 MG TAB PO SCH ×2 (09:13→21:56)
[2018-06-03] MEDS: Bupropion 100 MG SR TAB PO SCH (09:13)
[2018-06-03] MEDS: Famotidine 20 MG TAB PO SCH (09:14)
--- NOTE | 2018-06-03 13:04 | PDOC.PN ---
- Subjective Encounter Start Date: 06/03/18 Encounter Start Time: 13:03 Subjective: ileostomy output decreasing, still watery - Objective Resuscitation Status: Resuscitation Status FULL:Full Resuscitation MAR Reviewed: Yes Vital Signs & Weight: Vital Signs (12 hours) Temp Pulse Resp BP Pulse Ox 06/03/18 11:26 97.9 F 82 14 106/72 100 06/03/18 08:00 98.2 F 85 16 95/64 97 Weight Admit Weight 130 lb 3.2 oz Weight 130 lb 3.2 oz I&O: 06/02/18 06/03/18 06/04/18 06:59 06:59 06:59 Intake Total 1270 4310 Output Total 875 1870 Balance 395 2440 Result Diagrams: 06/02/18 04:32 06/03/18 05:42 Phys Exam - Physical Examination Neck: no JVD Respiratory: clear to auscultation bilateral Cardiovascular: RRR, no significant murmur Gastrointestinal: soft, non-tender, positive bowel sounds ileostomy Musculoskeletal: no edema Dx/Plan (1) Acute renal failure Status: Acute (2) Syncope and collapse Code(s): R55 - SYNCOPE AND COLLAPSE Status: Acute (3) Hypokalemia Code(s): E87.6 - HYPOKALEMIA Status: Acute Comment: Replete. (4) Crohn disease Code(s): K50.90 - CROHN'S DISEASE, UNSPECIFIED, WITHOUT COMPLICATIONS Status: Chronic Qualifiers: Gastrointestinal tract location: small intestine Digestive disease complication type: with fistula Qualified Code(s): K50.013 - Crohn's disease of small intestine with fistula (5) HTN (hypertension) Code(s): I10 - ESSENTIAL (PRIMARY) HYPERTENSION Status: Chronic Qualifiers: Hypertension type: essential hypertension Comment: uncontrolled, likely secondary to steroids, increasing, will add Lisinopril very low dose while on steroids (6) Tobacco abuse Code(s): Z72.0 - TOBACCO USE Status: Chronic - Plan renal fcn improving, cont iv fluids -: decreased ileostomy output, cont antidiarrheals * .
[2018-06-03] MEDS: Zolpidem Tartrate 5 MG TAB PO PRN (22:45)
[2018-06-04 00:40] VITALS: TEMP 98.1
[2018-06-04] MEDS: NS 0.9% w/ 40 MEQ KCL 1,000 ML IV SCH (04:35)
[2018-06-04] MEDS: traMADol HCl 50 MG TAB PO PRN (04:42)
[2018-06-04] MEDS: Bupropion 100 MG SR TAB PO SCH (09:17)
[2018-06-04] MEDS: Diphenoxylate HCl/Atropine Tablet PO SCH (09:17)
[2018-06-04] MEDS: Potassium Chloride 20 MEQ TAB PO SCH (09:17)
[2018-06-04] MEDS: Famotidine 20 MG TAB PO SCH (09:17)
[2018-06-04] MEDS: Magnesium Oxide 400 MG TAB PO SCH (09:17)
[2018-06-04 11:23] VITALS: BP 108/73
[2018-06-04 11:45] LABS: Anion Gap 12 mmol/L (10-20); BUN (Urea Nitrogen) 12 mg/dL (7.0-18.7); Calc. Creatinine Clearance 66 mL/min (70-130); Calcium 8.7 mg/dL (7.8-10.44); Carbon Dioxide 25 mmol/L (22-29); Chloride 106 mmol/L (98-107); Estimated GFR-MDRD 59; Glucose 87 mg/dL (70-105); Potassium 4.7 mmol/L (3.5-5.1); Sodium 138 mmol/L (136-145)
--- NOTE | 2018-06-04 13:32 | PDOC.GSPN ---
Surgery Progress Note: Subj - Subjective Patient reports: no new complaints (Insurance approved lomotil) Surgery Progress Note: Obj - Vital signs Vital signs: Vital Signs - Most Recent Temp Pulse Resp BP Pulse Ox 98.1 F 94 16 108/73 100 06/04/18 11:22 06/04/18 11:22 06/04/18 11:22 06/04/18 11:22 06/04/18 11:22 - Physical Exam General: no distress Abdomen: soft, non tender, nondistended, other (ostomy, mostly liquid) Wound: healing well Surgery Progress Note: Results - Labs Result Diagrams: 06/02/18 04:32 06/04/18 11:11 Lab results: Laboratory Results - last 24 hr 06/04/18 11:11 Sodium 138 Potassium 4.7 Chloride 106 Carbon Dioxide 25 Anion Gap 12 BUN 12 Creatinine 1.02 Estimated GFR (MDRD) 59 Glucose 87 Calcium 8.7 Surgery Progress Note: A/P - Problem (1) High output ileostomy Current Visit: Yes Code(s): R19.8 - OTH SYMPTOMS AND SIGNS INVOLVING THE DGSTV SYS AND ABDOMEN; Z93.2 - ILEOSTOMY STATUS Status: Acute (2) Crohn's disease, unspecified, with fistula Current Visit: No Code(s): K50.913 - CROHN'S DISEASE, UNSPECIFIED, WITH FISTULA Status: Acute Qualifiers: Gastrointestinal tract location: unspecified location Qualified Code(s): K50.913 - Crohn's disease, unspecified, with fistula - Plan Plan: DC home, lomotil approved by insurance. she will call my office when her rx is up for refill. I stressed the importance of extra liquids to stay hydrated and note foods that increase output and avoid
--- NOTE | 2018-06-04 15:03 | DIS ---
DATE OF ADMISSION: 06/01/2018 DATE OF DISCHARGE: 06/04/2018 DISCHARGE DISPOSITION: Discharged home. FINAL DIAGNOSES: Acute kidney failure, resolved; high output ileostomy; Crohn's disease; syncope. DISCHARGE MEDICATIONS: Ambien 5 mg at bedtime p.r.n., Lomotil 3 tabs p.o. t.i.d., tramadol 100 mg p. o. q.6. p.r.n., Wellbutrin 100 mg p.o. daily, magnesium oxide 400 mg p.o. b.i.d., potassium chloride 40 mEq p.o. b.i.d. ALLERGIES: REGLAN, PENICILLINS, PROMETHAZINE, TESSALON, PROCHLORPERAZINE, and TAZOBACTAM. DIET: As tolerated. CODE STATUS: FULL. HOSPITAL COURSE: The patient admitted to [facility] through [facility] after a fall. She had recently been in the hospital with intra-abdominal abscess, and subsequ ently undergone an abscess drainage with an ileostomy. She has had very high ileostomy drainage. He r initial laboratory, sodium 131, potassium 3.0, creatinine 3.41, BUN 58. White count 4.7, hemoglobi n 10.1, platelet count 119,000. She had no microbiology specimen. She was given IV fluids, put on L omotil 3 tabs t.i.d. Her stools fully firmed up. She was put on normal saline. Her creatinine came down slowly; today, it is 1.02. She is being seen and cleared for discharge by Dr. Londono. She is being discharged home for follow up with Dr. Londono in 14 days.
[2018-06-04] MEDS ORDERED: Famotidine 20 MG TAB PO SCH (21:00)
== END 2018-06-04 14:29 | disposition home or self-care (01) | DRG 683 ==
LOC: ERS 16:45 → 2NO 20:21 → SURG A 06-02 11:34
PROVIDERS: ADMIT Internal Medicine; ATTEND Internal Medicine
DX: N17.9 Acute kidney failure, unspecified (principal); K50.913 Crohn's disease, unspecified, with fistula; E87.6 Hypokalemia; E86.0 Dehydration; M35.00 Sjogren syndrome, unspecified; I10 Essential (primary) hypertension; Z86.73 Personal history of transient ischemic attack (TIA), and cerebral infarction without residual deficits; Z90.49 Acquired absence of other specified parts of digestive tract; Z90.710 Acquired absence of both cervix and uterus; Z79.899 Other long term (current) drug therapy; Z93.2 Ileostomy status
CPT/HCPCS: 36415; 71045; 80048; 80053; 81003; 81015; 81025; 83735; 84134; 85025; 93005; 96360; 96361; 96365; A4216; J1642

== ENCOUNTER 2018-06-09 13:06 | Outpatient (CLI) | payer MEDICARE ==
--- NOTE | 2018-06-09 14:16 | PRG ---
DATE OF SERVICE: 06/09/2018 HISTORY: Ms. Diana Lewis is a very pleasant 42-year-old, who presents to the Wound [facility]evin ter for evaluation of a midline abdominal wound subsequent to exploratory laparotomy, enterotomy repa ir, small bowel resection, and ileostomy on 05/01/[address] Zack Londono. Also at the time of edwar catherine, Ms. Lewis underwent wound VAC placement intraoperatively. Upon discharge from [facility], the patient was referred to the Wound Center for assistance with dressing changes of the wound VAC. During the patient's hospital stay, Ms. Lewis was seen by Dr. Quinn and the mesha ent received IV antibiotics as per Infectious Diseases. The patient has completed a course of negati ve pressure therapy and is now performing wet to dry dressing changes for her midline abdominal wound . PHYSICAL EXAMINATION: VITAL SIGNS: Temperature 98.2, pulse 124, respirations 17, and blood pressure 98/64. ABDOMEN: Soft. The midline abdominal wound has almost healed completely. The dimensions of the wou nd are approximately 0.4 x 0.3 cm. Granulation tissue is present within the wound margins. No purul ent drainage is associated with the wound. No erythema of the skin surrounding the wound is present. No maceration of the skin of the periwound is noted. ASSESSMENT AND PLAN: 1. Midline abdominal wound subsequent to exploratory laparotomy, enterotomy repair, small bowel rese ction, and ileostomy. The patient underwent the preceding procedure by Dr. Zack Londono on 05/01/20 18. Negative pressure therapy was initiated intraoperatively. Upon discharge from [facility], the patient was referred to the Wound Center for assistance with dressing changes o f the wound VAC. The patient has completed a course of negative pressure therapy and is now performi ng wet to dry dressing changes for her midline abdominal wound. The wound has almost healed complete ly and Ms. Lewis will be discharged from clinic today with followup on a p.r.n. basis. The patient states that she has a followup appointment with Dr. Londono in the near future. 2. Crohn's disease. 3. Sjogren's syndrome. 4. Asthma as a child. 5. Iron deficiency anemia. 6. B12 deficiency. 7. History of transient ischemic attack.
[2018-06-09] MEDS ORDERED: Sodium Chloride 0.9% 15 ML NEB ONE (21:53)
== END 2018-06-09 13:07 | disposition home or self-care (01) ==
LOC: WCC 13:06
PROVIDERS: ATTEND Family Medicine
DX: T81.89XD Other complications of procedures, not elsewhere classified, subsequent encounter (principal); K50.90 Crohn's disease, unspecified, without complications; M35.00 Sjogren syndrome, unspecified; J45.909 Unspecified asthma, uncomplicated; D50.9 Iron deficiency anemia, unspecified; E53.8 Deficiency of other specified B group vitamins; Z86.73 Personal history of transient ischemic attack (TIA), and cerebral infarction without residual deficits
CPT/HCPCS: A4218

== ENCOUNTER 2018-06-11 13:03 | Day surgery (SDC) | payer MEDICARE ==
[2018-06-11] MEDS ORDERED: Ondansetron HCl/PF 4 MG/2 ML Vial IVP PRN (13:21)
[2018-06-11] MEDS ORDERED: Sodium Chloride 0.9% 1,000 ML IV SCH (13:30)
[2018-06-11] MEDS ORDERED: Multivitamins, Adult 10 ML in Sodium Chloride 0.9% 500 ML IV SCH (13:30)
[2018-06-11 13:44] LABS: Hemoglobin 11.5 g/dL (12.0-16.0); Mean Corpuscular HGB CONC 35.6 g/dL (32.0-36.0); Mean Corpuscular Volume 81.3 fL (78.0-98.0); Mean Platelet Volume 9.6 fL (7.4-10.4); Platelet Count 270 thou/uL (130-400); RBC Distribution Width 22.1 % (11.5-14.5); Red Blood Cell (RBC) Count 3.98 mill/uL (4.20-5.40); White Blood Cell (WBC) Count 7.3 thou/uL (4.8-10.8)
[2018-06-11 14:05] LABS: Anisocytosis MODERATE=16-30 cells (100X) (0-5/hpf); Band 4 % (5-11); Eosinophils 3 % (0-10); Lymphocytes 64 % (21-51); MDiff Complete? YES; Monocytes 5 % (0-10); Neutrophil 21 % (42-75); Ovalocytes SLIGHT = 2-5 cells (100X) (0-1/hpf); PLT Morphology Comment Appears Adequate; Polychromasia SLIGHT = 2-3 cells (100X) (0-2/hpf); Reactive Lymphocytes 3 % (0-10)
[2018-06-11 14:06] LABS: Anion Gap 22 mmol/L (10-20); BUN (Urea Nitrogen) 36 mg/dL (7.0-18.7); Calc. Creatinine Clearance 0 mL/min (70-130); Calcium 9.9 mg/dL (7.8-10.44); Carbon Dioxide 30 mmol/L (22-29); Chloride 82 mmol/L (98-107); Estimated GFR-MDRD 12; Glucose 206 mg/dL (70-105); Potassium 3.4 mmol/L (3.5-5.1); Sodium 131 mmol/L (136-145)
[2018-06-11 17:46] VITALS: BP 94/58; TEMP 98.7
== END 2018-06-11 16:30 | disposition home or self-care (01) ==
LOC: ONC/OP 13:03
PROVIDERS: ATTEND Surgery
DX: K50.919 Crohn's disease, unspecified, with unspecified complications (principal)
CPT/HCPCS: 80048; 85025; 96361; 96365; 96366; J7050

== ENCOUNTER 2018-06-19 11:43 | Day surgery (SDC) | payer MEDICARE, OTHER ==
[2018-06-19] MEDS ORDERED: Ondansetron HCl/PF 4 MG/2 ML Vial IVP PRN (12:30)
[2018-06-19] MEDS ORDERED: Multivitamins, Adult 10 ML in Sodium Chloride 0.9% 500 ML IV SCH (12:30)
[2018-06-19] MEDS: Sodium Chloride 0.9% 1,000 ML IV SCH ×2 (12:44→14:30)
[2018-06-19 15:17] LABS: Anion Gap 23 mmol/L (10-20); BUN (Urea Nitrogen) 58 mg/dL (7.0-18.7); Calc. Creatinine Clearance 0 mL/min (70-130); Calcium 9.4 mg/dL (7.8-10.44); Carbon Dioxide 23 mmol/L (22-29); Chloride 85 mmol/L (98-107); Estimated GFR-MDRD 9; Glucose 128 mg/dL (70-105); Sodium 128 mmol/L (136-145)
[2018-06-19 15:26] LABS: Potassium 2.8 mmol/L (3.5-5.1)
[2018-06-19] MEDS ORDERED: Potassium Chloride 20 MEQ in Premix Bag 1 BAG IVPB SCH (16:00)
[2018-06-19 18:56] VITALS: BP 95/60; TEMP 98.7
== END 2018-06-19 18:58 | disposition home or self-care (01) ==
LOC: ONC/OP 11:43
PROVIDERS: ATTEND Surgery
DX: E86.0 Dehydration (principal)
CPT/HCPCS: 80048; 96361; 96365; 96366; 96367; J3480; J7050

== ENCOUNTER 2018-06-24 16:49 | Day surgery (SDC) | payer MEDICARE, OTHER ==
[2018-06-24] MEDS ORDERED: Ondansetron HCl/PF 4 MG/2 ML Vial SLOW IVP PRN (17:07)
[2018-06-24] MEDS ORDERED: Multivitamins, Adult 10 ML in Sodium Chloride 0.9% 500 ML IV SCH (17:15)
[2018-06-24] MEDS ORDERED: Sodium Chloride 0.9% 1,000 ML IV SCH (17:15)
[2018-06-24 17:29] VITALS: BP 89/53; TEMP 97.7
== END 2018-06-24 19:34 | disposition home or self-care (01) ==
LOC: ONC/OP 16:49
PROVIDERS: ATTEND Surgery
DX: E86.0 Dehydration (principal); Z79.899 Other long term (current) drug therapy; Z88.0 Allergy status to penicillin; Z88.8 Allergy status to other drugs, medicaments and biological substances
CPT/HCPCS: 96361; 96365; 96375; J2405; J7050

== ENCOUNTER → 2018-08-01 | Day surgery (SDC) | payer MEDICARE ==
--- NOTE | 2018-08-01 15:01 | SPC ---
SONOGRAPHIC GUIDED LEFT UPPER EXTREMITY PICC: HISTORY: Crohn's disease. Need for long-term IV access. FINDINGS: After explaining the procedure and answering all questions, the left upper extremity was prepped and draped in the usual sterile fashion. Sterile technique, buffered local anesthesia, sonographic yaneth nce, and a 22-gauge needle were used to carefully access the left brachial vein. Standard technique was then used to place the tip of a 5 Congolese dual-lumen PICC so that the tip lies at the level of the superior vena cava. Catheter was flushed and secured externally. The patient tolerated the procedu re well and was dismissed in good condition. FLUORO TIME: 0 seconds. IMPRESSION: Left upper extremity PICC is ready for use. POS: [facility]
== END ==
LOC: SPEC 12:52
PROVIDERS: ATTEND Orthopaedic Surgery Sports Medicine
PROC: 02HV33Z Insertion of Infusion Device into Superior Vena Cava, Percutaneous Approach (ICD-10-PCS; principal; 2018-08-01)
DX: K50.919 Crohn's disease, unspecified, with unspecified complications (principal); K90.9 Intestinal malabsorption, unspecified
CPT/HCPCS: 36569; 80053; 82306; 82607; 82728; 83540; 84132; 84425; 85025; 85652; 86140; 96360; 96361 ×2; 96365 ×3; 96366; 96367; 96368 ×2; 96375; G0463; 99211; A4216; C1751; J2405; J7050; Q0164

== ENCOUNTER 2018-08-15 11:07 | Outpatient (CLI) | payer MEDICARE ==
--- NOTE | 2018-08-15 14:47 | MRI ---
MRI ABDOMEN WITH AND WITHOUT IV CONTRAST: (MR ENTEROGRAPHY) Date: 08/15/18 HISTORY: Crohn's disease with complication, phlegmon. FINDINGS: Comparison made with the MRI of abdomen dated 04/28/18. The hemangioma in the right lobe of the liver is stable. The spleen, pancreas, adrenal glands, and ki dneys are normal. The patient is post cholecystectomy. There is a left lower quadrant colostomy. There is enhancement of the wall of a loop of small bowel i n the right hemiabdomen with adjacent enhancement/inflammation in the anterolateral aspect of the rig ht psoas muscle. A tiny fluid collection in this region may represent an abscess formation. Small bow el loops are not abnormally dilated. IMPRESSION: 1. Stable hepatic hemangioma. 2. Findings consistent with inflammation of a loop of small bowel in the right hemiabdomen consisten t with active Crohn's disease with adjacent right psoas myositis. A tiny abscess adjacent to the psoa s muscle may be present. The degree of inflammation in the right psoas muscle is significantly smalle r compared to the exam of 04/28/18. POS: [facility]
== END 2018-08-15 11:08 | disposition home or self-care (01) ==
LOC: MRI 11:07
PROVIDERS: ATTEND Internal Medicine Gastroenterology
DX: K50.019 Crohn's disease of small intestine with unspecified complications (principal); L02.91 Cutaneous abscess, unspecified; D18.03 Hemangioma of intra-abdominal structures; M60.9 Myositis, unspecified
CPT/HCPCS: 74183; J1610

== ENCOUNTER 2018-09-30 15:44 | Outpatient (CLI) | payer MEDICARE, OTHER ==
[2018-09-30] MEDS ORDERED: Lidocaine 2% Jelly 5 ML TUBE ONE (18:00)
== END 2018-09-30 15:45 | disposition home or self-care (01) ==
LOC: WCC 15:44
PROVIDERS: ATTEND Family Medicine
DX: K94.19 Other complications of enterostomy (principal)
CPT/HCPCS: 97139; G0463; 99211

== ENCOUNTER → 2018-12-17 | Day surgery (SDC) | payer MEDICARE ==
[~2018-12-17] MED LIST changes: +Heparin 1,000 UNITS/ML VIAL ONE; -Sodium Chloride 0.9% 15 ML NEB ONE
--- NOTE | 2018-12-17 09:25 | SPC ---
FLUOROSCOPIC GUIDED RIGHT UPPER EXTREMITY PICC: HISTORY: Crohn's disease. Need for long-term IV access. FINDINGS: After explaining the procedure and answering all questions, the right upper extremity was prepped and draped in the usual sterile fashion. Sterile technique, buffered local anesthesia, sonographic guid ance, and a 22-gauge needle were used to carefully access the right brachial vein. Standard techniqu e was then used to place the tip of a 5 Czech dual-lumen PICC so that the tip lies at the level of t he cavoatrial junction. Catheter was flushed and secured externally. The patient tolerated the proc edure well and was dismissed in good condition. Fluoro time 0 seconds. IMPRESSION: Right upper extremity PICC is ready for use. POS: [facility]
== END ==
LOC: SPEC 06:32
PROVIDERS: ATTEND Surgery
PROC: 02HV33Z Insertion of Infusion Device into Superior Vena Cava, Percutaneous Approach (ICD-10-PCS; principal; 2018-12-17)
DX: K50.90 Crohn's disease, unspecified, without complications (principal); E86.0 Dehydration; R89.9 Unspecified abnormal finding in specimens from other organs, systems and tissues; Z79.899 Other long term (current) drug therapy; Z88.0 Allergy status to penicillin; Z88.1 Allergy status to other antibiotic agents; Z88.8 Allergy status to other drugs, medicaments and biological substances
CPT/HCPCS: 36569

== ENCOUNTER 2019-01-14 10:11 | Outpatient (CLI) | payer MEDICARE, OTHER | END 2019-01-14 10:12 | disposition home or self-care (01) | LOC: WCC 10:11 | PROVIDERS: ATTEND Family Medicine | DX: K94.10 Enterostomy complication, unspecified (principal) | CPT/HCPCS: 97139; G0463; 99211 ==

== ENCOUNTER 2019-02-03 12:45 | Outpatient (CLI) | payer MEDICARE ==
[~2019-02-03 12:45] MED LIST changes: +Gadobenate Dimeglumine 529 MG/1 ML (20ML VIAL) ONE; -Heparin 1,000 UNITS/ML VIAL ONE
--- NOTE | 2019-02-03 15:45 | MRI ---
MRI ABDOMEN WITH AND WITHOUT IV CONTRAST (MR angiography) 02/03/19 HISTORY: Crohn's disease of small intestine with unspecified complications. Alkaline phosphate elevation. COMPARISON: MRI of abdomen dated 08/15/18. FINDINGS: The right lobe hepatic hemangioma is stable. The spleen, pancreas, adrenal glands and kidneys are nor mal. The patient is post cholecystectomy. Left lower quadrant colostomy is again seen. There has bee n interval improvement of the enhancement of the wall of the loop of small bowel in the right hemiabd omen since the previous study. The adjacent enhancement/inflammation in the anterolateral aspect of t he right psoas muscle is again seen but appears smaller. The tiny fluid collections within this regio n has resolved. The small bowel loops are not abnormally dilated. IMPRESSION: 1. Stable hepatic hemangioma. 2. Interval improvement of inflammatory changes involving the small bowel loop in the right cecile abdomen and improved adjacent right psoas myositis since the last study. There is interval resolution of tiny abscess adjacent to the right psoas muscle. POS: [facility]
== END 2019-02-03 12:46 | disposition home or self-care (01) ==
LOC: MRI 12:45
PROVIDERS: ATTEND Internal Medicine Gastroenterology
DX: K50.00 Crohn's disease of small intestine without complications (principal); R74.8 Abnormal levels of other serum enzymes
CPT/HCPCS: 74183; A9577

== ENCOUNTER 2019-03-17 06:06 | Day surgery (SDC) | payer MEDICARE ==
[2019-03-16 10:24] VITALS: BMI 21.7
[2019-03-17] MEDS ORDERED: Lidocaine 2% PF 5 ML VIAL ONE (06:42)
[2019-03-17] MEDS ORDERED: Bupivacaine/Epinephrine 0.25% 30 ML VIAL ONE (06:42)
[2019-03-17] MEDS ORDERED: Fentanyl 100 MCG/2 ML VIAL ONE (06:56)
[2019-03-17] MEDS ORDERED: Midazolam HCl 2 mg/2 ml Vial ONE (06:56)
--- NOTE | 2019-03-17 08:28 | RAD ---
Chest AP view INDICATION: Status post MediPort insertion COMPARISON: May 02, 2018 FINDINGS: Lungs:The lungs are clear Cardiac silhouette pulmonary vasculature:The cardiomediastinal silhouette appears within normal limit s. There is a new right IJ chest wall Mediport. Catheter projects in the region of the cavoatrial junction. There is a right-sided PICC line in place. Pleural spaces:No pleural effusion or pneumothorax is demonstrated. Upper abdomen:No abnormality seen. Osseous structures: No acute osseous abnormality. IMPRESSION: No acute cardiopulmonary abnormality. Right chest wall Mediport placement. Right-sided PI CC line catheter.
--- NOTE | 2019-03-17 14:14 | OP ---
DATE OF PROCEDURE: 03/17/2019 PREOPERATIVE DIAGNOSES: Crohn disease and chronic short bowel syndrome. POSTOPERATIVE DIAGNOSES: Crohn disease and chronic short bowel syndrome. PROCEDURE PERFORMED: Tunneled central line subcutaneous port (MediPort, CT injectable). ANESTHESIA: TIVA, local. ESTIMATED BLOOD LOSS: Minimal. COMPLICATIONS: None. SPECIMEN: None. FINDINGS: Tip of the catheter was at the atriocaval junction. DESCRIPTION OF PROCEDURE: The patient was taken to the operating room and laid supine position on the operating room table. After general anesthetic was obtained, bilateral neck and chest were prepped and draped in a sterile fashion. Local anesthetic was infiltrated over the right internal jugular vein. Internal jugular vein was cannulated using a 22-gauge finder needle followed by a Seldinger needle. A wire was passed into superior vena cava under fluoro guidance. A small mauricio was made at the wire entrance site. A separate 3-cm incision was made in the right upper chest. Subcutaneous pocket was made below the lower incision. Tubing for the MediPort tunneled from the inferior to superior incision, and suture sheath was placed over the wire into the superior vena cava under fluoro guidance. The dilator and wire were removed, and the end of the catheter was sewed into the sheath. The sheath was peeled away. The tip of the catheter was at the atriocaval junction. MediPort tubing was cut to fit the MediPort at the lower incision and connected to the MediPort, which was sewn to the chest wall and subcutaneous pocket using Prolene. The MediPort flushes and draws blood without difficulty. It was flushed with a heparin flush. The wounds were all irrigated and closed using 3-0 Vicryl, 4-0 Monocryl, and Dermabond. The patient was sent to Recovery in stable condition. All instrument counts, needle counts, and lap counts were correct. Job ID: [id number]
[2019-03-17] MEDS ORDERED: PROPOFOL 200 MG/20 ML VIAL ONE (14:57)
== END 2019-03-17 09:30 | disposition home or self-care (01) ==
LOC: SDC 06:06
PROVIDERS: ATTEND Surgery
PROC: 06H033Z Insertion of Infusion Device into Inferior Vena Cava, Percutaneous Approach (ICD-10-PCS; principal; 2019-03-17)
DX: K91.2 Postsurgical malabsorption, not elsewhere classified (principal); K50.90 Crohn's disease, unspecified, without complications
CPT/HCPCS: 71045; J1642; J2001; J2250; J3010

== ENCOUNTER 2019-04-28 08:45 | Outpatient (CLI) | payer MEDICARE ==
--- NOTE | 2019-04-28 10:53 | CT ---
CT abdomen and pelvis with and without IV contrast enterography protocol. HISTORY: Crohn's disease with ostomy. Ileostomy dysfunction with retraction. Plan for revision. COMPARISON: 04/15/2018. FINDINGS: Lung bases are clear. Gallbladder surgically absent. Low-density hemangioma within the righ t liver lobe is stable. Extensive postoperative changes of the bowel are apparent. In the left medial abdomen, ileostomy is a pparent, with a single noncomplicated loop of small bowel extending through the abdominal wall to the ostomy site. Some suture material is included within the ostomy. No adjacent fluid collection or additional herniated bowel. No significant inflammation or retraction apparent on CT. No active bleeding inflamed bowel is apparent. A lobular well circumscribed lesion just anterior to t he mid right sacrum is stable and appears to represent a venous structure. IMPRESSION: Left lower quadrant ileostomy with no significant complication evident on CT. Extensive postoperative changes of the bowel and abdomen. Hepatic hemangioma, stable.
== END 2019-04-28 08:46 | disposition home or self-care (01) ==
LOC: CT 08:45
PROVIDERS: ATTEND Surgery
DX: K50.919 Crohn's disease, unspecified, with unspecified complications (principal); K94.13 Enterostomy malfunction; D18.03 Hemangioma of intra-abdominal structures; Z90.49 Acquired absence of other specified parts of digestive tract
CPT/HCPCS: 74178

== ENCOUNTER 2019-05-13 15:27 | Outpatient (CLI) | payer MEDICARE ==
[2019-05-13 16:11] LABS: Anion Gap 14 mmol/L (10-20); BUN (Urea Nitrogen) 16 mg/dL (7.0-18.7); Calc. Creatinine Clearance 0 mL/min (70-130); Calcium 9.8 mg/dL (7.8-10.44); Carbon Dioxide 21 mmol/L (22-29); Chloride 107 mmol/L (98-107); Estimated GFR-MDRD 42; Glucose 79 mg/dL (70-105); Potassium 3.6 mmol/L (3.5-5.1); Sodium 138 mmol/L (136-145)
== END 2019-05-13 15:28 | disposition home or self-care (01) ==
LOC: LABBT 15:27
PROVIDERS: ATTEND Surgery
DX: Z01.812 Encounter for preprocedural laboratory examination (principal); K50.90 Crohn's disease, unspecified, without complications; K94.13 Enterostomy malfunction
CPT/HCPCS: 80048

== ENCOUNTER 2019-05-14 08:01 | Day surgery (SDC) | payer MEDICARE ==
[2019-05-13 15:11] VITALS: BMI 19.5
[2019-05-14] MEDS ORDERED: cefOXitin 2 GM VIAL ONE (09:08)
[2019-05-14] MEDS ORDERED: Sodium Chloride 0.9% 0 ML ONE (09:08)
[2019-05-14] MEDS ORDERED: diphenhydrAMINE 50 MG/ML VIAL ONE ×2 (09:49→13:42)
[2019-05-14] MEDS ORDERED: Rocuronium Bromide 10 MG/ML (10ML VIAL) ONE (09:49)
[2019-05-14] MEDS ORDERED: Dexamethasone 20 MG/5 ML VIAL ONE (09:49)
[2019-05-14] MEDS ORDERED: PROPOFOL 200 MG/20 ML VIAL ONE (09:49)
[2019-05-14] MEDS ORDERED: Succinylcholine Chloride 20 MG/ML 10 ml SYRINGE FS ONE (09:49)
[2019-05-14] MEDS ORDERED: Lidocaine 1% PF 5 ML VIAL ONE (09:49)
[2019-05-14] MEDS ORDERED: Fentanyl 100 MCG/2 ML VIAL ONE ×4 (09:57→11:26)
--- NOTE | 2019-05-14 11:18 | OP ---
DATE OF PROCEDURE: 05/14/2019 PREOPERATIVE DIAGNOSIS: Ileostomy dysfunction with significant granulation tissue formation. POSTOPERATIVE DIAGNOSIS: Ileostomy dysfunction with significant granulation tissue formation. PROCEDURES PERFORMED: Revision ileostomy and biopsy of granulation tissue. ANESTHESIA: General. ESTIMATED BLOOD LOSS: Minimal. COMPLICATIONS: None. FINDINGS: Significant granulation tissue present circumferentially around the ostomy mucosa, where it was attached to the skin. This was sent as biopsy. DESCRIPTION OF PROCEDURE: The patient was taken to the operating room and laid supine on the operating room table. After general anesthetic was obtained, the abdomen was prepped and draped in a sterile fashion. The ostomy device had been removed. She had significant amounts of granulation tissue circumferentially, but more inferior to the ostomy. This granulation tissue was ellipsed out to the subcutaneous tissues. The ostomy mucosa was from the skin and dissection was performed into the subcutaneous tissues to allow for more mucosa to be brought up to the skin under no tension. The granulation tissue was sent to Path to rule out active Crohn's. There was no ongoing bleeding. Because of the large defect and wound just below the ostomy, a Prolene suture was used to pursestring this close. The ostomy mucosa was then re-matured using 3-0 Vicryl. At the end of the procedure, the ostomy mucosa did overlap the skin better than before. It was not so retracted. Care was taken to avoid stenosing the ostomy. Finger was able to be placed down the proximal and distal limbs of the loop ileostomy. The patient was sent to Recovery in stable condition and ostomy devices were placed. All instrument counts, needle counts, and lap counts were correct. Job ID: [id number]
[2019-05-14] MEDS ORDERED: HYDROmorphone 2 MG/ML VIAL ONE (11:27)
[2019-05-14] MEDS ORDERED: Morphine 4 MG/ML VIAL ONE (11:32)
[2019-05-14] MEDS ORDERED: Morphine 2 MG/ML SYRINGE ONE ×2 (12:37→13:11)
[2019-05-14] MEDS ORDERED: Sodium Chloride 0.9% 100 ML ONE (15:28)
[2019-05-14] MEDS ORDERED: Sodium Chloride 0.9% 10 ML ONE (15:29)
== END 2019-05-14 16:20 | disposition home or self-care (01) ==
LOC: SDC 08:01 → EDSTATUS 14:30 → SDC 16:20
PROVIDERS: ATTEND Surgery
PROC: 0WQFXZ2 Repair Abdominal Wall, Stoma, External Approach (ICD-10-PCS; principal; 2019-05-14)
DX: K94.13 Enterostomy malfunction (principal); K50.919 Crohn's disease, unspecified, with unspecified complications; E87.6 Hypokalemia; E55.9 Vitamin D deficiency, unspecified; M35.00 Sjogren syndrome, unspecified; I10 Essential (primary) hypertension; G43.909 Migraine, unspecified, not intractable, without status migrainosus; J45.909 Unspecified asthma, uncomplicated; K21.9 Gastro-esophageal reflux disease without esophagitis; F17.210 Nicotine dependence, cigarettes, uncomplicated; Z86.73 Personal history of transient ischemic attack (TIA), and cerebral infarction without residual deficits; Z79.899 Other long term (current) drug therapy; Z88.0 Allergy status to penicillin; Z88.1 Allergy status to other antibiotic agents; Z88.8 Allergy status to other drugs, medicaments and biological substances
CPT/HCPCS: 88304; J0694; J1170; J1200; J1642; J2270; J3010; J3490

== ENCOUNTER 2019-10-13 06:08 | Day surgery (SDC) | payer MEDICARE ==
[2019-10-12 14:09] VITALS: BMI 20.3
[2019-10-13] MEDS ORDERED: Fentanyl 250 MCG/5 ML VIAL ONE (06:56)
[2019-10-13] MEDS ORDERED: Midazolam HCl 2 mg/2 ml Vial ONE (06:56)
[2019-10-13 07:24] LABS: #Eosinphils 0.3 thou/uL (0.0-0.7); #Lymphocytes 2.2 thou/uL (1.20-3.40); #Monocytes 0.4 thou/uL (0.11-0.59); #Neutrophils 3.6 thou/uL (1.40-6.50); %Basophils 0.3 % (0.0-1.0); %Eosinophils 5.2 % (0.0-10.0); %Lymphocytes 33.5 % (21.0-51.0); %Monocytes 5.7 % (0.0-10.0); %Neutrophils 55.3 % (42.0-75.0); Hemoglobin 10.6 g/dL (12.0-16.0); Mean Corpuscular HGB CONC 35.6 g/dL (32.0-36.0); Mean Corpuscular Hemoglobin 30.8 pg (27.0-31.0); Mean Corpuscular Volume 86.5 fL (78.0-98.0); Platelet Count 216 thou/uL (130-400); RBC Distribution Width 12.8 % (11.5-14.5); Red Blood Cell (RBC) Count 3.46 mill/uL (4.20-5.40); White Blood Cell (WBC) Count 6.4 thou/uL (4.8-10.8)
[2019-10-13 07:41] LABS: Anion Gap 11 mmol/L (10-20); BUN (Urea Nitrogen) 21 mg/dL (7.0-18.7); Calc. Creatinine Clearance 37 mL/min (70-130); Calcium 9.5 mg/dL (7.8-10.44); Carbon Dioxide 23 mmol/L (22-29); Chloride 107 mmol/L (98-107); Estimated GFR-MDRD 35; Glucose 82 mg/dL (70-105); Potassium 3.3 mmol/L (3.5-5.1); Sodium 138 mmol/L (136-145)
[2019-10-13] MEDS ORDERED: SUGAMMADEX SODIUM 200 MG/2 ML VIAL ONE (08:10)
[2019-10-13] MEDS ORDERED: Fentanyl 100 MCG/2 ML VIAL ONE ×2 (08:35→09:00)
[2019-10-13] MEDS ORDERED: Ondansetron PF 4 MG/2 ML Vial ONE (09:36)
[2019-10-13] MEDS ORDERED: Ketorolac Tromethamine 30 MG/ML VIAL ONE (09:36)
[2019-10-13] MEDS ORDERED: Lidocaine 1% PF 5 ML VIAL ONE (09:36)
[2019-10-13] MEDS ORDERED: PROPOFOL 200 MG/20 ML VIAL ONE (09:36)
[2019-10-13] MEDS ORDERED: Rocuronium Bromide 10 MG/ML (10ML VIAL) ONE (09:36)
[2019-10-13] MEDS ORDERED: Dexamethasone 20 MG/5 ML VIAL ONE (09:36)
--- NOTE | 2019-10-13 10:35 | OP ---
DATE OF PROCEDURE: 10/13/2019 PREOPERATIVE DIAGNOSES: Ostomy stenosis and dysfunction. POSTOPERATIVE DIAGNOSES: Ostomy stenosis and dysfunction. PROCEDURES PERFORMED: Revision ileostomy with scar tissue excision and rematuration. ANESTHESIA: General. ESTIMATED BLOOD LOSS: Minimal. COMPLICATIONS: None. SPECIMEN: None. DESCRIPTION OF PROCEDURE: The patient was taken to the operating room and laid supine on the operating table. After general anesthetic was obtained, the ostomy device was removed. The area around the ostomy was prepped and draped in a sterile fashion. There was significant scar tissue formation and stenosis. An elliptical incision was used to ellipse out scar tissue on the bottom 180 degrees of the ostomy. The underlying intestine was able to be freed up and rematured in the usual fashion using Vicryl suture and ostomy device was placed. The patient was sent to Recovery in stable condition. All instrument counts, needle counts, and lap counts were correct. Job ID: [id number]
[2019-10-13] MEDS ORDERED: Sodium Chloride 0.9% 10 ML ONE (10:37)
[2019-10-13] MEDS ORDERED: Morphine 2 MG/ML SYRINGE ONE (10:38)
== END 2019-10-13 11:30 | disposition home or self-care (01) ==
LOC: SDC 06:08
PROVIDERS: ATTEND Surgery
PROC: 0D1B0Z4 Bypass Ileum to Cutaneous, Open Approach (ICD-10-PCS; principal; 2019-10-13)
DX: K94.19 Other complications of enterostomy (principal); K50.90 Crohn's disease, unspecified, without complications; Z79.899 Other long term (current) drug therapy; Z88.0 Allergy status to penicillin; Z88.8 Allergy status to other drugs, medicaments and biological substances
CPT/HCPCS: 36415; 80048; 85025; J1100; J1642; J1885; J2001; J2250; J2270; J2405; J2704; J3010

== ENCOUNTER 2019-11-29 14:08 | Inpatient (IN) | payer MEDICARE ==
[~2019-11-29 14:08] MED LIST changes: -Gadobenate Dimeglumine 529 MG/1 ML (20ML VIAL) ONE; +Iopamidol-370 76% 500 ML 1 ML ONE
[2019-11-29] MEDS ORDERED: Morphine 4 MG/ML VIAL ONE ×2 (14:40→16:46)
[2019-11-29] MEDS ORDERED: Ondansetron PF 4 MG/2 ML Vial ONE (14:40)
[2019-11-29 15:14] LABS: #Eosinphils 0.3 thou/uL (0.0-0.7); #Lymphocytes 2.3 thou/uL (1.20-3.40); #Monocytes 0.8 thou/uL (0.11-0.59); #Neutrophils 7.4 thou/uL (1.40-6.50); %Basophils 0.2 % (0.0-1.0); %Eosinophils 2.7 % (0.0-10.0); %Monocytes 7.5 % (0.0-10.0); %Neutrophils 68.6 % (42.0-75.0); Hemoglobin 10.6 g/dL (12.0-16.0); Mean Corpuscular HGB CONC 34.4 g/dL (32.0-36.0); Mean Corpuscular Volume 87.2 fL (78.0-98.0); Mean Platelet Volume 8.2 fL (7.4-10.4); Platelet Count 267 thou/uL (130-400); Red Blood Cell (RBC) Count 3.55 mill/uL (4.20-5.40); White Blood Cell (WBC) Count 10.8 thou/uL (4.8-10.8)
[2019-11-29 15:14] LABS: Bacteria/HPF None Seen HPF (None Seen); Bilirubin Negative (Negative); Blood, Urine Negative (Negative); Clarity Clear (Clear); Glucose, Urine (Dipstick) Normal (Negative); Leukocyte Negative Leu/uL (Negative); Nitrite Negative (Negative); Protein, Urine (Dipstick) 30 mg/dL (Neg-Trace); RBC/HPF 0-3 HPF (0-3); Squamous Epithelial 0-3 HPF (0-3); Urobilinogen Normal mg/dL (Less than 2); WBC/HPF 0-3 HPF (0-3)
--- NOTE | 2019-11-29 15:23 | RAD ---
XR Hip Rt 2-3 View History: Pain Comparison: CT examination April 2019 Findings: No acute fracture or malalignment. The obturator ring is intact. Linear high density radiop acity projects over the right lower quadrant of the abdomen. Ostomy projects over the left lower quadrant of the abdomen. Phleboliths in the pelvis. Impression: No acute osseous abnormality.
[2019-11-29 15:36] LABS: ALT (SGPT) 44 U/L (8-55); AST (SGOT) 41 U/L (5-34); Albumin 3.6 g/dL (3.5-5.0); Alkaline Phosphatase 369 U/L (40-110); Anion Gap 12 mmol/L (10-20); BUN (Urea Nitrogen) 11 mg/dL (7.0-18.7); Bilirubin, Total 0.4 mg/dL (0.2-1.2); Calc. Creatinine Clearance 0 mL/min (70-130); Calcium 8.7 mg/dL (7.8-10.44); Carbon Dioxide 21 mmol/L (22-29); Chloride 108 mmol/L (98-107); Estimated GFR-MDRD 41; Globulin 3.1 g/dL (2.4-3.5); Glucose 101 mg/dL (70-105); Lipase 24 U/L (8-78); Protein, Total 6.7 g/dL (6.0-8.3); Sodium 138 mmol/L (136-145)
[2019-11-29 15:41] LABS: Potassium 2.7 mmol/L (3.5-5.1)
[2019-11-29] MEDS ORDERED: diphenhydrAMINE 50 MG/ML VIAL ONE (16:07)
[2019-11-29] MEDS ORDERED: Potassium Chloride 40 MEQ in Sodium Chloride 0.9% 250 ML 250 ML IVPB SCH (16:15)
--- NOTE | 2019-11-29 16:18 | CT ---
CT OF THE ABDOMEN AND PELVIS WITH IV CONTRAST INDICATION: Right-sided abdominal pain and hip pain COMPARISON: CT the abdomen and pelvis dated April 15, 2018 and April 28, 2019 FINDINGS: ABDOMEN: Lung bases: Mild left basilar atelectasis Liver: Stable right hepatic lobe hemangioma Gallbladder: Surgically absent Pancreas: Normal. Adrenal glands: Normal. Spleen: Normal. Kidneys and ureters: Normal. No hydronephrosis. Vasculature: Vascular mild vascular Lymph nodes:No lymphadenopathy. Free fluid in abdomen:There is a 3.8 x 4.4 x 7.8 cm abscess collection extending from an ileocolonic anastomosis of the right lower quadrant on image 50 of series 2 involving the right psoas muscle. This is in a similar location to a contained leak in the right lower quadrant of the abdomen on the ay 2017 exam. PELVIS: Small and large bowel: There is no evidence of obstruction. There is postsurgical change of a partial colectomy and a left lower quadrant ileostomy. Anastomotic suture line of small bowel is seen within the left lower quadrant abdomen. There is an ileocolonic anastomosis in the right lower quadra nt abdomen.. Appendix:Surgically absent Bladder: Normal. Rectal and perirectal soft tissues:Normal. Reproductive structures: Surgically absent Free fluid in pelvis: None Lymphadenopathy pelvis: Stable 1.2 cm nodular density, anterior to the right sacrum. This may reflect a small dilated vein. Osseous structures: There is diffuse osteopenia. No acute fracture or subluxation demonstrated. Ther e is scattered degenerative and osteoarthritic changes. Soft tissues:Normal. IMPRESSION: 1. Findings most consistent with a recurrent right lower quadrant ileocolonic anastomotic leak with a peripherally enhancing fluid collection seen involving the right psoas musculature suspicious for an abscess. 2. Other stable findings as above
[2019-11-29] MEDS ORDERED: Cefepime 2 GM VIAL ONE (17:15)
[2019-11-29] MEDS ORDERED: HYDROcodone/Acetaminophen 5/325 mg Tablet PO PRN (17:32)
[2019-11-29] MEDS ORDERED: Acetaminophen 650 MG Suppository PR PRN (17:39)
[2019-11-29] MEDS ORDERED: Ondansetron ODT 4 MG TAB PO PRN (17:39)
[2019-11-29] MEDS ORDERED: Acetaminophen 325 MG TAB PO PRN (17:39)
[2019-11-29] MEDS ORDERED: Ondansetron PF 4 MG/2 ML Vial IVP PRN (17:39)
[2019-11-29 19:20] VITALS: BMI 21.4
[2019-11-29] MEDS ORDERED: Magnesium Oxide 400 MG TAB PO SCH (19:45)
[2019-11-29] MEDS: Sodium Chloride 0.9% 1,000 ML IV SCH (20:07)
[2019-11-29] MEDS: HYDROcodone/Acetaminophen 5/325 mg Tablet PO PRN (20:08)
[2019-11-29] MEDS: Famotidine/PF 20 mg/2ml Vial SLOW IVP SCH (20:09)
--- NOTE | 2019-11-29 21:05 | HP ---
TIME OF ASSESSMENT: 1700 hours. PRIMARY CARE PHYSICIAN: Dr. Rodriguez. CHIEF COMPLAINT: Right lower quadrant abdominal pain. HISTORY OF PRESENT ILLNESS: Ms. Lewis is a very pleasant 44-year-old woman, with a known history of Crohn disease, who has had a bowel resection in the past, and an ileostomy done by Dr. Londono in April of 2018, who presents with right lower quadrant abdominal discomfort wrapping around to the right side of her back. The pain has now started to radiate to the right groin. The patient states this is very similar to which she experienced in the past with an intraabdominal abscess. She states she was doing well until this pain started five days ago. Since then, she has noted fevers and chills. She has been taking ibuprofen 800 mg for the pain, which helps her sleep at night. She denies noting any changes with her ileostomy output. No nausea or vomiting. Has noticed darkening of her urine. States she continues to eat and drink well. She reports maintaining adequate hydration. Denies any trauma or injuries to her right side. No dysuria or hematuria. REVIEW OF SYSTEMS: All other review of systems are negative. ED COURSE: In the Emergency Department, she underwent laboratory studies which showed white count of 10.8, hemoglobin 10.6, hematocrit 31, and platelets 267. She had a normal sodium of 138 and noted to be hypokalemic with a potassium of 2.7. She did receive replacement in the Emergency Department. Renal function notable for a creatinine of 1.38 and GFR of 41, which appears to be essentially stable, when compared to prior labs. BUN is 11. Calcium 8.7. LFTs notable for an AST of 41 and alkaline phosphatase of 369, otherwise unremarkable. She underwent a urinalysis that was unremarkable. She underwent imaging including a right hip x-ray due to complaints of some pain in the right hip area, which showed no osseous abnormality. A CT of the abdomen and pelvis was done demonstrating findings consistent with a recurrent right lower quadrant ileocolonic anastomotic leak with a peripherally enhancing fluid collection involving the right psoas musculature suspicious for an abscess. The patient's case has been discussed with Dr. Londono, who advised broad-spectrum antibiotics with Zosyn. However, the patient does have a documented allergy to Zosyn. Therefore, she was started on IV cefepime instead. The patient will be seen by General Surgery in the morning. A consultation has also been placed to Dr. Morgan for tomorrow. In the Emergency Department, she received morphine a total of 8 mg for her pain, which she states finally resolved after the second dose. She was given Benadryl prophylactically prior to receiving the cefepime. Also received potassium replacement. The patient is being admitted for further workup and management. PAST MEDICAL HISTORY: 1. Crohn disease. 2. Ileostomy. 3. Chronic hypokalemia. 4. Vitamin B12 deficiency. 5. Chest pain, status post heart catheterization in December 2009. 6. Vitamin D deficiency. 7. 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 8. Sjogren's syndrome. 9. Iron deficiency anemia. 10. TIA's. 11. Hypoalbuminemia. 12. Pneumonia. 13. Hypertension. 14. Migraine. 15. Asthma. 16. GERD. 17. History of impingement syndrome of the left shoulder. 18. Thyroid nodule. PAST SURGICAL HISTORY: 1. Status post cardiac cath in December 2009, 10% obstruction. 2. Hysterectomy with ovaries intact on the right side, June 2005. 3. Right hemicolectomy in 1997. 4. Multiple surgeries for small bowel obstructions. 5. Appendectomy. 6. in 1994. 7. Exploratory laparotomy with extensive lysis of adhesions and diverting ileostomy for nonhealing stricture of the terminal ileum and psoas phlegmon. SOCIAL HISTORY: The patient lives with her family. Denies any alcohol use or illicit drug use. Reports smoking one pack per day for the last 10 years. ALLERGIES: 1. PENICILLIN. 2. PHENERGAN. 3. REGLAN. 4. TESSALON. 5. ZOFRAN. 6. ZOSYN. CURRENT MEDICATIONS: 1. Lomotil. 2. Dulera. PHYSICAL EXAMINATION: GENERAL: The patient appears thin, well developed, and in no acute distress, resting comfortably on a stretcher in the ER. VITAL SIGNS: Temperature 98.6, pulse 88, blood pressure 109/60, respirations 16, and O2 saturation 100% on room air. HEENT: Normocephalic and atraumatic. Pupils are equal, round, and reactive to light. Sclerae icterus. Oropharynx is clear. NECK: Supple. No lymphadenopathy. LUNGS: Clear to auscultation bilaterally without wheezes, rales, or rhonchi. CARDIAC: Regular rate and rhythm. ABDOMEN: Soft. Ileostomy in the left upper abdomen. No swelling or redness of the stoma. The patient with mild right lower quadrant discomfort on palpation. No guarding or rigidity. Some discomfort in the right lower back. NEUROLOGIC: Alert and oriented x3. No neuro deficits. SKIN: Warm and dry. INVESTIGATIONS: As mentioned above in HPI. IMPRESSION AND PLAN: Ms. Lewis is a very pleasant 44-year-old woman, who is being admitted for management of the following. 1. Recurrent abscess collection involving the right psoas muscle. We will continue IV antibiotics. Dr. Londono is aware, and she will be assessed by him tomorrow. Recommendations made to continue with IV antibiotics in the meantime. The patient with no known history of allergy to cefepime. Pain well controlled at this present time. Consultation has also been placed to Dr. Morgan. We will keep the patient n.p.o. at midnight. 2. Hypertension. Monitor blood pressure. The patient is not on any anti-hypertensives. Blood pressure is on the lower side at this present time. We will give gentle hydration. 3. Hypokalemia. Replace in the Emergency Department. We will continue to monitor and replace as needed. We will add on magnesium as well. We will obtain baseline EKG. 4. Gastrointestinal prophylaxis with famotidine. 5. Deep venous thrombosis prophylaxis with mechanical SCDs. 6. Code status. Full code. Surrogate decision maker is her , Jayce Lewis. The patient's case was discussed with Dr. Ruth, who agrees with plan of care as described above. Job ID: [id number]
[2019-11-30] MEDS ORDERED: Cefepime 2 GM in Sodium Chloride 0.9% 100 ML IVPB SCH (05:00)
[2019-11-30 05:33] LABS: #Eosinphils 0.3 thou/uL (0.0-0.7); #Lymphocytes 1.9 thou/uL (1.20-3.40); #Monocytes 0.7 thou/uL (0.11-0.59); #Neutrophils 5.1 thou/uL (1.40-6.50); %Basophils 0.5 % (0.0-1.0); %Eosinophils 4.2 % (0.0-10.0); %Lymphocytes 23.5 % (21.0-51.0); %Monocytes 8.2 % (0.0-10.0); %Neutrophils 63.7 % (42.0-75.0); Hemoglobin 9.6 g/dL (12.0-16.0); Mean Corpuscular HGB CONC 33.2 g/dL (32.0-36.0); Mean Corpuscular Hemoglobin 29.4 pg (27.0-31.0); Mean Corpuscular Volume 88.5 fL (78.0-98.0); Mean Platelet Volume 8.6 fL (7.4-10.4); Platelet Count 250 thou/uL (130-400); RBC Distribution Width 12.1 % (11.5-14.5); Red Blood Cell (RBC) Count 3.25 mill/uL (4.20-5.40)
[2019-11-30 05:51] LABS: Anion Gap 11 mmol/L (10-20); BUN (Urea Nitrogen) 10 mg/dL (7.0-18.7); Calc. Creatinine Clearance 47 mL/min (70-130); Calcium 8.6 mg/dL (7.8-10.44); Carbon Dioxide 20 mmol/L (22-29); Chloride 111 mmol/L (98-107); Estimated GFR-MDRD 44; Glucose 82 mg/dL (70-105); Magnesium 1.6 mg/dL (1.6-2.6); Sodium 138 mmol/L (136-145)
[2019-11-30] MEDS: Sodium Chloride 0.9% 1,000 ML IV SCH ×2 (06:02→20:57)
[2019-11-30] MEDS: HYDROcodone/Acetaminophen 5/325 mg Tablet PO PRN ×4 (06:02→21:01)
[2019-11-30] MEDS: Famotidine/PF 20 mg/2ml Vial SLOW IVP SCH ×2 (08:55→20:57)
[2019-11-30] MEDS ORDERED: FLU VACC QS2019-20(6MOS UP)/PF 60 MCG/0.5 ML SYRINGE IM ONE (09:00)
[2019-11-30] MEDS ORDERED: diphenhydrAMINE 12.5 MG/5 ML UDCUP PO PRN (11:24)
--- NOTE | 2019-11-30 11:46 | CON ---
DATE OF CONSULTATION: 11/30/2019 REQUESTING PHYSICIAN: Zoë Ruth MD REASON FOR CONSULTATION: Crohn disease with fluid collection. HISTORY OF PRESENT ILLNESS: Diana Lewis is a very pleasant 44-year-old woman, well known to my GI colleague, Dr. Juan Luis Morgan. She has a history of severe Crohn disease with prior history of right lower quadrant abscess and eventual end ileostomy performed in the summer of 2017. The patient has functional short-bowel and chronic dehydration, so she does receive IV fluids and electrolytes a couple of times a week. Dr. Morgan has maintained her on Stelara injections given every eight weeks for about the past year and a half. The patient had been clinically stable, had a couple of ileostomy revisions last year with Dr. Londono, which were uncomplicated, but otherwise doing quite well until recently. She says that just over the past six days, she started developing recurrent pain in the right lower quadrant. This started involving her back. It felt very similar to her right psoas abscess that she had had in the past. She did not have any fever. No nausea or vomiting. Her ileostomy output appeared the same with no bleeding and no weight loss. However, the pain progressed and she presented yesterday. Upon presentation, she had a CT of the abdomen and pelvis and this does show recurrent right lower quadrant fluid collection extending from the ileocolonic anastomosis and involving the right psoas muscle. It measures 3.8 x 4.4 x 7.8 cm and is suspicious for abscess. The patient was started on IV cefepime due to documented penicillin allergy. She has remained hemodynamically stable and afebrile since presentation. Surgical consultation is pending. REVIEW OF SYSTEMS: Full review of systems including constitutional, head, eyes, ears, nose, throat, GI, , cardiovascular, respiratory, musculoskeletal, and neurologic systems are negative except as noted in the HPI. ALLERGIES: PENICILLIN, PHENERGAN, REGLAN, TESSALON, ZOFRAN, AND ZOSYN. OUTPATIENT MEDICATIONS: 1. Lomotil. 2. Dulera. 3. Stelara injections every eight weeks. SOCIAL HISTORY: No alcohol or drug use. One pack a day of smoking for the past 10 years. FAMILY HISTORY: Noncontributory. PAST MEDICAL HISTORY: Crohn disease, ileostomy, right hemicolectomy in 1997, multiple surgeries for small bowel obstructions, chronic hypokalemia, vitamin B12 deficiency, vitamin D deficiency, short-bowel syndrome with malabsorption, Sjogren syndrome, iron deficiency anemia, TIA, pneumonia, hypertension, migraine, asthma, GERD, left shoulder impingement syndrome, thyroid nodule, appendectomy, in 1994, exploratory laparotomy with extensive lysis of adhesions and diverting ileostomy for nonhealing stricture of the terminal ileum and psoas phlegmon in summer 2017. PHYSICAL EXAMINATION: VITAL SIGNS: Temperature 98.2, pulse 68, blood pressure 98/60, and 96% oxygen saturation on room air. GENERAL: A 44-year-old woman, sitting up in bed comfortably, in no distress. SKIN: No jaundice. No rashes were palpable. She has multiple tattoos. HEENT: Eyes, no scleral icterus. Extraocular movements intact. ENT, mucous membranes moist. No oral lesions. LYMPH: No submandibular or supraclavicular lymphadenopathy. THYROID: Nontender to palpation. HEART: Regular rate and rhythm. LUNGS: Clear to auscultation bilaterally. ABDOMEN: Bowel sounds are present. The abdomen is soft. She is tender to palpation in the right lower quadrant. No guarding or rebound tenderness. Right lower quadrant ileostomy site looks good with normal-appearing effluent in the bag. EXTREMITIES: No peripheral edema. VESSELS: Radial pulses 2+ bilaterally. NEURO: Cranial nerves 2 through 12 intact bilaterally. No focal deficits. LABORATORY STUDIES: Hemoglobin 9.6, WBC 8.0, and platelets 250. Sodium 138, potassium 4.0, BUN 10, and creatinine 1.30. Urinalysis negative. Total bilirubin 0.4, alkaline phosphatase 369, AST 41, ALT 44, and albumin 3.6. ASSESSMENT AND PLAN: 1. Right lower quadrant phlegmon/abscess involving the right psoas muscle, recurrent. Per the CT, this appears to be arising from the area of her ileocolonic anastomosis. 2. Crohn disease, on maintenance with Stelara injections every eight weeks. 3. Short-bowel syndrome. The patient was appropriately started on antibiotics. She is afebrile with no leukocytosis and is hemodynamically stable. Awaiting surgical consultation. At this point, unclear to me whether the patient is going to need surgical revision versus percutaneous drain. I would hold off on any steroids at this time and continue with the antibiotics. We will confer with Dr. Londono and Dr. Morgan, who should be returning tomorrow. Thank you for the consultation. Please call anytime with questions or concerns. Job ID: [id number]
[2019-11-30] MEDS: metroNIDAZOLE 500 MG in Premix Bag 1 BAG IVPB SCH ×2 (14:17→20:57)
[2019-11-30] MEDS: Morphine 2 MG/ML SYRINGE SLOW IVP PRN (16:21)
--- NOTE | 2019-11-30 16:23 | PDOC.HOSPP ---
- Subjective Encounter Date: 11/30/19 Encounter Time: 16:21 Subjective: Ms. Lewis was seen today in follow-up of recurrent psoas Abscess. She notes continued pain, not any worse , or better than last night. - Objective Vital Signs & Weight: Vital Signs (12 hours) Temp Pulse Resp BP Pulse Ox 11/30/19 11:52 98.0 F 69 18 94/59 L 98 11/30/19 08:59 98/60 11/30/19 08:23 98.2 F 68 18 83/46 L 96 11/30/19 07:55 98 Weight Admit Weight 120 lb 12.8 oz Weight 120 lb 12.8 oz I&O: 11/29/19 11/30/19 12/01/19 06:59 06:59 06:59 Intake Total 1620 Output Total 750 Balance 870 Result Diagrams: 11/30/19 05:09 11/30/19 05:09 Hospitalist ROS - Medication Medications: Active Medications Generic Name Dose Route Start Last Admin Trade Name Freq PRN Reason Stop Dose Admin Hydrocodone Bitart/Acetaminophen 2 tab 11/29/19 17:32 11/30/19 10:16 Gustine 5/325 PO 2 tab Q4H PRN Administration Moderate to Severe Pain (6-10) Diphenhydramine HCl 25 mg 11/30/19 11:24 11/30/19 11:44 Benadryl PO 25 mg Q8H PRN Administration Itching Famotidine 20 mg 11/29/19 21:00 11/30/19 08:55 Pepcid SLOW IVP 20 mg Q12HR CORY Administration Sodium Chloride 1,000 mls @ 75 mls/hr 11/29/19 17:45 11/30/19 06:02 Normal Saline 0.9% IV 1,000 mls .[id number] CORY Administration Metronidazole 500 mg/ Device 100 mls @ 100 mls/hr 11/30/19 14:00 11/30/19 14: 17 IVPB 100 mls Q8HR CORY Administration - Exam Eye: PERRL Heart: RRR, no murmur, no gallops, no rubs, normal peripheral pulses Respiratory: CTAB, no wheezes, no rales, no ronchi, normal chest expansion, no tachypnea, normal percussion Gastrointestinal: soft, non-tender, non-distended, normal bowel sounds, no palpable masses, no hepatomegaly Extremities: no cyanosis Hosp A/P (1) Psoas abscess Code(s): K68.12 - PSOAS MUSCLE ABSCESS Status: Acute (2) High output ileostomy Code(s): R19.8 - OTH SYMPTOMS AND SIGNS INVOLVING THE DGSTV SYS AND ABDOMEN; Z93.2 - ILEOSTOMY STATUS Status: Acute (3) HTN (hypertension) Code(s): I10 - ESSENTIAL (PRIMARY) HYPERTENSION Status: Chronic Qualifiers: Hypertension type: essential hypertension - Plan * Recurrent right psoas muscle abscess * Continue IV antibiotics. GI input appreciated, and awaiting Surgery evaluation * Crohn's Disease- will avoid steroids * Continue supportive care and symptom management * Patient says her blood pressure normally runs a bit low- can therefore give Morphine when her SBP is in the 90's. ( no lower)
--- NOTE | 2019-11-30 17:42 | PRG ---
DATE OF SERVICE: 11/30/2019 SUBJECTIVE: Ms. Lewis's CT is reviewed and discussed with Dr. Martinez. She notes persistent mild right-sided back pain, but she is on oral pain control and seems to be doing well. She is tolerating the clear liquid diet without difficulty. PHYSICAL EXAMINATION: VITAL SIGNS: Blood pressure is 94/59, pulse 69, respirations 18. ABDOMEN: Soft, nontender, nondistended. She has some point tenderness in the right lateral flank, but no obvious skin changes. LABORATORY DATA: Her white blood cell count today is 8, hemoglobin 9.6. Differential is normal. Creatinine is 1.3, which is better than her usual. Her potassium today is 4. CT scan shows psoas abscess. ASSESSMENT: Psoas abscess, Crohn's exacerbation. PLAN: No further surgery is going to be done. I did discuss with Dr. Martinez to perform plus or minus drain placement tomorrow. Continue antibiotics likely can be converted outpatient over the next few days. We will put her back on her Lomotil for high-output ileostomy. Job ID: [id number]
[2019-11-30] MEDS: Diphenoxylate HCl/Atropine Tablet PO SCH (20:57)
[2019-12-01] MEDS: Morphine 2 MG/ML SYRINGE SLOW IVP PRN ×3 (02:18→21:29)
[2019-12-01] MEDS: Cefepime 2 GM in Sodium Chloride 0.9% 100 ML IVPB SCH (03:55)
[2019-12-01] MEDS: metroNIDAZOLE 500 MG in Premix Bag 1 BAG IVPB SCH ×3 (06:08→21:29)
[2019-12-01] MEDS: HYDROcodone/Acetaminophen 5/325 mg Tablet PO PRN ×3 (06:11→18:34)
[2019-12-01 07:49] LABS: INR-International Normal Ratio 1.1; PTT 42.2 SEC (22.9-36.1); Prothrombin Time 14.2 SEC (12.0-14.7)
[2019-12-01] MEDS: Famotidine/PF 20 mg/2ml Vial SLOW IVP SCH ×2 (08:03→20:03)
[2019-12-01] MEDS: Diphenoxylate HCl/Atropine Tablet PO SCH ×3 (08:03→20:03)
[2019-12-01] MEDS: Prochlorperazine Edisylate 10 MG in Sodium Chloride 0.9% 50 ML IVPB PRN (10:56)
[2019-12-01] MEDS: Sodium Chloride 0.9% 1,000 ML IV SCH ×2 (11:00→17:03)
[2019-12-01] MEDS ORDERED: Sodium Bicarbonate 2.5 MEQ/5 ML VIAL ONE (12:59)
[2019-12-01] MEDS ORDERED: Fentanyl 100 MCG/2 ML VIAL ONE (13:18)
[2019-12-01] MEDS ORDERED: Midazolam HCl 2 mg/2 ml Vial ONE (13:18)
--- NOTE | 2019-12-01 15:47 | PDOC.HOSPP ---
- Subjective Encounter Date: 12/01/19 Encounter Time: 15:42 Subjective: Ms. Lewis was seen today in follow-up of psoas abscess. She notes a little soreness, but this has improved. She is post per- cutaneous drainage. - Objective Vital Signs & Weight: Vital Signs (12 hours) Temp Pulse Resp BP Pulse Ox 12/01/19 15:12 98.6 F 82 18 121/77 100 12/01/19 08:00 97 12/01/19 07:27 98.3 F 76 18 103/65 97 Weight Admit Weight 120 lb 12.8 oz Weight 120 lb 12.8 oz I&O: 11/30/19 12/01/19 12/02/19 06:59 06:59 06:59 Intake Total 1620 3320 Output Total 750 1050 Balance 870 2270 Result Diagrams: 11/30/19 05:09 11/30/19 05:09 Hospitalist ROS - Medication Medications: Active Medications Generic Name Dose Route Start Last Admin Trade Name Freq PRN Reason Stop Dose Admin Hydrocodone Bitart/Acetaminophen 2 tab 11/29/19 17:32 12/01/19 15:15 Cross 5/325 PO 2 tab Q4H PRN Administration Moderate to Severe Pain (6-10) Diphenhydramine HCl 25 mg 11/30/19 11:24 11/30/19 11:44 Benadryl PO 25 mg Q8H PRN Administration Itching Diphenoxylate HCl/Atropine 3 tab 11/30/19 21:00 12/01/19 15:14 Lomotil PO 3 tab TID CORY Administration Famotidine 20 mg 11/29/19 21:00 12/01/19 08:03 Pepcid SLOW IVP 20 mg Q12HR CORY Administration Sodium Chloride 1,000 mls @ 75 mls/hr 11/29/19 17:45 12/01/19 11:00 Normal Saline 0.9% IV Not Given .[id number] CORY Cefepime HCl 2 gm/ Sodium 100 mls @ 200 mls/hr 12/01/19 05:00 12/01/19 03:55 Chloride IVPB 100 mls 0500 CORY Administration Metronidazole 500 mg/ Device 100 mls @ 100 mls/hr 11/30/19 14:00 12/01/19 15: 15 IVPB 100 mls Q8HR CORY Administration Prochlorperazine Edisylate 10 52 mls @ 150 mls/hr 12/01/19 09:21 12/01/19 10: 56 mg/ Sodium Chloride IVPB 52 mls Q4H PRN Administration Nausea/Vomiting Morphine Sulfate 2 mg 11/29/19 17:32 12/01/19 02:18 Morphine SLOW IVP 2 mg Q4H PRN Administration Severe Pain (7-10) - Exam Eye: PERRL Heart: RRR, no murmur, no gallops, no rubs, normal peripheral pulses Respiratory: CTAB, no wheezes, no rales, no ronchi, normal chest expansion Gastrointestinal: soft, non-tender, non-distended, normal bowel sounds, no palpable masses, no hepatomegaly, no splenomegaly Extremities: no cyanosis, no clubbing, no edema Hosp A/P (1) Psoas abscess Code(s): K68.12 - PSOAS MUSCLE ABSCESS Status: Acute (2) High output ileostomy Code(s): R19.8 - OTH SYMPTOMS AND SIGNS INVOLVING THE DGSTV SYS AND ABDOMEN; Z93.2 - ILEOSTOMY STATUS Status: Acute (3) HTN (hypertension) Code(s): I10 - ESSENTIAL (PRIMARY) HYPERTENSION Status: Chronic Qualifiers: Hypertension type: essential hypertension - Plan * Recurrent right psoas muscle abscess- she is post per-cutaneous drainage * Discussed with GI and General Surgeon, no plans for open drainage * Will cosult ID as recommended * Crohn's Disease- will avoid steroids * Possible home soon.
--- NOTE | 2019-12-01 16:28 | CT ---
EXAM: CT Retroperitoneal Abscess Khalif PROVIDED CLINICAL HISTORY: Right psoas abscess COMPARISON: CT abdomen and pelvis on 11/29/2019 TECHNIQUE: The procedure including risks and complications were explained to the patient, and informed consent w as obtained. Conscious sedation was performed during the examination with the intravenous administration of 25 mcg of fentanyl and 0.5 mg of Versed. Patient was monitored for approximately 30 minutes without complication. Limited noncontrasted CT scan was obtained through the lower abdomen and pelvis with grid localizer i n place overlying the region of the right psoas muscle. An area was marked and then meticulously prepped and draped in usual sterile fashion. The skin and subcutaneous tissues were infiltrated with buffered 1% lidocaine for local anesthesia. A 22-gauge Chiba needle was advanced into the collection, and positioning was confirmed with [address] images. Only a tiny amount of purulent fluid was able to be aspirated. The needle was exchanged over a 0.018 inch guidewire for a 6 [place] AccuStick sheath with stiff inner cannula and dilator. The metal cannula and dilator were removed. Axial noncontrast CT images were performed demonstrating tip of the catheter within the region of the abscess collection. Small amount of purulent material was again aspirated. As a result, the 0.018 inch guidewire was michel ellen, and a 0.035 inch Amplatz guidewire was placed. A 6 [place] cope loop all-purpose drainage catheter was placed over the guidewire. Approximately 10 mL of purulent blood-tinged fluid was aspira natalya. The catheter was flushed and placed to gravity drainage. The catheter was sutured in place utilizing 2-0 Ethilon suture material. A dry sterile dressing was placed. The patient tolerated the procedure well and without immediate complication. IMPRESSION: 1. Right psoas abscess collection with adjacent inflammatory changes. 2. Technically successful CT-guided percutaneous right psoas abscess drainage with 6 [place] cope loop all-purpose drainage catheter placed in the collection. Purulent material was aspirated and sent for culture and Gram stain.
--- NOTE | 2019-12-01 17:50 | PRG ---
DATE OF SERVICE: SUBJECTIVE: The patient is off the floor. Presently, 12/01/2019, not available in the room. Told she went for a drainage of a right psoas abscess collection. The nurses states she has been doing well, however, she is not available for history and physical. OBJECTIVE: VITAL SIGNS: Temperature 98, pulse 76, blood pressure 121/77. LABORATORY STUDIES: White count 8.0 on the 13th, hemoglobin 9.6, platelet count 250. Sodium 138, potassium 4, BUN and creatinine 10 and 1.3, magnesium 1.6. AST 41, ALT 44, alkaline phosphatase 369. Microbiology pending. Imaging on admission, free fluid in the abdomen, 3.8 x 4.4 x 7.8 cm abscess collection extending from ileocolonic anastomosis in the right lower quadrant following the right psoas muscle. ASSESSMENT: 1. Crohn disease, multiple surgeries in the past, complicated by ileus psoas abscess last year now with a right lower quadrant ileostomy, which has given her problems with fluid management, although there are no signs of nutritional deficits. 2. Problems with compliance with proper diet and liquid intake to prevent dehydration. She has decided to get IV fluids infused twice weekly. 3. Now on Stelara for her inflammatory bowel disease. Unfortunately, she continues to smoke which makes her high risk for surgical complications and she is aware of the statistics showing smoking puts her at 20 times higher increased incidence of surgery in the setting of Crohn disease. 4. Recurrent abscess. RECOMMENDATION: 1. Agree with drainage. 2. I would recommend she go on long-term TPN and n.p.o. to help see if this fistula tract will heal. Would also involve Dr. Quinn as with a psoas abscess she has increased risk of translocation, develop diskitis or other infections and may need long-term antibiotics as she did last time. We will follow up with her tomorrow. Job ID: [id number]
[2019-12-01] MEDS: Prochlorperazine Maleate 5 MG TAB PO PRN (18:05)
[2019-12-02] MEDS: HYDROcodone/Acetaminophen 5/325 mg Tablet PO PRN ×4 (00:13→16:04)
[2019-12-02] MEDS: Sodium Chloride 0.9% 1,000 ML IV SCH ×3 (00:48→13:20)
[2019-12-02] MEDS: Prochlorperazine Edisylate 10 MG in Sodium Chloride 0.9% 50 ML IVPB PRN ×3 (00:48→18:22)
[2019-12-02] MEDS: Cefepime 2 GM in Sodium Chloride 0.9% 100 ML IVPB SCH (04:08)
[2019-12-02] MEDS: Morphine 2 MG/ML SYRINGE SLOW IVP PRN ×4 (04:09→22:03)
[2019-12-02] MEDS: metroNIDAZOLE 500 MG in Premix Bag 1 BAG IVPB SCH ×3 (05:46→22:05)
[2019-12-02] MEDS: Diphenoxylate HCl/Atropine Tablet PO SCH ×3 (08:02→22:04)
[2019-12-02] MEDS: Famotidine/PF 20 mg/2ml Vial SLOW IVP SCH ×2 (08:03→22:04)
--- NOTE | 2019-12-02 16:04 | CON ---
DATE OF CONSULTATION: 12/02/2019 REASON FOR CONSULTATION: Relapse of psoas abscess and leakage at the ileocolonic anastomosis. HISTORY OF PRESENT ILLNESS: A 44-year-old known to us from previous visit, has a history of Crohn disease with multiple prior interventions with various complications in the small bowel, has had various immunosuppressive medications and is pretty much at the last option according to Dr. Morgan, an anti-interleukin- 23 product, Stelara. She also has had problems with the stenosis of the ileostomy which was placed for management of a leakage at the ileocolonic anastomosis. She has had iliopsoas abscess, managed in 03/2018. She was treated with Invanz for protracted periods of time with improvement. In 04/2019, the patient had a CT of abdomen and pelvis, which showed postoperative changes in the left medial abdomen ileostomy, but no complications associated with it. The previous CT from 2016, no fluid collection noted. Dilation of loops of small bowel. The next scan on 04/03/2018 showed the perforation of terminal ileum with extension of enteric contrast towards the right psoas muscle. Now, she developed recrudescence of pain and was brought in for admission, had a percutaneous drainage by Radiology, and is feeling better at this time. Form of a chocolate bloody exudate was retrieved after the percutaneous procedure. The imaging study at this time showed a 3.8 x 4.4 x 7.8 cm abscess collection, extending from the ileocolonic anastomosis to the right lower quadrant, involving the right psoas muscle, very similar to the 04/15/2018 findings. No headaches, visual symptoms, sore throat, odynophagia, or dysphagia. No cough, sputum production, or chest pain. No back pain. No genitourinary symptoms. No joint symptoms. MEDICAL HISTORY: 1. Crohn disease with multiple interventions, ileocolonic anastomosis leakage with psoas muscle abscess, recurrent, percutaneous drainage, surgical drainage with ileostomy without development and stenosis of the ileostomy, which required revision. 2. Sjogren syndrome. 3. Vitamin D deficiency. 4. Episodes of pneumonia. 5. Hypertension. 6. Migraine. 7. Asthma. 8. GERD. 9. Left shoulder impingement. 10. Thyroid nodule. SURGICAL HISTORY: 1. Right hemicolectomy with an ileocolonic anastomosis. 2. Cardiac cath obstruction. 3. Hysterectomy. 4. Appendectomy. 5. Percutaneous drainage of abscesses. 6. Ileostomy. 7. Lysis of adhesions. SOCIAL HISTORY: Lives in the area. Still smoking a pack a day for the past 10 years. ALLERGIES: PENICILLIN WITH RASH, PHENERGAN, REGLAN, TESSALON, ZOFRAN, AND ZOSYN. MEDICATIONS: 1. Dulera. 2. PRN meds 3. Currently on cefepime and Flagyl. PHYSICAL EXAMINATION: VITAL SIGNS: Temperature max 98.4, blood pressure 113/72, pulse 77, respirations 18 to 20, and O2 saturation 98. SKIN: Right subclavian port, which is accessed at this time, voiding in the toilet. No lymphadenopathy. GENERAL: Chronically ill appearing, in no distress. Alert, oriented, and pleasant. HEENT: Somewhat pale conjunctivae. Sclerae are normal. Pupils are equal, 2 mm and reactive. Oral cavity unremarkable. NECK: Supple. No jugular vein distention. LUNGS: Symmetric. Clear breath sounds. HEART: S1 and S2, regular rate. No S3 or S4. No murmurs. ABDOMEN: Soft. Mild tenderness in the right flank area. She has a percutaneous drain in the right flank area. No bladder distention. EXTREMITIES: No joint inflammatory activity. Moves extremities equally. NEUROLOGIC: Cognitive function appears to be intact. LABORATORY DATA: Sodium 138 and creatinine 1.3, her baseline is about the same in the past. AST 41, ALT 44, and alkaline phosphatase 369, and albumin 3.6. Urinalysis was normal. White cell count 10.8 and 8.0, hemoglobin 10.6, and platelets 667 with 60% neutrophils. Microbiology with negative aspirate thus far, Gram stain with many wbc's seen. No organisms seen thus far. ASSESSMENT AND PLAN: Longstanding Crohn disease. Multiple interventions with somewhat refractory ileocolonic leakage, probably in part due to the stricture at the ileostomy, which has been revised by Dr. Londono recently. The patient is on immunosuppressive medication, but still smoking, and at this moment, we will continue with ertapenem in the outpatient setting as well as consider discharge planning. Monitor labs. Maintain percutaneous drainage in place until there is further reduction proven by repeat imaging study in the next few weeks before removal of the drain. May need to adjust regimen depending on the results of cultures in the next few days. Resolution of the process will depend on source control, i.e.: closure of the fistulous opening. As discussed by dr. Mrogan, long-term TPN administration might be required, since surgical intervention does not seem to be an option. Job ID: [id number] [facility]
--- NOTE | 2019-12-02 16:56 | PDOC.HOSPP ---
- Subjective Encounter Date: 12/02/19 Encounter Time: 16:54 Subjective: Ms. Lewis was seen today in follow-up of Psoas abscess. She does not have any new complaints. She denies abdominal pain. She is anxious to go home. - Objective Vital Signs & Weight: Vital Signs (12 hours) Temp Pulse Resp BP Pulse Ox 12/02/19 08:00 98 12/02/19 07:27 98.2 F 77 20 113/72 98 Weight Admit Weight 120 lb 12.8 oz Weight 120 lb 12.8 oz I&O: 12/01/19 12/02/19 12/03/19 06:59 06:59 06:59 Intake Total 3320 2610 Output Total 1050 250 Balance 2270 2360 Result Diagrams: 11/30/19 05:09 11/30/19 05:09 Hospitalist ROS - Medication Medications: Active Medications Generic Name Dose Route Start Last Admin Trade Name Freq PRN Reason Stop Dose Admin Hydrocodone Bitart/Acetaminophen 2 tab 11/29/19 17:32 12/02/19 16:04 [place] 5/325 PO 2 tab Q4H PRN Administration Moderate to Severe Pain (6-10) Diphenhydramine HCl 25 mg 11/30/19 11:24 11/30/19 11:44 Benadryl PO 25 mg Q8H PRN Administration Itching Diphenoxylate HCl/Atropine 3 tab 11/30/19 21:00 12/02/19 14:41 Lomotil PO 3 tab TID CORY Administration Famotidine 20 mg 11/29/19 21:00 12/02/19 08:03 Pepcid SLOW IVP 20 mg Q12HR CORY Administration Sodium Chloride 1,000 mls @ 75 mls/hr 11/29/19 17:45 12/02/19 13:20 Normal Saline 0.9% IV Not Given .[id number] CORY Cefepime HCl 2 gm/ Sodium 100 mls @ 200 mls/hr 12/01/19 05:00 12/02/19 04:08 Chloride IVPB 100 mls 0500 CORY Administration Metronidazole 500 mg/ Device 100 mls @ 100 mls/hr 11/30/19 14:00 12/02/19 13: 16 IVPB 100 mls Q8HR CORY Administration Prochlorperazine Edisylate 10 52 mls @ 150 mls/hr 12/01/19 09:21 12/02/19 06: 13 mg/ Sodium Chloride IVPB 52 mls Q4H PRN Administration Nausea/Vomiting Morphine Sulfate 2 mg 11/29/19 17:32 12/02/19 13:15 Morphine SLOW IVP 2 mg Q4H PRN Administration Severe Pain (7-10) Prochlorperazine Maleate 5 mg 12/01/19 09:21 12/01/19 18:05 Compazine PO 5 mg Q6H PRN Administration Nausea/Vomiting - Exam Eye: PERRL Heart: RRR, no murmur, no gallops, no rubs, normal peripheral pulses Respiratory: CTAB, no wheezes, no rales, no ronchi, normal chest expansion Gastrointestinal: soft, non-tender, non-distended, normal bowel sounds, no palpable masses, no hepatomegaly, no splenomegaly Extremities: no cyanosis, no clubbing, no edema Hosp A/P (1) Psoas abscess Code(s): K68.12 - PSOAS MUSCLE ABSCESS Status: Acute (2) High output ileostomy Code(s): R19.8 - OTH SYMPTOMS AND SIGNS INVOLVING THE DGSTV SYS AND ABDOMEN; Z93.2 - ILEOSTOMY STATUS Status: Acute (3) HTN (hypertension) Code(s): I10 - ESSENTIAL (PRIMARY) HYPERTENSION Status: Chronic Qualifiers: Hypertension type: essential hypertension - Plan * Recurrent right psoas muscle abscess- she is post per-cutaneous drainage * Continue IV Meropenem, and plan to transition to Invanz as Out patient * Crohn's Disease- will avoid steroids * HTN- blood pressure is stable * Possible home soon.
[2019-12-03] MEDS: HYDROcodone/Acetaminophen 5/325 mg Tablet PO PRN ×3 (00:31→12:09)
[2019-12-03] MEDS: Sodium Chloride 0.9% 1,000 ML IV SCH ×2 (00:32→14:43)
[2019-12-03] MEDS: Cefepime 2 GM in Sodium Chloride 0.9% 100 ML IVPB SCH (05:23)
[2019-12-03] MEDS: Prochlorperazine Edisylate 10 MG in Sodium Chloride 0.9% 50 ML IVPB PRN (05:23)
[2019-12-03] MEDS: metroNIDAZOLE 500 MG in Premix Bag 1 BAG IVPB SCH ×2 (05:23→14:38)
--- NOTE | 2019-12-03 08:09 | PRG ---
DATE OF SERVICE: 12/02/2019 SUBJECTIVE: Ms. Lewis has returned with a recurrent psoas abscess. She had this in 2018. She states she has taken Stelara and she reported just recurrence at the end of the day prior to admission. abscess was 7.8 x 4.4 x 3.8 cm right psoas muscle, it is examined today, it seemed to be better. MEDICATIONS: Cefepime, antibiotics. PHYSICAL EXAMINATION: VITAL SIGNS: Temperature 98.2, pulse 78, blood pressure 121/77, afebrile since admission. ABDOMEN: Soft and nontender. LUNGS: Clear. HEART: Regular rhythm. LABORATORY DATA: White count is 8, hemoglobin 9.6, platelet count 250, INR 1.1. Sodium 138, potassium 4.0. BUN and creatinine 10 and 1.3. Liver function tests normal. AST 41, ALT 41, alkaline phosphatase 369 on admission. ASSESSMENT: Recurrent psoas abscess related to her Crohn's and continued smoking. Recommend the patient once again to stop smoking. She has been expected to have poorly-controlled Crohn disease. She is on the that is available to her. She has been . She had multiple surgeries and not a candidate for further surgery secondary to a fixed abdomen, which removed previous ileostomy revision secondary to retraction requiring continued once or twice weekly. Interestingly, she has no nutritional deficiencies. She does not follow prescribed fluid intake and she described that is the reason for her recurrent issue with hypokalemia. PLAN: 1. Await ID recommendations. She can go home on antibiotics. 2. Smoking cessation. Again, discussed with the patient. She is going to try getting back on Wellbutrin. Job ID: [id number]
[2019-12-03] MEDS: Diphenoxylate HCl/Atropine Tablet PO SCH ×2 (08:20→14:38)
[2019-12-03] MEDS: Famotidine/PF 20 mg/2ml Vial SLOW IVP SCH (08:20)
[2019-12-03] MEDS: Prochlorperazine Maleate 5 MG TAB PO PRN (10:57)
--- NOTE | 2019-12-03 11:23 | PDOC.HOSPP ---
- Subjective Encounter Date: 12/03/19 Encounter Time: 11:21 Subjective: Ms. Lewis was seen today in follow-up of Psoas Muscle Abscess. She does not have any new complaints. - Objective Vital Signs & Weight: Vital Signs (12 hours) Temp Pulse Resp BP Pulse Ox 12/03/19 08:20 98 12/03/19 07:25 98.4 F 82 18 111/70 98 Weight Admit Weight 120 lb 12.8 oz Weight 120 lb 12.8 oz I&O: 12/02/19 12/03/19 12/04/19 06:59 06:59 06:59 Intake Total 2610 1525 Output Total 250 720 50 Balance 2360 805 -50 Result Diagrams: 11/30/19 05:09 11/30/19 05:09 Hospitalist ROS - Medication Medications: Active Medications Generic Name Dose Route Start Last Admin Trade Name Freq PRN Reason Stop Dose Admin Hydrocodone Bitart/Acetaminophen 2 tab 11/29/19 17:32 12/03/19 05:24 [place] 5/325 PO 2 tab Q4H PRN Administration Moderate to Severe Pain (6-10) Diphenhydramine HCl 25 mg 11/30/19 11:24 11/30/19 11:44 Benadryl PO 25 mg Q8H PRN Administration Itching Diphenoxylate HCl/Atropine 3 tab 11/30/19 21:00 12/03/19 08:20 Lomotil PO 3 tab TID CORY Administration Famotidine 20 mg 11/29/19 21:00 12/03/19 08:20 Pepcid SLOW IVP 20 mg Q12HR CORY Administration Sodium Chloride 1,000 mls @ 75 mls/hr 11/29/19 17:45 12/03/19 00:32 Normal Saline 0.9% IV 1,000 mls .[id number] CORY Administration Cefepime HCl 2 gm/ Sodium 100 mls @ 200 mls/hr 12/01/19 05:00 12/03/19 05:23 Chloride IVPB 100 mls 0500 CORY Administration Metronidazole 500 mg/ Device 100 mls @ 100 mls/hr 11/30/19 14:00 12/03/19 05: 23 IVPB 100 mls Q8HR CORY Administration Prochlorperazine Edisylate 10 52 mls @ 150 mls/hr 12/01/19 09:21 12/03/19 05: 23 mg/ Sodium Chloride IVPB 52 mls Q4H PRN Administration Nausea/Vomiting Morphine Sulfate 2 mg 11/29/19 17:32 12/02/19 22:03 Morphine SLOW IVP 2 mg Q4H PRN Administration Severe Pain (7-10) Prochlorperazine Maleate 5 mg 12/01/19 09:21 12/03/19 10:57 Compazine PO 5 mg Q6H PRN Administration Nausea/Vomiting Sodium Chloride 10 ml 11/29/19 17:39 12/03/19 08:20 Flush - Normal Saline IVF 10 ml Q12HR PRN Administration Saline Flush - Exam Eye: PERRL Heart: RRR, no murmur, no gallops, no rubs, normal peripheral pulses Respiratory: CTAB, no wheezes, no rales, no ronchi, normal chest expansion, no tachypnea, normal percussion Gastrointestinal: soft, non-tender, non-distended, normal bowel sounds, no palpable masses, no hepatomegaly Extremities: no cyanosis, no clubbing, no edema Hosp A/P (1) Psoas abscess Code(s): K68.12 - PSOAS MUSCLE ABSCESS Status: Acute (2) High output ileostomy Code(s): R19.8 - OTH SYMPTOMS AND SIGNS INVOLVING THE DGSTV SYS AND ABDOMEN; Z93.2 - ILEOSTOMY STATUS Status: Acute (3) HTN (hypertension) Code(s): I10 - ESSENTIAL (PRIMARY) HYPERTENSION Status: Chronic Qualifiers: Hypertension type: essential hypertension - Plan * Recurrent right psoas muscle abscess- she is post per-cutaneous drainage * Awaiting arrangements of Outpatient IV antibiotics * Home later today once arranged
--- NOTE | 2019-12-03 13:06 | PRG ---
DATE OF SERVICE: 12/03/2019 SUBJECTIVE: Ms. Lewis is doing well. Dr. Quinn saw her and arranged IV antibiotics in the Infusion Center. ASSESSMENT: Psoas abscess, status post drainage. PLAN: I am going to send over hydrocodone to her pharmacy nurse to instruct on flushes. My office will arrange for followup CT in 2 weeks. I will take the drain out in the office if it looks better. Job ID: [id number]
--- NOTE | 2019-12-03 17:39 | DIS ---
DATE OF ADMISSION: 11/29/2019 DATE OF DISCHARGE: 12/03/2019 DISCHARGE DISPOSITION: Home. DISCHARGE DIAGNOSES: 1. Right psoas muscle abscess. 2. Crohn's disease. 3. Ileostomy. 4. Vitamin B12 deficiency. 5. Vitamin D deficiency. 6. 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 7. Sjogren's syndrome. 8. Iron deficiency anemia. 9. Transient ischemic attack. 10. Hypertension. 11. Asthma. 12. Migraine. DISCHARGE MEDICATIONS: The patient is being sent home on Invanz that she will get in the outpatient infusion center 1 g IV q.24 for 2 weeks as well as Stelara 90 mg as directed and atropine as directed. IMAGING DONE DURING HOSPITAL STAY: The patient had a CT scan of the abdomen and pelvis showing findings consistent with a recurrent right lower quadrant ileocolonic anastomotic leak with a peripherally-enhancing fluid collection seen on the right psoas muscle, suspicious for abscess. CODE STATUS: Full code. ALLERGIES: TO METOCLOPRAMIDE, PENICILLIN, PROMETHAZINE, BENZONATATE, ZOSYN, IRON FUMARATE, AND METOCLOPRAMIDE. HOSPITAL COURSE: Ms. Lewis is a pleasant 44-year-old female, who presented to the emergency room complaining of right lower quadrant pain. She says the pain was similar to what she had experienced before when she had a psoas muscle abscess. She was evaluated in the ER. CT scan was obtained, which did demonstrate once again a right psoas muscle abscess as a consequence of her Crohn's disease. She was admitted and started on IV antibiotics. General Surgery was consulted and the decision was made to do an interventional percutaneous drainage of the abscess and this was done on 12/01/2019. The patient tolerated the procedure well and will be discharged home on prolonged IV antibiotics. This has been done under the guidance of Dr. Quinn. The patient will be receiving 2 weeks of IV Invanz and the patient will then be reassessed after the end of the antibiotic course as to the complete resolution of the abscess. Job ID: [id number]
[2019-12-03 18:19] VITALS: BP 117/78; TEMP 98
--- NOTE | 2019-12-05 04:59 | PQF ---
ABBIE QUIÑONEZ TONI MD [id number] CLINICAL DOCUMENTATION CLARIFICATION FORM: POST DISCHARGE Addendum to original discharge summary date: ____ Late entry note date: __ Date: 12/05/2019 ATTN: BJ ROCHA MD Please exercise your independent, professional judgment in responding to the clarification form. Clinical indicators are provided on the bottom of this form for your review Please check appropriate box(s): [ ] Protein Calorie Malnutrition: [ ] Mild [ ] Moderate [ ] Severe [ ] Other Malnutrition (please specify) __ [ ] Underweight without malnutrition [ ] Cachexia [ ] Other diagnosis [ ] Unable to determine In addition, please specify: Present on Admission (POA): [ ] Yes [ ] No [ ] Unable to determine CLINICAL INDICATORS - SIGNS / SYMPTOMS / LABS - BMI: 21.4- FNS assessment, 11/29 - Malabsorption syndrome to short bowel- DS, 12/03, BJ ROCHA MD - Vitamin B12 deficiency- DS, 12/03, BJ ROCHA MD - Vitamin D deficiency- DS, 12/03, BJ ROCHA MD - poor appetite, nausea- FNS assessment, 11/30 RISK FACTORS -Right psoas muscle abscess- DS, 12/03, BJ ROCHA MD -Crohn' s disease- DS, 12/03, BJ ROCHA MD TREATMENT: -Recommend Ensure Enlive PRN for meal trays less than 75%- FNS assessment, 11/30 -Daily MVI, calcium citrate and vitamin B12- FNS assessment, 11/30 Moderate Malnutrition (in acute illness) Energy Intake: <75% of estimated energy requirement for > 7 days Weight Loss: 1-2%/1 week; 5%/ 1 month; 7.5%/3 months Other: mild body fat loss; mild muscle mass loss; mild fluid accumulation; Severe Malnutrition (in acute illness) Energy Intake: < 50% of estimated energy requirement for > 5 days Weight Loss: >1-2%/1 week; >5%/1 month; >7.5%/3 months Other: moderate body fat loss; moderate muscle mass loss; moderate- severe fluid accumulation; measurably reduced family physician strength Moderate Malnutrition (in chronic illness) Energy Intake: <75% of estimated energy requirement for >1 month Weight Loss: 5%/1 month; 7.5%/3 months; 10%/6 months; 20%/1 year Other: mild body fat loss; mild muscle mass loss; mild fluid accumulation Severe Malnutrition (in chronic illness) Energy Intake: <75% of estimated energy requirement for >1 month Weight Loss: >5%/1 month; >7.5%/3 months; >10%/6 months; >20%/1 year Other: severe body fat loss; severe muscle mass loss; severe fluid accumulation ; measurably reduced family physician strength (This form is maintained as a part of the permanent medical record) 2014 [employer] All Rights Reserved Keon Lopez [not provided] [not provided] NORMAN
--- NOTE | 2019-12-05 11:09 | EKG ---
Test Reason : Blood Pressure : / mmHG Vent. Rate : 080 BPM Atrial Rate : 080 BPM P-R Int : 164 ms QRS Dur : 096 ms QT Int : 392 ms P-R-T Axes : 005 037 049 degrees QTc Int : 452 ms Normal sinus rhythm RSR' or QR pattern in V1 suggests right ventricular conduction delay Nonspecific ST and T wave abnormality Abnormal ECG Confirmed by DANIELLE DIANE ([id number]), video effects editor SARI BOWDEN ([id number]) on 12/05/2019 11:09:22 AM Referred By: Confirmed By:DANIELLE DIANE
== END 2019-12-03 18:24 | disposition home or self-care (01) | DRG 372 ==
LOC: ERS 14:08 → T4-A 19:17
PROVIDERS: ADMIT Family Medicine; ATTEND Family Medicine
PROC: 0K9N3ZZ Drainage of Right Hip Muscle, Percutaneous Approach (ICD-10-PCS; principal; 2019-12-01)
DX: K68.12 Psoas muscle abscess (principal); G45.9 Transient cerebral ischemic attack, unspecified; K91.2 Postsurgical malabsorption, not elsewhere classified; K50.90 Crohn's disease, unspecified, without complications; E53.8 Deficiency of other specified B group vitamins; E55.9 Vitamin D deficiency, unspecified; D50.9 Iron deficiency anemia, unspecified; I10 Essential (primary) hypertension; J45.909 Unspecified asthma, uncomplicated; M35.00 Sjogren syndrome, unspecified; E87.6 Hypokalemia; E86.0 Dehydration; F17.210 Nicotine dependence, cigarettes, uncomplicated; G43.909 Migraine, unspecified, not intractable, without status migrainosus; Z93.2 Ileostomy status; Z88.0 Allergy status to penicillin; Z88.8 Allergy status to other drugs, medicaments and biological substances; Z90.49 Acquired absence of other specified parts of digestive tract; Z90.710 Acquired absence of both cervix and uterus
CPT/HCPCS: 36415; 49060; 74177; 77002; 80048; 80053; 81003; 81015; 83690; 83735; 85025; 85610; 85730; 87070; 87205; 90471; 90732; 93005; 96361; 96365; 96366; 96368; 96375; 96376; G0009; J0692; J0780; J1200; J1642; J2250; J2270; J2405; J3010; J3480; J3490; J7050; Q0163; Q0164; Q9967; S0028

== ENCOUNTER 2020-07-21 09:48 | Outpatient (CLI) | payer MEDICARE ==
--- NOTE | 2020-07-21 11:22 | ULT ---
ULTRASOUND THYROID: Date: 07/21/2020 HISTORY: ICD-10: "E04.1, thyroid nodule" in 44-year-old female COMPARISON: 07/23/2013 FINDINGS: Thyroid dimensions: Isthmus: 0.4 cm AP Right lobe: 5.9 x 2.6 x 1.8 cm. Left lobe: 5.4 x 1.9 x 1.6 cm Thyroid parenchymal echogenicity:Normal. Number of thyroid nodules:4 3 are in the right lobe and one is in the left lobe. Nodule # 1: Location: Right upper pole: Size: 2.3 x 1.5 x 1.9 cm. Composition: Spongiform: 0 points Shape: Wider than tall Margin: Smooth Echogenic foci: None Previous size: 1.3 x 0.8 x 0.8 cm. Although this nodule has grown, fact that it is spongiform automatically makes this benign. Nodule # 2: Location: Right mid pole: Very anteriorly. Size: 0.8 x 0.4 x 0.5 cm. Composition: Solid: 2 points Echogenicity: Hypoechoic: 2 points Shape: Wider than tall: 0 points Margin: Smooth: 0 points Echogenic foci: None: 0 points Total points: 4 TIRADS category:TR 4: Moderately suspicious. Recommendation: FNA if greater than or equal to 1.5 cm. Follow-up if greater than or equal to 1 cm (a t 1, 2, 3, and 5 years). This lesion is smaller than 1 cm, and therefore neither biopsy nor follow-up is recommended. On the 2013 ultrasound, there was a hypoechoic lesion measuring 0.5 x 0.4 x 0.3 cm in a similar locat ion, which may or may not be the same lesion as the current one. Nodule # 3: Location: Right mid pole: Size: 0.9 x 0.6 x 0.8 cm. Composition: Solid: 2 points Echogenicity: Isoechoic: 1 point. Shape: Wider than tall: 0 points Margin: Smooth: 0 points Echogenic foci: None: 0 points Total points: 3 TIRADS category:TR 3: Mildly suspicious. Recommendation: FNA if greater than or equal to 2.5 cm. Follow if greater than or equal to 1.5 cm (at 1, 3, and 5 years). This lesion is less than 1.5 cm, and therefore neither biopsy nor follow-up is recommended. This was not identified in 2013. Nodule # 4: Location: Left midpole: Size: 0.7 x 0.3 x 0.5 cm. Composition: Cystic This cyst is unchanged since 2013, and is benign. IMPRESSION: 1) Several thyroid nodules. 2) no biopsy and no follow-up ultrasound recommended.
== END 2020-07-21 09:49 | disposition home or self-care (01) ==
LOC: BICULT 09:48
PROVIDERS: ATTEND Otolaryngology Plastic Surgery within the Head & Neck
DX: E04.2 Nontoxic multinodular goiter (principal)
CPT/HCPCS: 76536

== ENCOUNTER 2021-03-29 08:55 | Outpatient (CLI) | payer MEDICARE ==
[2021-03-29] MEDS ORDERED: Iopamidol 370 76% 100 ML VIAL ONE (10:09)
== END 2021-03-29 08:56 | disposition home or self-care (01) ==
LOC: CT 08:55
PROVIDERS: ATTEND Surgery
DX: K50.914 Crohn's disease, unspecified, with abscess (principal); L90.5 Scar conditions and fibrosis of skin
CPT/HCPCS: 74177; Q9967

== ENCOUNTER → 2021-04-07 | Day surgery (SDC) | payer MEDICARE ==
[~2021-04-07] MED LIST changes: +DOBUTamine 250 MG/20 ML VIAL ONE; -Iopamidol-370 76% 500 ML 1 ML ONE; +Sodium Chloride 0.9% 20 ML ONE
== END ==
LOC: SPEC 12:36
PROVIDERS: ATTEND Surgery
PROC: 02HV33Z Insertion of Infusion Device into Superior Vena Cava, Percutaneous Approach (ICD-10-PCS; principal; 2021-04-07)
DX: R78.81 Bacteremia (principal); Z87.19 Personal history of other diseases of the digestive system; Z88.0 Allergy status to penicillin; Z88.1 Allergy status to other antibiotic agents; Z91.041 Radiographic dye allergy status; Z88.8 Allergy status to other drugs, medicaments and biological substances
CPT/HCPCS: 36569; C1751; J1250; J1642; J7050

== ENCOUNTER 2021-05-05 09:11 | Outpatient (CLI) | payer MEDICARE ==
[2021-05-05 22:13] LABS: SARS-CoV-2 PCR by NAA Not Detected (NotDetected)
== END 2021-05-05 09:12 | disposition home or self-care (01) ==
LOC: LABBT 09:11
PROVIDERS: ATTEND Surgery
DX: Z01.812 Encounter for preprocedural laboratory examination (principal); K50.90 Crohn's disease, unspecified, without complications; Z20.822 Contact with and (suspected) exposure to COVID-19
CPT/HCPCS: U0003; U0005; 96365; 96366; J7050

== ENCOUNTER 2021-05-10 09:47 | Day surgery (SDC) | payer MEDICARE ==
[2021-05-09 11:02] VITALS: BMI 20.9
[2021-05-10] MEDS ORDERED: Levofloxacin 500 mg/D5W 100 ml Premix Bag ONE (11:56)
[2021-05-10] MEDS ORDERED: Midazolam HCl 2 mg/2 ml Vial ONE (12:12)
[2021-05-10] MEDS ORDERED: Fentanyl 100 MCG/2 ML VIAL ONE (12:12)
[2021-05-10] MEDS ORDERED: Bupivacaine 0.25% HCL 30 ML VIAL ONE (12:19)
[2021-05-10] MEDS ORDERED: Lidocaine 1% w/Epinephrine 1:100K 20 ML VIAL ONE (12:19)
[2021-05-10] MEDS ORDERED: Heparin 10,000 UNITS/ 10 ML VIAL ONE (12:19)
[2021-05-10] MEDS ORDERED: Propofol 1,000 MG/100 ML VIAL IV ONE (12:21)
[2021-05-10] MEDS ORDERED: Ketorolac Tromethamine 30 MG/ML VIAL ONE (12:31)
[2021-05-10] MEDS ORDERED: diphenhydrAMINE 25 MG CAP ONE ×2 (13:39→13:40)
== END 2021-05-10 14:20 | disposition home or self-care (01) ==
LOC: SDC 09:47
PROVIDERS: ATTEND Surgery
PROC: 0JH60WZ Insertion of Totally Implantable Vascular Access Device into Chest Subcutaneous Tissue and Fascia, Open Approach (ICD-10-PCS; principal; 2021-05-10)
PROC: 02HV33Z Insertion of Infusion Device into Superior Vena Cava, Percutaneous Approach (ICD-10-PCS; 2021-05-10)
DX: K50.914 Crohn's disease, unspecified, with abscess (principal); K91.2 Postsurgical malabsorption, not elsewhere classified; M35.00 Sjogren syndrome, unspecified; I10 Essential (primary) hypertension; G43.909 Migraine, unspecified, not intractable, without status migrainosus; J45.909 Unspecified asthma, uncomplicated; K21.9 Gastro-esophageal reflux disease without esophagitis; F17.210 Nicotine dependence, cigarettes, uncomplicated; Z86.73 Personal history of transient ischemic attack (TIA), and cerebral infarction without residual deficits; Z79.899 Other long term (current) drug therapy; Z88.0 Allergy status to penicillin; Z88.5 Allergy status to narcotic agent; Z88.8 Allergy status to other drugs, medicaments and biological substances; Z91.041 Radiographic dye allergy status
CPT/HCPCS: 36561; 71045; C1788; J1642; J1644; J1885; J1956; J2250; J2704; J3010; Q0163; S0020

== ENCOUNTER 2021-07-28 14:30 | Outpatient (CLI) | payer MEDICARE | END 2021-07-28 14:31 | disposition home or self-care (01) | LOC: BICCT 14:30 | PROVIDERS: ATTEND Surgery | DX: K68.12 Psoas muscle abscess (principal) | CPT/HCPCS: 74176 ==

== ENCOUNTER 2021-12-19 08:47 | Outpatient (CLI) | payer MEDICARE | END 2021-12-19 08:48 | disposition home or self-care (01) | LOC: BICMAMMO 08:47 | PROVIDERS: ATTEND Internal Medicine Hematology & Oncology | DX: Z12.31 Encounter for screening mammogram for malignant neoplasm of breast (principal); Z80.3 Family history of malignant neoplasm of breast | CPT/HCPCS: 77063; 77067 ==

== ENCOUNTER 2023-02-07 07:22 | Inpatient (IN) | payer OTHER ==
[2023-02-07] MEDS ORDERED: Morphine 2 MG/ML VIAL ONE (08:29)
[2023-02-07 08:47] LABS: #Eosinphils 0.2 thou/uL (0.0-0.7); #Lymphocytes 3.3 thou/uL (1.20-3.40); #Neutrophils 13.9 thou/uL (1.40-6.50); %Basophils 0.2 % (0.0-1.0); %Lymphocytes 17.7 % (21.0-51.0); %Monocytes 5.6 % (0.0-10.0); %Neutrophils 75.4 % (42.0-75.0); Hemoglobin 13.6 g/dL (12.0-16.0); Mean Corpuscular HGB CONC 34.8 g/dL (32.0-36.0); Mean Corpuscular Hemoglobin 30.4 pg (27.0-31.0); Mean Corpuscular Volume 87.2 fl (78.0-98.0); Mean Platelet Volume 8.5 fL (7.4-10.4); Platelet Count 345 10x3/uL (130-400); RBC Distribution Width 13.2 % (11.5-14.5); Red Blood Cell (RBC) Count 4.47 mill/uL (4.20-5.40); White Blood Cell (WBC) Count 18.4 10x3/uL (4.8-10.8)
[2023-02-07 09:00] LABS: ALT (SGPT) 68 U/L (8-55); AST (SGOT) 44 U/L (5-34); Albumin 4.9 g/dL (3.5-5.0); Alkaline Phosphatase 297 U/L (40-110); Anion Gap 26 mmol/L (10-20); BUN (Urea Nitrogen) 27 mg/dL (7.0-18.7); Bilirubin, Total 0.5 mg/dL (0.2-1.2); Calc. Creatinine Clearance 0 mL/min (70-130); Carbon Dioxide 19 mmol/L (22-29); Chloride 86 mmol/L (98-107); Estimated GFR 13; Globulin 4.2 g/dL (2.4-3.5); Glucose 95 mg/dL (70-105); Lipase 51 U/L (8-78); Potassium 4.1 mmol/L (3.5-5.1); Protein, Total 9.1 g/dL (6.0-8.3); Sodium 127 mmol/L (136-145)
[2023-02-07] MEDS ORDERED: Ondansetron PF 4 MG/2 ML Vial IVP PRN (11:36)
[2023-02-07] MEDS ORDERED: Acetaminophen 325 MG TAB PO PRN (11:36)
[2023-02-07] MEDS ORDERED: Sodium Chloride 0.9% 1,000 ML IV SCH (11:36)
[2023-02-07 13:30] VITALS: BMI 24.5
[2023-02-07] MEDS: Sodium Chloride 0.9% 1,000 ML IV SCH ×2 (16:20→20:32)
[2023-02-07] MEDS: Nicotine 21 MG PATCH TD SCH (16:20)
[2023-02-07] MEDS: HYDROcodone/Acetaminophen 5/325 mg Tablet PO PRN ×2 (16:22→23:49)
[2023-02-07] MEDS: Diphenoxylate HCl/Atropine Tablet PO SCH (20:31)
[2023-02-08] MEDS ORDERED: tiZANidine HCl 4 MG TAB PO SCH (03:15)
[2023-02-08] MEDS: Diphenoxylate HCl/Atropine Tablet PO SCH ×4 (03:18→21:17)
[2023-02-08] MEDS: HYDROcodone/Acetaminophen 5/325 mg Tablet PO PRN ×3 (03:51→14:42)
[2023-02-08 04:01] LABS: #Eosinphils 0.2 thou/uL (0.0-0.7); #Lymphocytes 2.6 thou/uL (1.20-3.40); #Monocytes 0.5 thou/uL (0.11-0.59); %Basophils 0.4 % (0.0-1.0); %Eosinophils 2.4 % (0.0-10.0); %Lymphocytes 31.7 % (21.0-51.0); %Monocytes 6.3 % (0.0-10.0); %Neutrophils 59.3 % (42.0-75.0); Hemoglobin 10.6 g/dL (12.0-16.0); Mean Corpuscular HGB CONC 35.2 g/dL (32.0-36.0); Mean Corpuscular Hemoglobin 31.2 pg (27.0-31.0); Mean Corpuscular Volume 88.5 fl (78.0-98.0); Mean Platelet Volume 8.7 fL (7.4-10.4); Platelet Count 198 10x3/uL (130-400); RBC Distribution Width 13.2 % (11.5-14.5); White Blood Cell (WBC) Count 8.4 10x3/uL (4.8-10.8)
[2023-02-08 04:16] LABS: ALT (SGPT) 48 U/L (8-55); AST (SGOT) 41 U/L (5-34); Albumin 3.4 g/dL (3.5-5.0); Alkaline Phosphatase 220 U/L (40-110); Anion Gap 12 mmol/L (10-20); BUN (Urea Nitrogen) 33 mg/dL (7.0-18.7); Bilirubin, Direct 0.2 mg/dL (0.1-0.3); Bilirubin, Total 0.4 mg/dL (0.2-1.2); Calc. Creatinine Clearance 29 mL/min (70-130); Carbon Dioxide 23 mmol/L (22-29); Chloride 101 mmol/L (98-107); Estimated GFR 25; Glucose 83 mg/dL (70-105); Potassium 3.8 mmol/L (3.5-5.1); Protein, Total 6.1 g/dL (6.0-8.3); Sodium 132 mmol/L (136-145)
[2023-02-08] MEDS: Sodium Chloride 0.9% 1,000 ML IV SCH ×3 (04:35→21:17)
[2023-02-08] MEDS: Nicotine 21 MG PATCH TD SCH (10:22)
[2023-02-08] MEDS: Morphine 2 MG/ML VIAL SLOW IVP PRN ×2 (17:39→22:40)
[2023-02-09] MEDS: Sodium Chloride 0.9% 1,000 ML IV SCH (04:17)
[2023-02-09 04:36] LABS: #Basophils 0.1 thou/uL (0.0-0.2); #Eosinphils 0.2 thou/uL (0.0-0.7); #Lymphocytes 2.6 thou/uL (1.20-3.40); #Monocytes 0.4 thou/uL (0.11-0.59); #Neutrophils 4.4 thou/uL (1.40-6.50); %Basophils 0.7 % (0.0-1.0); %Eosinophils 2.7 % (0.0-10.0); %Lymphocytes 33.7 % (21.0-51.0); %Monocytes 5.1 % (0.0-10.0); %Neutrophils 57.8 % (42.0-75.0); Hemoglobin 9.6 g/dL (12.0-16.0); Mean Corpuscular HGB CONC 35.3 g/dL (32.0-36.0); Mean Corpuscular Hemoglobin 31.5 pg (27.0-31.0); Mean Corpuscular Volume 89.1 fl (78.0-98.0); Mean Platelet Volume 8.6 fL (7.4-10.4); Platelet Count 185 10x3/uL (130-400); RBC Distribution Width 13.1 % (11.5-14.5); Red Blood Cell (RBC) Count 3.05 mill/uL (4.20-5.40); White Blood Cell (WBC) Count 7.6 10x3/uL (4.8-10.8)
[2023-02-09 04:56] LABS: Anion Gap 12 mmol/L (10-20); BUN (Urea Nitrogen) 28 mg/dL (7.0-18.7); Calc. Creatinine Clearance 50 mL/min (70-130); Calcium 7.8 mg/dL (7.8-10.44); Carbon Dioxide 21 mmol/L (22-29); Chloride 111 mmol/L (98-107); Estimated GFR 48; Glucose 70 mg/dL (70-105); Potassium 4.1 mmol/L (3.5-5.1); Sodium 140 mmol/L (136-145)
[2023-02-09] MEDS: HYDROcodone/Acetaminophen 5/325 mg Tablet PO PRN ×2 (05:26→10:44)
[2023-02-09] MEDS: Diphenoxylate HCl/Atropine Tablet PO SCH (08:16)
[2023-02-09] MEDS: Nicotine 21 MG PATCH TD SCH (11:37)
[2023-02-09 13:24] VITALS: BP 100/64; TEMP 97.8
== END 2023-02-09 13:44 | disposition home or self-care (01) | DRG 683 ==
LOC: ERS 07:22 → ERHOLD 09:38 → MSONC 12:44 → OBSVTOIN 02-08 15:29
PROVIDERS: ADMIT Internal Medicine; ATTEND Hospitalist
DX: N17.9 Acute kidney failure, unspecified (principal); E86.1 Hypovolemia; E87.1 Hypo-osmolality and hyponatremia; E86.0 Dehydration; F17.210 Nicotine dependence, cigarettes, uncomplicated; N18.30 Chronic kidney disease, stage 3 unspecified; I12.9 Hypertensive chronic kidney disease with stage 1 through stage 4 chronic kidney disease, or unspecified chronic kidney disease; Z88.8 Allergy status to other drugs, medicaments and biological substances; Z88.0 Allergy status to penicillin; Z88.1 Allergy status to other antibiotic agents; Z79.899 Other long term (current) drug therapy; Z86.73 Personal history of transient ischemic attack (TIA), and cerebral infarction without residual deficits; Z90.49 Acquired absence of other specified parts of digestive tract; Z90.710 Acquired absence of both cervix and uterus; Z82.49 Family history of ischemic heart disease and other diseases of the circulatory system; Z93.2 Ileostomy status
CPT/HCPCS: 36415; 80048; 80053; 80076; 83690; 85025; 93005; 96361; 96374; G0378; J1642; J2272; J7050

== ENCOUNTER 2024-05-19 14:50 | Outpatient (CLI) | payer OTHER | END 2024-05-19 14:51 | disposition home or self-care (01) | LOC: BICULT 14:50 | PROVIDERS: ATTEND Family Medicine | DX: E04.2 Nontoxic multinodular goiter (principal) | CPT/HCPCS: 76536 ==

== ENCOUNTER 2024-06-04 09:04 | Outpatient (CLI) | payer MEDICARE | END 2024-06-04 09:05 | disposition home or self-care (01) | LOC: BICMRI 09:04 | PROVIDERS: ATTEND Specialist | DX: E21.3 Hyperparathyroidism, unspecified (principal); E04.2 Nontoxic multinodular goiter; K22.89 Other specified disease of esophagus | CPT/HCPCS: 70543; 82565 ==

== ENCOUNTER 2024-08-26 06:55 | Day surgery (SDC) | payer OTHER ==
[2024-08-24 13:40] VITALS: BMI 25.3
[2024-08-26] MEDS ORDERED: Ondansetron PF 4 MG/2 ML Vial ONE ×2 (07:18→08:13)
[2024-08-26] MEDS ORDERED: Dexamethasone 4 mg/ml Vial ONE ×2 (07:18→08:13)
[2024-08-26] MEDS ORDERED: fentaNYL PF 100 MCG/2 ML SYRINGE ONE ×3 (07:18→10:33)
[2024-08-26] MEDS ORDERED: Lidocaine 2% PF 5 ML VIAL ONE (07:19)
[2024-08-26] MEDS ORDERED: SUCCINYLCHOLINE/SOD CL,ISO/PF 200 MG/10 ML SYRINGE FS ONE ×2 (07:21→08:13)
[2024-08-26] MEDS ORDERED: Midazolam HCl 2 mg/2 ml Vial ONE ×2 (07:56→08:12)
[2024-08-26] MEDS ORDERED: PROPOFOL 0 ML ONE (08:12)
[2024-08-26] MEDS ORDERED: Lidocaine 1% PF 5 ML VIAL ONE (08:13)
[2024-08-26] MEDS ORDERED: EPINEPHrine 1 MG/ML VIAL ONE (08:45)
[2024-08-26] MEDS ORDERED: Lidocaine 1% (PF) 30 ML VIAL ONE (08:45)
[2024-08-26] MEDS ORDERED: MINERAL OIL/WHITE PETROLATUM 3.5 GM TUBE ONE (08:56)
[2024-08-26] MEDS ORDERED: CEFAZOLIN 1 GM VIAL ONE (09:14)
[2024-08-26] MEDS ORDERED: Clindamycin/D5W 900 mg/50 ml Premix Bag ONE (09:14)
[2024-08-26] MEDS ORDERED: PHENYLEPHRINE-NS 100 MCG/ML 10 ML SYRINGE ONE (09:14)
[2024-08-26] MEDS ORDERED: HYDROmorphone 0.5 MG/0.5 ML SYRINGE ONE ×2 (10:33→11:08)
[2024-08-26] MEDS ORDERED: Hydrocodone-Acetamin 15 ML UDCUP ONE (12:48)
== END 2024-08-26 13:35 | disposition home or self-care (01) ==
LOC: SDC 06:55
PROVIDERS: ATTEND Otolaryngology Plastic Surgery within the Head & Neck
PROC: 0GTM0ZZ Resection of Left Superior Parathyroid Gland, Open Approach (ICD-10-PCS; principal; 2024-08-26)
DX: E21.3 Hyperparathyroidism, unspecified (principal); J45.909 Unspecified asthma, uncomplicated; D64.9 Anemia, unspecified; Z79.899 Other long term (current) drug therapy; Z88.8 Allergy status to other drugs, medicaments and biological substances; Z91.041 Radiographic dye allergy status; Z88.0 Allergy status to penicillin
CPT/HCPCS: 88305; C1889; J0171; J0690; J1100; J1170; J2250; J2405; J2704; J3490